=== PATIENT | female | born 1965 | race African-American/Black ===

== ENCOUNTER 2016-11-10 23:59 | Inpatient (IN) ==
[2016-11-11] MEDS ORDERED: *HR* LORazepam 2 MG/ML VIAL IM PRN (00:39)
[2016-11-11] MEDS ORDERED: Haloperidol Lactate 5 MG/ML VIAL IM PRN (00:39)
[2016-11-11] MEDS ORDERED: *HR* LORazepam 1 MG TABLET PO PRN (00:39)
[2016-11-11] MEDS ORDERED: MOM Conc 10 ML UD.LIQ PO PRN (00:39)
[2016-11-11] MEDS ORDERED: hydrOXYzine pamoate 25 MG CAPSULE PO PRN (00:39)
[2016-11-11] MEDS ORDERED: Mag Hydrox/Al Hydrox/Simeth 30 ML UDC PO PRN (00:39)
[2016-11-11] MEDS ORDERED: Warfarin perPT PO PRN (01:06)
[2016-11-11 01:29] LABS: INR 1.4; Prothrombin Time 15.3 Seconds (9.4-12.1)
[2016-11-11] MEDS: traZODone 50 MG TABLET PO PRN (03:03)
[2016-11-11] MEDS: Acetaminophen 325 MG TABLET PO PRN ×2 (03:04→18:33)
--- NOTE | 2016-11-11 11:17 | Psychiatry History & Physical ---
Date of Encounter: 11/11/16 Time of Encounter: 10:30 History of Present Illness Patient Stated Chief Complaint: Suicidal ideation Medicare Admission Attestation: For traditional Medicare patients the provided hospital inpatient services are reasonable and necessary and in the case of services not specified as inpatient -only under 42 CFR 419.22 (n), that they are appropriately provided as inpatient services in accordance 42 CFR 412.3. For Critical Access Hospital the patient may reasonably be expected to be discharged or transferred to a hospital within 96 hours after admission to the Critical Access Hospital. Admitted From: Emergency Dept History of Present Illness: Ms. Gannon is a 51 year old female admitted from the emergency room for evaluation of suicidal ideation. Patient was reported to lie down on them in the streets wishing she can get hit by a car to kill herself. Recently patient lost her 23 yo son, she was the main caregiver for him since he was disabled and she feels overwhelmed by his . She is also stressed out with other family issues. Patient had remote history of psychiatric hospitalization 20 years ago in [place]. Denies any past suicide attempts. Patient education including Cymbalta and Risperdal were prescribed by her primary care. 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 She denies any use of alcohol or drug use. Patient had significant medical history including diabetes, migraine, COPD. Past Med Surg Social Fam HX - Past Medical History Medical history: arthritis, COPD, diabetes, GERD, hyperlipidemia, hypertension, migraine, pulmonary embolus - Past Psychiatric History Psychiatric history: Reports: depression, previous psychiatric hospitalization Past psychiatric history details: Hospitalized 20 years ago and [facility]. - Past Surgical History Surgical History: cholecystectomy, herniorrhaphy, hysterectomy, orthopedic, other, other - Social History Smoking Status: Never smoker Smokeless Tobacco Status: No Alcohol use: rarely Drug use: none, other - Family History Father Hx Family Cardiac Disorders: Yes Mother Hx Family Cardiac Disorders: Yes Hx Family Endocrine Disorder: Yes (Diabetes mellitus type 2) Brother Hx Family Cancer: Yes (Various different cancers including a rectal cancer) Medications & Allergies Duloxetine HCl [Cymbalta] 60 mg PO DAILY 06/14/15 [History] Insulin Glargine,Hum.rec.anlog [Lantus Solostar] 20 unit SQ DAILY 06/14/15 [ History] Metformin HCl [Glucophage] 1,000 mg PO BID PRN 06/14/15 [History] Aspirin [Adult Low Dose Aspirin EC] 81 mg PO DAILY 09/06/15 [History] Atorvastatin Calcium [Lipitor] 80 mg PO HS 09/06/15 [History] Cholecalciferol (Vitamin D3) [Vitamin D3] 2,000 unit PO DAILY 09/06/15 [History] Isosorbide MONOnitrate (24 HR) [Imdur] 30 mg PO DAILY 09/06/15 [History] Omeprazole [PriLOSEC] 40 mg PO DAILY 09/06/15 [History] AcetaZOLAMIDE [Diamox Sequels] 500 mg PO BID 05/26/16 [History] Metoprolol Succinate 100 mg PO DAILY 05/26/16 [History] Pregabalin [Lyrica] 225 mg PO BID capsule 06/20/16 [Rx] Warfarin [Coumadin] 8 mg PO DAILY@1800 11/10/16 [History] Albuterol Sulfate [Proair Hfa] 2 puff IH Q4H PRN 11/11/16 [History] Insulin ASPART [NovoLOG] 0 unit SQ TIDWM 11/11/16 [History] Ketorolac OPTH Soln [Acular] 1 drop OP QID 11/11/16 [History] Ketotifen Fumarate [Eye Itch Relief] 1 drop OP BID 11/11/16 [History] Lisinopril/Hydrochlorothiazide [Zestoretic 20-25 mg Tablet] 1 each PO DAILY [History] PrednisoLONE Acetate 1% Opth [PredFORTE 1%] 1 drop OP BID 11/11/16 [History] SUMAtriptan Succinate [Imitrex] 100 mg PO DAILY PRN 11/11/16 [History] risperiDONE [Risperidone] 1 mg PO HS 11/11/16 [History] Allergies gabapentin Allergy (Verified 06/14/15 04:04) Itching Latex, Natural Rubber Allergy (Verified 06/14/15 04:04) Itching naproxen [From Naprosyn] Allergy (Verified 06/14/15 04:04) Itching Review of Systems Psychiatric: Reports: depression, suicidal ideation, hopelessness Mental Status Exam Patient orientation: Yes Person, Yes Time, Yes Place Level of alertness: Alert Patient appearance: Appropriate, Well Groomed, Obese Behavior: calm, cooperative, withdrawn Psychomotor activity: Slowed Eye contact: Minimal Contact Mood description: Depressed, Anxious Affect description: congruent with mood, constricted, tearful Speech pattern: Normal rate, Normal rhythm, Normal tone Speech volume: Normal Thought process: Linear, Goal Oriented Thought content: Yes Suicidal ideation, No Homicidal ideation, No Overt delusions Perceptual disturbances: No Auditory hallucinations, No Visual hallucinations Attention span: Capable of Focused Attention Memory description: Grossly Intact Patient reliability: Reliable Historian Intelligence estimate: Average Judgment: Limited Insight: Partial Results - Vital Signs Vital signs: Temp Pulse Resp BP 97.2 F L 80 16 164/102 11/11/16 09:00 11/11/16 09:00 11/11/16 09:00 11/11/16 09:00 - Labs Labs: Laboratory Last Values PT 15.3 Seconds (9.4-12.1) H 11/11/16 01:08 INR 1.4 11/11/16 01:08 POC Glucose 154 (58-89) H 11/11/16 10:03 Assessment and Plan (1) Bipolar disorder current episode depressed Current visit: Yes Status: Acute Plan: Admit inpatient for safety and stabilization, Close observation, Suicide Precautions per unit protocol, Encourage participation in unit milieu, Group Therapy, Monitor sleep, Monitor appetite Additional Plan: Will add Zoloft 50 mg daily, patient had history of response to this medicine. Benefits and side effects were discussed and she is agreeable to start. Risks, benefits, side effects, alternatives discussed w/pt: Yes Patient agreeable to treatment: Yes Qualifiers: Current episode severity: severe Psychotic features: without psychotic features Qualified Code(s): F31.4 - Bipolar disorder, current episode depressed, severe, without psychotic features
[2016-11-11] MEDS: Insulin LISPRO 300 UNITS/3 ML VIAL SQ SCH ×2 (12:23→17:01)
[2016-11-11] MEDS: *HR* Metformin 500 MG TABLET PO SCH ×2 (12:24→17:02)
[2016-11-11] MEDS: acetaZOLAMIDE 250 MG TABLET PO SCH ×2 (12:25→22:02)
[2016-11-11] MEDS: Metoprolol XL (24 HR) Succ 50 MG TAB.ER.24H PO SCH (12:25)
[2016-11-11] MEDS: Aspirin Enteric Coated 81 MG Tablet PO SCH (12:25)
[2016-11-11] MEDS: Cholecalciferol (D-3) 1,000 UNIT TABLET PO SCH (12:28)
[2016-11-11] MEDS: RisperiDONE-M 1 MG TAB.RAPDIS PO SCH (12:28)
[2016-11-11] MEDS: Isosorbide MONOnitrate (24 HR) 30 MG TAB.ER.24H PO SCH (12:28)
[2016-11-11] MEDS ORDERED: SUMAtriptan succinate 50 MG TABLET PO PRN (13:15)
[2016-11-11] MEDS: *HR* Warfarin 4 MG TABLET PO SCH (16:57)
[2016-11-11] MEDS ORDERED: *HR* Warfarin 5 MG TABLET PO SCH (18:00)
[2016-11-11] MEDS ORDERED: Ketorolac OPTH Soln 5 ML BOTTLE RIGHT EYE SCH (21:00)
[2016-11-11] MEDS: Ketorolac OPTH Soln 5 ML BOTTLE RIGHT EYE SCH (22:03)
[2016-11-11] MEDS: PrednisoLONE Acetate 1% Opth 5 ML BOTTLE RIGHT EYE SCH (22:04)
[2016-11-12] MEDS: Acetaminophen 325 MG TABLET PO PRN (07:34)
[2016-11-12] MEDS: *HR* Metformin 500 MG TABLET PO SCH ×2 (08:37→16:44)
[2016-11-12] MEDS: RisperiDONE-M 1 MG TAB.RAPDIS PO SCH (08:38)
[2016-11-12] MEDS: Aspirin Enteric Coated 81 MG Tablet PO SCH (08:38)
[2016-11-12] MEDS: Cholecalciferol (D-3) 1,000 UNIT TABLET PO SCH (08:38)
[2016-11-12] MEDS: acetaZOLAMIDE 250 MG TABLET PO SCH ×2 (08:38→21:18)
[2016-11-12] MEDS: Isosorbide MONOnitrate (24 HR) 30 MG TAB.ER.24H PO SCH (08:40)
[2016-11-12] MEDS: PrednisoLONE Acetate 1% Opth 5 ML BOTTLE RIGHT EYE SCH ×4 (08:41→21:18)
[2016-11-12] MEDS: Metoprolol XL (24 HR) Succ 50 MG TAB.ER.24H PO SCH (08:41)
[2016-11-12] MEDS: Insulin DETEMIR 100 UNIT/ML X5UNITS SQ SCH (08:42)
[2016-11-12] MEDS: Ketorolac OPTH Soln 5 ML BOTTLE RIGHT EYE SCH ×4 (08:42→21:17)
[2016-11-12] MEDS: Insulin LISPRO 300 UNITS/3 ML VIAL SQ SCH ×3 (08:43→16:44)
[2016-11-12 08:46] LABS: INR 1.4; Prothrombin Time 15.6 Seconds (9.4-12.1)
--- NOTE | 2016-11-12 13:40 | Psychiatry Progress Note ---
Date of Encounter: 11/12/16 Time of Encounter: 13:00 Subjective Interval history: Patient is seen for follow-up she reported feeling slightly better, had adequate sleep , she denies having suicidal thoughts. She feels sad and misses her son. She is occupied with multiple family stressors. She is tolerating her medication. She is interested in having outpatient therapy and will discuss it with social work manager. Denies any medical complaints. Review of Systems Psychiatric: Reports: depression, suicidal ideation, hopelessness Objective: Exam Patient orientation: Yes Person, Yes Time, Yes Place Level of alertness: Alert Patient appearance: Appropriate, Well Groomed, Obese Behavior: calm, cooperative, tearful Psychomotor activity: Slowed Eye contact: Minimal Contact Mood description: Depressed, Anxious Affect description: congruent with mood, constricted Speech pattern: Normal rate, Normal rhythm, Normal tone, Slowed Speech volume: Normal Thought process: Linear, Goal Oriented Thought content: No Suicidal ideation, No Homicidal ideation, No Overt delusions Perceptual disturbances: No Auditory hallucinations, No Visual hallucinations Judgment: Fair Insight: Partial Results - Vital Signs Vital Signs: Temp Pulse Resp BP 97 F L 59 16 110/73 11/12/16 09:00 11/12/16 09:00 11/12/16 09:00 11/12/16 09:00 - Labs Labs: Laboratory Results - last 24 hr 11/11/16 11/11/16 11/12/16 16:48 20:39 08:21 PT INR POC Glucose 112 H 135 H 228 H 11/12/16 11/12/16 08:22 11:32 PT 15.6 H INR 1.4 POC Glucose 200 H Assessment and Plan (1) Bipolar disorder current episode depressed Current visit: Yes Status: Acute Plan: Continue hospitalization, Close observation, Suicide Precautions per unit protocol, Encourage participation in unit milieu, Group Therapy, Monitor sleep, Monitor appetite Risks, benefits, side effects, alternatives discussed w/pt: Yes Patient agreeable to treatment: Yes Qualifiers: Current episode severity: severe Psychotic features: without psychotic features Qualified Code(s): F31.4 - Bipolar disorder, current episode depressed, severe, without psychotic features Consult Discharge Plan - Plan [facility] - 11/14/16 3:00 pm (The above appointment is with Karlene Capps for counseling.) Maxine Ordaz MD [Partnered Physician] - 11/21/16 7:00 pm (The above appointment is with Dr. Ordaz.)
[2016-11-12] MEDS: *HR* Warfarin 4 MG TABLET PO SCH (17:21)
[2016-11-12] MEDS: *HR* Enoxaparin 100 MG/ML SYRINGE SQ SCH (17:21)
--- NOTE | 2016-11-12 18:12 | Internal Medicine Consult Note ---
Date of Encounter: 11/12/16 Time of Encounter: 18:09 - Assessment and Plan (1) History of pulmonary embolism Current Visit: No Status: Acute Assessment and plan: Start Lovenox 1 mg/kg twice a day until INR is more than 2 Continue Coumadin per pharmacy dosing Needs to follow-up as an outpatient with Coumadin clinic Thank you for allowing us to participate in the care of this patient. Please call with any questions (2) DM type 2 (diabetes mellitus, type 2) Current Visit: No Status: Acute Assessment and plan: Continue insulin Qualifiers: Diabetes mellitus complication status: without complication Diabetes mellitus manager long term care insulin use: with mcc use Qualified Code(s): E11.9 - Type 2 diabetes mellitus without complications; Z79.4 - intermediate project manager (current) use of insulin (3) CAD (coronary artery disease) Current Visit: No Status: Chronic Assessment and plan: Stable Qualifiers: Coronary Disease-Associated Artery/Lesion type: [place] artery [place] vs. transplanted heart: [place] heart Associated angina: with unspecified angina Qualified Code(s): I25.119 - Atherosclerotic heart disease of [place] coronary artery with unspecified angina pectoris (4) GERD (gastroesophageal reflux disease) Current Visit: No Status: Chronic Qualifiers: Esophagitis presence: without esophagitis Qualified Code(s): K21.9 - Gastro -esophageal reflux disease without esophagitis (5) Bipolar disorder Current Visit: No Status: Chronic Assessment and plan: Continue management per psychiatry Qualifiers: Active/Remission status: currently active Current bipolar episode type: mixed Current episode severity: unspecified Qualified Code(s): F31.60 - Bipolar disorder, current episode mixed, unspecified (6) Suicidal ideation Current Visit: No Status: Acute Assessment and plan: Continue management per psychiatry Internal Medicine - CN: HPI - Data of Consult Patient: new to practice Consult date: 11/12/16 Requesting Physician: Lauro Ivey MD - Consult Narrative Reason for consult: Anticoagulation management History of present illness: Ms. Gannon is a 51 year old female with a past medical history of depression, pulmonary emboli on Coumadin, diabetes type 2 insulin-dependent who was admitted to the psychiatry unit due to suicidal ideation after her son's . We were consulted by the psychiatry service to manage her anticoagulation as her INR is 1.4. The patient was diagnosed with a pulmonary emboli just a few months ago. Her mother and brother have history of clotting disorders and she is not sure whether she has a 2. Patient denies any shortness of breath at the moment no leg pain, had mild chest discomfort in the past but not at the moment. She is asymptomatic. Past Med Surg Social Fam HX - Past Medical History Medical history: arthritis, COPD (Not oxygen dependent), diabetes (Insulin- dependent), GERD, hyperlipidemia, hypertension, migraine, pulmonary embolus (On Coumadin), other (CAD, GERD, migraines, depression, bipolar disorder) Psychiatric history: depression, previous psychiatric hospitalization - Past Surgical History Surgical History: cholecystectomy, herniorrhaphy, hysterectomy, orthopedic, other, other (Cardiac catheterization) - Social History Smoking Status: Never smoker Smokeless Tobacco Status: No Alcohol use: rarely Drug use: none, other - Family History Father Hx Family Cardiac Disorders: Yes Mother Hx Family Cardiac Disorders: Yes Hx Family Endocrine Disorder: Yes (Diabetes mellitus type 2) Brother Hx Family Cancer: Yes (Various different cancers including a rectal cancer) - Additional Family History Additional family history: Mother with diabetes and clotting disorder, brother with clotting disorder and rectal cancer Review of systems: Other systems out the 10 reviewed were negative. No abdominal pain, no dysuria. No weakness or chest pain. Internal Medicine - CN: Meds Duloxetine HCl [Cymbalta] 60 mg PO DAILY 06/14/15 [History] Insulin Glargine,Hum.rec.anlog [Lantus Solostar] 20 unit SQ DAILY 06/14/15 [ History] Metformin HCl [Glucophage] 1,000 mg PO BID PRN 06/14/15 [History] Aspirin [Adult Low Dose Aspirin EC] 81 mg PO DAILY 09/06/15 [History] Atorvastatin Calcium [Lipitor] 80 mg PO HS 09/06/15 [History] Cholecalciferol (Vitamin D3) [Vitamin D3] 2,000 unit PO DAILY 09/06/15 [History] Isosorbide MONOnitrate (24 HR) [Imdur] 30 mg PO DAILY 09/06/15 [History] Omeprazole [PriLOSEC] 40 mg PO DAILY 09/06/15 [History] AcetaZOLAMIDE [Diamox Sequels] 500 mg PO BID 05/26/16 [History] Metoprolol Succinate 100 mg PO DAILY 05/26/16 [History] Pregabalin [Lyrica] 225 mg PO BID capsule 06/20/16 [Rx] Warfarin [Coumadin] 8 mg PO DAILY@1800 11/10/16 [History] Albuterol Sulfate [Proair Hfa] 2 puff IH Q4H PRN 11/11/16 [History] Insulin ASPART [NovoLOG] 0 unit SQ TIDWM 11/11/16 [History] Ketorolac OPTH Soln [Acular] 1 drop OP QID 11/11/16 [History] Ketotifen Fumarate [Eye Itch Relief] 1 drop OP BID 11/11/16 [History] Lisinopril/Hydrochlorothiazide [Zestoretic 20-25 mg Tablet] 1 each PO DAILY [History] PrednisoLONE Acetate 1% Opth [PredFORTE 1%] 1 drop OP QID 11/11/16 [History] SUMAtriptan Succinate [Imitrex] 100 mg PO DAILY PRN 11/11/16 [History] risperiDONE [Risperidone] 1 mg PO HS 11/11/16 [History] Allergies gabapentin Allergy (Verified 06/14/15 04:04) Itching Latex, Natural Rubber Allergy (Verified 06/14/15 04:04) Itching naproxen [From Naprosyn] Allergy (Verified 06/14/15 04:04) Itching Internal Medicine - CN: Exam - Constitutional Vitals: Temp Pulse Resp BP 97 F L 59 16 110/73 11/12/16 09:00 11/12/16 09:00 11/12/16 09:00 11/12/16 09:00 General appearance IM: Present: A&O X 3 - Head Head exam: Present: atraumatic, normal inspection - Expanded Head Exam Head exam expanded IM: Absent: Cabral's sign, contusion, hematoma, laceration - Eye Eye exam: Present: EOMI, normal appearance. Absent: conjunctival injection, nystagmus - ENT ENT exam: Present: mucous membranes moist - Neck Neck exam general surgery: Present: full ROM, normal inspection. Absent: lymphadenopathy - Expanded Neck Exam Neck exam: Absent: carotid bruit, tenderness - Respiratory Respiratory exam: Present: decreased breath sounds. Absent: accessory muscle use, chest wall tenderness, rales, respiratory distress, wheezes, tachypnea - Cardiovascular Cardiovascular exam IM: Present: +S1. Absent: diastolic murmur - GI/Abdominal GI/Abdominal exam IM: Present: diminished bowel sounds, distended, soft. Absent : hyperactive bowel sounds, rebound, rigid - Extremities Exam Extremities exam IM: Present: full ROM. Absent: calf tenderness, cyanotic, joint swelling - Back Exam Back exam: Absent: CVA tenderness (L), CVA tenderness (R) - Neurological Exam Neurological exam: Present: alert, CN II-XII intact, normal gait, oriented X3 - Psychiatric Psychiatric exam: Present: depressed. Absent: agitated, anxious - Skin Skin exam IM: Absent: abrasion, cyanosis, diaphoretic Internal Medicine - CN: Reslt - ABG Interpretation ABG results: PT/INR, D-dimer PT 15.6 Seconds (9.4-12.1) H 11/12/16 08:22 Consult Discharge Plan - Plan Referrals: [facility] [Outside] - 11/14/16 3:00 pm (The above appointment is with Karlene Capps for counseling.) Maxine Ordaz MD [Partnered Physician] - 11/21/16 7:00 pm (The above appointment is with Dr. Ordaz.)
[2016-11-12] MEDS: traZODone 50 MG TABLET PO PRN (21:19)
[2016-11-13 06:18] LABS: INR 1.8; Prothrombin Time 19.2 Seconds (9.4-12.1)
[2016-11-13] MEDS: *HR* Enoxaparin 100 MG/ML SYRINGE SQ SCH ×2 (06:49→18:31)
[2016-11-13] MEDS: Acetaminophen 325 MG TABLET PO PRN (06:50)
[2016-11-13] MEDS: Isosorbide MONOnitrate (24 HR) 30 MG TAB.ER.24H PO SCH (08:53)
[2016-11-13] MEDS: RisperiDONE-M 1 MG TAB.RAPDIS PO SCH (08:53)
[2016-11-13] MEDS: Metoprolol XL (24 HR) Succ 50 MG TAB.ER.24H PO SCH (08:53)
[2016-11-13] MEDS: acetaZOLAMIDE 250 MG TABLET PO SCH (08:53)
[2016-11-13] MEDS: Cholecalciferol (D-3) 1,000 UNIT TABLET PO SCH (08:54)
[2016-11-13] MEDS: Aspirin Enteric Coated 81 MG Tablet PO SCH (08:54)
[2016-11-13] MEDS: Ketorolac OPTH Soln 5 ML BOTTLE RIGHT EYE SCH ×3 (08:55→16:18)
[2016-11-13] MEDS: *HR* Metformin 500 MG TABLET PO SCH ×2 (08:55→16:18)
[2016-11-13] MEDS: Insulin DETEMIR 100 UNIT/ML X5UNITS SQ SCH (08:55)
[2016-11-13] MEDS: PrednisoLONE Acetate 1% Opth 5 ML BOTTLE RIGHT EYE SCH ×3 (08:55→18:31)
[2016-11-13] MEDS: Insulin LISPRO 300 UNITS/3 ML VIAL SQ SCH ×3 (08:56→16:18)
[2016-11-13 09:33] VITALS: BP 128/82
--- NOTE | 2016-11-13 14:43 | Discharge Summary ---
Date of Encounter: 11/13/16 Time of Encounter: 14:42 Diagnosis - Discharge Diagnosis (1) Bipolar disorder current episode depressed Status: Acute Qualifiers: Current episode severity: severe Psychotic features: without psychotic features Qualified Code(s): F31.4 - Bipolar disorder, current episode depressed, severe, without psychotic features Medications - Discharge Medications Prescriptions: Sertraline [Zoloft] 50 mg PO DAILY #30 tablet Duloxetine HCl [Cymbalta] 60 mg PO DAILY 06/14/15 [History] Insulin Glargine,Hum.rec.anlog [Lantus Solostar] 20 unit SQ DAILY 06/14/15 [ History] Metformin HCl [Glucophage] 1,000 mg PO BID PRN 06/14/15 [History] Aspirin [Adult Low Dose Aspirin EC] 81 mg PO DAILY 09/06/15 [History] Atorvastatin Calcium [Lipitor] 80 mg PO HS 09/06/15 [History] Cholecalciferol (Vitamin D3) [Vitamin D3] 2,000 unit PO DAILY 09/06/15 [History] Isosorbide MONOnitrate (24 HR) [Imdur] 30 mg PO DAILY 09/06/15 [History] Omeprazole [PriLOSEC] 40 mg PO DAILY 09/06/15 [History] AcetaZOLAMIDE [Diamox Sequels] 500 mg PO BID 05/26/16 [History] Metoprolol Succinate 100 mg PO DAILY 05/26/16 [History] Pregabalin [Lyrica] 225 mg PO BID capsule 06/20/16 [Rx] Warfarin [Coumadin] 8 mg PO DAILY@1800 11/10/16 [History] Albuterol Sulfate [Proair Hfa] 2 puff IH Q4H PRN 11/11/16 [History] Insulin ASPART [NovoLOG] 0 unit SQ TIDWM 11/11/16 [History] Ketorolac OPTH Soln [Acular] 1 drop OP QID 11/11/16 [History] Ketotifen Fumarate [Eye Itch Relief] 1 drop OP BID 11/11/16 [History] Lisinopril/Hydrochlorothiazide [Zestoretic 20-25 mg Tablet] 1 each PO DAILY [History] PrednisoLONE Acetate 1% Opth [PredFORTE 1%] 1 drop OP QID 11/11/16 [History] SUMAtriptan Succinate [Imitrex] 100 mg PO DAILY PRN 11/11/16 [History] risperiDONE [Risperidone] 1 mg PO HS 11/11/16 [History] Enoxaparin [Lovenox] 90 mg SQ Q12HR syringe 11/13/16 [Rx] Insulin DETEMIR [Levemir] 20 unit SQ DAILY [id number] 11/13/16 [Rx] RisperiDONE-M [RisperDAL M-TAB] 1 mg PO DAILY tab.rapdis 11/13/16 [Rx] Sertraline [Zoloft] 50 mg PO DAILY #30 tablet 11/13/16 [Rx] Warfarin [Coumadin] 8 mg PO 1800 tablet 11/13/16 [Rx] traZODone [TraZODone] 50 mg PO HS PRN #0 tablet 11/13/16 [Rx] Allergies gabapentin Allergy (Verified 06/14/15 04:04) Itching Latex, Natural Rubber Allergy (Verified 06/14/15 04:04) Itching naproxen [From Naprosyn] Allergy (Verified 06/14/15 04:04) Itching Results Procedures and tests throughout hospitalization: Completed Lab Orders Category Date Time Status PT/INR [Prothrombin Time INR] [COAG] DAILY Lab 11/12/16 08:22 Completed PT/INR [Prothrombin Time INR] [COAG] Routine Lab 11/11/16 01:08 Completed Prothrombin Time INR [COAG] AM 0400 Lab 11/13/16 06:05 Completed Provider Date of admission: 11/10/16 23:59 Primary care physician: PCP NO Consults: 11/12/16 14:08 Consult to Hospitalist [CONS] Stat Consulting Provider: Hospitalist Isaac Reason for Consult: INR levels low Time Notified: 14:09 Call Completed: Yes Discharging clinician: Lauro Ivey Assessment and Plan - Patient/Caregiver Discharge Instructions Activity: resume usual activities as tolerated Diet: regular diet - Follow up Plan Follow up with: [facility] [Outside] - 11/14/16 3:00 pm (The above appointment is with Karlene Capps for counseling.) Maxien Ordaz MD [Partnered Physician] - 11/21/16 7:00 pm (The above appointment is with Dr. Ordaz.) Functional capacity at discharge: independent ambulation Overall status at discharge: Stable Disposition: Home, Self-Care Hospital Course Hospital course: Ms. Gannon is a 51 year old female admitted from the emergency room for evaluation of depression and suicidal ideation. For details of the admission please see H&P On the unit patient medication were reviewed and Zoloft 50 mg was added. Patient tolerated medication and showed improvement in her depression and sleep. Medical consultation was requested to adjust patient's medication for hypertension and anticoagulation. Patient was noncompliant with appointment to follow-up prior to admission. Patient participated in some groups and interacted appropriately with staff and peers. On discharge patient was medically stable and nonsuicidal. Her discharge plans were completed by the forensic social worker and shared with the patient. - Time Spent with Patient Total time spent providing and/or coordinating discharge services: Greater than 30 minutes Quality - Multiple Antipsychotics Patient discharged on 2 or more antipsychotic medications: No Procedures - Procedures Procedures: Medication Management, Crisis Stabilization, Supportive Therapy, Group Therapy, Psychoeducational Therapy Mental Status Exam - Mental Status Exam Patient orientation: Yes Person, Yes Time, Yes Place Level of alertness: Alert Patient appearance: Appropriate, Well Groomed, Obese Behavior: calm, cooperative Psychomotor activity: Normal Eye contact: Maintains Eye Contact Mood description: Euthymic/stable Affect description: congruent with mood, full range Speech pattern: Normal rate, Normal rhythm, Normal tone Speech Volume: Normal Thought process: Linear, Goal Oriented Thought Content: No Suicidal ideation, No Homicidal ideation, No Overt delusions Perceptual Disturbances: No Auditory hallucinations, No Visual hallucinations Judgment: Limited Insight: Partial
[2016-11-13] MEDS ORDERED: Warfarin perPT PO PRN (18:00)
[2016-11-13] MEDS: *HR* Warfarin 4 MG TABLET PO SCH (18:31)
--- NOTE | 2016-11-13 18:39 | Internal Med Progress Note ---
Date of Encounter: 11/13/16 Time of Encounter: 16:00 - Assessment and plan (1) Anticoagulated on Coumadin Current Visit: Yes Status: Acute Assessment and plan: The patient should be discharged home on bridging dose of Lovenox 1.5 mg/kg every 24 hours. I gave her prescription for one 30 mg of Lovenox daily. She tells me that she has done Lovenox. Continue with Coumadin per her home dose of 8 mg nightly. I advised the patient to have her INR checked in 2 days of discharge today and then repeat in 5 days. Reports INRs to PCP for Coumadin management. (2) History of pulmonary embolism Current Visit: No Status: Acute Assessment and plan: I encouraged the patient to improve her medication adherence and advised her of the risks of interrupting Coumadin abruptly. (3) DM type 2 (diabetes mellitus, type 2) Current Visit: No Status: Acute Assessment and plan: I recommending continuing with insulin Levemir and sliding scale at home. I emphasized diet and medication compliance. Qualifiers: Diabetes mellitus complication status: without complication Diabetes mellitus jail insulin use: with jail use Qualified Code(s): E11.9 - Type 2 diabetes mellitus without complications; Z79.4 - FDC (current) use of insulin (4) CAD (coronary artery disease) Current Visit: No Status: Chronic Qualifiers: Coronary Disease-Associated Artery/Lesion type: [place] artery [place] vs. transplanted heart: [place]asta heart Associated angina: with unspecified angina Qualified Code(s): I25.119 - Atherosclerotic heart disease of [place] coronary artery with unspecified angina pectoris (5) Bipolar disorder Current Visit: No Status: Chronic Qualifiers: Active/Remission status: currently active Current bipolar episode type: mixed Current episode severity: unspecified Qualified Code(s): F31.60 - Bipolar disorder, current episode mixed, unspecified - Subjective Interval history: patient is being followed for her diabete and anticoagulation. She denies any symptoms of hypo-or hyperglycemia. Her blood glucose was in the 40s earlier today. She denies sweatiness and lightheadedness. Her depression has been improving. - Constitutional Vitals: Temp Pulse Resp BP 97.7 F 90 16 128/82 11/13/16 09:00 11/13/16 09:00 11/13/16 09:00 11/13/16 09:00 General appearance: Present: A&O X 3 - Respiratory Respiratory exam: Present: CTAB. Absent: accessory muscle use, rales, rhonchi, wheezes - Cardiovascular Cardiovascular exam: Present: RRR, +S1, +S2. Absent: diastolic murmur, gallop, rubs, systolic murmur - GI/Abdominal GI/Abdominal exam: Present: normal bowel sounds, soft, no peritoneal signs. Absent: distended, tenderness - Neurological Exam Neurological exam: Present: CN II-XII intact, oriented X3, no focal deficits. Absent: pronater drift, facial droop, speech deficit Internal Medicine: Result - ABG Interpretation ABG results: PT/INR, D-dimer PT 19.2 Seconds (9.4-12.1) H 11/13/16 06:05 - VTE Reasons for not Prescribing Prophylaxis: Not indicated-Anticoagulated or INR therapeutic Consult Discharge Plan - Plan Instructions: Depression (DC) Referrals: Balaji Flannery [facility] [place] [Outside] - 11/14/16 3:00 pm (The above appointment is with Karlene Capps for counseling.) Maxine Ordaz MD [Partnered Physician] - 11/21/16 7:00 pm (The above appointment is with Dr. Ordaz.) Prescriptions: Enoxaparin [Lovenox] 130 mg SQ DAILY #5 syr Sertraline [Zoloft] 50 mg PO DAILY #30 tablet
== END 2016-11-13 18:30 | disposition home or self-care (01) | DRG 753 ==
LOC: SUATTDRO 23:59 → 1ANU 23:59
PROVIDERS: ADMIT Psychiatry & Neurology Psychiatry; ATTEND Psychiatry & Neurology Psychiatry

== ENCOUNTER 2017-01-02 19:30 | Observation (INO) ==
--- NOTE | 2017-01-02 20:06 | Emergency Department Note ---
Disposition Clinical Impression: Chest pain, rule out acute myocardial infarction Disposition: Admitted As Inpatient Condition: Good Time of Disposition: 22:19 General Adult HPI - General Chief complaint: ED Shortness of Breath/Dyspnea Time Seen by Provider: 01/02/17 19:39 Source: patient, EMS Mode of arrival: EMS Limitations: no limitations Nursing Notes Reviewed: Yes Vital Signs Reviewed: Yes - History of Present Illness HPI Narrative: Patient is a 51-year-old female presents via the EMS. She was originally seen at [facility] urgent care and sent here. Patient states that she began having chest discomfort yesterday evening and shortness of breath today. She said that the chest pain is located in the center of her chest and is worse with exertion. Nothing seems to make this discomfort better. She states that her arms feel exhausted and heavy. The chest discomfort is described as a heavy dullness. And rated as a 6 out of 10 for severity. Patient states that she tried Symbicort at home with little relief. Patient also noted that her blood pressure was 69/53 with a heart rate in 95 and that is part of what brought her into the urgent care this evening. Pain Scale: 0 - Related Data Home Medications Medication Instructions Recorded Confirmed Duloxetine HCl [Cymbalta] 60 mg PO DAILY 06/14/15 01/02/17 Insulin Glargine,Hum.rec.anlog 20 unit SQ QAM 06/14/15 01/02/17 [Lantus Solostar] Metformin HCl [Glucophage] 1,000 mg PO BID PRN 06/14/15 01/02/17 Atorvastatin Calcium [Lipitor] 80 mg PO HS 09/06/15 01/02/17 Cholecalciferol (Vitamin D3) 2,000 unit PO DAILY 09/06/15 01/02/17 [Vitamin D3] Isosorbide MONOnitrate (24 HR) 30 mg PO DAILY 09/06/15 01/02/17 [Imdur] Omeprazole [PriLOSEC] 40 mg PO DAILY 09/06/15 01/02/17 AcetaZOLAMIDE [Diamox Sequels] 500 mg PO BID 05/26/16 01/02/17 Metoprolol Succinate 100 mg PO DAILY 05/26/16 01/02/17 Albuterol Sulfate [Proair Hfa] 2 puff IH Q4H PRN 11/11/16 01/02/17 Insulin ASPART [NovoLOG] 0 unit SQ TIDWM 11/11/16 01/02/17 Ketorolac OPTH Soln [Acular] 1 drop OP QID 11/11/16 01/02/17 Ketotifen Fumarate [Eye Itch 1 drop OP BID 11/11/16 01/02/17 Relief] Lisinopril/Hydrochlorothiazide 1 each PO DAILY 11/11/16 01/02/17 [Zestoretic 20-25 mg Tablet] PrednisoLONE Acetate 1% Opth 1 drop OP Q2H 11/11/16 01/02/17 [PredFORTE 1%] SUMAtriptan Succinate [Imitrex] 100 mg PO DAILY PRN 11/11/16 01/02/17 risperiDONE [Risperidone] 2 mg PO HS 11/11/16 01/02/17 Aspirin 81 mg PO DAILY 01/02/17 01/02/17 Budesonide/Formoterol 160/4.5 2 puff IH BIDR 01/02/17 01/02/17 [Symbicort 160/4.5] Cyclobenzaprine [Flexeril] 10 mg PO TID PRN 01/02/17 01/02/17 HYDROcodone/Acet 5/325 mg [[place] 1 tab PO BID PRN 01/02/17 01/02/17 5-325 mg] Lidocaine [Lidocaine] 1 appl TP TID PRN 01/02/17 01/02/17 Loratadine [Claritin] 10 mg PO DAILY 01/02/17 01/02/17 Nystatin [Nystatin Suspension] 1,000,000 unit PO BID 01/02/17 01/02/17 Rivaroxaban [Xarelto] 20 mg PO DAILY 01/02/17 01/02/17 traZODone [TraZODone] 50 - 100 mg PO HS PRN 01/02/17 01/02/17 Previous Rx's Medication Instructions Recorded Pregabalin [Lyrica] 225 mg PO BID capsule 06/20/16 Sertraline [Zoloft] 50 mg PO DAILY #30 tablet 11/13/16 Allergies Allergy/AdvReac Type Severity Reaction Status Date / Time gabapentin Allergy Itching Verified 06/14/15 04:04 Latex, Natural Rubber Allergy Itching Verified 06/14/15 04:04 naproxen [From Naprosyn] Allergy Itching Verified 06/14/15 04:04 All systems ED: reviewed and negative except as stated. Cardiovascular: Reports: chest pain, dyspnea on exertion Respiratory: Reports: dyspnea Gastrointestinal: Denies: abdominal pain Endocrine: Reports: fatigue Past Medical History - Past Medical History Attestation: Yes The following information was validated with the patient. 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 Absent: respiratory distress, wheezes - Cardiovascular Cardiovascular exam: Present: regular rate, normal rhythm, +S1, +S2 - Abdominal Exam Abdominal exam: Present: soft, Non-Tender, normal bowel sounds - Extremities Exam Extremities exam: Present: normal inspection, full ROM. Absent: pedal edema - Neurological Exam Neurological exam: Present: alert, oriented X3 - Psychiatric Psychiatric exam: Present: normal affect, normal mood - Skin Skin exam: Present: warm, dry, intact Course Vital Signs Temperature 97.6 F 01/02/17 19:32 Pulse Rate 79 01/02/17 19:32 Respiratory Rate 18 01/02/17 19:32 Blood Pressure 117/79 01/02/17 19:32 O2 Sat by Pulse Oximetry 98 01/02/17 19:32 Temperature 97.8 F 01/03/17 02:53 Pulse Rate 63 01/03/17 02:53 Respiratory Rate 15 01/03/17 02:53 Blood Pressure 89/60 01/03/17 02:53 O2 Sat by Pulse Oximetry 97 01/03/17 02:53 Oxygen Delivery Oxygen Delivery Room Air Medical Decision Making - MDM Narrative Medical decision making narrative: Patient is a 51-year-old female presents to ED with shortness of breath and chest heaviness and discomfort. Due to the patient's symptoms and history we have ordered laboratory tests, EKG, chest x-ray. The EKG showed sinus rhythm and the troponins were negative. Patient did have an elevated glucose of 505. We have given 10 units of insulin and started IV fluids. He is concerned that this patient may have unstable angina so I will be admitting her to the hospital for ACS rule out. I spoke with Dr. Su and he has accepted the patient to their service. - Medical Records Medical records reviewed: Yes I reviewed the patient's medical records. - Lab Data Lab results reviewed: Yes I reviewed the patient's lab results. Result diagrams: 01/02/17 21:01/03/17 01:40 Lab Results 01/02/17 01/02/17 01/02/17 Range/Units 21:13 21: 21:13 WBC 8.3 (4.3-11.1) K/mcL RBC 4.11 (3.82-4.97) M/mcL Hgb 12.1 (11.5-15.4) g/dL Hct 36.3 (35.3-44.9) % MCV 88.3 (83.0-100.0) fL MCH 29.4 (28.0-33.3) pg MCHC 33.3 (31.6-35.5) g/dL RDW 12.3 (11.5-14.5) % Plt Count 259 (140-400) K/mcL MPV 9.7 (9.4-12.4) fL Immature Gran % 0.1 (0-4) % Seg Neutrophils % 42.9 % Lymphocytes % 45.5 % Monocytes % 6.5 % Eosinophils % 4.6 % Basophils % 0.4 % Neutrophils # 3.5 (1.6-8.9) K/mcL Lymphocytes # 3.8 (0.6-4.6) K/mcL Monocytes # 0.5 (0.0-1.3) K/mcL Eosinophils # 0.4 (0.0-0.6) K/mcL Basophils # 0.0 (0.0-0.2) K/mcL Sodium 132 L (136-145) mEq/L Potassium 4.1 (3.5-4.5) mEq/L Chloride 99 (98-109) mEq/L Carbon Dioxide 26 (19-29) mEq/L BUN 22 H (7-20) mg/dL Creatinine 2.16 H (0.57-1.11) mg/dL Est GFR ( Amer) 29 L (> 60) Est GFR (Non-Af Amer) 24 L (> 60) BUN/Creatinine Ratio 10 (6-26) Glucose 505 H* (70-99) mg/dL Calculated Osmolality 300 (280-300) Calcium 10.0 (8.6-10.8) mg/dL Troponin I 0.01 (0-0.03) ng/mL B-Natriuretic Peptide (0-100) pg/mL 01/02/17 Range/Units 21:13 WBC (4.3-11.1) K/mcL RBC (3.82-4.97) M/mcL Hgb (11.5-15.4) g/dL Hct (35.3-44.9) % MCV (83.0-100.0) fL MCH (28.0-33.3) pg MCHC (31.6-35.5) g/dL RDW (11.5-14.5) % Plt Count (140-400) K/mcL MPV (9.4-12.4) fL Immature Gran % (0-4) % Seg Neutrophils % % Lymphocytes % % Monocytes % % Eosinophils % % Basophils % % Neutrophils # (1.6-8.9) K/mcL Lymphocytes # (0.6-4.6) K/mcL Monocytes # (0.0-1.3) K/mcL Eosinophils # (0.0-0.6) K/mcL Basophils # (0.0-0.2) K/mcL Sodium (136-145) mEq/L Potassium (3.5-4.5) mEq/L Chloride (98-109) mEq/L Carbon Dioxide (19-29) mEq/L BUN (7-20) mg/dL Creatinine (0.57-1.11) mg/dL Est GFR ( Amer) (> 60) Est GFR (Non-Af Amer) (> 60) BUN/Creatinine Ratio (6-26) Glucose (70-99) mg/dL Calculated Osmolality (280-300) Calcium (8.6-10.8) mg/dL Troponin I (0-0.03) ng/mL B-Natriuretic Peptide < 10 (0-100) pg/mL - Radiology Data Radiology results reviewed: Yes I reviewed the patient's radiology results. Chest X-Ray 01/02/17 19:59 IMPRESSION: No acute cardiopulmonary findings. D/ / 01/02/2017 20:50:12 Benjamin Roche MD / mely Interpreting Provider: Benjamin Roche MD - EKG Data EKG #1 EKG attestation: Yes I reviewed and interpreted this EKG. EKG results narrative: EKG showed sinus rhythm. With a rate of 70 bpm ME interval of 159, QRS 89, QTC 404, normal axis. Compared to EKG on 11/10/16. No acute changes in comparison. No ischemic changes noted. Attestation Statement - Attestation Attestation: I, Faraz Winter, examined this patient and my medical decision-making was reviewed with the REPAIR MECHANIC/PA/Advanced Practice Nurse/Resident Physician. I agree with the documented findings, disposition and treatment plan as described except to the extent set forth below. 51-year-old female presents with increasing chest pain with exertion and now at rest. Patient states she had associated nausea and shortness of breath with her pain today. Patient initial EKG shows normal sinus rhythm with a rate of 70. Initial troponin was negative. Patient glucose significantly elevated however she is not in DKA as she does not have an anion gap. Patient will be given insulin in the emergency department and IV fluids. Patient comfortable to be admitted to the hospital for further care and evaluation of her acute chest pain to rule out ACS as well as for treatment of her acute kidney injury.
[2017-01-02 21:20] LABS: Basophils % 0.4 %; Eosinophils # 0.4 K/mcL (0.0-0.6); Eosinophils % 4.6 %; Hematocrit 36.3 % (35.3-44.9); Hemoglobin 12.1 g/dL (11.5-15.4); Immature Granulocytes % 0.1 % (0-4); Lymphocytes # 3.8 K/mcL (0.6-4.6); Lymphocytes % 45.5 %; Mean Corpuscular HGB Conc 33.3 g/dL (31.6-35.5); Mean Corpuscular Hemoglobin 29.4 pg (28.0-33.3); Mean Corpuscular Volume 88.3 fL (83.0-100.0); Mean Platelet Volume 9.7 fL (9.4-12.4); Monocytes # 0.5 K/mcL (0.0-1.3); Monocytes % 6.5 %; Neutrophils # 3.5 K/mcL (1.6-8.9); Platelet Count 259 K/mcL (140-400); Red Blood Count 4.11 M/mcL (3.82-4.97); Red Cell Distribution Width 12.3 % (11.5-14.5); Segmented Neutrophils % 42.9 %
[2017-01-02 21:32] LABS: Potassium 4.1 mEq/L (3.5-4.5)
[2017-01-02] MEDS ORDERED: Insulin Regular, Human 100 UNIT/ML SQ ONE (21:40)
[2017-01-02] MEDS ORDERED: 0.9 % Sodium Chloride 1,000 ML IVC ONE (21:40)
[2017-01-03] MEDS ORDERED: Naloxone 0.4 MG/ML INJ IVP PRN (01:26)
--- NOTE | 2017-01-03 01:35 | Internal Med History&Physical ---
Date of Encounter: 01/03/17 Time of Encounter: 01:35 Assessment and Plan (1) Chest pain Current visit: Yes Status: Acute Atypical chest pain. Pt has multiple risk factors for CAD (Pt reports prior h/o cardiac cath and stress test - but I am not able to find them in the system). Cardiac monitoring. Trend troponins - if negative, will consider stress test. Check lipid panel. Qualifiers: Chest pain type: unspecified Qualified Code(s): R07.9 - Chest pain, unspecified (2) VALARIE (acute kidney injury) Current visit: Yes Status: Acute Possibly related to hypotension / volume loss due to osmotic diuresis from Hyperglycemia. Treat with IV fluids. Monitor renal function and avoid nephrotoxic (3) Hyperglycemia Current visit: Yes Status: Acute Start sliding scale insulin. Check Hemoglobin A1C. (4) Hypotension Current visit: Yes Status: Acute Possibly volume loss due to osmotic diuresis from Hyperglycemia. Treat with IV lfuids. Hold antihypertensives Qualifiers: Hypotension type: unspecified hypotension type Qualified Code(s): I95.9 - Hypotension, unspecified (5) History of pulmonary embolism Current visit: Yes Status: Chronic Continue xarelto (6) DM type 2 (diabetes mellitus, type 2) Current visit: Yes Status: Chronic Check Hemoglobin A1C. Hold metformin due to VALARIE. Start sliding scale insulin Qualifiers: Diabetes mellitus complication status: with unspecified complications Diabetes mellitus half-way insulin use: with terminal operator use Qualified Code(s) : E11.8 - Type 2 diabetes mellitus with unspecified complications; Z79.4 - half-way (current) use of insulin (7) Lower back pain Current visit: Yes Status: Chronic Continue home medications Qualifiers: Chronicity: chronic Back pain laterality: bilateral Sciatica presence: with sciatica Sciatica laterality: bilateral sciatica Qualified Code(s): M54.42 - Lumbago with sciatica, left side; M54.41 - Lumbago with sciatica, right side; G89.29 - Other chronic pain (8) Bipolar disorder Current visit: Yes Status: Chronic Continue home meds Qualifiers: Active/Remission status: currently active Current bipolar episode type: mixed Current episode severity: unspecified Qualified Code(s): F31.60 - Bipolar disorder, current episode mixed, unspecified Internal Medicine - H&P: HPI Chief complaint: chest pain Admitted From: Emergency Dept Plans for Post Hospital Care: Home History of present illness: Ms. Gannon is a 51 year old female With h/o COPD, diabetes, GERD, hypertension, pulmonary embolus on anticoagulation with xarelto, Bipolar disorder, chronic back pain - presented to the ER with chest pressure / heaviness / pain that started at rest, severe prior to presentation but improved. She felt numb / weak in both upper extremities and felt exhausted. She felt short of breath as well. She thought she has asthma and used inhaler, without much relief. Chest pain was associated with nausea. She apparently had low BP at home, 69/53 with a heart rate of 95. She denies abdominal pain, dysuria, hematuria, fever, chills, changes in bowel habits. She was evaluated in the emergency department and was noted to have serum glucose of 505. She was given 10 units of insulin and IV fluids. Initial troponin was negative. She is admitted to the hospitalist service for further workup and management. Past Med Surg Social Fam HX - Past Medical History Medical history: arthritis, COPD, diabetes, GERD, hyperlipidemia, hypertension, migraine, pulmonary embolus, other Psychiatric history: depression, previous psychiatric hospitalization - Past Surgical History Surgical History: cholecystectomy, herniorrhaphy, hysterectomy, orthopedic, other, other - Social History Smoking Status: Never smoker Smokeless Tobacco Status: No Alcohol use: rarely Drug use: none, other - Family History Father Hx Family Cardiac Disorders: Yes Mother Hx Family Cardiac Disorders: Yes (CABG) Hx Family Endocrine Disorder: Yes (Diabetes mellitus type 2) Hx Family Neurologic Disorders: Yes (mini strokes) Brother Hx Family Cardiac Disorders: Yes (pacer/defib) Hx Family Cancer: Yes (Various different cancers including a rectal cancer) Internal Medicine - H&P: Meds Duloxetine HCl [Cymbalta] 60 mg PO DAILY 06/14/15 [History] Insulin Glargine,Hum.rec.anlog [Lantus Solostar] 20 unit SQ QAM 06/14/15 [ History] Metformin HCl [Glucophage] 1,000 mg PO BID PRN 06/14/15 [History] Atorvastatin Calcium [Lipitor] 80 mg PO HS 09/06/15 [History] Cholecalciferol (Vitamin D3) [Vitamin D3] 2,000 unit PO DAILY 09/06/15 [History] Isosorbide MONOnitrate (24 HR) [Imdur] 30 mg PO DAILY 09/06/15 [History] Omeprazole [PriLOSEC] 40 mg PO DAILY 09/06/15 [History] AcetaZOLAMIDE [Diamox Sequels] 500 mg PO BID 05/26/16 [History] Metoprolol Succinate 100 mg PO DAILY 05/26/16 [History] Pregabalin [Lyrica] 225 mg PO BID capsule 06/20/16 [Rx] Albuterol Sulfate [Proair Hfa] 2 puff IH Q4H PRN 11/11/16 [History] Insulin ASPART [NovoLOG] 0 unit SQ TIDWM 11/11/16 [History] Ketorolac OPTH Soln [Acular] 1 drop OP QID 11/11/16 [History] Ketotifen Fumarate [Eye Itch Relief] 1 drop OP BID 11/11/16 [History] Lisinopril/Hydrochlorothiazide [Zestoretic 20-25 mg Tablet] 1 each PO DAILY [History] PrednisoLONE Acetate 1% Opth [PredFORTE 1%] 1 drop OP Q2H 11/11/16 [History] SUMAtriptan Succinate [Imitrex] 100 mg PO DAILY PRN 11/11/16 [History] risperiDONE [Risperidone] 2 mg PO HS 11/11/16 [History] Sertraline [Zoloft] 50 mg PO DAILY #30 tablet 11/13/16 [Rx] Aspirin 81 mg PO DAILY 01/02/17 [History] Budesonide/Formoterol 160/4.5 [Symbicort 160/4.5] 2 puff IH BIDR 01/02/17 [ History] Cyclobenzaprine [Flexeril] 10 mg PO TID PRN 01/02/17 [History] HYDROcodone/Acet 5/325 mg [[place] 5-325 mg] 1 tab PO BID PRN 01/02/17 [History] Lidocaine [Lidocaine] 1 appl TP TID PRN 01/02/17 [History] Loratadine [Claritin] 10 mg PO DAILY 01/02/17 [History] Nystatin [Nystatin Suspension] 1,000,000 unit PO BID 01/02/17 [History] Rivaroxaban [Xarelto] 20 mg PO DAILY 01/02/17 [History] traZODone [TraZODone] 50 - 100 mg PO HS PRN 01/02/17 [History] Allergies gabapentin Allergy (Verified 06/14/15 04:04) Itching Latex, Natural Rubber Allergy (Verified 06/14/15 04:04) Itching naproxen [From Naprosyn] Allergy (Verified 06/14/15 04:04) Itching All Systems PM: A 10-system review of systems was performed and is negative for pertinent findings except as documented above in the HPI. - Constitutional Vitals: Temp Pulse Resp BP Pulse Ox 97.7 F 62 15 103/72 100 01/02/17 23:17 01/02/17 23:17 01/02/17 23:17 01/02/17 23:17 01/02/17 23:17 Exam: General: Not in acute distress at the time of my evaluation HEENT: Oral mucosa is moist. No conjunctival palor or scleral icterus Neck: No obvious neck swellings Lungs: Clear to auscultation Cardiac: Regular rate and rhythm. No significant murmurs. Mid sternal tenderness present Abdomen: Soft, non tender. Bowel sounds present Genitourinary: No cleary catheter Neurological: Alert and oriented. No gross localizing deficits Psych: Not aggressive or agitated Extremities: no significant leg edema Skin: No generalized rash Internal Med - H&P Results - Labs CBC & Chem 7: 01/02/17 21:13 01/03/17 01:40 - EKG Data -: EKG Interpreted by Myself Rate: normal - Impressions ITS Impressions Chest X-Ray 01/02/17 19:59 IMPRESSION: No acute cardiopulmonary findings. D/ / 01/02/2017 20:50:12 Benjamin Roche MD / mely Interpreting Provider: Benjamin Roche MD
[2017-01-03 02:16] LABS: Albumin 2.9 g/dL (3.5-5.0); Albumin/Globulin Ratio 0.8 (1.1-2.2); Bilirubin,Total 0.4 mg/dL (0.2-1.2); Calcium 9.3 mg/dL (8.6-10.8); Globulin 3.8 g/dL (2.4-3.5); Magnesium 1.4 mg/dL (1.6-2.6); Potassium 3.8 mEq/L (3.5-4.5); Total Protein 6.7 g/dL (6.0-8.3)
[2017-01-03] MEDS ORDERED: *HR* Dextrose 50 % in Water (Syg) 50 ML SYRINGE IVP PRN (04:10)
[2017-01-03] MEDS ORDERED: D5% in Water 1,000 ML IVC PRN (04:10)
[2017-01-03] MEDS ORDERED: Dextrose Gel 15 GM PO PRN ×2 (04:10)
[2017-01-03] MEDS: 0.9 % Sodium Chloride 1,000 ML IVC SCH ×4 (06:05→22:33)
[2017-01-03 06:27] LABS: Hemoglobin A1C 11.2 %
[2017-01-03] MEDS ORDERED: Regadenoson 0.4 MG/5 ML SYRINGE IVP ONE (07:51)
[2017-01-03] MEDS ORDERED: Magnesium Sulfate 2 GM in D5% in Water 100 ML IVPB ONE (08:38)
[2017-01-03] MEDS ORDERED: traZODone 50 MG TABLET PO PRN (08:39)
[2017-01-03] MEDS ORDERED: *HR* HYDROcodone/Acet 5/325 mg TABLET PO PRN (08:39)
[2017-01-03] MEDS ORDERED: Insulin DETEMIR 100 UNIT/ML X5UNITS SQ SCH (09:00)
[2017-01-03] MEDS: Insulin LISPRO 300 UNITS/3 ML VIAL SQ SCH ×3 (09:51→17:10)
[2017-01-03] MEDS: PrednisoLONE Acetate 1% Opth 5 ML BOTTLE RIGHT EYE SCH ×8 (09:53→23:07)
[2017-01-03] MEDS: Isosorbide MONOnitrate (24 HR) 30 MG TAB.ER.24H PO SCH (09:53)
[2017-01-03] MEDS: Ketorolac OPTH Soln 5 ML BOTTLE RIGHT EYE SCH ×4 (09:53→22:28)
[2017-01-03] MEDS: Aspirin 81 MG TAB.CHEW PO SCH (09:54)
[2017-01-03] MEDS: *HR* Rivaroxaban 10 MG TABLET PO SCH (09:54)
[2017-01-03] MEDS: acetaZOLAMIDE 250 MG TABLET PO SCH ×2 (09:54→22:29)
[2017-01-03] MEDS: Pregabalin 75 MG CAPSULE PO SCH ×2 (09:54→22:30)
[2017-01-03] MEDS: Cholecalciferol (D-3) 1,000 UNIT TABLET PO SCH (09:55)
[2017-01-03 11:02] LABS: Basophils % 0.6 %; Eosinophils # 0.3 K/mcL (0.0-0.6); Hematocrit 34.4 % (35.3-44.9); Hemoglobin 11.6 g/dL (11.5-15.4); Immature Granulocytes % 0.3 % (0-4); Lymphocytes # 3.1 K/mcL (0.6-4.6); Lymphocytes % 45.8 %; Mean Corpuscular HGB Conc 33.7 g/dL (31.6-35.5); Mean Corpuscular Hemoglobin 29.8 pg (28.0-33.3); Mean Corpuscular Volume 88.4 fL (83.0-100.0); Mean Platelet Volume 9.9 fL (9.4-12.4); Monocytes # 0.4 K/mcL (0.0-1.3); Monocytes % 6.1 %; Neutrophils # 2.9 K/mcL (1.6-8.9); Platelet Count 251 K/mcL (140-400); Red Blood Count 3.89 M/mcL (3.82-4.97); Red Cell Distribution Width 12.4 % (11.5-14.5); Segmented Neutrophils % 42.2 %
[2017-01-03] MEDS: Budesonide/Formoterol 160/4.5 MDI IH SCH ×2 (11:09→21:38)
[2017-01-03 11:13] LABS: Calcium 9.8 mg/dL (8.6-10.8); Potassium 4.1 mEq/L (3.5-4.5)
--- NOTE | 2017-01-03 11:23 | Nuclear Medicine Stress Report ---
Regadenoson Nuclear Stress Name: Kathy Gannon Date of Study: 01/03/2017 Date: 1965 Ht: 62.0 in Medical Record#: [id number] Age: 51 Wt: 202.0 lb Gender: Female Order #: [id number] Location: [facility] Room: [facility] Supervising Provider: Vivian Lacy CNP Reading Physician: Oz Schultz DO, FAC, [facility] Ordering Physician: Connie Haskins CNP Primary Care Physician: Maxine Ordaz MD Stress Technologist: Ester Marlow, ELECTORAL OFFICER,CPFT Escrow Agent: Gina Sandoval Indications: Chest Pain Impression: Pharmacologic stress ECG is negative for ischemia at level of heart rate achieved. Gated EF = 63%. Perfusion imaging was negative for ischemia or infarct. History: Hypertension Diabetes Hypercholesteremia Stress Test Summary: Stress Test Type: Pharmacologic Regadenoson 0.4mg/5ml given IV Baseline Information: Initial Heart Rate: 66 Blood Pressure: 112/68 Stress Information: Test Terminated Due to (primary): As per protocol Maximum Blood Pressure: 112/72 Maximum Heart Rate: 95 Percent Maximum Heart Rate Achieved: 56 Double Product: [id number] METS Reached: 1 Symptoms: No chest symptoms Nuclear Summary: SPECT myocardial perfusion imaging using Tc99m Sestamibi given intravenously was performed at rest and following cardiac stress testing. The resting images were obtained following initial dose of 10.8 mCi. Following stress an additional dose of 33.4 mCi was given at peak exercise or 30 seconds post regadenoson infusion. Medication Given: Time Medication Dose Units Route Findings: Stress Note * Resting ECG demonstrated normal sinus rhythm. * No baseline arrhythmias were noted. * Pharmacologic stress ECG is negative for ischemia at level of heart rate achieved. * No arrhythmias were noted during stress. * Patient had no chest pain during stress. Hemodynamic responses * Normal hemodynamic responses to pharmacologic stress. Study Quality * Study quality is average. Gated EF % * Gated EF = 63%. Left Ventricle * The left ventricle is not dilated. * LVEDV = 86 mL. NORMALS * Normal wall motion. Apical Perfusion Rest * The apical septal segment shows a moderate reduction in perfusion. Compared to stress, perfusion worse on rest imaging, which is c/w artifact. Apical Perfusion Stress * The apical septal segment shows a mild reduction in perfusion. TID * No evidence of transient ischemic dilatation. TID ratio * TID ratio = 1.12. Lung Uptake * There is no evidence of increase lung uptake. Updated by Oz Schultz DO, FACJaylin, NEAL, FASSYED on 01/03/2017 11:17:23 AM electronically signed on 01/03/2017 11:17:43 AM with status of Final
--- NOTE | 2017-01-03 17:24 | Electrocardiograph Report ---
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
--- NOTE | 2017-01-03 17:41 | Event Note ---
Date of Encounter: 01/03/17 Time of Encounter: 14:30 51-year-old female with past medical history of diabetes, hypertension, COPD, prior pulmonary embolism on and correlation with the results, bipolar disorder and chronic back pain on opiates who presents with chief complaint of precordial chest pain. Patient reports being recently diagnosed with major severe depression after the loss of her son and was started on Zoloft and Cymbalta 5 weeks ago. She states poor oral intake for the past few weeks, she describes only drinking 200 mL of fluid daily. She also admits being noncompliant with her Lantus. At this time, patient reports an episode of left- sided chest pain 10 minutes before my arrival that lasted for a few minutes, no radiation, no associated symptoms. She is asymptomatic at this time. a/p: 1 atypical chest pain. Troponins negative. EKG showed no acute ischemic changes. Negative stress test. Continue telemetry. Continue home dose of aspirin, Imdur, beta ifeanyi. 2. Diabetes mellitus with hyperglycemia. Poorly controlled diabetes mellitus with hemoglobin A1c of 11.2. Secondary to noncompliance. Levemir twice a day. Continue IV fluids. ISS. Diabetic diet. 3. Acute kidney injury. Prerenal. Secondary to hyperglycemia and poor oral intake. Continue IV fluids. Improving slowly. BUN/creatinine are trending down. Close monitor. Avoid nephrotoxic agents as possible. 4. Hypomagnesemia. Replete. 5. Major depressive disorder. Continue home medications. I spoke with her family, brother and mother who were at bedside about her diagnosis, importance of supervision in taking her medication and having a good oral intake while she is still showing symptoms of depression. Patient and family verbalized understanding and agreed with plan.
[2017-01-03] MEDS ORDERED: Insulin LISPRO 300 UNITS/3 ML VIAL SQ SCH (21:00)
[2017-01-03] MEDS ORDERED: risperiDONE 1 MG TABLET PO SCH (21:00)
[2017-01-03] MEDS: Insulin DETEMIR 100 UNIT/ML X5UNITS SQ SCH (22:31)
[2017-01-04] MEDS: PrednisoLONE Acetate 1% Opth 5 ML BOTTLE RIGHT EYE SCH ×4 (02:38→09:02)
[2017-01-04] MEDS: 0.9 % Sodium Chloride 1,000 ML IVC SCH (06:05)
[2017-01-04 06:31] LABS: Basophils % 0.3 %; Eosinophils # 0.5 K/mcL (0.0-0.6); Eosinophils % 6.9 %; Hematocrit 29.6 % (35.3-44.9); Hemoglobin 9.9 g/dL (11.5-15.4); Lymphocytes # 3.2 K/mcL (0.6-4.6); Lymphocytes % 45.5 %; Mean Corpuscular HGB Conc 33.4 g/dL (31.6-35.5); Mean Corpuscular Hemoglobin 29.9 pg (28.0-33.3); Mean Corpuscular Volume 89.4 fL (83.0-100.0); Mean Platelet Volume 10.2 fL (9.4-12.4); Monocytes # 0.5 K/mcL (0.0-1.3); Neutrophils # 2.9 K/mcL (1.6-8.9); Platelet Count 236 K/mcL (140-400); Red Blood Count 3.31 M/mcL (3.82-4.97); Red Cell Distribution Width 12.4 % (11.5-14.5); Segmented Neutrophils % 40.3 %
[2017-01-04 06:35] LABS: INR 1.3; Prothrombin Time 14.1 Seconds (9.4-12.1)
[2017-01-04 06:43] LABS: BUN/Creatinine Ratio 17 (6-26); Blood Urea Nitrogen 20 mg/dL (7-20); Calcium 8.8 mg/dL (8.6-10.8); Carbon Dioxide 24 mEq/L (19-29); Chloride 107 mEq/L (98-109); Glucose 194 mg/dL (70-99); Magnesium 1.4 mg/dL (1.6-2.6); Osmolality,Calculated 288 (280-300); Potassium 4.1 mEq/L (3.5-4.5); Sodium 135 mEq/L (136-145); eGFR For African Americans > 60 (> 60); eGFR For Non-African Americans 50 (> 60)
[2017-01-04] MEDS: Insulin LISPRO 300 UNITS/3 ML VIAL SQ SCH ×2 (09:00→12:28)
[2017-01-04] MEDS: acetaZOLAMIDE 250 MG TABLET PO SCH (09:01)
[2017-01-04] MEDS: Isosorbide MONOnitrate (24 HR) 30 MG TAB.ER.24H PO SCH (09:01)
[2017-01-04] MEDS: Ketorolac OPTH Soln 5 ML BOTTLE RIGHT EYE SCH (09:01)
[2017-01-04] MEDS: Pregabalin 75 MG CAPSULE PO SCH (09:01)
[2017-01-04] MEDS: *HR* Rivaroxaban 10 MG TABLET PO SCH (09:01)
[2017-01-04] MEDS: Cholecalciferol (D-3) 1,000 UNIT TABLET PO SCH (09:02)
[2017-01-04] MEDS: Aspirin 81 MG TAB.CHEW PO SCH (09:02)
[2017-01-04] MEDS: Insulin DETEMIR 100 UNIT/ML X5UNITS SQ SCH (09:06)
[2017-01-04] MEDS ORDERED: Magnesium Sulfate 2 GM in D5% in Water 100 ML IVPB ONE (09:16)
[2017-01-04] MEDS ORDERED: Magnesium Oxide 400 MG TABLET PO SCH (09:30)
--- NOTE | 2017-01-04 10:48 | Discharge Summary ---
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 insulin use: with terminal make up operator use Qualified Code( s): E11.65 - Type 2 diabetes mellitus with hyperglycemia; Z79.4 - buttermaker continuous churn ( current) use of insulin (3) VALARIE (acute kidney injury) Priority: Primary Status: Acute (4) Bipolar disorder Priority: Secondary Status: Chronic Qualifiers: Active/Remission status: currently active Current bipolar episode type: mixed Current episode severity: unspecified Qualified Code(s): F31.60 - Bipolar disorder, current episode mixed, unspecified (5) CAD (coronary artery disease) Priority: Secondary Status: Chronic Qualifiers: Coronary Disease-Associated Artery/Lesion type: [place] artery [place] vs. transplanted heart: deering heart Associated angina: with unspecified angina Qualified Code(s): I25.119 - Atherosclerotic heart disease of [place] coronary artery with unspecified angina pectoris (6) History of pulmonary embolism Priority: Secondary Status: Chronic (7) Hypertension Priority: Secondary Status: Chronic Qualifiers: Hypertension type: essential hypertension Qualified Code(s): I10 - Essential (primary) hypertension - Discharge Medications Prescriptions: Magnesium Oxide [Mag-Ox] 400 mg PO BID #60 tab Home Medications: Duloxetine HCl [Cymbalta] 60 mg PO DAILY 06/14/15 [History] Insulin Glargine,Hum.rec.anlog [Lantus Solostar] 20 unit SQ QAM 06/14/15 [ History] Metformin HCl [Glucophage] 1,000 mg PO BID PRN 06/14/15 [History] Atorvastatin Calcium [Lipitor] 80 mg PO HS 09/06/15 [History] Cholecalciferol (Vitamin D3) [Vitamin D3] 2,000 unit PO DAILY 09/06/15 [History] Isosorbide MONOnitrate (24 HR) [Imdur] 30 mg PO DAILY 09/06/15 [History] Omeprazole [PriLOSEC] 40 mg PO DAILY 09/06/15 [History] AcetaZOLAMIDE [Diamox Sequels] 500 mg PO BID 05/26/16 [History] Metoprolol Succinate 100 mg PO DAILY 05/26/16 [History] Pregabalin [Lyrica] 225 mg PO BID capsule 06/20/16 [Rx] Albuterol Sulfate [Proair Hfa] 2 puff IH Q4H PRN 11/11/16 [History] Insulin ASPART [NovoLOG] 0 unit SQ TIDWM 11/11/16 [History] Ketorolac OPTH Soln [Acular] 1 drop OP QID 11/11/16 [History] Ketotifen Fumarate [Eye Itch Relief] 1 drop OP BID 11/11/16 [History] PrednisoLONE Acetate 1% Opth [PredFORTE 1%] 1 drop OP Q2H 11/11/16 [History] SUMAtriptan Succinate [Imitrex] 100 mg PO DAILY PRN 11/11/16 [History] risperiDONE [Risperidone] 2 mg PO HS 11/11/16 [History] Sertraline [Zoloft] 50 mg PO DAILY #30 tablet 11/13/16 [Rx] Aspirin 81 mg PO DAILY 01/02/17 [History] Budesonide/Formoterol 160/4.5 [Symbicort 160/4.5] 2 puff IH BIDR 01/02/17 [ History] Cyclobenzaprine [Flexeril] 10 mg PO TID PRN 01/02/17 [History] HYDROcodone/Acet 5/325 mg [[place] 5-325 mg] 1 tab PO BID PRN 01/02/17 [History] Lidocaine 1 appl TP TID PRN 01/02/17 [History] Loratadine [Claritin] 10 mg PO DAILY 01/02/17 [History] Nystatin [Nystatin Suspension] 1,000,000 unit PO BID 01/02/17 [History] Rivaroxaban [Xarelto] 20 mg PO DAILY 01/02/17 [History] traZODone [TraZODone] 50 - 100 mg PO HS PRN 01/02/17 [History] Magnesium Oxide [Mag-Ox] 400 mg PO BID #60 tab 01/04/17 [Rx] Allergies/Adverse Reactions: Allergies gabapentin Allergy (Verified 06/14/15 04:04) Itching Latex, Natural Rubber Allergy (Verified 06/14/15 04:04) Itching naproxen [From Naprosyn] Allergy (Verified 06/14/15 04:04) Itching Procedures/tests Complete & Pending: Procedures Performed prior 72 hours Category Date Time Status NM joann perf SPECT multi [NM] Routine Exams 01/03/17 04:09 Taken SP pharm nuclear stress Routine Y 01/03/17 04:09 Completed Date of admission: 01/02/17 22:36 Primary care physician: Maxine Ordaz - Patient Status Disposition: Home, Self-Care Condition: Good Functional capacity at discharge: independent ambulation Overall status at discharge: patient is progressing back to baseline - Discharge Instructions Instructions: Magnesium Oxide (By mouth), Chest Pain (DC), Mood Disorders (DC) , Diabetes Mellitus Type 2 in Adults (DC) Follow Up With: Maxine Ordaz MD [Primary Care Provider] - 01/20/17 3:30 pm Additional Instructions: Please check your blood sugar before meals and at bedtime, write down the numbers and bring record to doctor's appointment. please check your blood pressure every day, write down the numbers and bring record to doctor's appointment. please drink plenty of fluids and take all your medications. - Diet and Activity Activity: resume usual activities as tolerated Diet: diabetic diet, low fat, low cholesterol, low salt diet Interval History: patient has no complains. she feels better. no chest pain. no shortness of breath. she is eating and ambulating well. Hospital course: Ms. Gannon is a 51-year-old female with past medical history of diabetes, hypertension, COPD, prior pulmonary embolism on and correlation with the results , bipolar disorder and chronic back pain on opiates who presents with chief complaint of precordial chest pain. Patient reports being recently diagnosed with major severe depression after the loss of her son and was started on Zoloft and Cymbalta 5 weeks ago. She states poor oral intake for the past few weeks, she describes only drinking 200 mL of fluid daily. She also admits being noncompliant with her Lantus. 1. atypical chest pain. Troponins negative. EKG showed no acute ischemic changes. Negative stress test. Continue home dose of aspirin, Imdur, beta ifeanyi. 2. Diabetes mellitus with hyperglycemia. Poorly controlled diabetes mellitus with hemoglobin A1c of 11.2. Secondary to noncompliance. Levemir twice a day. Diabetic diet. 3. Acute kidney injury. Prerenal. Secondary to hyperglycemia and poor oral intake. received IV fluids. improved at discharge. good oral intake. PLAN: Follow-up with primary care physician for depression, BMP next week, patient and family instructed to check her blood sugars achs. - Time Spent with Patient Total time spent providing and/or coordinating discharge services: - Constitutional Vitals: Temp Pulse Resp BP Pulse Ox 98.1 F 64 14 115/83 96 01/04/17 07:26 01/04/17 07:26 01/04/17 07:26 01/04/17 07:26 01/04/17 07:26 General appearance: Present: cooperative, A&O X 3, pleasant, no acute distress, answers questions appropriately - Neck Neck exam general surgery: Present: supple, trachea midline. Absent: lymphadenopathy - Respiratory Respiratory exam: Present: CTAB - Cardiovascular Cardiovascular exam: Present: RRR - GI/Abdominal GI/Abdominal exam: Present: normal bowel sounds, soft. Absent: distended, tenderness - Extremities Exam Extremities exam: Absent: pedal edema - Back Exam Back exam: Absent: CVA tenderness (L), CVA tenderness (R) - Neurological Exam Neurological exam: Present: alert, oriented X3, no focal deficits, strengths equal and symetr throughout. Absent: facial droop, speech deficit - Skin Skin exam: Absent: rash
[2017-01-04 11:32] VITALS: BP 102/72
[2017-01-04] MEDS: Budesonide/Formoterol 160/4.5 MDI IH SCH (12:03)
== END 2017-01-04 13:15 | disposition home or self-care (01) ==
LOC: 3BNU 19:30 → EMEROO 19:30 → SUATTDRO 22:36 → 3BNU 22:47
PROVIDERS: ADMIT Internal Medicine; ATTEND Internal Medicine

== ENCOUNTER 2017-09-22 18:25 | Observation (INO) ==
--- NOTE | 2017-09-22 18:58 | Emergency Department Note ---
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 Patient states she has had this in a vacillating form that lasts anywhere from 4 days to 2 weeks and then resolves by itself. Per the patient and her family friend they have done workup in the past including a head CT which was negative. Patient states that she saw her primary care provider Dr. Modi, earlier today who seeing this drowsiness and facial asymmetry wanted the patient come to the ER for further evaluation. Patient is having difficulty expressing her thoughts and words and is shaky. This is new different and concerning per the family friend and the patient. Pain Scale: 3 - Related Data Home Medications Medication Instructions Recorded Confirmed Metformin HCl [Glucophage] 1,000 mg PO BID PRN 06/14/15 09/22/17 Atorvastatin Calcium [Lipitor] 80 mg PO HS 09/06/15 09/22/17 Cholecalciferol (Vitamin D3) 2,000 unit PO DAILY 09/06/15 09/22/17 [Vitamin D3] Isosorbide MONOnitrate (24 HR) 60 mg PO DAILY 09/06/15 09/22/17 [Imdur] Omeprazole [PriLOSEC] 40 mg PO DAILY 09/06/15 09/22/17 acetaZOLAMIDE [Diamox Sequels] 500 mg PO BID 05/26/16 09/22/17 Albuterol Sulfate [Proair Hfa] 2 puff IH Q4H PRN 11/11/16 09/22/17 Insulin ASPART [NovoLOG] 0 unit SQ TIDWM 11/11/16 09/22/17 SUMAtriptan Succinate [Imitrex] 100 mg PO DAILY PRN 11/11/16 09/22/17 risperiDONE [Risperidone] 1 mg PO HS 11/11/16 09/22/17 Aspirin 81 mg PO DAILY 01/02/17 09/22/17 Budesonide/Formoterol 160/4.5 2 puff IH BIDR 01/02/17 09/22/17 [Symbicort 160/4.5] Cyclobenzaprine [Flexeril] 10 mg PO TID PRN 01/02/17 09/22/17 HYDROcodone/Acet 5/325 mg [[place] 1 tab PO TID 01/02/17 09/22/17 5-325 mg] Lidocaine 1 appl TP TID PRN 01/02/17 09/22/17 Loratadine [Claritin] 10 mg PO DAILY 01/02/17 09/22/17 Nystatin [Nystatin Suspension] 1,000,000 unit PO BID 01/02/17 09/22/17 Rivaroxaban [Xarelto] 20 mg PO DAILY 01/02/17 09/22/17 traZODone [TraZODone] 50 - 100 mg PO HS PRN 01/02/17 09/22/17 Insulin Glargine,Hum.rec.anlog 20 unit SQ QPM 09/22/17 09/22/17 [Basaglar Kwikpen U-100] Lisinopril/Hydrochlorothiazide 1 tab PO DAILY 09/22/17 09/22/17 [Zestoretic 20-25 mg Tablet] Nitroglycerin [Nitrostat] 0.4 mg SL Q5M PRN 09/22/17 09/22/17 Previous Rx's Medication Instructions Recorded Pregabalin [Lyrica] 225 mg PO BID capsule 06/20/16 Sertraline [Zoloft] 50 mg PO DAILY #30 tablet 11/13/16 Sucralfate [Carafate] 1 gm PO QID #400 ml 07/25/17 Allergies Allergy/AdvReac Type Severity Reaction Status Date / Time gabapentin Allergy Itching Verified 09/22/17 19:18 ibuprofen Allergy Hives Verified 09/22/17 19:18 Latex, Natural Rubber Allergy Itching Verified 09/22/17 19:18 naproxen [From Naprosyn] Allergy Itching Verified 09/22/17 19:18 All systems ED: reviewed and negative except as stated. Constitutional: Reports: weakness Cardiovascular: Denies: chest pain Respiratory: Denies: dyspnea Neurological: Reports: weakness, paresthesias, abnormal gait, vertigo Past Medical History - Past Medical History Attestation: Yes The following information was validated with the patient. 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 - Social History Smoking Status: Never smoker Smokeless Tobacco Status: No Alcohol use: Reports: rarely Drug use: Reports: none Physical Exam - General Limitations: no limitations General appearance: alert, in no apparent distress, lethargic - Head Head exam: atraumatic, normocephalic - Eye Eye exam: Present: other (Patient is blind in her right eye with right eyelid droop which she says is worse than usual) - ENT ENT exam: normal exam, normal oropharynx - Neck Neck exam: Present: normal inspection, full ROM - Chest Chest inspection: Present: normal inspection, symmetric chest wall rise - Respiratory Respiratory exam: Present: normal lung sounds bilaterally - Cardiovascular Cardiovascular exam: Present: regular rate, normal rhythm - Abdominal Exam Abdominal exam: Present: soft, Non-Tender - Extremities Exam Extremities exam: Present: normal inspection, pedal edema - Expanded Lower Extremity Exam Neurovascular/Tendon exam: Present: normal capillary refill Gait: other (Slightly ataxic) - Back Exam Back exam: Present: normal inspection, full ROM - Neurological Exam Neurological exam: Present: alert, oriented X3. Absent: CN II-XII intact ( Patient is blind in her right eye unable to assess that. She does have lid lag and troponin on the right. She has forehead sparing. She has this loss of the right nasolabial fold compared to the left.) - Psychiatric Psychiatric exam: Present: normal affect - Skin Skin exam: Present: warm, dry, intact Course - Reevaluation(s) Reevaluation #1: Sign out note: Patient's labs are still in process and the patient's head MRI without contrast is still pending patient has even gone over yet. I signed out the case to Dr. Oren Leger follow-up results the lab testing and the MRI results with the patient or transfer as indicated. Patient was informed of this change and she is comfortable with this patient stable and awaiting MRI. Admission pending Time: 20:20 Vital Signs Temperature 98.3 F 09/22/17 18:34 Pulse Rate 73 09/22/17 18:34 Respiratory Rate 20 09/22/17 18:34 Blood Pressure 166/100 09/22/17 18:34 O2 Sat by Pulse Oximetry 100 09/22/17 18:34 Temperature 98.3 F 09/22/17 18:34 Pulse Rate 73 09/22/17 20:13 Respiratory Rate 18 09/22/17 20:13 Blood Pressure 154/89 09/22/17 20:13 O2 Sat by Pulse Oximetry 99 09/22/17 20:13 Oxygen Delivery Oxygen Delivery Room Air Medical Decision Making - Medical Records Medical records reviewed: Yes I reviewed the patient's medical records. - Lab Data Lab results reviewed: Yes I reviewed the patient's lab results. Result diagrams: 09/22/17 19:20 09/22/17 19:20 Lab Results 09/22/17 09/22/17 09/22/17 Range/Units 18:51 19:20 19:20 WBC 7.8 (4.3-11.1) K/mcL RBC 3.61 L (3.82-4.97) M/mcL Hgb 11.1 L (11.5-15.4) g/dL Hct 31.6 L (35.3-44.9) % MCV 87.5 (83.0-100.0) fL MCH 30.7 (28.0-33.3) pg MCHC 35.1 (31.6-35.5) g/dL RDW 12.0 (11.5-14.5) % Plt Count 244 (140-400) K/mcL MPV 9.9 (9.4-12.4) fL Immature Gran % 0.3 (0-4) % Seg Neutrophils % 44.3 % Lymphocytes % 47.0 % Monocytes % 4.9 % Eosinophils % 3.2 % Basophils % 0.3 % Neutrophils # 3.5 (1.6-8.9) K/mcL Lymphocytes # 3.7 (0.6-4.6) K/mcL Monocytes # 0.4 (0.0-1.3) K/mcL Eosinophils # 0.3 (0.0-0.6) K/mcL Basophils # 0.0 (0.0-0.2) K/mcL PT 18.0 H (9.4-12.1) Seconds INR 1.7 APTT 33.5 (26.0-36.0) Seconds Sodium (136-145) mEq/L Potassium (3.5-5.1) mEq/L Chloride (98-107) mEq/L Carbon Dioxide (23-29) mEq/L BUN (6-20) mg/dL Creatinine (0.60-1.20) mg/dL Est GFR ( Amer) (> 60) Est GFR (Non-Af Amer) (> 60) BUN/Creatinine Ratio (6-26) Glucose (70-105) mg/dL POC Glucose 331 H (58-89) mg/dL Calculated Osmolality (280-300) Calcium (8.6-10.3) mg/dL Troponin I (< 0.04) ng/mL 09/22/17 Range/Units 19:20 WBC (4.3-11.1) K/mcL RBC (3.82-4.97) M/mcL Hgb (11.5-15.4) g/dL Hct (35.3-44.9) % MCV (83.0-100.0) fL MCH (28.0-33.3) pg MCHC (31.6-35.5) g/dL RDW (11.5-14.5) % Plt Count (140-400) K/mcL MPV (9.4-12.4) fL Immature Gran % (0-4) % Seg Neutrophils % % Lymphocytes % % Monocytes % % Eosinophils % % Basophils % % Neutrophils # (1.6-8.9) K/mcL Lymphocytes # (0.6-4.6) K/mcL Monocytes # (0.0-1.3) K/mcL Eosinophils # (0.0-0.6) K/mcL Basophils # (0.0-0.2) K/mcL PT (9.4-12.1) Seconds INR APTT (26.0-36.0) Seconds Sodium 136 (136-145) mEq/L Potassium 3.7 (3.5-5.1) mEq/L Chloride 104 (98-107) mEq/L Carbon Dioxide 25 (23-29) mEq/L BUN 9 (6-20) mg/dL Creatinine 0.81 (0.60-1.20) mg/dL Est GFR ( Amer) > 60 (> 60) Est GFR (Non-Af Amer) > 60 (> 60) BUN/Creatinine Ratio 11 (6-26) Glucose 354 H (70-105) mg/dL POC Glucose (58-89) mg/dL Calculated Osmolality 295 (280-300) Calcium 9.0 (8.6-10.3) mg/dL Troponin I < 0.03 (< 0.04) ng/mL - Radiology Data Radiology results reviewed: Yes I reviewed the patient's radiology results. - EKG Data EKG #1 EKG attestation: Yes I reviewed and interpreted this EKG. EKG results narrative: Twelve-lead EKG interpreted without Cardiologic assistance shows the following: Sinus rhythm at 71 bpm normal MA QRS and QT corrected. No acute ischemic changes are noted. No acute changes when compared to prior EKG dated 07/25/2017
[2017-09-22 19:49] LABS: Basophils % 0.3 %; Eosinophils # 0.3 K/mcL (0.0-0.6); Eosinophils % 3.2 %; Hematocrit 31.6 % (35.3-44.9); Hemoglobin 11.1 g/dL (11.5-15.4); Immature Granulocytes % 0.3 % (0-4); Lymphocytes # 3.7 K/mcL (0.6-4.6); Mean Corpuscular HGB Conc 35.1 g/dL (31.6-35.5); Mean Corpuscular Hemoglobin 30.7 pg (28.0-33.3); Mean Corpuscular Volume 87.5 fL (83.0-100.0); Mean Platelet Volume 9.9 fL (9.4-12.4); Monocytes # 0.4 K/mcL (0.0-1.3); Monocytes % 4.9 %; Neutrophils # 3.5 K/mcL (1.6-8.9); Platelet Count 244 K/mcL (140-400); Red Blood Count 3.61 M/mcL (3.82-4.97); Segmented Neutrophils % 44.3 %
[2017-09-22 20:11] LABS: BUN/Creatinine Ratio 11 (6-26); Blood Urea Nitrogen 9 mg/dL (6-20); Carbon Dioxide 25 mEq/L (23-29); Chloride 104 mEq/L (98-107); Glucose 354 mg/dL (70-105); Osmolality,Calculated 295 (280-300); Potassium 3.7 mEq/L (3.5-5.1); Sodium 136 mEq/L (136-145); eGFR For African Americans > 60 (> 60); eGFR For Non-African Americans > 60 (> 60)
[2017-09-22 20:12] LABS: Troponin I < 0.03 ng/mL (< 0.04)
[2017-09-22 20:14] LABS: INR 1.7
[2017-09-22 20:16] LABS: Activated Partial Thrombo Time 33.5 Seconds (26.0-36.0)
--- NOTE | 2017-09-22 22:28 | Emergency Department Note ---
START Narrative - START START: Dr. Amezquita asked that I wait on the MRI results and admit pt to the hospitalist. I spoke with Dr. Gutierrez okay to admit. 22:28.
[2017-09-23 00:19] LABS: Bilirubin,Urine Negative (Negative); Blood,Urine Negative (Negative); Clarity,Urine Cloudy (Clear); Color,Urine Yellow (Yellow); Glucose,Urine (UA) 500 mg/dL (Normal); Ketones,Urine Negative (Negative); Leukocyte Esterase,Urine Negative (Negative); Nitrite,Urine Negative (Negative); PH,Urine 7.5 pH Units (5.0-8.0); Protein,Urine 100 mg/dL (Neg-Trace); Specific Gravity,Urine 1.025 (1.010-1.025); Urobilinogen,Urine Normal (Normal)
[2017-09-23 00:22] LABS: Bacteria,Urine None Seen per hpf (None-Few); Hyaline Casts,Urine None Seen per lpf (None-Few); RBC,Urine 0-3 per hpf (0-3); Squamous Epithelial Cell,Urine Many per lpf (None-Few); WBC,Urine 0-3 per hpf (0-3)
[2017-09-23 00:30] LABS: Amphetamine Screen,Urine Negative ng/mL (Cutoff=1000); Barbiturate Screen,Urine Negative ng/mL (Cutoff=200); Benzodiazepines Screen,Urine Negative ng/mL (Cutoff=200); Cannabinoid Screen,Urine Negative ng/mL (Cutoff = 50); Cocaine Screen,Urine Negative ng/mL (Cutoff= 300); Opiate Screen,Urine Negative ng/mL (Cutoff=300); Phencyclidine Screen,Urine Negative ng/mL (Cutoff=25)
[2017-09-23] MEDS ORDERED: *HR* Promethazine 25 MG/ML VIAL IVP PRN (00:30)
[2017-09-23] MEDS ORDERED: Ondansetron 4 MG/2 ML VIAL IVP PRN (00:30)
[2017-09-23] MEDS ORDERED: *HR* HYDROcodone/Acet 5/325 mg TABLET PO PRN (00:30)
[2017-09-23] MEDS ORDERED: Naloxone 0.4 MG/ML INJ IVP PRN (00:30)
[2017-09-23] MEDS ORDERED: Acetaminophen 325 MG TABLET PO PRN (00:30)
[2017-09-23] MEDS ORDERED: SUMAtriptan succinate 50 MG TABLET PO PRN (00:33)
[2017-09-23] MEDS ORDERED: traZODone 50 MG TABLET PO PRN (00:33)
[2017-09-23] MEDS ORDERED: Nitroglycerin 0.4 MG TAB.SUBL SL PRN (00:33)
[2017-09-23] MEDS ORDERED: *HR* Dextrose 50 % in Water (Syg) 50 ML SYRINGE IVP PRN (00:40)
[2017-09-23] MEDS ORDERED: Dextrose Gel 15 GM/37.5 ML TUBE PO PRN ×2 (00:40)
[2017-09-23] MEDS ORDERED: D5% in Water 1,000 ML IVC PRN (00:40)
[2017-09-23] MEDS ORDERED: NON-FORMULARY MEDICATION 1 EACH EACH (Insulin Glargine,Hum.Rec.Anlog [Basaglar Kwikpen U-1 SQ SCH (00:45)
--- NOTE | 2017-09-23 00:50 | Internal Med History&Physical ---
Date of Encounter: 09/22/17 Time of Encounter: 23:20 Assessment and Plan (1) Speech abnormality Current visit: Yes Status: Acute Place the pt into Tele for observation her speech abnormality and Rt side weakness mostly due to stress induced , however with her complicated history need close monitoring for acute CVA MRI of Brain did not show any acute infraction will nikki 2 D Echo and Carotid doppler cont ASA + Statin Check FLP in AM Neuro checks Concerning for complex migraines too. Need close f/u with Neurologist as an out pt Qualifiers: Speech disturbance type: dysarthria Qualified Code(s): R47.1 - Dysarthria and anarthria (2) History of pulmonary embolism Current visit: No Status: Chronic resumed home med Xarelto (3) DM type 2 (diabetes mellitus, type 2) Current visit: No Status: Chronic on ISS + Lantus Qualifiers: Diabetes mellitus senior living insulin use: with senior living use Diabetes mellitus complication status: with unspecified complications Qualified Code(s) : E11.8 - Type 2 diabetes mellitus with unspecified complications; Z79.4 - [facility] (current) use of insulin (4) GERD (gastroesophageal reflux disease) Current visit: No Status: Chronic on PPI Qualifiers: Esophagitis presence: without esophagitis Qualified Code(s): K21.9 - Gastro -esophageal reflux disease without esophagitis (5) Bipolar disorder Current visit: No Status: Chronic resumed all home meds Qualifiers: Active/Remission status: currently active Current bipolar episode type: mixed Current episode severity: unspecified Qualified Code(s): F31.60 - Bipolar disorder, current episode mixed, unspecified Internal Medicine - H&P: HPI Chief complaint: Slow speech, weakness Admitted From: Emergency Dept Plans for Post Hospital Care: Home History of present illness: Ms. 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 Pt also c/o slow speech / dysarthria from last 4 days. She does get these kind of symptoms on and off. She went to [facility] in Jul 2017 with similar complaints had CT of Head done which was negative and pt was sent home. Today here pt had MRI of brain done which did not show any acute infractions, except chronic stable Rt intra ocular residual hemorrhage. Pt is alert, awake and O x 3. Denied any CP / SOB. Denied any speech difficulties. Past Med Surg Social Fam HX - Past Medical History Medical history: arthritis, COPD, diabetes, GERD, hyperlipidemia, hypertension, migraine, pulmonary embolus, other Psychiatric history: depression, previous psychiatric hospitalization - Past Surgical History Surgical History: cholecystectomy, herniorrhaphy, hysterectomy, orthopedic, other, other - Social History Smoking Status: Never smoker Smokeless Tobacco Status: No Alcohol use: rarely Drug use: none - Family History Father Hx Family Cardiac Disorders: Yes Mother Hx Family Cardiac Disorders: Yes (CABG) Hx Family Endocrine Disorder: Yes (Diabetes mellitus type 2) Hx Family Neurologic Disorders: Yes (mini strokes) Brother Hx Family Cardiac Disorders: Yes (pacer/defib) Hx Family Cancer: Yes (Various different cancers including a rectal cancer) Internal Medicine - H&P: Meds Metformin HCl [Glucophage] 1,000 mg PO BID PRN 06/14/15 [History] Atorvastatin Calcium [Lipitor] 80 mg PO HS 09/06/15 [History] Cholecalciferol (Vitamin D3) [Vitamin D3] 2,000 unit PO DAILY 09/06/15 [History] Isosorbide MONOnitrate (24 HR) [Imdur] 60 mg PO DAILY 09/06/15 [History] Omeprazole [PriLOSEC] 40 mg PO DAILY 09/06/15 [History] acetaZOLAMIDE [Diamox Sequels] 500 mg PO BID 05/26/16 [History] Pregabalin [Lyrica] 225 mg PO BID capsule 06/20/16 [Rx] Albuterol Sulfate [Proair Hfa] 2 puff IH Q4H PRN 11/11/16 [History] Insulin ASPART [NovoLOG] 0 unit SQ TIDWM 11/11/16 [History] SUMAtriptan Succinate [Imitrex] 100 mg PO DAILY PRN 11/11/16 [History] risperiDONE [Risperidone] 1 mg PO HS 11/11/16 [History] Sertraline [Zoloft] 50 mg PO DAILY #30 tablet 11/13/16 [Rx] Aspirin 81 mg PO DAILY 01/02/17 [History] Budesonide/Formoterol 160/4.5 [Symbicort 160/4.5] 2 puff IH BIDR 01/02/17 [ History] Cyclobenzaprine [Flexeril] 10 mg PO TID PRN 01/02/17 [History] HYDROcodone/Acet 5/325 mg [[place] 5-325 mg] 1 tab PO TID 01/02/17 [History] Lidocaine 1 appl TP TID PRN 01/02/17 [History] Loratadine [Claritin] 10 mg PO DAILY 01/02/17 [History] Nystatin [Nystatin Suspension] 1,000,000 unit PO BID 01/02/17 [History] Rivaroxaban [Xarelto] 20 mg PO DAILY 01/02/17 [History] traZODone [TraZODone] 50 - 100 mg PO HS PRN 01/02/17 [History] Sucralfate [Carafate] 1 gm PO QID #400 ml 07/25/17 [Rx] Insulin Glargine,Hum.rec.anlog [Basaglar Kwikpen U-100] 20 unit SQ QPM 09/22/17 [History] Lisinopril/Hydrochlorothiazide [Zestoretic 20-25 mg Tablet] 1 tab PO DAILY 09/22 [History] Nitroglycerin [Nitrostat] 0.4 mg SL Q5M PRN 09/22/17 [History] 3 Allergy/AdvReac Type Severity Reaction Status Date / Time gabapentin Allergy Itching Verified 09/22/17 19:18 ibuprofen Allergy Hives Verified 09/22/17 19:18 Latex, Natural Rubber Allergy Itching Verified 09/22/17 19:18 naproxen [From Naprosyn] Allergy Itching Verified 09/22/17 19:18 All Systems PM: A 10-system review of systems was performed and is negative for pertinent findings except as documented above in the HPI. Review of systems: All the systems are reviewed everything is benign except the systems and symptoms I mentioned in the history of present illness - Constitutional Vitals: Temp Pulse Resp BP Pulse Ox 97.9 F 66 16 133/84 100 09/22/17 23:20 09/22/17 23:20 09/22/17 23:20 09/22/17 23:20 09/22/17 23:20 General appearance: Present: A&O X 3 - Head Head exam: Present: atraumatic, normal inspection - Neck Neck exam general surgery: Present: supple - Respiratory Respiratory exam: Present: decreased breath sounds. Absent: rales, respiratory distress, rhonchi, wheezes - Cardiovascular Cardiovascular exam: Present: RRR, +S1, +S2. Absent: tachycardia - GI/Abdominal GI/Abdominal exam: Present: normal bowel sounds, soft. Absent: rebound, rigid, tenderness - Extremities Exam Extremities exam: Absent: calf tenderness, pedal edema, tenderness - Back Exam Back exam: Absent: CVA tenderness (L), CVA tenderness (R) - Neurological Exam Neurological exam: Present: alert, CN II-XII intact, normal gait, oriented X3, reflexes normal, no focal deficits, strengths equal and symetr throughout. Absent: pronater drift, facial droop, speech deficit - Psychiatric Psychiatric exam: Present: normal affect, normal mood - Skin Skin exam: Absent: rash Internal Med - H&P Results - Labs CBC & Chem 7: 09/22/17 19:20 09/22/17 19:20 Labs: Urine 09/22/17 Range/Units 23:50 Urine Color Yellow (Yellow) Urine Clarity Cloudy A (Clear) Urine pH 7.5 (5.0-8.0) pH Units Ur Specific [place] 1.025 (1.010-1.025) Urine Protein 100 H (Neg-Trace) mg/dL Urine Glucose (UA) 500 H (Normal) mg/dL
[2017-09-23] MEDS: Insulin DETEMIR 100 UNIT/ML X5UNITS SQ SCH ×2 (01:34→16:45)
[2017-09-23 04:35] LABS: Chol/HDL Ratio 4.6 (0-4.9)
[2017-09-23] MEDS ORDERED: Insulin LISPRO 300 UNITS/3 ML VIAL SQ SCH ×3 (07:30→21:00)
[2017-09-23] MEDS: Budesonide/Formoterol 160/4.5 MDI IH SCH ×2 (07:57→20:11)
[2017-09-23 09:15] LABS: Estimated Average Glucose 318 mg/dl; Hemoglobin A1C 12.7 %
[2017-09-23] MEDS: *HR* Rivaroxaban 10 MG TABLET PO SCH (09:20)
[2017-09-23] MEDS: Pregabalin 75 MG CAPSULE PO SCH ×2 (09:20→20:26)
[2017-09-23] MEDS: Loratadine 10 MG TABLET PO SCH (09:21)
[2017-09-23] MEDS: Aspirin 81 MG TAB.CHEW PO SCH (09:21)
[2017-09-23] MEDS: Cholecalciferol (D-3) 1,000 UNIT TABLET PO SCH (09:21)
[2017-09-23] MEDS: acetaZOLAMIDE 250 MG TABLET PO SCH ×4 (09:21→20:26)
[2017-09-23] MEDS: Isosorbide MONOnitrate (24 HR) 30 MG TAB.ER.24H PO SCH (09:21)
[2017-09-23] MEDS: Nystatin SUSP 5 ML UD.LIQ PO SCH ×2 (09:22→20:26)
[2017-09-23] MEDS: Insulin LISPRO 300 UNITS/3 ML VIAL SQ SCH ×2 (11:19→16:46)
--- NOTE | 2017-09-23 14:15 | Internal Med Progress Note ---
Date of Encounter: 09/23/17 Time of Encounter: 10:00 - Assessment and plan (1) Speech abnormality Current Visit: Yes Status: Acute Assessment and plan: Improved now. MRI of the brain was negative for acute stroke. Could be related to complex migraine. Neurology consultation for recommendations. Awaiting carotid Dopplers and 2-D echocardiogram ordered for today. Qualifiers: Speech disturbance type: dysarthria Qualified Code(s): R47.1 - Dysarthria and anarthria (2) History of pulmonary embolism Current Visit: Yes Status: Chronic Assessment and plan: On Xarelto (3) DM type 2 (diabetes mellitus, type 2) Current Visit: Yes Status: Chronic Assessment and plan: Blood sugars elevated. Place patient on diabetic diet. Increase sliding scale insulin coverage. We will also increase long-acting insulin coverage. Qualifiers: Diabetes mellitus termite exterminator insulin use: with termite exterminator use Diabetes mellitus complication status: with hyperglycemia Qualified Code(s): E11.65 - Type 2 diabetes mellitus with hyperglycemia; Z79.4 - [facility] (current) use of insulin; Z79.4 - rodent exterminator (current) use of insulin; Z79.4 - rodent exterminator (current ) use of insulin; Z79.4 - rodent exterminator (current) use of insulin (4) GERD (gastroesophageal reflux disease) Current Visit: Yes Status: Chronic Assessment and plan: Continue omeprazole Qualifiers: Esophagitis presence: without esophagitis Qualified Code(s): K21.9 - Gastro -esophageal reflux disease without esophagitis (5) Bipolar disorder Current Visit: Yes Status: Chronic Assessment and plan: Continue home medications. Qualifiers: Active/Remission status: currently active Current bipolar episode type: mixed Current episode severity: unspecified Qualified Code(s): F31.60 - Bipolar disorder, current episode mixed, unspecified - Time Spent With Patient Total time spent is greater than 50% in coordination of care (as documented) at patient's floor/unit and/or counseling patient: - Subjective Interval history: Patient reports that her speech is improving but not yet at baseline. Denies any weakness in upper and lower extremities. No numbness. She has been having migraine headaches but has not had any for the past week. She has not seen a neurologist for several years now. Denies any focal upper or lower extremity weakness. No trouble swallowing. - Constitutional Vitals: Temp Pulse Resp BP Pulse Ox 98.3 F 83 15 116/76 100 09/23/17 11:55 09/23/17 11:55 09/23/17 11:55 09/23/17 11:55 09/23/17 11:55 General appearance: Present: cooperative, A&O X 3, no acute distress, answers questions appropriately - Neck Neck exam general surgery: Present: supple, trachea midline. Absent: lymphadenopathy - Respiratory Respiratory exam: Present: CTAB. Absent: accessory muscle use, rales, rhonchi, wheezes - Cardiovascular Cardiovascular exam: Present: RRR, +S1, +S2. Absent: diastolic murmur, gallop, rubs, systolic murmur - GI/Abdominal GI/Abdominal exam: Present: normal bowel sounds, soft, no peritoneal signs. Absent: distended, tenderness - Extremities Exam Extremities exam: Present: warm, radial pulses palpable and symmetrical. Absent : calf tenderness, cyanotic, pedal edema - Neurological Exam Neurological exam: Present: alert, oriented X3, no focal deficits. Absent: facial droop, speech deficit - Skin Skin exam: Present: dry, intact Internal Medicine: Result - Labs CBC & Chem 7: 09/22/17 19:20 09/22/17 19:20 Labs: Urine 09/22/17 Range/Units 23:50 Urine Color Yellow (Yellow) Urine Clarity Cloudy A (Clear) Urine pH 7.5 (5.0-8.0) pH Units Ur Specific [place] 1.025 (1.010-1.025) Urine Protein 100 H (Neg-Trace) mg/dL Urine Glucose (UA) 500 H (Normal) mg/dL - ABG Interpretation ABG results: PT/INR, D-dimer PT 18.0 Seconds (9.4-12.1) H 09/22/17 19:20 Consult Discharge Plan - Plan Referrals: Maxine Ordaz MD [Primary Care Provider] - 09/29/17 4:00 pm
--- NOTE | 2017-09-23 15:51 | Neurology - Consult Note ---
Date of Encounter: 09/23/17 Time of Encounter: 15:46 Assessment and Plan (1) Episodic confusion Current Visit: Yes Status: Acute I am not convinced that the episodic events that she experiences due to a primary neurologic etiology. She has a plethora of somatic complaints during the events and it is hard to imagine that this could be reproduced by a single vascular occlusion. Also not convinced that this is truly seizure. Seems more consistent with panic or anxiety attacks. Particularly since the episodes are escalating however is really not been any significant change in her labs vital signs or other test abnormalities. No other testing is indicated at this juncture. I will reevaluate her at your request. History of Present Illness HPI: Ms. Gannon is a 52 year old female Who is being seen for neurologic consultation secondary to multiple somatic complaints. Apparently she presented with complaints of chest pain, states that she did not feel like herself and had difficulty difficulty with verbal expression. She has episodes that she seems to feel buildup and escalate to a point and then D escalate. She feels as though her walking gait is off and she complained of some numbness and paresthesias traveling into the left upper extremity. Sometimes she has word finding difficulties during the events. I asked if she thought without could be a panic attack and she does not think so. Oddly she recalls what happens during the episodes. She has a known history of diabetes mellitus, his also had pulmonary embolism. MRI scan of the brain was completed during this admission and was essentially normal. She has had elevated glucose readings above 300. Urine tox screen was negative. Past Med Surg Social Fam HX - Past Medical History Medical history: arthritis, COPD, diabetes, GERD, hyperlipidemia, hypertension, migraine, pulmonary embolus, other Psychiatric history: bipolar, depression, previous psychiatric hospitalization - Past Surgical History Surgical History: cholecystectomy, herniorrhaphy, hysterectomy, orthopedic, other, other - Social History Smoking Status: Never smoker Smokeless Tobacco Status: No Alcohol use: rarely Drug use: none - Family History Father Hx Family Cardiac Disorders: Yes Mother Hx Family Cardiac Disorders: Yes (CABG) Hx Family Endocrine Disorder: Yes (Diabetes mellitus type 2) Hx Family Neurologic Disorders: Yes (mini strokes) Brother Hx Family Cardiac Disorders: Yes (pacer/defib) Hx Family Cancer: Yes (Various different cancers including a rectal cancer) Medications and Allergies Metformin HCl [Glucophage] 1,000 mg PO BID PRN 12/23/15 [History] Atorvastatin Calcium [Lipitor] 80 mg PO HS 09/06/15 [History] Cholecalciferol (Vitamin D3) [Vitamin D3] 2,000 unit PO DAILY 09/06/15 [History] Isosorbide MONOnitrate (24 HR) [Imdur] 60 mg PO DAILY 09/06/15 [History] Omeprazole [PriLOSEC] 40 mg PO DAILY 09/06/15 [History] acetaZOLAMIDE [Diamox Sequels] 500 mg PO BID 05/26/16 [History] Pregabalin [Lyrica] 225 mg PO BID capsule 06/20/16 [Rx] Albuterol Sulfate [Proair Hfa] 2 puff IH Q4H PRN 11/11/16 [History] Insulin ASPART [NovoLOG] 0 unit SQ TIDWM 11/11/16 [History] SUMAtriptan Succinate [Imitrex] 100 mg PO DAILY PRN 11/11/16 [History] risperiDONE [Risperidone] 1 mg PO HS 11/11/16 [History] Sertraline [Zoloft] 50 mg PO DAILY #30 tablet 11/13/16 [Rx] Aspirin 81 mg PO DAILY 01/02/17 [History] Budesonide/Formoterol 160/4.5 [Symbicort 160/4.5] 2 puff IH BIDR 01/02/17 [ History] Cyclobenzaprine [Flexeril] 10 mg PO TID PRN 01/02/17 [History] HYDROcodone/Acet 5/325 mg [[place] 5-325 mg] 1 tab PO TID 01/02/17 [History] Lidocaine 1 appl TP TID PRN 01/02/17 [History] Loratadine [Claritin] 10 mg PO DAILY 01/02/17 [History] Nystatin [Nystatin Suspension] 1,000,000 unit PO BID 01/02/17 [History] Rivaroxaban [Xarelto] 20 mg PO DAILY 01/02/17 [History] traZODone [TraZODone] 50 - 100 mg PO HS PRN 01/02/17 [History] Sucralfate [Carafate] 1 gm PO QID #400 ml 07/25/17 [Rx] Insulin Glargine,Hum.rec.anlog [Basaglar Kwikpen U-100] 20 unit SQ QPM 09/22/17 [History] Lisinopril/Hydrochlorothiazide [Zestoretic 20-25 mg Tablet] 1 tab PO DAILY 09/22 [History] Nitroglycerin [Nitrostat] 0.4 mg SL Q5M PRN 09/22/17 [History] 3 Allergy/AdvReac Type Severity Reaction Status Date / Time gabapentin Allergy Itching Verified 09/22/17 19:18 ibuprofen Allergy Hives Verified 09/22/17 19:18 Latex, Natural Rubber Allergy Itching Verified 09/22/17 19:18 naproxen [From Naprosyn] Allergy Itching Verified 09/22/17 19:18 All Systems: The remainder of the systems were reviewed and are negative Review of Systems: Review of systems is consistent with a history of present illness. Otherwise negative. Physical Examination - Vital Signs Vital Signs: Initial Vital Signs Temp Pulse Resp BP Pulse Ox 98.3 F 73 20 166/100 100 09/22/17 18:34 09/22/17 18:34 09/22/17 18:34 09/22/17 18:34 09/22/17 18:34 - Neurologic Motor examination - right side: 4/5: style advisor, 5/5: deltoids, biceps, triceps, hip flexors, tibialis Anterior, quadriceps, toe extension (EHL), plantarflexion Motor examination - left side: 4/5: style advisor (There is some atrophy of the left hand intrinsics), 5/5: deltoids, biceps, triceps, hip flexors, quadriceps, tibialis Anterior, toe extension (EHL), plantarflexion Detailed sensory examination: other (Decreased distally) Reflex and gait examination: other (Deep tendon reflexes are diminished throughout.) Mental Status Examination: awake, alert, oriented to person, oriented to place, follows commands appropriately, answers questions appropriately, no agnosia, no aphasia, no aproxia Cranial nerve examination: PERRL (She is blind in the right eye and has "right corneal scarring), EOMI, sensory to face intact, mastication intact, no facial asymmetry is present, no dysarthria, hearing is intact symmetrically, tongue protrudes midline Cranial Nerve Exam: ptosis: Right Fundoscopic: sclerotic cornea: Right (Right orbit somewhat atrophied) Cerebellar examination: no dysmetria, performs finger to nose and heel to hightower symmetrically without ataxia, no truncal ataxia Results - Laboratory Findings CBC and BMP: 09/22/17 19:20 09/22/17 19:20 Abnormal lab findings: Abnormal lab results RBC 3.61 M/mcL (3.82-4.97) L 09/22/17 19:20 Hgb 11.1 g/dL (11.5-15.4) L 09/22/17 19:20 Hct 31.6 % (35.3-44.9) L 09/22/17 19:20 PT 18.0 Seconds (9.4-12.1) H 09/22/17 19:20 Glucose 354 mg/dL (70-105) H 09/22/17 19:20 POC Glucose 296 mg/dL (58-89) H 09/23/17 10:58 Hemoglobin A1c 12.7 % (-5.6) H 09/23/17 03:27 Triglycerides 256 mg/dL (< 150) H 09/23/17 03:27 Cholesterol 224 mg/dL (< 200) H 09/23/17 03:27 LDL Cholesterol, Calc 124 mg/dL (0-99) H 09/23/17 03:27 VLDL Cholesterol, Calc 51 mg/dL (< 31) H 09/23/17 03:27 Urine Clarity Cloudy (Clear) A 09/22/17 23:50 Urine Protein 100 mg/dL (Neg-Trace) H 09/22/17 23:50 Urine Glucose (UA) 500 mg/dL (Normal) H 09/22/17 23:50 Ur Squamous Epith Cells Many per lpf (None-Few) H 09/22/17 23:50 Consult Discharge Plan - Plan Referrals: Maxine Ordaz MD [Primary Care Provider] - 09/29/17 4:00 pm
--- NOTE | 2017-09-23 19:32 | Electrocardiograph Report ---
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
[2017-09-23] MEDS ORDERED: risperiDONE 1 MG TABLET PO SCH (21:00)
[2017-09-24] MEDS: Budesonide/Formoterol 160/4.5 MDI IH SCH (08:01)
[2017-09-24] MEDS: Nystatin SUSP 5 ML UD.LIQ PO SCH (08:24)
[2017-09-24] MEDS: acetaZOLAMIDE 250 MG TABLET PO SCH (08:24)
[2017-09-24] MEDS: *HR* Rivaroxaban 10 MG TABLET PO SCH (08:24)
[2017-09-24] MEDS: Insulin LISPRO 300 UNITS/3 ML VIAL SQ SCH ×2 (08:24→11:25)
[2017-09-24] MEDS: Loratadine 10 MG TABLET PO SCH (08:24)
[2017-09-24] MEDS: Aspirin 81 MG TAB.CHEW PO SCH (08:25)
[2017-09-24] MEDS: Pregabalin 75 MG CAPSULE PO SCH (08:25)
[2017-09-24] MEDS: Cholecalciferol (D-3) 1,000 UNIT TABLET PO SCH (08:25)
[2017-09-24] MEDS: Isosorbide MONOnitrate (24 HR) 30 MG TAB.ER.24H PO SCH (08:25)
[2017-09-24] MEDS ORDERED: Insulin DETEMIR 100 UNIT/ML X5UNITS SQ SCH (09:00)
--- NOTE | 2017-09-24 10:36 | Discharge Summary ---
- NOTES TO OUTPATIENT PROVIDER Notes to Outpatient Provider: Follow up with neurology as outpatient. Neurology recommends MRI of cervical spine and EMG of upper extremities as outpatient. Date of Encounter: 09/24/17 Time of Encounter: 08:40 - Discharge Diagnosis (1) Speech abnormality Priority: Primary Status: Acute Qualifiers: Speech disturbance type: dysarthria Qualified Code(s): R47.1 - Dysarthria and anarthria (2) History of pulmonary embolism Priority: Secondary Status: Chronic (3) DM type 2 (diabetes mellitus, type 2) Priority: Secondary Status: Chronic Qualifiers: Diabetes mellitus head pumper insulin use: with head pumper use Diabetes mellitus complication status: with hyperglycemia Qualified Code(s): E11.65 - Type 2 diabetes mellitus with hyperglycemia; Z79.4 - [facility] (current) use of insulin; Z79.4 - [facility] (current) use of insulin; 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 Gannon is a 52 year old female patient with history of diabetes, chronic migraine, pulmonary embolism, COPD, hypertension and prior retinal hemorrhage who was hospitalized here with an episode of confusion, speech abnormality and generalized weakness. She was suspected of having TIA/stroke and underwent stroke workup. CT of the head and MRI did not show any acute stroke. Neurology was consulted further recommendations. On their evaluation, they were not convinced that symptoms could be due to a single PACs scale or occlusion. They believe it could be more consistent with panic or anxiety attacks. She also had symptoms of cervical radiculopathy with neck pain and right upper extremity pain. As is the recommended MRI of cervical spine and EMG of upper extremities as outpatient. She will follow up with neurology as outpatient for further management. Patient does have uncontrolled diabetes and hyperlipidemia. She has been advised to monitor her blood sugars and take her medications as prescribed. She can follow up with her primary care provider for further management of her diabetes and hyperlipidemia. Discharge discussed with: patient - Time Spent with Patient Total time spent providing and/or coordinating discharge services: Less than 30 minutes (25 min) - Discharge Medications Home Medications: Metformin HCl [Glucophage] 1,000 mg PO BID PRN 06/14/15 [History] Atorvastatin Calcium [Lipitor] 80 mg PO HS 09/06/15 [History] Cholecalciferol (Vitamin D3) [Vitamin D3] 2,000 unit PO DAILY 09/06/15 [History] Isosorbide MONOnitrate (24 HR) [Imdur] 60 mg PO DAILY 09/06/15 [History] Omeprazole [PriLOSEC] 40 mg PO DAILY 09/06/15 [History] acetaZOLAMIDE [Diamox Sequels] 500 mg PO BID 05/26/16 [History] Pregabalin [Lyrica] 225 mg PO BID capsule 06/20/16 [Rx] Albuterol Sulfate [Proair Hfa] 2 puff IH Q4H PRN 11/11/16 [History] Insulin ASPART [NovoLOG] 0 unit SQ TIDWM 11/11/16 [History] SUMAtriptan Succinate [Imitrex] 100 mg PO DAILY PRN 11/11/16 [History] risperiDONE [Risperidone] 1 mg PO HS 11/11/16 [History] Sertraline [Zoloft] 50 mg PO DAILY #30 tablet 11/13/16 [Rx] Aspirin 81 mg PO DAILY 01/02/17 [History] Budesonide/Formoterol 160/4.5 [Symbicort 160/4.5] 2 puff IH BIDR 01/02/17 [ History] Cyclobenzaprine [Flexeril] 10 mg PO TID PRN 01/02/17 [History] HYDROcodone/Acet 5/325 mg [[place] 5-325 mg] 1 tab PO TID 01/02/17 [History] Lidocaine 1 appl TP TID PRN 01/02/17 [History] Loratadine [Claritin] 10 mg PO DAILY 01/02/17 [History] Nystatin [Nystatin Suspension] 1,000,000 unit PO BID 01/02/17 [History] Rivaroxaban [Xarelto] 20 mg PO DAILY 01/02/17 [History] traZODone [TraZODone] 50 - 100 mg PO HS PRN 01/02/17 [History] Sucralfate [Carafate] 1 gm PO QID #400 ml 07/25/17 [Rx] Insulin Glargine,Hum.rec.anlog [Basaglar Kwikpen U-100] 20 unit SQ QPM 09/22/17 [History] Lisinopril/Hydrochlorothiazide [Zestoretic 20-25 mg Tablet] 1 tab PO DAILY 09/22 [History] Nitroglycerin [Nitrostat] 0.4 mg SL Q5M PRN 09/22/17 [History] Allergies/Adverse Reactions: 3 Allergy/AdvReac Type Severity Reaction Status Date / Time gabapentin Allergy Itching Verified 09/22/17 19:18 ibuprofen Allergy Hives Verified 09/22/17 19:18 Latex, Natural Rubber Allergy Itching Verified 09/22/17 19:18 naproxen [From Naprosyn] Allergy Itching Verified 09/22/17 19:18 Date of admission: 09/22/17 22:33 Primary care physician: Maxine Ordaz Consults: 09/23/17 08:03 Consult to Neurology [CONS] Routine Consulting Provider: Neurology [facility] Reason for Consult: Speech deficit, weakness Time Notified: 08:04 Call Completed: Yes Discharging clinician: Celena Gonzalez Anticipated date of discharge: 09/24/17 - Constitutional Vitals: Temp Pulse Resp BP Pulse Ox 97.5 F L 60 18 116/72 100 09/24/17 07:36 09/24/17 08:36 09/24/17 08:02 09/24/17 07:36 09/24/17 08:02 General appearance: Present: cooperative, A&O X 3, no acute distress, answers questions appropriately - Respiratory Respiratory exam: Present: CTAB. Absent: accessory muscle use, rales, rhonchi, wheezes - Cardiovascular Cardiovascular exam: Present: RRR, +S1, +S2. Absent: diastolic murmur, gallop, rubs, systolic murmur - GI/Abdominal GI/Abdominal exam: Present: normal bowel sounds, soft, no peritoneal signs. Absent: distended, tenderness - Extremities Exam Extremities exam: Present: warm, radial pulses palpable and symmetrical. Absent : calf tenderness, cyanotic, pedal edema - Neurological Exam Neurological exam: Present: CN II-XII intact, oriented X3, no focal deficits. Absent: pronater drift, facial droop, speech deficit - Patient Status Disposition: Home, Self-Care Condition: Good Functional capacity at discharge: independent ambulation Overall status at discharge: patient is back to baseline - Discharge Instructions Instructions: Diabetes Mellitus Type 2 in Adults (DC) Follow Up With: Maxine Ordaz MD [Primary Care Provider] - 09/29/17 4:00 pm Chris Gannon DO [Partnered Physician] - (in 2-3 weks for migraine and cervical radiculopathy) - Diet and Activity Activity: increase activity as tolerated Diet: diabetic diet, low fat, low cholesterol, low salt diet
[2017-09-24 11:11] VITALS: BP 93/49
== END 2017-09-24 12:20 | disposition home or self-care (01) ==
LOC: 2NNU 18:25 → EMEROO 18:25 → SUATTDRO 22:33 → 2NNU 23:06
PROVIDERS: ADMIT Internal Medicine; ATTEND Internal Medicine

== ENCOUNTER 2017-10-20 17:54 | Observation (INO) ==
--- NOTE | 2017-10-20 18:29 | Emergency Department Note ---
Disposition Clinical Impression: Hyperglycemia, VALARIE (acute kidney injury), Polypharmacy Disposition: Admitted As Inpatient Condition: Fair Time of Disposition: 20:25 General Adult HPI - General Chief complaint: ED Dizziness Stated complaint: "Dizzy/SOB/Unsteady" Time Seen by Provider: 10/20/17 18:00 Source: patient Limitations: no limitations Nursing Notes Reviewed: Yes Vital Signs Reviewed: Yes - History of Present Illness HPI Narrative: Mrs. Gannon, a 52-year-old female, presents from home with multiple complaints. The symptoms she describes have been persistent for the past 4 days however she has not been at her baseline for the last 2 months. Prior to that, her symptoms were intermittent for the past year and a half. She describes right- sided facial droop with ptosis, right facial numbness, left upper and lower extremity numbness causing a wandering gait, and slowness of thought. She also notes iassociated lumbar back pain that radiates superiorly toward her head. Patient is concerned as, for the last 2-3 days, she has had headaches associated with these symptoms which did not occur previously. She describes her headache as right-sided with associated photophobia and phonophobia. Patient was seen and evaluated by her primary care physician today for the same symptoms, Tri Carlson CNP and discharged home. Patient was seen and evaluated on an inpatient basis at this facility discharge 09/24 with complete neurologic workup was unremarkable. ROS: Positive: As above Negative: No history of IV drug use or illicit substance use. No fevers, chills , chest pains, dyspnea, diaphoresis, neck pain. No trauma. No history of CVA or TIA. No slurring of speech. Pain Scale: 6 - Related Data Home Medications Medication Instructions Recorded Confirmed Metformin HCl [Glucophage] 1,000 mg PO BID PRN 06/14/15 10/20/17 Atorvastatin Calcium [Lipitor] 80 mg PO HS 09/06/15 10/20/17 Cholecalciferol (Vitamin D3) 2,000 unit PO DAILY 09/06/15 10/20/17 [Vitamin D3] Isosorbide MONOnitrate (24 HR) 60 mg PO DAILY 09/06/15 10/20/17 [Imdur] Omeprazole [PriLOSEC] 40 mg PO DAILY 09/06/15 10/20/17 acetaZOLAMIDE [Diamox Sequels] 500 mg PO BID 05/26/16 10/20/17 Albuterol Sulfate [Proair Hfa] 2 puff IH Q4H PRN 11/11/16 10/20/17 Insulin ASPART [NovoLOG] 0 unit SQ TIDWM 11/11/16 10/20/17 SUMAtriptan Succinate [Imitrex] 100 mg PO DAILY PRN 11/11/16 10/20/17 risperiDONE [Risperidone] 1 mg PO HS 11/11/16 10/20/17 Aspirin 81 mg PO DAILY 01/02/17 10/20/17 Budesonide/Formoterol 160/4.5 2 puff IH BIDR 01/02/17 10/20/17 [Symbicort 160/4.5] Cyclobenzaprine [Flexeril] 10 mg PO TID PRN 01/02/17 10/20/17 HYDROcodone/Acet 5/325 mg [Hurricane 1 tab PO TID 01/02/17 10/20/17 5-325 mg] Lidocaine 1 appl TP TID PRN 01/02/17 10/20/17 Loratadine [Claritin] 10 mg PO DAILY 01/02/17 10/20/17 Nystatin [Nystatin Suspension] 1,000,000 unit PO BID 01/02/17 10/20/17 Rivaroxaban [Xarelto] 20 mg PO DAILY 01/02/17 10/20/17 traZODone [TraZODone] 50 - 100 mg PO HS PRN 01/02/17 10/20/17 Insulin Glargine,Hum.rec.anlog 20 unit SQ QPM 09/22/17 10/20/17 [Basaglar Kwikpen U-100] Lisinopril/Hydrochlorothiazide 1 tab PO DAILY 09/22/17 10/20/17 [Zestoretic 20-25 mg Tablet] Nitroglycerin [Nitrostat] 0.4 mg SL Q5M PRN 09/22/17 10/20/17 Metoprolol Succinate 100 mg PO DAILY 10/20/17 10/20/17 Previous Rx's Medication Instructions Recorded Pregabalin [Lyrica] 225 mg PO BID capsule 06/20/16 Sertraline [Zoloft] 50 mg PO DAILY #30 tablet 11/13/16 Allergies Allergy/AdvReac Type Severity Reaction Status Date / Time cinnamon Allergy Anaphylaxis Verified 09/30/17 15:36 gabapentin Allergy Itching Verified 09/22/17 19:18 ibuprofen Allergy Hives Verified 09/22/17 19:18 Latex, Natural Rubber Allergy Itching Verified 09/22/17 19:18 naproxen [From Naprosyn] Allergy Itching Verified 09/22/17 19:18 Past Medical History - Past Medical History Medical history: Reports: arthritis, COPD, diabetes, GERD, hyperlipidemia, hypertension, migraine, pulmonary embolus, other Surgical history: Reports: cholecystectomy, herniorrhaphy, hysterectomy, orthopedic, other, other Psychiatric history: Reports: bipolar, depression, previous psychiatric hospitalization 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 -Problem list from PCP includes type 2 diabetes with neuropathy on insulin and oral anti-hyperglycemics, essential hypertension, hyperlipidemia, asthma, GERD, fibromyalgia, history of migraine, obstructive sleep apnea, pseudotumor cerebri , depression, anxiety, CAD with no stent, chronic PE on Xarelto, bipolar depression, history suicidal ideation. -Neurology note from prior inpatient stay dated 09/23/17 recommend outpatient workup for possible cervical radiculopathy. Low suspicion for primary neurologic etiology including seizure. - Patient's prior admission for which she had a neurological evaluation included symptoms of headache. Bedside finger stick glucose is 395. Clinical concern for polypharmacy of her prescription medications. Patient specifically notes that others have thought she was "high" which she takes no illicit substances. Patient is a difficult historian requiring focusing of her symptoms to obtain appropriate duration and character. At minimum, her symptoms have been persistent for the past 4 days. Serum hematology is unremarkable. Serum chemistry shows acute kidney injury with creatinine 2.59 (greater than 3 times most recent creatinine of 0.81). She is hyperglycemic. We will fluid resuscitate and recheck blood glucose before providing insulin. Urinalysis is not concerning for UTI. X-ray chest and CT head without contrast showed no acute abnormalities per radiology read. I discussed the patient with the admitting hospitalist who agrees to accept the patient for hyperglycemia, acute kidney injury, polypharmacy. Head CT 10/20/17 18:31 IMPRESSION: No acute intracranial abnormality. D/ / Eli Hicks MD / Eli Hicks MD Interpreting Provider: Eli Hicks MD Chest X-Ray 10/20/17 18:34 IMPRESSION: No acute cardiopulmonary abnormality. D/ / Carter Salas / Carter Salas Interpreting Provider: Carter Salas Vital Signs Temperature 98.1 F 10/20/17 17:56 Pulse Rate 92 10/20/17 17:56 Respiratory Rate 18 10/20/17 17:56 Blood Pressure 121/78 10/20/17 17:56 O2 Sat by Pulse Oximetry 97 10/20/17 17:56 Temperature 98.1 F 10/20/17 17:56 Pulse Rate 92 10/20/17 17:56 Respiratory Rate 18 10/20/17 21:47 Blood Pressure 118/59 10/20/17 21:47 O2 Sat by Pulse Oximetry 97 10/20/17 17:56 Oxygen Delivery Oxygen Delivery Room Air Medical Decision Making - Lab Data Result diagrams: 10/20/17 18:44 10/20/17 18:31 Lab Results 10/20/17 10/20/17 10/20/17 Range/Units 18:24 18:31 18:44 WBC 7.4 (4.3-11.1) K/mcL RBC 3.86 (3.82-4.97) M/mcL Hgb 11.4 L (11.5-15.4) g/dL Hct 34.0 L (35.3-44.9) % MCV 88.1 (83.0-100.0) fL MCH 29.5 (28.0-33.3) pg MCHC 33.5 (31.6-35.5) g/dL RDW 11.9 (11.5-14.5) % Plt Count 274 (140-400) K/mcL MPV 10.3 (9.4-12.4) fL Immature Gran % 0.1 (0-4) % Seg Neutrophils % 44.1 % Lymphocytes % 44.4 % Monocytes % 8.3 % Eosinophils % 2.7 % Basophils % 0.4 % Neutrophils # 3.3 (1.6-8.9) K/mcL Lymphocytes # 3.3 (0.6-4.6) K/mcL Monocytes # 0.6 (0.0-1.3) K/mcL Eosinophils # 0.2 (0.0-0.6) K/mcL Basophils # 0.0 (0.0-0.2) K/mcL Nucleated RBCs/100 WBC 0.3 H (0) /100 WBC VBG pH (7.32-7.42) pH Units VBG pCO2 (41-51) mmHg VBG pO2 (25-50) mmHg VBG HCO3 (21-27) mEq/L Sodium 132 L (136-145) mEq/L Potassium 4.0 (3.5-5.1) mEq/L Chloride 100 (98-107) mEq/L Carbon Dioxide 24 (23-29) mEq/L BUN 29 H (6-20) mg/dL Creatinine 2.59 H (0.60-1.20) mg/dL Est GFR ( Amer) 24 L (> 60) Est GFR (Non-Af Amer) 19 L (> 60) BUN/Creatinine Ratio 11 (6-26) Glucose 426 H (70-105) mg/dL POC Glucose 395 H (70-99) mg/dL Calculated Osmolality 298 (280-300) Calcium 9.8 (8.6-10.3) mg/dL Beta-Hydroxybutyric Acd (0.02-0.27) mmol/L Urine Color (Yellow) Urine Clarity (Clear) Urine pH (5.0-8.0) pH Units Ur Specific [place] (1.010-1.025) Urine Protein (Neg-Trace) mg/dL Urine Glucose (UA) (Normal) mg/dL Urine Ketones (Negative) mg/dL Urine Blood (Negative) Urine Nitrite (Negative) Urine Bilirubin (Negative) Urine Urobilinogen (Normal) mg/dL Ur Leukocyte Esterase (Negative) Urine Microscopic RBC (0-3) per hpf Urine Microscopic WBC (0-3) per hpf Ur Squamous Epith Cells (None-Few) per lpf Calcium Oxalate Crystal Urine Bacteria (None-Few) per hpf Hyaline Casts (None-Few) per lpf Ur Culture Indicated? (NO) 10/20/17 10/20/17 10/20/17 Range/Units 18:44 18:56 19:20 WBC (4.3-11.1) K/mcL RBC (3.82-4.97) M/mcL Hgb (11.5-15.4) g/dL Hct (35.3-44.9) % MCV (83.0-100.0) fL MCH (28.0-33.3) pg MCHC (31.6-35.5) g/dL RDW (11.5-14.5) % Plt Count (140-400) K/mcL MPV (9.4-12.4) fL Immature Gran % (0-4) % Seg Neutrophils % % Lymphocytes % % Monocytes % % Eosinophils % % Basophils % % Neutrophils # (1.6-8.9) K/mcL Lymphocytes # (0.6-4.6) K/mcL Monocytes # (0.0-1.3) K/mcL Eosinophils # (0.0-0.6) K/mcL Basophils # (0.0-0.2) K/mcL Nucleated RBCs/100 WBC (0) /100 WBC VBG pH 7.26 L (7.32-7.42) pH Units VBG pCO2 52 H (41-51) mmHg VBG pO2 37 (25-50) mmHg VBG HCO3 23 (21-27) mEq/L Sodium (136-145) mEq/L Potassium (3.5-5.1) mEq/L Chloride (98-107) mEq/L Carbon Dioxide (23-29) mEq/L BUN (6-20) mg/dL Creatinine (0.60-1.20) mg/dL Est GFR ( Amer) (> 60) Est GFR (Non-Af Amer) (> 60) BUN/Creatinine Ratio (6-26) Glucose (70-105) mg/dL POC Glucose (70-99) mg/dL Calculated Osmolality (280-300) Calcium (8.6-10.3) mg/dL Beta-Hydroxybutyric Acd < 0.10 (0.02-0.27) mmol/L Urine Color Yellow (Yellow) Urine Clarity Cloudy A (Clear) Urine pH 5.5 (5.0-8.0) pH Units Ur Specific [place] 1.022 (1.010-1.025) Urine Protein 30 H (Neg-Trace) mg/dL Urine Glucose (UA) >=1000 H (Normal) mg/dL Urine Ketones Negative (Negative) mg/dL Urine Blood Negative (Negative) Urine Nitrite Negative (Negative) Urine Bilirubin Negative (Negative) Urine Urobilinogen Normal (Normal) mg/dL Ur Leukocyte Esterase Negative (Negative) Urine Microscopic RBC 0-3 (0-3) per hpf Urine Microscopic WBC 5-15 H (0-3) per hpf Ur Squamous Epith Cells Many H (None-Few) per lpf Calcium Oxalate Crystal Present Urine Bacteria Few (None-Few) per hpf Hyaline Casts None Seen (None-Few) per lpf Ur Culture Indicated? NO (NO)
[2017-10-20] MEDS ORDERED: Metoclopramide 10 MG/2 ML VIAL IVP ONE (18:36)
[2017-10-20 19:00] LABS: VBG HCO3 23 mEq/L (21-27); VBG PCO2 52 mmHg (41-51); VBG PH 7.26 pH Units (7.32-7.42); VBG PO2 37 mmHg (25-50)
[2017-10-20 19:02] LABS: Basophils % 0.4 %; Eosinophils # 0.2 K/mcL (0.0-0.6); Eosinophils % 2.7 %; Hemoglobin 11.4 g/dL (11.5-15.4); Immature Granulocytes % 0.1 % (0-4); Lymphocytes # 3.3 K/mcL (0.6-4.6); Lymphocytes % 44.4 %; Mean Corpuscular HGB Conc 33.5 g/dL (31.6-35.5); Mean Corpuscular Hemoglobin 29.5 pg (28.0-33.3); Mean Corpuscular Volume 88.1 fL (83.0-100.0); Mean Platelet Volume 10.3 fL (9.4-12.4); Monocytes # 0.6 K/mcL (0.0-1.3); Monocytes % 8.3 %; Neutrophils # 3.3 K/mcL (1.6-8.9); Nucleated Red Blood Cells 0.3 /100 WBC (0); Platelet Count 274 K/mcL (140-400); Red Blood Count 3.86 M/mcL (3.82-4.97); Red Cell Distribution Width 11.9 % (11.5-14.5); Segmented Neutrophils % 44.1 %
[2017-10-20 19:21] LABS: Calcium 9.8 mg/dL (8.6-10.3)
[2017-10-20 19:31] LABS: Bilirubin,Urine Negative (Negative); Blood,Urine Negative (Negative); Clarity,Urine Cloudy (Clear); Color,Urine Yellow (Yellow); Glucose,Urine (UA) >=1000 mg/dL (Normal); Ketones,Urine Negative (Negative); Leukocyte Esterase,Urine Negative (Negative); Nitrite,Urine Negative (Negative); PH,Urine 5.5 pH Units (5.0-8.0); Protein,Urine 30 mg/dL (Neg-Trace); Specific Gravity,Urine 1.022 (1.010-1.025); Urobilinogen,Urine Normal (Normal)
[2017-10-20 19:34] LABS: Bacteria,Urine Few per hpf (None-Few); Hyaline Casts,Urine None Seen per lpf (None-Few); Squamous Epithelial Cell,Urine Many per lpf (None-Few)
[2017-10-20] MEDS ORDERED: 0.9 % Sodium Chloride 1,000 ML IVC ONE ×2 (19:35→21:48)
[2017-10-20 20:05] LABS: Calcium Oxalate Crystals,Urine Present; RBC,Urine 0-3 per hpf (0-3)
--- NOTE | 2017-10-20 21:07 | Emergency Department Note ---
Disposition Clinical Impression: Hyperglycemia, VALARIE (acute kidney injury), Polypharmacy Disposition: Admitted As Inpatient Condition: Fair General Adult HPI - General Chief complaint: ED Dizziness Stated complaint: "Dizzy/SOB/Unsteady" Time Seen by Provider: 10/20/17 18:00 Source: patient Limitations: no limitations - History of Present Illness Pain Scale: 6 - Related Data Home Medications Medication Instructions Recorded Confirmed Metformin HCl [Glucophage] 1,000 mg PO BID PRN 06/14/15 10/20/17 Atorvastatin Calcium [Lipitor] 80 mg PO HS 09/06/15 10/20/17 Cholecalciferol (Vitamin D3) 2,000 unit PO DAILY 09/06/15 10/20/17 [Vitamin D3] Isosorbide MONOnitrate (24 HR) 60 mg PO DAILY 09/06/15 10/20/17 [Imdur] Omeprazole [PriLOSEC] 40 mg PO DAILY 09/06/15 10/20/17 acetaZOLAMIDE [Diamox Sequels] 500 mg PO BID 05/26/16 10/20/17 Albuterol Sulfate [Proair Hfa] 2 puff IH Q4H PRN 11/11/16 10/20/17 Insulin ASPART [NovoLOG] 0 unit SQ TIDWM 11/11/16 10/20/17 SUMAtriptan Succinate [Imitrex] 100 mg PO DAILY PRN 11/11/16 10/20/17 risperiDONE [Risperidone] 1 mg PO HS 11/11/16 10/20/17 Aspirin 81 mg PO DAILY 01/02/17 10/20/17 Budesonide/Formoterol 160/4.5 2 puff IH BIDR 01/02/17 10/20/17 [Symbicort 160/4.5] Cyclobenzaprine [Flexeril] 10 mg PO TID PRN 01/02/17 10/20/17 HYDROcodone/Acet 5/325 mg [Orange 1 tab PO TID 01/02/17 10/20/17 5-325 mg] Lidocaine 1 appl TP TID PRN 01/02/17 10/20/17 Loratadine [Claritin] 10 mg PO DAILY 01/02/17 10/20/17 Nystatin [Nystatin Suspension] 1,000,000 unit PO BID 01/02/17 10/20/17 Rivaroxaban [Xarelto] 20 mg PO DAILY 01/02/17 10/20/17 traZODone [TraZODone] 50 - 100 mg PO HS PRN 01/02/17 10/20/17 Insulin Glargine,Hum.rec.anlog 20 unit SQ QPM 09/22/17 10/20/17 [Basaglar Kwikpen U-100] Lisinopril/Hydrochlorothiazide 1 tab PO DAILY 09/22/17 10/20/17 [Zestoretic 20-25 mg Tablet] Nitroglycerin [Nitrostat] 0.4 mg SL Q5M PRN 09/22/17 10/20/17 Metoprolol Succinate 100 mg PO DAILY 10/20/17 10/20/17 Previous Rx's Medication Instructions Recorded Pregabalin [Lyrica] 225 mg PO BID capsule 06/20/16 Sertraline [Zoloft] 50 mg PO DAILY #30 tablet 11/13/16 Allergies Allergy/AdvReac Type Severity Reaction Status Date / Time cinnamon Allergy Anaphylaxis Verified 09/30/17 15:36 gabapentin Allergy Itching Verified 09/22/17 19:18 ibuprofen Allergy Hives Verified 09/22/17 19:18 Latex, Natural Rubber Allergy Itching Verified 09/22/17 19:18 naproxen [From Naprosyn] Allergy Itching Verified 09/22/17 19:18 Past Medical History - Past Medical History Medical history: Reports: arthritis, COPD, diabetes, GERD, hyperlipidemia, hypertension, migraine, pulmonary embolus, other Surgical history: Reports: cholecystectomy, herniorrhaphy, hysterectomy, orthopedic, other, other Psychiatric history: Reports: bipolar, depression, previous psychiatric hospitalization 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 - Social History Smoking Status: Never smoker Smokeless Tobacco Status: No Alcohol use: Reports: rarely Drug use: Reports: none Physical Exam - General Limitations: no limitations General appearance: alert, in no apparent distress Course Vital Signs Temperature 98.1 F 10/20/17 17:56 Pulse Rate 92 10/20/17 17:56 Respiratory Rate 18 10/20/17 17:56 Blood Pressure 121/78 10/20/17 17:56 O2 Sat by Pulse Oximetry 97 10/20/17 17:56 Temperature 98.1 F 10/20/17 17:56 Pulse Rate 92 10/20/17 17:56 Respiratory Rate 18 10/20/17 21:47 Blood Pressure 118/59 10/20/17 21:47 O2 Sat by Pulse Oximetry 97 10/20/17 17:56 Oxygen Delivery Oxygen Delivery Room Air Medical Decision Making - Lab Data Result diagrams: 10/20/17 18:44 10/20/17 18:31 Lab Results 10/20/17 10/20/17 10/20/17 Range/Units 18:24 18:31 18:44 WBC 7.4 (4.3-11.1) K/mcL RBC 3.86 (3.82-4.97) M/mcL Hgb 11.4 L (11.5-15.4) g/dL Hct 34.0 L (35.3-44.9) % MCV 88.1 (83.0-100.0) fL MCH 29.5 (28.0-33.3) pg MCHC 33.5 (31.6-35.5) g/dL RDW 11.9 (11.5-14.5) % Plt Count 274 (140-400) K/mcL MPV 10.3 (9.4-12.4) fL Immature Gran % 0.1 (0-4) % Seg Neutrophils % 44.1 % Lymphocytes % 44.4 % Monocytes % 8.3 % Eosinophils % 2.7 % Basophils % 0.4 % Neutrophils # 3.3 (1.6-8.9) K/mcL Lymphocytes # 3.3 (0.6-4.6) K/mcL Monocytes # 0.6 (0.0-1.3) K/mcL Eosinophils # 0.2 (0.0-0.6) K/mcL Basophils # 0.0 (0.0-0.2) K/mcL Nucleated RBCs/100 WBC 0.3 H (0) /100 WBC VBG pH (7.32-7.42) pH Units VBG pCO2 (41-51) mmHg VBG pO2 (25-50) mmHg VBG HCO3 (21-27) mEq/L Sodium 132 L (136-145) mEq/L Potassium 4.0 (3.5-5.1) mEq/L Chloride 100 (98-107) mEq/L Carbon Dioxide 24 (23-29) mEq/L BUN 29 H (6-20) mg/dL Creatinine 2.59 H (0.60-1.20) mg/dL Est GFR ( Amer) 24 L (> 60) Est GFR (Non-Af Amer) 19 L (> 60) BUN/Creatinine Ratio 11 (6-26) Glucose 426 H (70-105) mg/dL POC Glucose 395 H (70-99) mg/dL Calculated Osmolality 298 (280-300) Calcium 9.8 (8.6-10.3) mg/dL Beta-Hydroxybutyric Acd (0.02-0.27) mmol/L Urine Color (Yellow) Urine Clarity (Clear) Urine pH (5.0-8.0) pH Units Ur Specific [place] (1.010-1.025) Urine Protein (Neg-Trace) mg/dL Urine Glucose (UA) (Normal) mg/dL Urine Ketones (Negative) mg/dL Urine Blood (Negative) Urine Nitrite (Negative) Urine Bilirubin (Negative) Urine Urobilinogen (Normal) mg/dL Ur Leukocyte Esterase (Negative) Urine Microscopic RBC (0-3) per hpf Urine Microscopic WBC (0-3) per hpf Ur Squamous Epith Cells (None-Few) per lpf Calcium Oxalate Crystal Urine Bacteria (None-Few) per hpf Hyaline Casts (None-Few) per lpf Ur Culture Indicated? (NO) 10/20/17 10/20/17 10/20/17 Range/Units 18:44 18:56 19:20 WBC (4.3-11.1) K/mcL RBC (3.82-4.97) M/mcL Hgb (11.5-15.4) g/dL Hct (35.3-44.9) % MCV (83.0-100.0) fL MCH (28.0-33.3) pg MCHC (31.6-35.5) g/dL RDW (11.5-14.5) % Plt Count (140-400) K/mcL MPV (9.4-12.4) fL Immature Gran % (0-4) % Seg Neutrophils % % Lymphocytes % % Monocytes % % Eosinophils % % Basophils % % Neutrophils # (1.6-8.9) K/mcL Lymphocytes # (0.6-4.6) K/mcL Monocytes # (0.0-1.3) K/mcL Eosinophils # (0.0-0.6) K/mcL Basophils # (0.0-0.2) K/mcL Nucleated RBCs/100 WBC (0) /100 WBC VBG pH 7.26 L (7.32-7.42) pH Units VBG pCO2 52 H (41-51) mmHg VBG pO2 37 (25-50) mmHg VBG HCO3 23 (21-27) mEq/L Sodium (136-145) mEq/L Potassium (3.5-5.1) mEq/L Chloride (98-107) mEq/L Carbon Dioxide (23-29) mEq/L BUN (6-20) mg/dL Creatinine (0.60-1.20) mg/dL Est GFR ( Amer) (> 60) Est GFR (Non-Af Amer) (> 60) BUN/Creatinine Ratio (6-26) Glucose (70-105) mg/dL POC Glucose (70-99) mg/dL Calculated Osmolality (280-300) Calcium (8.6-10.3) mg/dL Beta-Hydroxybutyric Acd < 0.10 (0.02-0.27) mmol/L Urine Color Yellow (Yellow) Urine Clarity Cloudy A (Clear) Urine pH 5.5 (5.0-8.0) pH Units Ur Specific [place] 1.022 (1.010-1.025) Urine Protein 30 H (Neg-Trace) mg/dL Urine Glucose (UA) >=1000 H (Normal) mg/dL Urine Ketones Negative (Negative) mg/dL Urine Blood Negative (Negative) Urine Nitrite Negative (Negative) Urine Bilirubin Negative (Negative) Urine Urobilinogen Normal (Normal) mg/dL Ur Leukocyte Esterase Negative (Negative) Urine Microscopic RBC 0-3 (0-3) per hpf Urine Microscopic WBC 5-15 H (0-3) per hpf Ur Squamous Epith Cells Many H (None-Few) per lpf Calcium Oxalate Crystal Present Urine Bacteria Few (None-Few) per hpf Hyaline Casts None Seen (None-Few) per lpf Ur Culture Indicated? NO (NO) Attestation Statement - Attestation Attestation: I examined this patient and my medical decision-making was reviewed with the Resident Physician, Dr. Quintero. I agree with the documented findings, disposition and treatment plan as described except to the extent set forth below. Patient is a 52-year-old black female with a history of chronic recurrent neurologic symptoms with unknown etiology. Patient was recently hospitalized at the beginning of September of this year for right-sided facial droop right lower extremity weakness slurred speech and slowness of thought. Patient had a full neurologic evaluation including MRI and there was no known etiology determined for her symptoms. Patient also followed up as an outpatient and had some neck imaging performed and has continued to have these recurrent symptoms. Patient returns tonight with a similar episode to what she experienced in the past and denies any history of falls or trauma. No new medications. Patient denies any new symptoms associated with these episodes of very typical when she has been experiencing for the past 18 months. Patient denies any chest pain pressure or heaviness, no shortness breath, no diaphoresis, no nausea vomiting, no abdominal pain or back pain. I agree with patient's physical exam findings as documented. Patient's in no acute distress and at baseline with her neurologic findings. Patient's lab evaluation shows new AK I without acidosis or hyperkalemia. Patient with hyperglycemia. Remainder of workup is unremarkable. At this time we will bring the patient in for acute kidney injury. IV fluids were initiated. Clinically suspect some component of polypharmacy contributing to her neurologic changes. Case discussed with hospitalist who accepted patient for further evaluation and management.
--- NOTE | 2017-10-20 21:25 | Internal Med History&Physical ---
Date of Encounter: 10/20/17 Time of Encounter: 21:17 Internal Medicine - H&P: HPI Chief complaint: Headache Admitted From: Emergency Dept Plans for Post Hospital Care: Home History of present illness: Ms. Gannon is a 52 year old female with reported history of COPD, diabetes mellitus, GERD, hyperlipidemia, hypertension, chronic pulmonary embolisms with DVTs, migraines, pseudotumor cerebri who presented to the ED with a complaint of a headache which has been going on for approximately 1 or 2 days. It should be noted that there is patient is not the best historian, and she gave me a very different story than she gave previous practitioners that have seen her today. When I spoke with this patient should mention that she has been having a right-sided posterior headache that started maybe yesterday, it feels pulsatile in nature and it makes her feel slow. She says it "is taking away my thoughts ". In addition of this, she says that there is radiation into her right face and jaw which is typical when this happens. She says that this is not the first time that this happened, and she has been seen multiple times for similar issues in the past. She says that when it starts, it is usually associated with photophobia and phonophobia, as well as difficulty in speaking or articulating her message, and difficulty concentrating. She denies any visual changes at this time, and she says that she generally is not very confused when this happens. She denies any weakness, but she does say that she sometimes feels unsteady on her feet. She does admit to follow several years ago but she says that they have not happened recently. She has not had any recent injuries that she is aware of. She said that she moved in with her brother approximately 1 month ago, and her life has been "crazy" since that time. She says that she has been taking her medicines, however she did denies checking her glucose at home in the past month because she says that she just has not had a chance to. She does say that she sometimes has chest pains but they are intermittent and resolve on their own after short periods of time, and she has had some shortness of breath. She does deny any cough, fever, chills, sweats. She also denies any nausea or vomiting, and she has not had any hematemesis or hematochezia. She denies any constipation or diarrhea. Say that she has had loss of appetite, and she has not been eating or drinking well in the past week or 2. Denies any unintended weight loss otherwise. Upon further chart review, it appears that the patient has received extensive workup for neurological conditions in the past including most recently at the beginning of September at which time neurology suggested that a possible cervical radiculopathy may be responsible for her symptoms. She apparently did undergo an outpatient brain and cervical MRI in that time which did not demonstrate any acute intracranial processes however did demonstrate remote retinal hemorrhage and moderate spinal canal stenosis at multiple levels in the cervical spine. In the ED she did have a repeat head CT which demonstrated no intracranial abnormalities at this time. She was found have an elevated glucose of 426, and her serum creatinine was 2.59. Her serum pH was found to be 7.26 with a venous pCO2 of 52. Her serum is negative for ketones and she does not have an anion gap, however she does have an A1c of 12.5. Past Med Surg Social Fam HX - Past Medical History Medical history: arthritis, COPD, diabetes, GERD, hyperlipidemia, hypertension, migraine, pulmonary embolus, other Psychiatric history: bipolar, depression, previous psychiatric hospitalization - Past Surgical History Surgical History: cholecystectomy, herniorrhaphy, hysterectomy, orthopedic, other, other - Social History Smoking Status: Never smoker Smokeless Tobacco Status: No Alcohol use: rarely Drug use: none - Family History Father Hx Family Cardiac Disorders: Yes Mother Hx Family Cardiac Disorders: Yes (CABG) Hx Family Endocrine Disorder: Yes (Diabetes mellitus type 2) Hx Family Neurologic Disorders: Yes (mini strokes) Brother Hx Family Cardiac Disorders: Yes (pacer/defib) Hx Family Cancer: Yes (Various different cancers including a rectal cancer) Internal Medicine - H&P: Meds Metformin HCl [Glucophage] 1,000 mg PO BID PRN 06/14/15 [History] Atorvastatin Calcium [Lipitor] 80 mg PO HS 09/06/15 [History] Cholecalciferol (Vitamin D3) [Vitamin D3] 2,000 unit PO DAILY 09/06/15 [History] Isosorbide MONOnitrate (24 HR) [Imdur] 60 mg PO DAILY 09/06/15 [History] Omeprazole [PriLOSEC] 40 mg PO DAILY 09/06/15 [History] acetaZOLAMIDE [Diamox Sequels] 500 mg PO BID 05/26/16 [History] Pregabalin [Lyrica] 225 mg PO BID capsule 06/20/16 [Rx] Albuterol Sulfate [Proair Hfa] 2 puff IH Q4H PRN 11/11/16 [History] Insulin ASPART [NovoLOG] 0 unit SQ TIDWM 11/11/16 [History] SUMAtriptan Succinate [Imitrex] 100 mg PO DAILY PRN 11/11/16 [History] risperiDONE [Risperidone] 1 mg PO HS 11/11/16 [History] Sertraline [Zoloft] 50 mg PO DAILY #30 tablet 11/13/16 [Rx] Aspirin 81 mg PO DAILY 01/02/17 [History] Budesonide/Formoterol 160/4.5 [Symbicort 160/4.5] 2 puff IH BIDR 01/02/17 [ History] Cyclobenzaprine [Flexeril] 10 mg PO TID PRN 01/02/17 [History] HYDROcodone/Acet 5/325 mg [[place]vey 5-325 mg] 1 tab PO TID 01/02/17 [History] Lidocaine 1 appl TP TID PRN 01/02/17 [History] Loratadine [Claritin] 10 mg PO DAILY 01/02/17 [History] Nystatin [Nystatin Suspension] 1,000,000 unit PO BID 01/02/17 [History] Rivaroxaban [Xarelto] 20 mg PO DAILY 01/02/17 [History] traZODone [TraZODone] 50 - 100 mg PO HS PRN 01/02/17 [History] Insulin Glargine,Hum.rec.anlog [Basaglar Kwikpen U-100] 20 unit SQ QPM 09/22/17 [History] Lisinopril/Hydrochlorothiazide [Zestoretic 20-25 mg Tablet] 1 tab PO DAILY 09/22 [History] Nitroglycerin [Nitrostat] 0.4 mg SL Q5M PRN 09/22/17 [History] Metoprolol Succinate 100 mg PO DAILY 10/20/17 [History] 3 Allergy/AdvReac Type Severity Reaction Status Date / Time cinnamon Allergy Anaphylaxis Verified 09/30/17 15:36 gabapentin Allergy Itching Verified 09/22/17 19:18 ibuprofen Allergy Hives Verified 09/22/17 19:18 Latex, Natural Rubber Allergy Itching Verified 09/22/17 19:18 naproxen [From Naprosyn] Allergy Itching Verified 09/22/17 19:18 All Systems PM: A 10-system review of systems was performed and is negative for pertinent findings except as documented above in the HPI. Review of systems: Constitutional: Denies fevers, chills, weight loss, generalized fatigue Head/Neck: Admits to headache in the right posterior head which radiates towards the face EENT: Denies vision changes/blurriness, rhinorrhea, congestion, sore throat CVS: Denies palpitations, ZEPEDA, orthopnea, edema, PND. Admits to occasional chest pains which resolved spontaneously and quickly Pulm: Denies SOB, cough, sputum, hemoptysis, wheezing GI: Denies abdominal pain, nausea, vomiting, diarrhea, constipation, melena, hematemasis : Denies dysuria, increased frequency, urgency, hematuria Heme: Denies ease of bleeding or bruising MSK: Denies joint pain, limited ROM Skin: Denies rashes, ulcers, color changes Neuro: Admits to frequent headache, paresthesias in the right face and difficulty concentrating - Constitutional Vitals: Temp Pulse Resp BP Pulse Ox 98.1 F 92 18 121/78 97 10/20/17 17:56 10/20/17 17:56 10/20/17 17:56 10/20/17 17:56 10/20/17 17:56 Exam: Gen.: Vitals noted. Patient is somnolent and difficult to obtain story from HEENT: PERRL/EOMI, however patient barely once open eyes and has to force herself to do so, oropharynx clear, Normocephalic, atraumatic Neck: Supple. No adenopathy. Cardiac: RRR, no murmur, +S1/S2 Pulmonary: CTA bilaterally, no wheezes, rales or rhonchi, equal chest expansion Abdomen: soft, nontender, BS noted, no guarding Back: Nontender throughout. MSK: ROM intact, no joint swelling noted Extremities: no BLE edema, nontender calf, no cyanosis or clubbing Neuro: A&Ox3 however extremely somnolent and does not focus easily, moves all extremities, no focal deficits. The patient almost gives in appearance of being under the influence Psych: Flat affect Internal Med - H&P Results - Labs CBC & Chem 7: 10/20/17 18:44 10/20/17 18:31 Labs: Short CBC 10/20/17 Range/Units 18:44 WBC 7.4 (4.3-11.1) K/mcL Hgb 11.4 L (11.5-15.4) g/dL Hct 34.0 L (35.3-44.9) % Plt Count 274 (140-400) K/mcL Neutrophils # 3.3 (1.6-8.9) K/mcL BMP 10/20/17 18:31 Sodium 132 L Potassium 4.0 Chloride 100 Carbon Dioxide 24 BUN 29 H Creatinine 2.59 H Glucose 426 H Calcium 9.8 Urine 10/20/17 Range/Units 19:20 Urine Color Yellow (Yellow) Urine Clarity Cloudy A (Clear) Urine pH 5.5 (5.0-8.0) pH Units Ur Specific [place] 1.022 (1.010-1.025) Urine Protein 30 H (Neg-Trace) mg/dL Urine Glucose (UA) >=1000 H (Normal) mg/dL - ABG Interpretation ABG results: 10/20/17 18:56 VBG pH 7.26 L VBG pCO2 52 H VBG pO2 37 VBG HCO3 23 - Impressions ITS Impressions Head CT 10/20/17 18:31 IMPRESSION: No acute intracranial abnormality. D/ / Eli Hicks MD / Eli Hicks MD Interpreting Provider: Eli Hicks MD Chest X-Ray 10/20/17 18:34 IMPRESSION: No acute cardiopulmonary abnormality. D/ / Carter Salas / Carter Salas Interpreting Provider: Carter Salas - Assessment and plan (1) Headache Current Visit: Yes Status: Acute Assessment and plan: Severe headache, recurrent Patient's story is not entirely coherent, however there is right-sided headache She describes what sounds almost like an or I am suspicious that this may have migraine-like qualities She has been worked up previously by neurology and has had inpatient and outpatient scans That being said her mentation is decreased which could either be due to neurological process versus polypharmacy versus VALARIE Repeat head CT on admission is negative for intracranial process We will admit the patient and continue to monitor her current mental status and headache I suspect that polypharmacy may also play some role in this, and we will attempt to minimize drug exposure Qualifiers: Headache type: unspecified Headache chronicity pattern: episodic headache Intractability: intractable Qualified Code(s): R51 - Headache (2) VALARIE (acute kidney injury) Current Visit: Yes Status: Acute Assessment and plan: Acute kidney injury, likely prerenal due to lack of fluid intake per patient This could play a role in current encephalopathic state, due to poor renal clearance of medications I will continue the patient with fluid replacement Check urine labs (3) Spinal stenosis in cervical region Current Visit: Yes Status: Acute Assessment and plan: Recent MRI of the Cspine shows: * Multilevel degenerative changes of the cervical spine, most severe at C5-C6. There is moderate to severe spinal canal stenosis with mild mass effect on the ventral spinal cord at C5-C6, as detailed above. * Additional multilevel degenerative changes with up to moderate spinal canal stenosis at multiple levels as detailed above. Spinal canal is diffusely small in relation to the spinal cord caliber Considering the patient's signficant history and MRI findings, I will consult spinal surgery for opinion (4) DM type 2 (diabetes mellitus, type 2) Current Visit: Yes Status: Acute Assessment and plan: Hyperglycemia in poorly controlled diabetes mellitus type 2 On previous admission 09/22/17, patient had A1C of 12.[address] the patient on high dose sliding scale insulin Hold oral glycemic meds Given the patient's mental status, I'm unsure whether or not she will intake significant oral nutrition. 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 of insulin (5) Polypharmacy Current Visit: Yes Status: Acute Assessment and plan: The patient is on extensive drug regimen which includes multiple serotonergic agents and other mind altering medications I will attempt to cut back on some medications to improve mental status (6) Hypotension Current Visit: Yes Status: Acute Assessment and plan: Patient has had relative hypotension since arrival I will hold hypertensive medications pending fluid replacement to monitor blood pressure Qualifiers: Hypotension type: unspecified hypotension type Qualified Code(s): I95.9 - Hypotension, unspecified (7) History of pulmonary embolism Current Visit: No Status: Chronic Assessment and plan: Patient is on xarelto for history of PEs (8) DVT prophylaxis Current Visit: Yes Status: Acute Assessment and plan: Continue xarelto - Time Spent With Patient Total time spent is greater than 50% in coordination of care (as documented) at patient's floor/unit and/or counseling patient:
[2017-10-20] MEDS ORDERED: Naloxone 0.4 MG/ML INJ IVP PRN (21:45)
[2017-10-20] MEDS ORDERED: *HR* HYDROcodone/Acet 5/325 mg TABLET PO PRN (21:45)
[2017-10-20] MEDS ORDERED: traZODone 50 MG TABLET PO PRN (21:48)
[2017-10-20] MEDS ORDERED: *HR* Dextrose 50 % in Water (Syg) 50 ML SYRINGE IVP PRN (21:51)
[2017-10-20] MEDS ORDERED: Dextrose Gel 15 GM/37.5 ML TUBE PO PRN ×2 (21:51)
[2017-10-20] MEDS ORDERED: D5% in Water 1,000 ML IVC PRN (21:51)
[2017-10-20 22:36] LABS: Albumin 3.4 g/dL (3.5-5.7); Albumin/Globulin Ratio 0.9 (1.1-2.2); Bilirubin,Direct 0.1 mg/dL (0.0-0.2); Bilirubin,Indirect 0.2 mg/dL (0.0-1.2); Bilirubin,Total 0.3 mg/dL (0.3-1.0); Globulin 3.6 g/dL (2.4-3.5)
[2017-10-20] MEDS: Budesonide/Formoterol 160/4.5 MDI IH SCH (22:58)
[2017-10-20 22:59] LABS: ABG Base Excess -3 mEq/L (-2 to 3); ABG HCO3 22 mEq/L (21-27); ABG Oxygen Saturation 97 % (95-98); ABG PCO2 42 mmHg (35-45); ABG PH 7.34 pH Units (7.32-7.45); ABG PO2 100 mmHg (85-104); ABG TCO2 24 mEq/L (20-26)
--- NOTE | 2017-10-20 23:28 | Event Note ---
Date of Encounter: 10/20/17 Time of Encounter: 23:21 Patient was seen and examined. I agree with the H&P as written by the Resident Physician. 52 year old female with reported history of COPD, diabetes mellitus, GERD, hyperlipidemia, hypertension, chronic pulmonary embolisms with DVTs, migraines, pseudotumor cerebri who presents with a constellation of symptoms. Patient is lethargic and is very hard to get a coherent and logical story from. She jumps from one symptom to another and can not stay focused on questions asked. She describes weakness, headache, numbness, unsteady gait. This is not an acute issue. It seems chronic and not too long ago had an extensive neurological work up that was unrevealing and was seen by neurology. She had an outpatient MRI cervical spine that showed some mod-severe stenosis with mild mass effect on the ventral spinal cord at C5-C6. She was found to have VALARIE on labs here. Hyperglycemic. Hemodynamically stable. CT head negative. Patient is on multiple psych and sedating meds which I suspect may be contributing to some of her incoherence here specially with VALARIE. She is A/O x2 RRR, S1,S2 CTAB Soft, NT, ND Will hydrate. c/s ortho spine Hold antihypertensive as she had an episode of hypotension in ED Insulin sliding scale for now till patient shows that she is awake enough to take adequate PO before starting basal insulin
[2017-10-21] MEDS ORDERED: Lidocaine OINT 35.44 GM TUBE TP PRN (01:27)
[2017-10-21] MEDS: 0.9 % Sodium Chloride 1,000 ML IVC SCH ×2 (01:31→12:30)
[2017-10-21] MEDS: Insulin LISPRO 300 UNITS/3 ML VIAL SQ SCH ×5 (01:36→21:33)
[2017-10-21 05:19] LABS: Basophils % 0.3 %; Eosinophils # 0.2 K/mcL (0.0-0.6); Eosinophils % 2.9 %; Hematocrit 30.2 % (35.3-44.9); Hemoglobin 10.1 g/dL (11.5-15.4); Immature Granulocytes % 0.2 % (0-4); Lymphocytes % 45.7 %; Mean Corpuscular HGB Conc 33.4 g/dL (31.6-35.5); Mean Corpuscular Hemoglobin 29.4 pg (28.0-33.3); Mean Corpuscular Volume 87.8 fL (83.0-100.0); Mean Platelet Volume 10.3 fL (9.4-12.4); Monocytes # 0.6 K/mcL (0.0-1.3); Monocytes % 8.5 %; Neutrophils # 2.8 K/mcL (1.6-8.9); Platelet Count 228 K/mcL (140-400); Red Blood Count 3.44 M/mcL (3.82-4.97); Red Cell Distribution Width 12.1 % (11.5-14.5); Segmented Neutrophils % 42.4 %
[2017-10-21 05:34] LABS: Albumin 3.1 g/dL (3.5-5.7); Albumin/Globulin Ratio 0.9 (1.1-2.2); Bilirubin,Total 0.2 mg/dL (0.3-1.0); Calcium 9.2 mg/dL (8.6-10.3); Chol/HDL Ratio 5.9 (0-4.9); Globulin 3.4 g/dL (2.4-3.5); Magnesium 1.5 mg/dL (1.6-2.6); Potassium 3.7 mEq/L (3.5-5.1); Total Protein 6.5 g/dL (6.4-8.9)
[2017-10-21] MEDS: Budesonide/Formoterol 160/4.5 MDI IH SCH ×2 (07:39→20:08)
[2017-10-21] MEDS ORDERED: SUMAtriptan succinate 50 MG TABLET PO PRN (08:55)
[2017-10-21] MEDS ORDERED: *HR* Rivaroxaban 10 MG TABLET PO SCH (09:00)
[2017-10-21] MEDS ORDERED: Isosorbide MONOnitrate (24 HR) 30 MG TAB.ER.24H PO SCH (09:00)
[2017-10-21] MEDS ORDERED: Pregabalin 25 MG CAPSULE PO SCH (09:00)
[2017-10-21] MEDS: Aspirin 81 MG TAB.CHEW PO SCH (09:06)
[2017-10-21] MEDS: Cholecalciferol (D-3) 1,000 UNIT TABLET PO SCH (09:07)
[2017-10-21] MEDS: Metoprolol XL (24 HR) Succ 50 MG TAB.ER.24H PO SCH (09:07)
[2017-10-21] MEDS: acetaZOLAMIDE 250 MG TABLET PO SCH ×2 (09:12→20:14)
--- NOTE | 2017-10-21 10:21 | Internal Med Progress Note ---
Date of Encounter: 10/21/17 Time of Encounter: 10:18 - Assessment and plan (1) Spinal stenosis in cervical region Current Visit: Yes Status: Acute Assessment and plan: Multilevel degenerative changes of the cervical spine, most severe at C5-C6. There is moderate to severe spinal canal stenosis with mild mass effect on the ventral spinal cord at C5-C6, as detailed above. Additional multilevel degenerative changes with up to moderate spinal canal stenosis at multiple levels as detailed above. Spinal canal is diffusely small in relation to the spinal cord caliber Patient has loss of balance, Dr. Sanchez is called. Consult PTOT Discussed with Dr Sanchez, will need medical clearance 1. ARF hold ACEI, IVF 2. DM with hyperglycemia, started lantus, hold metformin 3. Patient denies history of CAD MA or stents, she also denies chest pain shortness of breath. she had a normal echocardiogram on 09/25/2017. She also had a negative stress test on 01/03/2017. The patient is considered consider low risk for perioperative adverse cardiac events, no further testing 4. Hx of PE was on xarelto, last Xarelto was 0900 on 10/21. will hold for possible surgery discussed with Dr Sanchez, if sugar and CR improves she is ok for surgery, xarelto last dose 0900 on 10/21. she is NPO after midnight. (2) VALARIE (acute kidney injury) Current Visit: Yes Status: Acute Assessment and plan: Acute renal failure, Cr slowly trending down, contineu IVF (3) History of pulmonary embolism Current Visit: No Status: Chronic Assessment and plan: Was on Xarelto, hold it for procedure (4) DM type 2 (diabetes mellitus, type 2) Current Visit: Yes Status: Acute Assessment and plan: Diabetes type 2 uncontrolled we will restart long acting insulin Qualifiers: Diabetes mellitus custodial insulin use: with long term care pharmacist use Diabetes mellitus complication status: with hyperglycemia Qualified Code(s): E11.65 - Type 2 diabetes mellitus with hyperglycemia; Z79.4 - long term care pharmacist (current) use of insulin; Z79.4 - detention (current) use of insulin; Z79.4 - long term care pharmacist (current ) use of insulin; Z79.4 - detention (current) use of insulin (5) Headache Current Visit: Yes Status: Acute Assessment and plan: Headache resolved Qualifiers: Headache type: unspecified Headache chronicity pattern: episodic headache Intractability: intractable Qualified Code(s): R51 - Headache - Time Spent With Patient Total time spent is greater than 50% in coordination of care (as documented) at patient's floor/unit and/or counseling patient: Greater than 35 minutes - Subjective Interval history: Ms. Gannon is a 52 year old female with reported history of COPD, diabetes mellitus, GERD, hyperlipidemia, hypertension, chronic pulmonary embolisms with DVTs, migraines, pseudotumor cerebri who presented to the ED with a complaint of a headache and loss of balance for 2 weeks. Patient sas her headache resolved. Denies chest pain. She reports that she has been taking Diamox for headache. But the loss of her balance is new. She is admitted for #1 headache #2 loss of imbalance, moderate to severe C-spine stenosis, pending neurosurgery consult #3 acute renal failure - Constitutional Vitals: Temp Pulse Resp BP Pulse Ox 97.9 F 99 16 126/81 98 10/21/17 07:48 10/21/17 07:48 10/21/17 07:48 10/21/17 07:48 10/21/17 07:48 General appearance: Present: A&O X 3, morbidly obese, pleasant Exam: CONSTITUTIONAL: patient appears as an age appropriate female in no acute distress. EYES Clear sclerae, bilateral pupils are equal, reactive to light. EMOI. RESPIRATORY: No accessory muscle use, bilateral clear to auscultation, no wheezing, no crackles/rales. CARDIOVASCULAR: Regular heart rate, normal S1 and S2, no murmurs GASTROINTESTINAL: bowel sounds present, soft, no tenderness. MUSCULOSKELETAL: Joints in normal range of motion, no clubbing, no edema, no cyanosis. Bilateral peripheral pulses 2+. NEUROLOGIC: CN II to XII are grossly intact, no focal neurological deficit. Internal Medicine: Result - Labs CBC & Chem 7: 10/21/17 04:34 10/21/17 04:34 Labs: Short CBC 10/21/17 Range/Units 04:34 WBC 6.6 (4.3-11.1) K/mcL Hgb 10.1 L (11.5-15.4) g/dL Hct 30.2 L (35.3-44.9) % Plt Count 228 (140-400) K/mcL Neutrophils # 2.8 (1.6-8.9) K/mcL BMP 10/21/17 04:34 Sodium 139 Potassium 3.7 Chloride 109 H Carbon Dioxide 23 BUN 34 H Creatinine 2.30 H Glucose 279 H Calcium 9.2 Cardiac Enzymes 10/20/17 10/21/17 Range/Units 22:05 04:34 Troponin I < 0.03 < 0.03 (< 0.04) ng/mL Liver Function 10/20/17 10/21/17 Range/Units 22:05 04:34 Total Bilirubin 0.3 0.2 L (0.3-1.0) mg/dL Direct Bilirubin 0.1 (0.0-0.2) mg/dL AST 12 L 11 L (13-39) Units/L ALT 11 10 (7-52) Units/L Alkaline Phosphatase 82 73 (34-104) Units/L Albumin 3.4 L 3.1 L (3.5-5.7) g/dL - ABG Interpretation ABG results: ABG ABG pH 7.34 pH Units (7.32-7.45) 10/20/17 22:55 ABG pCO2 42 mmHg (35-45) 10/20/17 22:55 ABG pO2 100 mmHg (85-104) 10/20/17 22:55 ABG O2 Saturation 97 % (95-98) 10/20/17 22:55 Consult Discharge Plan - Plan Referrals: Maxine Ordaz MD [Primary Care Provider] -
[2017-10-21] MEDS: Insulin DETEMIR 100 UNIT/ML X5UNITS SQ SCH (17:57)
[2017-10-21] MEDS: risperiDONE 1 MG TABLET PO SCH (20:14)
[2017-10-21] MEDS: Pregabalin 75 MG CAPSULE PO SCH (20:14)
--- NOTE | 2017-10-21 22:24 | Anesthesia Evaluation PreOp ---
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 Patient says her headaches resolved,) Other Medical History: Renal (LIZZY), Diabetes Type II, GERD, Other (previous psychiatric hospitalization, depression, suicidal ideation, hopelessness, panic or anxiety attacks) Anesthesia History: Past Anesthesia (cholecystectomy, herniorrhaphy, hysterectomy, orthopedic, other, other) : No Alcohol Use: rarely Drug use: none Medications and Allergies Metformin HCl [Glucophage] 1,000 mg PO BID PRN 06/14/15 [History] Atorvastatin Calcium [Lipitor] 80 mg PO HS 09/06/15 [History] Cholecalciferol (Vitamin D3) [Vitamin D3] 2,000 unit PO DAILY 09/06/15 [History] Isosorbide MONOnitrate (24 HR) [Imdur] 60 mg PO DAILY 09/06/15 [History] Omeprazole [PriLOSEC] 40 mg PO DAILY 09/06/15 [History] acetaZOLAMIDE [Diamox Sequels] 500 mg PO BID 05/26/16 [History] Pregabalin [Lyrica] 225 mg PO BID capsule 06/20/16 [Rx] Albuterol Sulfate [Proair Hfa] 2 puff IH Q4H PRN 11/11/16 [History] Insulin ASPART [NovoLOG] 0 unit SQ TIDWM 11/11/16 [History] SUMAtriptan Succinate [Imitrex] 100 mg PO DAILY PRN 11/11/16 [History] risperiDONE [Risperidone] 1 mg PO HS 11/11/16 [History] Sertraline [Zoloft] 50 mg PO DAILY #30 tablet 11/13/16 [Rx] Aspirin 81 mg PO DAILY 01/02/17 [History] Budesonide/Formoterol 160/4.5 [Symbicort 160/4.5] 2 puff IH BIDR 01/02/17 [ History] Cyclobenzaprine [Flexeril] 10 mg PO TID PRN 01/02/17 [History] HYDROcodone/Acet 5/325 mg [Benedict 5-325 mg] 1 tab PO TID 01/02/17 [History] Lidocaine 1 appl TP TID PRN 01/02/17 [History] Loratadine [Claritin] 10 mg PO DAILY 01/02/17 [History] Nystatin [Nystatin Suspension] 1,000,000 unit PO BID 01/02/17 [History] Rivaroxaban [Xarelto] 20 mg PO DAILY 01/02/17 [History] traZODone [TraZODone] 50 - 100 mg PO HS PRN 01/02/17 [History] Insulin Glargine,Hum.rec.anlog [Basaglar Kwikpen U-100] 20 unit SQ QPM 09/22/17 [History] Lisinopril/Hydrochlorothiazide [Zestoretic 20-25 mg Tablet] 1 tab PO DAILY 09/22 [History] Nitroglycerin [Nitrostat] 0.4 mg SL Q5M PRN 09/22/17 [History] Metoprolol Succinate 100 mg PO DAILY 10/20/17 [History] 3 Allergy/AdvReac Type Severity Reaction Status Date / Time cinnamon Allergy Anaphylaxis Verified 09/30/17 15:36 gabapentin Allergy Itching Verified 09/22/17 19:18 ibuprofen Allergy Hives Verified 09/22/17 19:18 Latex, Natural Rubber Allergy Itching Verified 09/22/17 19:18 naproxen [From Naprosyn] Allergy Itching Verified 09/22/17 19:18 - Meds/Allergy Pre-op Review Medications Reviewed: Yes Allergies Reviewed: Yes Beta Blockers on Current Med List: Yes If Beta Blockers taken, Date/Time (Last Dose taken): 10/21/2017 @09:07 needs am dose Anesthesia Results - Labs 10/21/17 04:34 10/21/17 04:34 Echo with Saline Contrast Name: Kathy Gannon Date of Study: 09/23/2017 EV/EV echo with saline Impressions: LVEF 60-65%. Normal right ventricular structure and function. No significant valvular dysfunction. No pulmonary hypertension. No evidence of PFO with agitated saline contrast. 10/20/17 CT of Head No acute intracranial abnormality. negative stress test on 01/03/2017 EF-63% - Imaging EKG: report reviewed (SR) Anesthesia Exam Vital Signs/O2 Sat, Most Current Temp Pulse Resp BP Pulse Ox 98.3 F 78 16 121/78 99 10/21/17 19:45 10/21/17 19:45 10/21/17 20:08 10/21/17 19:45 10/21/17 20:08 - Additional Findings Chart review completed 10/21/2017, final pre-op evaluation by Dr. Ferrara when patient presents to holding room prior to sx
[2017-10-22] MEDS: 0.9 % Sodium Chloride 1,000 ML IVC SCH ×4 (05:51→23:27)
[2017-10-22 06:39] LABS: Basophils % 0.3 %; Eosinophils # 0.3 K/mcL (0.0-0.6); Hematocrit 33.3 % (35.3-44.9); Immature Granulocytes % 0.2 % (0-4); Lymphocytes # 3.7 K/mcL (0.6-4.6); Lymphocytes % 39.1 %; Mean Corpuscular Hemoglobin 29.5 pg (28.0-33.3); Mean Corpuscular Volume 89.3 fL (83.0-100.0); Mean Platelet Volume 10.1 fL (9.4-12.4); Monocytes # 0.7 K/mcL (0.0-1.3); Monocytes % 6.9 %; Neutrophils # 4.8 K/mcL (1.6-8.9); Platelet Count 237 K/mcL (140-400); Red Blood Count 3.73 M/mcL (3.82-4.97); Red Cell Distribution Width 12.1 % (11.5-14.5); Segmented Neutrophils % 50.5 %
[2017-10-22 06:43] LABS: INR 1.4; Prothrombin Time 14.7 Seconds (9.4-12.1)
[2017-10-22 06:53] LABS: Calcium 9.5 mg/dL (8.6-10.3); Magnesium 1.6 mg/dL (1.6-2.6); Potassium 3.9 mEq/L (3.5-5.1)
--- NOTE | 2017-10-22 07:37 | Spinal Consult Note ---
Date of Encounter: 10/22/17 Time of Encounter: 11:10 Assessment and Plan (1) Spinal stenosis in cervical region Current Visit: Yes Status: Chronic On exam she is pleasant in no acute distress. Afebrile vital signs stable. Gait reveals a wide-based mildly spastic type gait. She has a positive Romberg. She is grossly neurovascularly intact with regard to her bilateral upper and lower extremities but has a positive Debi sign. She has no clonus. Her hips move symmetrically. She fires upper and lower extremity motor groups with good strength. She has no clonus. MRI of the cervical spine reveals multilevel degenerative changes. There is severe central and foraminal stenosis at C5-6. Impression: 1) cervical stenosis of the spine 2) cervical myelopathy with gait impairment. Plan: Due to her likelihood for neurologic progression I find it reasonable to consider surgery in the form of an anterior cervical decompression and fusion C5 -6. Risk benefits possible complications and alternatives were fully discussed with the patient and the patient would like to proceed. The patient understands she must be medically optimized and cleared prior to surgical intervention. History of Present Illness Chief complaint: Dizziness, gait imbalance, inability to use hands HPI: Ms. Gannon is a 52 year old female Who complains of a 2 year history of dizziness, paresthesias in place, gait instability, and inability to use hands which has progressed over the last 2 months. Due to her concerning she has had multiple physicians and emergency department visits and has had workup by neurology. She states that she has had several near falls, drops items in her hands, can no longer twist off the Top of Jars, and Has Impairment and Hand Dexterity such that her writing ability and ability to button a shirt has declined. Recent workup included an MRI of the cervical spine and we are asked to see regarding abnormal findings. She denies fevers or chills or radicular symptoms in the lower extremities. She does admit to paresthesias in the bilateral upper extremities associated with numbness in the hands. Past Med Surg Social Fam HX - Past Medical History Medical history: arthritis, COPD, diabetes, GERD, hyperlipidemia, hypertension, migraine, pulmonary embolus, other Psychiatric history: bipolar, depression, previous psychiatric hospitalization - Past Surgical History Surgical History: cholecystectomy, herniorrhaphy, hysterectomy, orthopedic, other, other - Social History Smoking Status: Never smoker Smokeless Tobacco Status: No Alcohol use: rarely Drug use: none - Family History Father Hx Family Cardiac Disorders: Yes Mother Hx Family Cardiac Disorders: Yes (CABG) Hx Family Endocrine Disorder: Yes (Diabetes mellitus type 2) Hx Family Neurologic Disorders: Yes (mini strokes) Brother Hx Family Cardiac Disorders: Yes (pacer/defib) Hx Family Cancer: Yes (Various different cancers including a rectal cancer) Medications and Allergies Metformin HCl [Glucophage] 1,000 mg PO BID PRN 06/14/15 [History] Atorvastatin Calcium [Lipitor] 80 mg PO HS 09/06/15 [History] Cholecalciferol (Vitamin D3) [Vitamin D3] 2,000 unit PO DAILY 09/06/15 [History] Isosorbide MONOnitrate (24 HR) [Imdur] 60 mg PO DAILY 09/06/15 [History] Omeprazole [PriLOSEC] 40 mg PO DAILY 09/06/15 [History] acetaZOLAMIDE [Diamox Sequels] 500 mg PO BID 05/26/16 [History] Pregabalin [Lyrica] 225 mg PO BID capsule 06/20/16 [Rx] Albuterol Sulfate [Proair Hfa] 2 puff IH Q4H PRN 11/11/16 [History] Insulin ASPART [NovoLOG] 0 unit SQ TIDWM 11/11/16 [History] SUMAtriptan Succinate [Imitrex] 100 mg PO DAILY PRN 11/11/16 [History] risperiDONE [Risperidone] 1 mg PO HS 11/11/16 [History] Sertraline [Zoloft] 50 mg PO DAILY #30 tablet 11/13/16 [Rx] Aspirin 81 mg PO DAILY 01/02/17 [History] Budesonide/Formoterol 160/4.5 [Symbicort 160/4.5] 2 puff IH BIDR 01/02/17 [ History] Cyclobenzaprine [Flexeril] 10 mg PO TID PRN 01/02/17 [History] HYDROcodone/Acet 5/325 mg [[place] 5-325 mg] 1 tab PO TID 01/02/17 [History] Lidocaine 1 appl TP TID PRN 01/02/17 [History] Loratadine [Claritin] 10 mg PO DAILY 01/02/17 [History] Nystatin [Nystatin Suspension] 1,000,000 unit PO BID 01/02/17 [History] Rivaroxaban [Xarelto] 20 mg PO DAILY 01/02/17 [History] traZODone [TraZODone] 50 - 100 mg PO HS PRN 01/02/17 [History] Insulin Glargine,Hum.rec.anlog [Basaglar Kwikpen U-100] 20 unit SQ QPM 09/22/17 [History] Lisinopril/Hydrochlorothiazide [Zestoretic 20-25 mg Tablet] 1 tab PO DAILY 09/22 [History] Nitroglycerin [Nitrostat] 0.4 mg SL Q5M PRN 09/22/17 [History] Metoprolol Succinate 100 mg PO DAILY 10/20/17 [History] 3 Allergy/AdvReac Type Severity Reaction Status Date / Time cinnamon Allergy Anaphylaxis Verified 09/30/17 15:36 gabapentin Allergy Itching Verified 09/22/17 19:18 ibuprofen Allergy Hives Verified 09/22/17 19:18 Latex, Natural Rubber Allergy Itching Verified 09/22/17 19:18 naproxen [From Naprosyn] Allergy Itching Verified 09/22/17 19:18 Results - Labs Result Diagrams: 10/22/17 06:14 10/22/17 06:14 Labs: Abnormal lab results RBC 3.73 M/mcL (3.82-4.97) L 10/22/17 06:14 Hgb 11.0 g/dL (11.5-15.4) L 10/22/17 06:14 Hct 33.3 % (35.3-44.9) L 10/22/17 06:14 Nucleated RBCs/100 WBC 0.3 /100 WBC (0) H 10/20/17 18:44 PT 14.7 Seconds (9.4-12.1) H 10/22/17 06:14 ABG Base Excess -3 mEq/L (-2 to 3) L 10/20/17 22:55 VBG pH 7.26 pH Units (7.32-7.42) L 10/20/17 18:56 VBG pCO2 52 mmHg (41-51) H 10/20/17 18:56 Chloride 111 mEq/L (98-107) H 10/22/17 06:14 Carbon Dioxide 22 mEq/L (23-29) L 10/22/17 06:14 BUN 33 mg/dL (6-20) H 10/22/17 06:14 Creatinine 1.75 mg/dL (0.60-1.20) H 10/22/17 06:14 Est GFR ( Amer) 37 (> 60) L 10/22/17 06:14 Est GFR (Non-Af Amer) 31 (> 60) L 10/22/17 06:14 Glucose 136 mg/dL (70-105) H 10/22/17 06:14 POC Glucose 184 mg/dL (70-99) H 10/21/17 19:57 Total Bilirubin 0.2 mg/dL (0.3-1.0) L 10/21/17 04:34 AST 11 Units/L (13-39) L 10/21/17 04:34 Albumin 3.1 g/dL (3.5-5.7) L 10/21/17 04:34 Albumin/Globulin Ratio 0.9 (1.1-2.2) L 10/21/17 04:34 Triglycerides 178 mg/dL (< 150) H 10/21/17 04:34 Cholesterol 249 mg/dL (< 200) H 10/21/17 04:34 LDL Cholesterol, Calc 171 mg/dL (0-99) H 10/21/17 04:34 VLDL Cholesterol, Calc 36 mg/dL (< 31) H 10/21/17 04:34 Cholesterol/HDL Ratio 5.9 (0-4.9) H 10/21/17 04:34 Urine Clarity Cloudy (Clear) A 10/20/17 19:20 Urine Protein 30 mg/dL (Neg-Trace) H 10/20/17 19:20 Urine Glucose (UA) >=1000 mg/dL (Normal) H 10/20/17 19:20 Urine Microscopic WBC 5-15 per hpf (0-3) H 10/20/17 19:20 Ur Squamous Epith Cells Many per lpf (None-Few) H 10/20/17 19:20 H & H 10/22/17 Range/Units 06:14 Hgb 11.0 L (11.5-15.4) g/dL Hct 33.3 L (35.3-44.9) % All other labs normal. Consult Discharge Plan - Plan Referrals: Maxine Ordaz MD [Primary Care Provider] -
[2017-10-22] MEDS: Insulin LISPRO 300 UNITS/3 ML VIAL SQ SCH ×4 (07:41→21:04)
[2017-10-22] MEDS: Budesonide/Formoterol 160/4.5 MDI IH SCH ×2 (07:56→22:02)
[2017-10-22] MEDS ORDERED: CeFAZolin Syringe 2,000MG/20 ML SYR IVPB ONE (08:37)
[2017-10-22] MEDS ORDERED: CeFAZolin Pre 2,000 MG/100 ML 2,000 MG/100 ML BAG IVPB ONE (09:00)
[2017-10-22] MEDS ORDERED: Ondansetron 4 MG/2 ML VIAL ONE (09:45)
[2017-10-22] MEDS ORDERED: Lidocaine -MPF 2% 2 ML VIAL ONE (09:45)
[2017-10-22] MEDS ORDERED: *HR* Propofol 200 MG/20 ML VIAL IVP ONE (09:45)
[2017-10-22] MEDS ORDERED: *HR* Succinylcholine 200 MG/10 ML VIAL IVP ONE (09:45)
[2017-10-22] MEDS ORDERED: *HR* FentaNYL (PF) 100 MCG/2 ML VIAL ONE (09:45)
[2017-10-22] MEDS ORDERED: *HR* Remifentanil 2 MG VIAL IVP ONE (09:52)
[2017-10-22] MEDS: Pregabalin 75 MG CAPSULE PO SCH ×2 (10:23→21:04)
[2017-10-22] MEDS: Metoprolol XL (24 HR) Succ 50 MG TAB.ER.24H PO SCH (10:23)
[2017-10-22] MEDS ORDERED: Bacitracin 50,000 UNIT, Polymyxin B Sulfate 500,000 UNIT, Sodium Chloride IRRigation 1,... IR ONE (11:55)
[2017-10-22] MEDS: acetaZOLAMIDE 250 MG TABLET PO SCH ×2 (12:28→21:03)
--- NOTE | 2017-10-22 12:37 | Internal Med Progress Note ---
Date of Encounter: 10/22/17 Time of Encounter: 12:35 - Assessment and plan (1) VALARIE (acute kidney injury) Current Visit: Yes Status: Acute Assessment and plan: Acute renal failure improving on fluids Not yet at baseline Continue IV fluids Hold lisinopril and hydrochlorothiazide, hold xarelto (2) Spinal stenosis in cervical region Current Visit: Yes Status: Chronic Assessment and plan: Severe cervical spine stenosis at C5 and C6 with cervical myelopathy and gait impairment MRI of the brain showed:Multilevel degenerative changes of the cervical spine, most severe at C5-C6. There is moderate to severe spinal canal stenosis with mild mass effect on the ventral spinal cord at C5-C6, as detailed above. Additional multilevel degenerative changes with up to moderate spinal canal stenosis at multiple levels as detailed above. Spinal canal is diffusely small in relation to the spinal cord caliber Dr. Sanchez was consulted and is recommending surgical procedure Unfortunately due to issues with her insurance surgery was not able to be performed during this hospitalization. 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 transplanted heart: [place] heart Associated angina: with unspecified angina Qualified Code(s): I25.119 - Atherosclerotic heart disease of [place] coronary artery with unspecified angina pectoris (6) Bipolar disorder Current Visit: No Status: Chronic Qualifiers: Active/Remission status: currently active Current bipolar episode type: mixed Current episode severity: unspecified Qualified Code(s): F31.60 - Bipolar disorder, current episode mixed, unspecified - Time Spent With Patient Total time spent is greater than 50% in coordination of care (as documented) at patient's floor/unit and/or counseling patient: - Subjective Interval history: Complains of weakness in both upper extremities and sometimes her legs, denies any chest pressures or breath, no fevers or chills, no abdominal pain diarrhea or dysuria - Constitutional Vitals: Temp Pulse Resp BP Pulse Ox 97.9 F 72 17 136/81 99 10/22/17 10:47 10/22/17 10:47 10/22/17 10:47 10/22/17 10:47 10/22/17 10:47 General appearance: Present: A&O X 3, morbidly obese, pleasant - Head Head exam: Present: atraumatic, normocephalic - Eye Eye exam: Present: PERRL, conjuntiva pink, sclera anicteric Pupils: Present: PERRL - Neck Neck exam general surgery: Present: supple, trachea midline. Absent: lymphadenopathy - Respiratory Respiratory exam: Present: CTAB. Absent: accessory muscle use, rales, rhonchi, wheezes - Cardiovascular Cardiovascular exam: Present: RRR, +S1, +S2. Absent: diastolic murmur, gallop, rubs, systolic murmur - GI/Abdominal GI/Abdominal exam: Present: normal bowel sounds, soft, no peritoneal signs. Absent: distended, tenderness - Extremities Exam Extremities exam: Present: warm, radial pulses palpable and symmetrical. Absent : calf tenderness, cyanotic, pedal edema Additional comments: Bilateral upper extremity weakness 4 out of 5 - Neurological Exam Neurological exam: Present: CN II-XII intact, oriented X3, no focal deficits. Absent: pronater drift, facial droop, speech deficit - Skin Skin exam: Present: dry, intact Internal Medicine: Result - Labs CBC & Chem 7: 10/22/17 06:14 10/22/17 06:14 Labs: Short CBC 10/22/17 Range/Units 06:14 WBC 9.5 (4.3-11.1) K/mcL Hgb 11.0 L (11.5-15.4) g/dL Hct 33.3 L (35.3-44.9) % Plt Count 237 (140-400) K/mcL Neutrophils # 4.8 (1.6-8.9) K/mcL BMP 10/22/17 06:14 Sodium 139 Potassium 3.9 Chloride 111 H Carbon Dioxide 22 L BUN 33 H Creatinine 1.75 H Glucose 136 H Calcium 9.5 - ABG Interpretation ABG results: ABG ABG pH 7.34 pH Units (7.32-7.45) 10/20/17 22:55 ABG pCO2 42 mmHg (35-45) 10/20/17 22:55 ABG pO2 100 mmHg (85-104) 10/20/17 22:55 ABG O2 Saturation 97 % (95-98) 10/20/17 22:55 PT/INR, D-dimer PT 14.7 Seconds (9.4-12.1) H 10/22/17 06:14 Consult Discharge Plan - Plan Referrals: Maxine Ordaz MD [Primary Care Provider] -
[2017-10-22] MEDS: Aspirin 81 MG TAB.CHEW PO SCH (15:46)
[2017-10-22] MEDS: Cholecalciferol (D-3) 1,000 UNIT TABLET PO SCH (15:46)
[2017-10-22] MEDS: Insulin DETEMIR 100 UNIT/ML X5UNITS SQ SCH (18:36)
[2017-10-22] MEDS: risperiDONE 1 MG TABLET PO SCH (23:31)
[2017-10-23 04:31] LABS: INR 1.2; Prothrombin Time 12.9 Seconds (9.4-12.1)
[2017-10-23 04:54] LABS: Calcium 8.6 mg/dL (8.6-10.3); Potassium 3.6 mEq/L (3.5-5.1)
[2017-10-23] MEDS: Budesonide/Formoterol 160/4.5 MDI IH SCH ×2 (07:53→21:53)
[2017-10-23] MEDS: Metoprolol XL (24 HR) Succ 50 MG TAB.ER.24H PO SCH (09:26)
[2017-10-23] MEDS: Aspirin 81 MG TAB.CHEW PO SCH (09:27)
[2017-10-23] MEDS: Pregabalin 50 MG CAPSULE PO SCH ×2 (09:27→22:20)
[2017-10-23] MEDS: acetaZOLAMIDE 250 MG TABLET PO SCH ×2 (09:28→22:20)
[2017-10-23] MEDS: Cholecalciferol (D-3) 1,000 UNIT TABLET PO SCH (09:29)
[2017-10-23] MEDS: Insulin LISPRO 300 UNITS/3 ML VIAL SQ SCH ×4 (09:30→22:21)
[2017-10-23] MEDS: 0.9 % Sodium Chloride 1,000 ML IVC SCH ×2 (14:01→20:09)
[2017-10-23] MEDS: Acetaminophen 325 MG TABLET PO PRN ×2 (14:02→20:07)
--- NOTE | 2017-10-23 14:17 | Internal Med Progress Note ---
Date of Encounter: 10/23/17 Time of Encounter: 14:15 - Assessment and plan (1) VALARIE (acute kidney injury) Current Visit: Yes Status: Acute Assessment and plan: Acute renal failure improving on fluids Not yet at baseline Continue IV fluids Hold lisinopril and hydrochlorothiazide, may resume xarelto in the morning if renal function improves (2) Spinal stenosis in cervical region Current Visit: Yes Status: Chronic Assessment and plan: Severe cervical spine stenosis at C5 and C6 with cervical myelopathy and gait impairment MRI of the brain showed:Multilevel degenerative changes of the cervical spine, most severe at C5-C6. There is moderate to severe spinal canal stenosis with mild mass effect on the ventral spinal cord at C5-C6, as detailed above. Additional multilevel degenerative changes with up to moderate spinal canal stenosis at multiple levels as detailed above. Spinal canal is diffusely small in relation to the spinal cord caliber Dr. Sanchez was consulted and is recommending surgical procedure Unfortunately due to issues with her insurance surgery was not able to be performed during this hospitalization. 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 transplanted heart: [place] heart Associated angina: with unspecified angina Qualified Code(s): I25.119 - Atherosclerotic heart disease of [place] coronary artery with unspecified angina pectoris (6) Bipolar disorder Current Visit: No Status: Chronic Qualifiers: Active/Remission status: currently active Current bipolar episode type: mixed Current episode severity: unspecified Qualified Code(s): F31.60 - Bipolar disorder, current episode mixed, unspecified - Time Spent With Patient Total time spent is greater than 50% in coordination of care (as documented) at patient's floor/unit and/or counseling patient: - Subjective Interval history: Had rigt facial numbness, slurred speech on and off. Pain over right side of her face. Complains of weakness in both upper extremities and sometimes her legs, denies any chest pressures or breath, no fevers or chills, no abdominal pain diarrhea or dysuria - Constitutional Vitals: Temp Pulse Resp BP Pulse Ox 98.1 F 60 16 130/80 100 10/23/17 11:07 10/23/17 11:07 10/23/17 11:07 10/23/17 11:10/23/17 11:07 General appearance: Present: A&O X 3, morbidly obese, pleasant Exam: - Head Head exam: Present: atraumatic, normocephalic - Eye Eye exam: Present: PERRL, conjuntiva pink, sclera anicteric Pupils: Present: PERRL - Neck Neck exam general surgery: Present: supple, trachea midline. Absent: lymphadenopathy - Respiratory Respiratory exam: Present: CTAB. Absent: accessory muscle use, rales, rhonchi, wheezes - Cardiovascular Cardiovascular exam: Present: RRR, +S1, +S2. Absent: diastolic murmur, gallop, rubs, systolic murmur - GI/Abdominal GI/Abdominal exam: Present: normal bowel sounds, soft, no peritoneal signs. Absent: distended, tenderness - Extremities Exam Extremities exam: Present: warm, radial pulses palpable and symmetrical. Absent : calf tenderness, cyanotic, pedal edema Additional comments: Bilateral upper extremity weakness 4 out of 5 - Neurological Exam Neurological exam: Present: CN II-XII intact, oriented X3, no focal deficits. Absent: pronater drift, facial droop, speech deficit - Skin Skin exam: Present: dry, intact Internal Medicine: Result - Labs CBC & Chem 7: 10/22/17 06:14 10/23/17 04:17 Labs: BMP 10/23/17 04:17 Sodium 138 Potassium 3.6 Chloride 113 H Carbon Dioxide 19 L BUN 29 H Creatinine 1.43 H Glucose 175 H Calcium 8.6 - ABG Interpretation ABG results: ABG ABG pH 7.34 pH Units (7.32-7.45) 10/20/17 22:55 ABG pCO2 42 mmHg (35-45) 10/20/17 22:55 ABG pO2 100 mmHg (85-104) 10/20/17 22:55 ABG O2 Saturation 97 % (95-98) 10/20/17 22:55 PT/INR, D-dimer PT 12.9 Seconds (9.4-12.1) H 10/23/17 04:17 Consult Discharge Plan - Plan Referrals: Maxine Ordaz MD [Primary Care Provider] - Kirill Sanchez Jr, MD [Partnered Physician] - 10/23/17 1:40 pm
[2017-10-23] MEDS: Insulin DETEMIR 100 UNIT/ML X5UNITS SQ SCH (17:28)
[2017-10-23] MEDS: risperiDONE 1 MG TABLET PO SCH (22:22)
[2017-10-24 07:14] LABS: INR 1.1; Prothrombin Time 12.4 Seconds (9.4-12.1)
[2017-10-24] MEDS: Budesonide/Formoterol 160/4.5 MDI IH SCH (07:48)
[2017-10-24 08:14] VITALS: BP 119/82
[2017-10-24] MEDS: Insulin LISPRO 300 UNITS/3 ML VIAL SQ SCH ×2 (08:23→12:23)
[2017-10-24] MEDS: Metoprolol XL (24 HR) Succ 50 MG TAB.ER.24H PO SCH (08:46)
[2017-10-24] MEDS: Cholecalciferol (D-3) 1,000 UNIT TABLET PO SCH (08:50)
[2017-10-24] MEDS: acetaZOLAMIDE 250 MG TABLET PO SCH (08:50)
[2017-10-24] MEDS: Pregabalin 50 MG CAPSULE PO SCH (08:50)
[2017-10-24] MEDS: Aspirin 81 MG TAB.CHEW PO SCH (08:50)
[2017-10-24 09:23] LABS: Calcium 8.7 mg/dL (8.6-10.3); Potassium 3.4 mEq/L (3.5-5.1)
--- NOTE | 2017-10-24 09:44 | Discharge Summary ---
- NOTES TO OUTPATIENT PROVIDER Notes to Outpatient Provider: Stop hydrochlorothiazide, resume lisinopril 20 g only. Decrease dose of xarelto down to 15 mg daily. Follow-up with Dr. Sanchez within the next week to schedule possible surgical procedure Orders not resulted at time of discharge: Pending orders 10/25/17 04:00 INR/PT [Prothrombin Time INR] [COAG] AM 0400 10/26/17 04:00 INR/PT [Prothrombin Time INR] [COAG] AM 0400 Date of Encounter: 10/24/17 Time of Encounter: 09:42 - Discharge Diagnosis (1) VALARIE (acute kidney injury) Priority: Primary Status: Acute Assessment and Plan: Acute renal failure improvedon fluids Hold lisinopril and hydrochlorothiazide (2) Spinal stenosis in cervical region Priority: Primary Status: Chronic Assessment and Plan: Severe cervical spine stenosis at C5 and C6 with cervical myelopathy and gait impairment (3) History of pulmonary embolism Priority: Primary Status: Chronic Assessment and Plan: History of pulmonary emboli Decrease dose of xarelto (4) DM type 2 (diabetes mellitus, type 2) Priority: Secondary Status: Acute Qualifiers: 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 vs. transplanted heart: [place] heart Associated angina: with unspecified angina Qualified Code(s): I25.119 - Atherosclerotic heart disease of [place] coronary artery with unspecified angina pectoris (6) Bipolar disorder Priority: Secondary Status: Chronic Qualifiers: Active/Remission status: currently active Current bipolar episode type: mixed Current episode severity: unspecified Qualified Code(s): F31.60 - Bipolar disorder, current episode mixed, unspecified Hospital course: Ms. Gannon is a 52 year old female with reported history of COPD not oxygen dependent, diabetes mellitus insulin-dependent, GERD, hyperlipidemia, hypertension, chronic pulmonary embolisms with DVTs, pulmonary emboli on xarelto , migraines, pseudotumor cerebri who presented to the ED with a complaint of a headache for 2 days. She gave a very different story than she gave previous practitioners that have seen her during her hospitalization. She was having a right-sided posterior headache, pulsatile in nature and makes her feel slow. She said it "is taking away my thoughts ". In addition of this, she says that there is radiation into her right face and jaw which is typical when this happens. She says that this is not the first time that this happened, and she has been seen multiple times for similar issues in the past. She says that when it starts, it is usually associated with photophobia and phonophobia, as well as difficulty in speaking or articulating her message, and difficulty concentrating. Upon further chart review, it appears that the patient has received extensive workup for neurological conditions in the past including most recently at the beginning of September at which time neurology suggested that a possible cervical radiculopathy may be responsible for her symptoms. She apparently did undergo an outpatient brain and cervical MRI in that time which did not demonstrate any acute intracranial processes however did demonstrate remote retinal hemorrhage and moderate spinal canal stenosis at multiple levels in the cervical spine. In the ED she did have a repeat head CT which demonstrated no intracranial abnormalities at this time. She was found have an elevated glucose of 426, and her serum creatinine was 2.59. Her serum pH was found to be 7.26 with a venous pCO2 of 52. Her serum is negative for ketones and she does not have an anion gap, however she does have an A1c of 12.5. Her creatinine continued to improve with IV fluids. Xarelto was held due to acute renal failure. Today her creatinine is 1.34. Lisinopril and hydrochlorothiazide were held. New MRI of the spine showed:Multilevel degenerative changes of the cervical spine, most severe at C5-C6. There is moderate to severe spinal canal stenosis with mild mass effect on the ventral spinal cord at C5-C6, as detailed above. Additional multilevel degenerative changes with up to moderate spinal canal stenosis at multiple levels as detailed above. Spinal canal is diffusely small in relation to the spinal cord caliber Dr. Sanchez was consulted and is recommending surgical procedure Unfortunately due to issues with her insurance surgery was not able to be performed during this hospitalization. - Time Spent with Patient Total time spent providing and/or coordinating discharge services: Greater than 30 minutes (40 min) - Discharge Medications Prescriptions: Lisinopril [Zestril] 20 mg PO DAILY #30 tablet Home Medications: Metformin HCl [Glucophage] 1,000 mg PO BID PRN 06/14/15 [History] Atorvastatin Calcium [Lipitor] 80 mg PO HS 09/06/15 [History] Cholecalciferol (Vitamin D3) [Vitamin D3] 2,000 unit PO DAILY 09/06/15 [History] Isosorbide MONOnitrate (24 HR) [Imdur] 60 mg PO DAILY 09/06/15 [History] Omeprazole [PriLOSEC] 40 mg PO DAILY 09/06/15 [History] acetaZOLAMIDE [Diamox Sequels] 500 mg PO BID 05/26/16 [History] Pregabalin [Lyrica] 225 mg PO BID capsule 06/20/16 [Rx] Albuterol Sulfate [Proair Hfa] 2 puff IH Q4H PRN 11/11/16 [History] Insulin ASPART [NovoLOG] 0 unit SQ TIDWM 11/11/16 [History] SUMAtriptan Succinate [Imitrex] 100 mg PO DAILY PRN 11/11/16 [History] risperiDONE [Risperidone] 1 mg PO HS 11/11/16 [History] Sertraline [Zoloft] 50 mg PO DAILY #30 tablet 11/13/16 [Rx] Aspirin 81 mg PO DAILY 01/02/17 [History] Budesonide/Formoterol 160/4.5 [Symbicort 160/4.5] 2 puff IH BIDR 01/02/17 [ History] Cyclobenzaprine [Flexeril] 10 mg PO TID PRN 01/02/17 [History] HYDROcodone/Acet 5/325 mg [[place] 5-325 mg] 1 tab PO TID 01/02/17 [History] Lidocaine 1 appl TP TID PRN 01/02/17 [History] Loratadine [Claritin] 10 mg PO DAILY 01/02/17 [History] Nystatin [Nystatin Suspension] 1,000,000 unit PO BID 01/02/17 [History] traZODone [TraZODone] 50 - 100 mg PO HS PRN 01/02/17 [History] Insulin Glargine,Hum.rec.anlog [Basaglar Kwikpen U-100] 20 unit SQ QPM 09/22/17 [History] Nitroglycerin [Nitrostat] 0.4 mg SL Q5M PRN 09/22/17 [History] Metoprolol Succinate 100 mg PO DAILY 10/20/17 [History] Lisinopril [Zestril] 20 mg PO DAILY #30 tablet 10/24/17 [Rx] Rivaroxaban [Xarelto] 15 mg PO DAILY #30 10/24/17 [Rx] Allergies/Adverse Reactions: 3 Allergy/AdvReac Type Severity Reaction Status Date / Time cinnamon Allergy Anaphylaxis Verified 09/30/17 15:36 gabapentin Allergy Itching Verified 09/22/17 19:18 ibuprofen Allergy Hives Verified 09/22/17 19:18 Latex, Natural Rubber Allergy Itching Verified 09/22/17 19:18 naproxen [From Naprosyn] Allergy Itching Verified 09/22/17 19:18 Date of admission: 10/20/17 21:21 Primary care physician: Maxine Ordaz Consults: 10/20/17 22:37 Consult to Physician [CONS] Routine Consulting Provider: Kirill Sanchez Jr Reason for Consult: Cervical spinal stenosis Call Completed: No 10/21/17 07:36 Consult to Client Service Coordinator [CONS] Routine Reason for SW Consult: Discharge plan 10/21/17 10:40 Consult to Occupational Therapy [CONS] Routine Comment: Evaluate, develop and implement POC Reason for Consult: discharge Does patient have active BEDREST order?: No Is patient medically & hemodynamically stable?: No Patient assessed for mobility or mobilized this visit?: Yes 10/21/17 10:41 Consult to Physical Therapy [CONS] Routine Comment: Evaluate, develop and implement POC Reason for Consult: weakness Does patient have active BEDREST order?: No Is patient medically & hemodynamically stable?: Yes Patient assessed for mobility or mobilized this visit?: Yes - Constitutional Vitals: Temp Pulse Resp BP Pulse Ox 97.7 F 55 12 119/82 97 10/24/17 07:55 10/24/17 07:55 10/24/17 07:55 10/24/17 07:55 10/24/17 07:55 General appearance: Present: A&O X 3, morbidly obese, pleasant Exam: Head Head exam: Present: atraumatic, normocephalic - Eye Eye exam: Present: PERRL, conjuntiva pink, sclera anicteric Pupils: Present: PERRL - Neck Neck exam general surgery: Present: supple, trachea midline. Absent: lymphadenopathy - Respiratory Respiratory exam: Present: CTAB. Absent: accessory muscle use, rales, rhonchi, wheezes - Cardiovascular Cardiovascular exam: Present: RRR, +S1, +S2. Absent: diastolic murmur, gallop, rubs, systolic murmur - GI/Abdominal GI/Abdominal exam: Present: normal bowel sounds, soft, no peritoneal signs. Absent: distended, tenderness - Extremities Exam Extremities exam: Present: warm, radial pulses palpable and symmetrical. Absent : calf tenderness, cyanotic, pedal edema Additional comments: Bilateral upper extremity weakness 4 out of 5 - Neurological Exam Neurological exam: Present: CN II-XII intact, oriented X3, no focal deficits. Absent: pronater drift, facial droop, speech deficit - Skin Skin exam: Present: dry, intact - Patient Status Disposition: Transfer SNF Condition: Fair Overall status at discharge: patient is progressing back to baseline - Discharge Instructions Follow Up With: Maxine Ordaz MD [Primary Care Provider] - Kirill Sanchez Jr, MD [Partnered Physician] - 10/23/17 1:40 pm - Diet and Activity Activity: increase activity as tolerated Diet: diabetic diet
--- NOTE | 2017-10-24 09:59 | Physician Discharge Referral ---
ExtendedCare Referral Info Provider in Charge after Transfer: PCP Institutional Level of Care: Skilled - Diagnosis (1) VALARIE (acute kidney injury) Status: Acute (2) Spinal stenosis in cervical region Status: Chronic (3) History of pulmonary embolism Status: Chronic (4) DM type 2 (diabetes mellitus, type 2) Status: Acute (5) CAD (coronary artery disease) Status: Chronic (6) Bipolar disorder Status: Chronic - Transfer Medications Prescriptions: Lisinopril [Zestril] 20 mg PO DAILY #30 tablet Home Medications: Metformin HCl [Glucophage] 1,000 mg PO BID PRN 06/14/15 [History] Atorvastatin Calcium [Lipitor] 80 mg PO HS 09/06/15 [History] Cholecalciferol (Vitamin D3) [Vitamin D3] 2,000 unit PO DAILY 09/06/15 [History] Isosorbide MONOnitrate (24 HR) [Imdur] 60 mg PO DAILY 09/06/15 [History] Omeprazole [PriLOSEC] 40 mg PO DAILY 09/06/15 [History] acetaZOLAMIDE [Diamox Sequels] 500 mg PO BID 05/26/16 [History] Pregabalin [Lyrica] 225 mg PO BID capsule 06/20/16 [Rx] Albuterol Sulfate [Proair Hfa] 2 puff IH Q4H PRN 11/11/16 [History] Insulin ASPART [NovoLOG] 0 unit SQ TIDWM 11/11/16 [History] SUMAtriptan Succinate [Imitrex] 100 mg PO DAILY PRN 11/11/16 [History] risperiDONE [Risperidone] 1 mg PO HS 11/11/16 [History] Sertraline [Zoloft] 50 mg PO DAILY #30 tablet 11/13/16 [Rx] Aspirin 81 mg PO DAILY 01/02/17 [History] Budesonide/Formoterol 160/4.5 [Symbicort 160/4.5] 2 puff IH BIDR 01/02/17 [ History] Cyclobenzaprine [Flexeril] 10 mg PO TID PRN 01/02/17 [History] HYDROcodone/Acet 5/325 mg [[place] 5-325 mg] 1 tab PO TID 01/02/17 [History] Lidocaine 1 appl TP TID PRN 01/02/17 [History] Loratadine [Claritin] 10 mg PO DAILY 01/02/17 [History] Nystatin [Nystatin Suspension] 1,000,000 unit PO BID 01/02/17 [History] traZODone [TraZODone] 50 - 100 mg PO HS PRN 01/02/17 [History] Insulin Glargine,Hum.rec.anlog [Basaglar Kwikpen U-100] 20 unit SQ QPM 09/22/17 [History] Nitroglycerin [Nitrostat] 0.4 mg SL Q5M PRN 09/22/17 [History] Metoprolol Succinate 100 mg PO DAILY 10/20/17 [History] Lisinopril [Zestril] 20 mg PO DAILY #30 tablet 10/24/17 [Rx] Rivaroxaban [Xarelto] 15 mg PO DAILY #30 10/24/17 [Rx] Allergies/Adverse Reactions: 3 Allergy/AdvReac Type Severity Reaction Status Date / Time cinnamon Allergy Anaphylaxis Verified 09/30/17 15:36 gabapentin Allergy Itching Verified 09/22/17 19:18 ibuprofen Allergy Hives Verified 09/22/17 19:18 Latex, Natural Rubber Allergy Itching Verified 09/22/17 19:18 naproxen [From Naprosyn] Allergy Itching Verified 09/22/17 19:18 - Respiratory Orders Smoking Cessation: Smoking cessation has been advised. For more information, call the [place] Tobacco Quit Line at 9-535-NXUI-NOW. - Advance Directives Code Status: Full Code - Treatments List/Other: Stop hydrochlorothiazide, resume lisinopril 20 g only. Decrease dose of xarelto down to 15 mg daily. Follow-up with Dr. Sanchez within the next week to schedule possible surgical procedure - Diet Orders No Added Salt (WALI) (Diabetic diet) CERTIFICATION: I certify that the transfer of the above named patient to an Extended Care Facility is necessary for the continuing treatment of the diagnosis listed. The above information is true and accurate reflection of patient's current condition. Confidential - Redisclosure prohibited without a patient's written consent.
== END 2017-10-24 14:20 ==
LOC: 2ANU 17:54 → EMEROO 17:54 → SUATTDRO 21:22 → 2ANU 22:12
PROVIDERS: ADMIT Hospitalist; ATTEND Hospitalist

== ENCOUNTER 2018-03-26 18:36 | Observation (INO) ==
[2018-03-26] MEDS ORDERED: 0.9 % Sodium Chloride 500 ML IVC ONE (18:51)
[2018-03-26] MEDS ORDERED: Aspirin 81 MG TAB.CHEW PO ONE (18:51)
[2018-03-26] MEDS ORDERED: Nitroglycerin 0.4 MG TAB.SUBL SL ONE (18:51)
--- NOTE | 2018-03-26 18:51 | Emergency Department Note ---
Disposition Clinical Impression: Chest pain Qualifiers: Chest pain type: unspecified Qualified Code(s): R07.9 - Chest pain, unspecified Disposition: Admitted As Inpatient Condition: Good General Adult HPI - General Stated complaint: Chest Pain Source: patient Mode of arrival: ambulatory Limitations: no limitations Nursing Notes Reviewed: Yes Vital Signs Reviewed: Yes - History of Present Illness HPI Narrative: Patient presents today for evaluation of chest pain started at 8 AM. Patient describes the pain as both a sharp pain but also a dull pain in center of her chest. Patient has radiation to both shoulders as well as into her neck. Patient states worse with inspiration. She does have a history of blood clotting disorder and is on Zarontin. She did not take her Xarelto for proximally 3 days has had concern for some swelling in the left leg with some mild tenderness to calf. She is a insulin-dependent diabetic that is also been without her insulin for over the last week. She states that she has been controlled trying to control her blood sugars more with diet. Patient has been seen by cardiology in the past. Patient has had a normal stress test but no previous cardiac catheter. Patient did take nitroglycerin this morning to help relieve her pain. Patient received nitroglycerin in the emergency department as well which also relieve pain that they have returned. - Related Data Home Medications Medication Instructions Recorded Confirmed Metformin HCl [Glucophage] 1,000 mg PO BID PRN 06/14/15 03/26/18 Atorvastatin Calcium [Lipitor] 80 mg PO HS 09/06/15 03/26/18 Cholecalciferol (Vitamin D3) 2,000 unit PO DAILY 09/06/15 03/26/18 [Vitamin D3] Isosorbide MONOnitrate (24 HR) 60 mg PO DAILY 09/06/15 03/26/18 [Imdur] Omeprazole [PriLOSEC] 40 mg PO DAILY 09/06/15 03/26/18 acetaZOLAMIDE [Diamox Sequels] 500 mg PO BID 05/26/16 03/26/18 Albuterol Sulfate [Proair Hfa] 2 puff IH Q4H PRN 11/11/16 03/26/18 Insulin ASPART [NovoLOG] 0 unit SQ TIDWM 11/11/16 03/26/18 SUMAtriptan Succinate [Imitrex] 100 mg PO DAILY PRN 11/11/16 03/26/18 risperiDONE [Risperidone] 1 mg PO HS 11/11/16 03/26/18 Aspirin 81 mg PO DAILY 01/02/17 03/26/18 Budesonide/Formoterol 160/4.5 2 puff IH BIDR 01/02/17 03/26/18 [Symbicort 160/4.5] Cyclobenzaprine [Flexeril] 10 mg PO TID PRN 01/02/17 03/26/18 Lidocaine 1 appl TP TID PRN 01/02/17 03/26/18 Loratadine [Claritin] 10 mg PO DAILY 01/02/17 03/26/18 traZODone [TraZODone] 50 - 100 mg PO HS PRN 01/02/17 03/26/18 Insulin Glargine,Hum.rec.anlog 20 unit SQ QPM 09/22/17 03/26/18 [Basaglar Kwikpen U-100] Nitroglycerin [Nitrostat] 0.4 mg SL Q5M PRN 09/22/17 03/26/18 Metoprolol Succinate 100 mg PO DAILY 10/20/17 03/26/18 Previous Rx's Medication Instructions Recorded Pregabalin [Lyrica] 225 mg PO BID capsule 06/20/16 Sertraline [Zoloft] 50 mg PO DAILY #30 tablet 11/13/16 HYDROcodone/Acet 5/325 mg [[place] 1 tab PO TID PRN 5 Days #15 tab 10/24/17 5-325 mg] Lisinopril [Zestril] 20 mg PO DAILY #30 tablet 10/24/17 Rivaroxaban [Xarelto] 15 mg PO DAILY #30 10/24/17 Allergies Allergy/AdvReac Type Severity Reaction Status Date / Time cinnamon Allergy Anaphylaxis Verified 09/30/17 15:36 gabapentin Allergy Itching Verified 09/22/17 19:18 ibuprofen Allergy Hives Verified 09/22/17 19:18 Latex, Natural Rubber Allergy Itching Verified 09/22/17 19:18 naproxen [From Naprosyn] Allergy Itching Verified 09/22/17 19:18 Review of Systems: CONSTITUTIONAL: No weight loss, fever, chills, weakness or fatigue. HEENT: Eyes: No visual changes. Ears, Nose, Throat: No hearing loss, difficulty talking or unable to swallow. SKIN: No rash or itching. CARDIOVASCULAR: Chest pain RESPIRATORY: Shortness of breath worse with inspiration not requiring oxygen and chronic cough. GASTROINTESTINAL: Nausea with no associated vomiting. GENITOURINARY: No burning on urination or hematuria. NEUROLOGICAL: No headache, dizziness, syncope, paralysis, ataxia, numbness or tingling in the extremities. No change in bowel or bladder control. MUSCULOSKELETAL: No muscle pain, back pain, joint pain or stiffness. 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: Reports: bilateral tubal ligation - Social History Smoking Status: Never smoker Smokeless Tobacco Status: No Alcohol use: Reports: rarely Drug use: Reports: none Physical Exam 6General: Well appearing, nontoxic, no acute distress Head: Normocephalic Atraumatic Eyes: PERRL, EOMI ENT: Airway patent, no stridor Neck: supple, no meningismus Chest: Lungs clear to auscultation bilateral Cardiac: Regular rate and rhythm, no murmurs, rubs or gallops Abdomen: soft, nontender, nondistended; no guarding, rebound, or tenderness to percussion Musculoskeletal: Calves symmetric, nontender, no palpable cord Skin: No rash, normal skin tone Neuro: Alert and Oriented to person, place, and time; No focal deficit, CN 2-12 symmetric and intact Course Vital Signs Temperature 98.2 F 03/26/18 18:58 Pulse Rate 70 03/26/18 18:58 Respiratory Rate 15 03/26/18 18:58 Blood Pressure 186/116 03/26/18 18:58 O2 Sat by Pulse Oximetry 100 03/26/18 18:58 Temperature 98.2 F 03/26/18 18:58 Pulse Rate 82 03/26/18 23:46 Respiratory Rate 13 03/26/18 23:46 Blood Pressure 175/97 03/26/18 23:46 O2 Sat by Pulse Oximetry 100 03/26/18 23:46 Oxygen Delivery Oxygen Delivery Room Air Medical Decision Making - MDM Narrative Medical decision making narrative: Patient's blood work is unremarkable except for mild hypokalemia. Patient is high risk with uncontrolled diabetes as well as vascular clotting disorder not having taken her medications for several days. CT scan is negative for PE. She to takes relatively today. The patient's chest pain is acute on chronic. At this point her chest pain has been going on for approximately 12 hours. I have discussed with her further evaluation of this and she is frustrated any lack of finding potential etiology. Due to her being high risk anything is appropriate bring her in for further cardiac enzyme testing. Patient to be evaluated by the hospitalist team. - Medical Records Medical records reviewed: Yes I reviewed the patient's medical records. - Lab Data Lab results reviewed: Yes I reviewed the patient's lab results. Result diagrams: 03/26/18 19:12 03/26/18 19:12 Lab Results 03/26/18 03/26/18 03/26/18 Range/Units 19:12 19:12 19:12 WBC 7.1 (4.3-11.1) K/mcL RBC 3.90 (3.82-4.97) M/mcL Hgb 11.6 (11.5-15.4) g/dL Hct 33.7 L (35.3-44.9) % MCV 86.4 (83.0-100.0) fL MCH 29.7 (28.0-33.3) pg MCHC 34.4 (31.6-35.5) g/dL RDW 11.6 (11.5-14.5) % Plt Count 283 (140-400) K/mcL MPV 9.9 (9.4-12.4) fL Immature Gran % 0.1 (0-4) % Seg Neutrophils % 40.6 % Lymphocytes % 51.4 % Monocytes % 5.5 % Eosinophils % 2.0 % Basophils % 0.4 % Neutrophils # 2.9 (1.6-8.9) K/mcL Lymphocytes # 3.7 (0.6-4.6) K/mcL Monocytes # 0.4 (0.0-1.3) K/mcL Eosinophils # 0.1 (0.0-0.6) K/mcL Basophils # 0.0 (0.0-0.2) K/mcL Sodium 134 L (136-145) mEq/L Potassium 3.3 L (3.5-5.1) mEq/L Chloride 98 (98-107) mEq/L Carbon Dioxide 27 (23-29) mEq/L BUN 13 (6-20) mg/dL Creatinine 0.85 (0.60-1.20) mg/dL Est GFR ( Amer) > 60 (> 60) Est GFR (Non-Af Amer) > 60 (> 60) BUN/Creatinine Ratio 15 (6-26) Glucose 302 H (70-105) mg/dL Calculated Osmolality 289 (280-300) Calcium 10.1 (8.6-10.3) mg/dL Troponin I < 0.03 (< 0.04) ng/mL B-Natriuretic Peptide 20 (Less than 100) pg/mL - Radiology Data Radiology results reviewed: Yes I reviewed the patient's radiology results. - EKG Data EKG #1 EKG attestation: Yes I reviewed and interpreted this EKG. EKG results narrative: EKG shows sinus rhythm with heart rate of 79. WA interval 149. QRS 84. QTC 405. Patient has no significant elevations or depressions. No significant changes from previous of 09/22/17.
[2018-03-26 19:46] LABS: Basophils % 0.4 %; Eosinophils # 0.1 K/mcL (0.0-0.6); Hematocrit 33.7 % (35.3-44.9); Hemoglobin 11.6 g/dL (11.5-15.4); Immature Granulocytes % 0.1 % (0-4); Lymphocytes # 3.7 K/mcL (0.6-4.6); Lymphocytes % 51.4 %; Mean Corpuscular HGB Conc 34.4 g/dL (31.6-35.5); Mean Corpuscular Hemoglobin 29.7 pg (28.0-33.3); Mean Corpuscular Volume 86.4 fL (83.0-100.0); Mean Platelet Volume 9.9 fL (9.4-12.4); Monocytes # 0.4 K/mcL (0.0-1.3); Monocytes % 5.5 %; Neutrophils # 2.9 K/mcL (1.6-8.9); Platelet Count 283 K/mcL (140-400); Red Cell Distribution Width 11.6 % (11.5-14.5); Segmented Neutrophils % 40.6 %
[2018-03-26 20:03] LABS: Troponin I < 0.03 ng/mL (< 0.04)
[2018-03-26 20:04] LABS: BUN/Creatinine Ratio 15 (6-26); Blood Urea Nitrogen 13 mg/dL (6-20); Calcium 10.1 mg/dL (8.6-10.3); Carbon Dioxide 27 mEq/L (23-29); Chloride 98 mEq/L (98-107); Glucose 302 mg/dL (70-105); Osmolality,Calculated 289 (280-300); Potassium 3.3 mEq/L (3.5-5.1); Sodium 134 mEq/L (136-145); eGFR For Non-African Americans > 60 (> 60)
[2018-03-26] MEDS ORDERED: Isovue-370 500 ML INFUS..BTL IV ONE (20:47)
[2018-03-27] MEDS ORDERED: Naloxone 0.4 MG/ML INJ IVP PRN (00:50)
[2018-03-27] MEDS ORDERED: Dextrose Gel 15 GM/37.5 ML TUBE PO PRN ×2 (00:50)
[2018-03-27] MEDS ORDERED: *HR* Dextrose 50 % in Water (Syg) 50 ML SYRINGE IVP PRN (00:50)
[2018-03-27] MEDS ORDERED: D5% in Water 1,000 ML IVC PRN (00:50)
[2018-03-27] MEDS ORDERED: *HR* HYDROcodone/Acet 5/325 mg TABLET PO PRN (00:55)
[2018-03-27] MEDS ORDERED: *HR* Morphine 2 MG/ML SYRINGE IVP PRN (01:02)
--- NOTE | 2018-03-27 01:08 | Internal Med History&Physical ---
Date of Encounter: 03/27/18 Time of Encounter: 00:25 Internal Medicine - H&P: HPI Chief complaint: chest pain Admitted From: Emergency Dept Plans for Post Hospital Care: Home History of present illness: Ms. Gannon is a 52 year old female who presents to the ER today with chest pain which started earlier in the morning shortly after waking up. Her chest pain was substernal, heavy, and radiating to her left arm, neck, and jaw. She has some associated shortness of breath and some diaphoresis. She took sublingual nitroglycerin with minimal relief. As the day progressed, she took 2 more doses of sublingual nitroglycerin with mild relief. However, after the third dose of nitroglycerin, she still had chest pain and pressure. She came to ER for evaluation and admission. Upon my assessment of the patient, she has essentially no further chest pain other than occasional twinge of pain. She has known coronary disease and states that her last heart catheterization was roughly a year ago where she was told she had 80% blockage in one of her arteries. I cannot find any documentation of recent heart catheterization in our records. However, she states she might have had it done at another facility and does not remember if it was done here or elsewhere. Additionally, she has a clotting disorder and has had PE in the past. Family history is positive for DVT/PE in multiple family members. There is also a strong family history of coronary disease. She is also insulin-dependent diabetic. Her cardiac risk factors include diabetes, family history, hypertension, and clotting disorder. Past Med Surg Social Fam HX - Past Medical History Attestation: Yes The following information was validated with the patient. Source: patient, old records reviewed, other (ER notes) Medical history: arthritis, COPD, diabetes, GERD, hyperlipidemia, hypertension, migraine, pulmonary embolus Psychiatric history: bipolar, depression, previous psychiatric hospitalization - Past Surgical History Surgical History: cholecystectomy, herniorrhaphy, hysterectomy, orthopedic, other, other Additional surgical history: tubal - Social History Smoking Status: Never smoker Smokeless Tobacco Status: No Alcohol use: rarely Drug use: none Current living situation: Home, With Family Activity Level: Independent ambulation Recent Out of Country Travel Within the Last 8 Weeks: No - Family History Father Hx Family Cardiac Disorders: Yes Mother Hx Family Cardiac Disorders: Yes (CABG) Hx Family Endocrine Disorder: Yes (Diabetes mellitus type 2) Hx Family Neurologic Disorders: Yes (mini strokes) Brother Hx Family Cardiac Disorders: Yes (pacer/defib) Hx Family Cancer: Yes (Various different cancers including a rectal cancer) Internal Medicine - H&P: Meds Metformin HCl [Glucophage] 1,000 mg PO BID PRN 06/14/15 [History] Atorvastatin Calcium [Lipitor] 80 mg PO HS 09/06/15 [History] Cholecalciferol (Vitamin D3) [Vitamin D3] 2,000 unit PO DAILY 09/06/15 [History] Isosorbide MONOnitrate (24 HR) [Imdur] 60 mg PO DAILY 09/06/15 [History] Omeprazole [PriLOSEC] 40 mg PO DAILY 09/06/15 [History] acetaZOLAMIDE [Diamox Sequels] 500 mg PO BID 05/26/16 [History] Pregabalin [Lyrica] 225 mg PO BID capsule 06/20/16 [Rx] Albuterol Sulfate [Proair Hfa] 2 puff IH Q4H PRN 11/11/16 [History] Insulin ASPART [NovoLOG] 0 unit SQ TIDWM 11/11/16 [History] SUMAtriptan Succinate [Imitrex] 100 mg PO DAILY PRN 11/11/16 [History] risperiDONE [Risperidone] 1 mg PO HS 11/11/16 [History] Sertraline [Zoloft] 50 mg PO DAILY #30 tablet 11/13/16 [Rx] Aspirin 81 mg PO DAILY 01/02/17 [History] Budesonide/Formoterol 160/4.5 [Symbicort 160/4.5] 2 puff IH BIDR 01/02/17 [ History] Cyclobenzaprine [Flexeril] 10 mg PO TID PRN 01/02/17 [History] Lidocaine 1 appl TP TID PRN 01/02/17 [History] Loratadine [Claritin] 10 mg PO DAILY 01/02/17 [History] traZODone [TraZODone] 50 - 100 mg PO HS PRN 01/02/17 [History] Insulin Glargine,Hum.rec.anlog [Basaglar Kwikpen U-100] 20 unit SQ QPM 09/22/17 [History] Nitroglycerin [Nitrostat] 0.4 mg SL Q5M PRN 09/22/17 [History] Metoprolol Succinate 100 mg PO DAILY 10/20/17 [History] HYDROcodone/Acet 5/325 mg [[place] 5-325 mg] 1 tab PO TID PRN 5 Days #15 tab 10/24 [Rx] Lisinopril [Zestril] 20 mg PO DAILY #30 tablet 10/24/17 [Rx] Rivaroxaban [Xarelto] 15 mg PO DAILY #30 10/24/17 [Rx] 3 Allergy/AdvReac Type Severity Reaction Status Date / Time cinnamon Allergy Anaphylaxis Verified 09/30/17 15:36 gabapentin Allergy Itching Verified 09/22/17 19:18 ibuprofen Allergy Hives Verified 09/22/17 19:18 Latex, Natural Rubber Allergy Itching Verified 09/22/17 19:18 naproxen [From Naprosyn] Allergy Itching Verified 09/22/17 19:18 - Constitutional Constitutional: no chills, no fever(s), no night sweats - EENT Eyes: loss of vision (right eye -- old), no blurry vision, no change in vision Nose, mouth and throat: no nasal congestion, no sinus pain, no sore throat - Cardiovascular Cardiovascular ROS IM: chest pain, diaphoresis, dyspnea, dyspnea on exertion, no edema, no lightheadedness, no palpitations - Respiratory Respiratory: no cough, no hemoptysis, no chest congestion, no excessive phlegm production, no change in phlegm color - Gastrointestinal Gastrointestinal: no abdominal pain, no diarrhea, no hematemesis, no hematochezia, no melena, no vomiting - Genitourinary Genitourinary: no dysuria, no flank pain, no hematuria - Musculoskeletal Musculoskeletal ROS IM: back pain, no muscle cramps, no muscle weakness, no myalgias - Integumentary Integumentary IM: no rash, no jaundice - Neurological Neurological ROS: no dizziness, no focal weakness, no frequent falls, no headache(s) - Psychiatric Psychiatric: no anxiety, no depression - Endocrine Endocrine IM: no polydipsia, no polyuria - Hematologic/Lymphatic Hematologic/Lymphatic: easy bruising - Allergic/Immunologic Allergic/Immunologic: no wheezing, no GI upset with certain foods - Constitutional Vitals: Temp Pulse Resp BP Pulse Ox 98.1 F 84 14 189/108 98 10/05/18 00:18 03/27/18 00:18 03/27/18 00:18 03/27/18 00:18 03/27/18 00:18 General appearance: Present: cooperative, A&O X 3, pleasant, no acute distress, answers questions appropriately Exam: see below - Head Head exam: Present: atraumatic, normal inspection - Eye Eye exam: Present: EOMI. Absent: scleral icterus Pupils: Present: normal accommodation Additional comments: right eye blind - ENT ENT exam: Present: mucous membranes dry, normal exam, normal oropharynx - Neck Neck exam general surgery: Present: full ROM, supple. Absent: tenderness, nuchal rigidity, thyromegaly - Respiratory Respiratory exam: Present: CTAB. Absent: chest wall tenderness, rales, respiratory distress, rhonchi, wheezes - Cardiovascular Cardiovascular exam: Present: distant heart sounds, RRR, +S1, +S2. Absent: diastolic murmur, systolic murmur - GI/Abdominal GI/Abdominal exam: Present: normal bowel sounds, soft. Absent: hepatomegaly, mass, splenomegaly, tenderness - Extremities Exam Extremities exam: Present: normal capillary refill, warm, radial pulses palpable and symmetrical. 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 Will trend troponins and EKG's. 2. Will order ECHO. 3. Consult cardiology in the morning for possible LHC given her known CAD and cardiac risk factors. 4. Continue ASA and Imdur. 5. Add Morphine as needed for chest pain unresponsive to above. Qualifiers: Chest pain type: chest pain due to myocardial ischemia Ischemic chest pain type: stable angina pectoris Qualified Code(s): I20.8 - Other forms of angina pectoris (2) DM type 2 (diabetes mellitus, type 2) Current Visit: Yes Status: Chronic Assessment and plan: 1. Home oral home meds. 2. Will place on SSI while npo. 3. Resume basal insulin once he is eating and no longer npo. 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 Resume home meds as appropriate. 2. ECHO and cardiology consultation as above. Qualifiers: Coronary Disease-Associated Artery/Lesion type: [place] artery [place] vs. transplanted heart: [place] heart Associated angina: with unspecified angina Qualified Code(s): I25.119 - Atherosclerotic heart disease of [place] coronary artery with unspecified angina pectoris (4) Pulmonary embolism Current Visit: Yes Status: Resolved Assessment and plan: 1. Continue Xarelto per home dosing. 2. CTA chest done in ER negative for PE. Qualifiers: Pulmonary embolism type: other Chronicity: unspecified Acute cor pulmonale presence: without acute cor pulmonale Qualified Code(s): I26.99 - Other pulmonary embolism without acute cor pulmonale (5) DVT prophylaxis Current Visit: Yes Status: Acute Assessment and plan: 1. Resume home dose of Xarelto.
[2018-03-27 01:55] LABS: Basophils % 0.4 %; Eosinophils # 0.1 K/mcL (0.0-0.6); Eosinophils % 1.7 %; Hematocrit 35.6 % (35.3-44.9); Immature Granulocytes % 0.1 % (0-4); Lymphocytes # 3.6 K/mcL (0.6-4.6); Lymphocytes % 48.3 %; Mean Corpuscular HGB Conc 33.7 g/dL (31.6-35.5); Mean Corpuscular Hemoglobin 29.3 pg (28.0-33.3); Mean Platelet Volume 9.4 fL (9.4-12.4); Monocytes # 0.4 K/mcL (0.0-1.3); Monocytes % 5.8 %; Neutrophils # 3.3 K/mcL (1.6-8.9); Platelet Count 282 K/mcL (140-400); Red Blood Count 4.09 M/mcL (3.82-4.97); Red Cell Distribution Width 11.7 % (11.5-14.5); Segmented Neutrophils % 43.7 %
[2018-03-27 02:02] LABS: INR 1.4; Prothrombin Time 15.8 Seconds (9.4-12.1)
[2018-03-27 02:04] LABS: Activated Partial Thrombo Time 33.5 Seconds (26.0-36.0)
[2018-03-27 02:12] LABS: Chloride 97 mEq/L (98-107); Potassium 3.2 mEq/L (3.5-5.1); Sodium 135 mEq/L (136-145)
[2018-03-27 02:13] LABS: Alanine Aminotransferase 17 Units/L (7-52); Albumin 3.6 g/dL (3.5-5.7); Alkaline Phosphatase 80 Units/L (34-104); Aspartate Amino Transferase 18 Units/L (13-39); BUN/Creatinine Ratio 15 (6-26); Bilirubin,Total 0.6 mg/dL (0.3-1.0); Blood Urea Nitrogen 12 mg/dL (6-20); Calcium 9.8 mg/dL (8.6-10.3); Carbon Dioxide 29 mEq/L (23-29); Chol/HDL Ratio 5.1 (0-4.9); Cholesterol 328 mg/dL (< 200); Globulin 3.7 g/dL (2.4-3.5); Glucose 233 mg/dL (70-105); HDL Cholesterol 64 mg/dL (40-59); LDL Cholesterol,Calculated 233 mg/dL (0-99); Magnesium 1.2 mg/dL (1.6-2.6); Osmolality,Calculated 287 (280-300); Total Protein 7.3 g/dL (6.4-8.9); Triglycerides 155 mg/dL (< 150); eGFR For Non-African Americans > 60 (> 60)
[2018-03-27] MEDS ORDERED: Insulin LISPRO 300 UNITS/3 ML VIAL SQ SCH ×3 (06:00→21:00)
[2018-03-27] MEDS: Budesonide/Formoterol 160/4.5 1 PUFF INH IH SCH ×2 (08:31→20:34)
--- NOTE | 2018-03-27 09:53 | Cardiology Consult Note ---
<Suasna Guadalupe - Last Filed: 03/27/18 10:56> Date of Encounter: 03/27/18 Time of Encounter: 09:30 Assessment and Plan (1) Chest pain Current Visit: Yes Status: Acute Patient describes atypical chest pain symptoms; has been nearly constant since yesterday morning. Discomfort worsens with deep breaths. No ischemic ECG changes present. Troponin negative x3. Recent negative nuclear stress test in 2017. Hx of LHC in 2010, minimal CAD described. She reports she was told she had a 80 % blockage "somewhere" by previous [place]. No LHC since 2010. May need to consider LHC given ongoing symptoms and recent negative stress, however had Xarelto this AM. Will discuss and review with Dr. Uribe. Mag 1.2--IVPB ordered. K 3.2, order placed by primary service. (2) History of pulmonary embolism Current Visit: No Status: Chronic Hx of PE on Xarelto 15 mg daily. Diagnosed in 2017--reports family history of clotting disorder. Discussion w patient/family: The assessment and plan as outlined above was discussed with the patient and/or family members who expressed understanding and agreement. All questions were answered. Thank you for involving us in the care of your patient. Please call with any questions. The patient will be discussed and reviewed with Dr. Uribe; changes to be made accordingly. History of Present Illness History of present illness: Ms. Gannon is a 52 year old female Past Med Surg Social Fam HX - Past Medical History Medical history: arthritis, COPD, diabetes, GERD, hyperlipidemia, hypertension, migraine, pulmonary embolus Additional medical history: hx of pinched nerves and slipped disks in her back Psychiatric history: bipolar, depression, previous psychiatric hospitalization - Past Surgical History Surgical History: cholecystectomy, herniorrhaphy, hysterectomy, orthopedic, other, other Additional surgical history: tubal - Social History Smoking Status: Never smoker Smokeless Tobacco Status: No Alcohol use: rarely Drug use: none - Family History Father Hx Family Cardiac Disorders: Yes Mother Hx Family Cardiac Disorders: Yes (CABG) Hx Family Endocrine Disorder: Yes (Diabetes mellitus type 2) Hx Family Neurologic Disorders: Yes (mini strokes) Brother Hx Family Cardiac Disorders: Yes (pacer/defib) Hx Family Cancer: Yes (Various different cancers including a rectal cancer) Medications and Allergies Metformin HCl [Glucophage] 1,000 mg PO BID PRN 06/14/15 [History] Atorvastatin Calcium [Lipitor] 80 mg PO HS 09/06/15 [History] Cholecalciferol (Vitamin D3) [Vitamin D3] 2,000 unit PO DAILY 09/06/15 [History] Isosorbide MONOnitrate (24 HR) [Imdur] 60 mg PO DAILY 09/06/15 [History] Omeprazole [PriLOSEC] 40 mg PO DAILY 09/06/15 [History] acetaZOLAMIDE [Diamox Sequels] 500 mg PO BID 05/26/16 [History] Pregabalin [Lyrica] 225 mg PO BID capsule 06/20/16 [Rx] Albuterol Sulfate [Proair Hfa] 2 puff IH Q4H PRN 11/11/16 [History] Insulin ASPART [NovoLOG] 0 unit SQ TIDWM 11/11/16 [History] SUMAtriptan Succinate [Imitrex] 100 mg PO DAILY PRN 11/11/16 [History] risperiDONE [Risperidone] 1 mg PO HS 11/11/16 [History] Sertraline [Zoloft] 50 mg PO DAILY #30 tablet 11/13/16 [Rx] Aspirin 81 mg PO DAILY 01/02/17 [History] Budesonide/Formoterol 160/4.5 [Symbicort 160/4.5] 2 puff IH BIDR 01/02/17 [ History] Cyclobenzaprine [Flexeril] 10 mg PO TID PRN 01/02/17 [History] Lidocaine 1 appl TP TID PRN 01/02/17 [History] Loratadine [Claritin] 10 mg PO DAILY 01/02/17 [History] traZODone [TraZODone] 50 - 100 mg PO HS PRN 01/02/17 [History] Insulin Glargine,Hum.rec.anlog [Basaglar Kwikpen U-100] 20 unit SQ QPM 09/22/17 [History] Nitroglycerin [Nitrostat] 0.4 mg SL Q5M PRN 09/22/17 [History] Metoprolol Succinate 100 mg PO DAILY 10/20/17 [History] HYDROcodone/Acet 5/325 mg [[place] 5-325 mg] 1 tab PO TID PRN 5 Days #15 tab 10/24 [Rx] Lisinopril [Zestril] 20 mg PO DAILY #30 tablet 10/24/17 [Rx] Rivaroxaban [Xarelto] 15 mg PO DAILY #30 10/24/17 [Rx] 3 Allergy/AdvReac Type Severity Reaction Status Date / Time cinnamon Allergy Anaphylaxis Verified 09/30/17 15:36 gabapentin Allergy Itching Verified 09/22/17 19:18 ibuprofen Allergy Hives Verified 09/22/17 19:18 Latex, Natural Rubber Allergy Itching Verified 09/22/17 19:18 naproxen [From Naprosyn] Allergy Itching Verified 09/22/17 19:18 All Systems Review: The remainder of the systems were reviewed and are negative Physical Examination Vital Signs, Last 4 Hours Temp Pulse Resp BP Pulse Ox 03/27/18 08:38 98.4 F 91 16 147/84 98 03/27/18 08:34 18 99 Results 03/27/18 01:37 03/27/18 01:37 Lab Results 03/27/18 03/27/18 03/27/18 01:37 01:37 01:37 WBC 7.5 Hgb 12.0 Hct 35.6 Plt Count 282 INR 1.4 APTT 33.5 Sodium Potassium Chloride Carbon Dioxide BUN Creatinine Glucose Calcium Magnesium Total Bilirubin AST ALT Alkaline Phosphatase Troponin I < 0.03 03/27/18 03/27/18 01:37 06:39 WBC Hgb Hct Plt Count INR APTT Sodium 135 L Potassium 3.2 L Chloride 97 L Carbon Dioxide 29 BUN 12 Creatinine 0.80 Glucose 233 H Calcium 9.8 Magnesium 1.2 L Total Bilirubin 0.6 AST 18 ALT 17 Alkaline Phosphatase 80 Troponin I < 0.03 Consult Discharge Plan - Plan Referrals: Maxine Ordaz MD [Primary Care Provider] - <Dolly Uribe - Last Filed: 03/27/18 13:15> Date of Encounter: 03/27/18 - Attending Attestation I have personally performed a face to face evaluation on this patient. I have reviewed and agree with the care plan. History and Exam by me shows: 52 YOF with DM (HgA1c 12), HTN, HLP, CKD here with chest pain as described previous PE ruled out this admission. Worse ZEPEDA and Chest pain mildly pleuritic. Negative stress test a year ago but concerning with multiple CRF's and poorly controlled DM. D/W patient R/B/A of [facility] and she agrees. Assessment and Plan Discussion w patient/family: The assessment and plan as outlined above was discussed with the patient and/or family members who expressed understanding and agreement. All questions were answered. Thank you for involving us in the care of your patient. Please call with any questions. History of Present Illness History of present illness: Ms. Gannon is a 52 year old female All Systems Review: The remainder of the systems were reviewed and are negative Physical Examination Vital Signs, Last 4 Hours Temp Pulse Resp BP Pulse Ox 03/27/18 11:47 98.0 F 82 16 141/90 97 Results 03/27/18 01:37 03/27/18 01:37 Lab Results 03/27/18 03/27/18 03/27/18 01:37 01:37 01:37 WBC 7.5 Hgb 12.0 Hct 35.6 Plt Count 282 INR 1.4 APTT 33.5 Sodium Potassium Chloride Carbon Dioxide BUN Creatinine Glucose Calcium Magnesium Total Bilirubin AST ALT Alkaline Phosphatase Troponin I < 0.03 03/27/18 03/27/18 01:37 06:39 WBC Hgb Hct Plt Count INR APTT Sodium 135 L Potassium 3.2 L Chloride 97 L Carbon Dioxide 29 BUN 12 Creatinine 0.80 Glucose 233 H Calcium 9.8 Magnesium 1.2 L Total Bilirubin 0.6 AST 18 ALT 17 Alkaline Phosphatase 80 Troponin I < 0.03
[2018-03-27] MEDS: *HR* Rivaroxaban 15 MG TABLET PO SCH (09:54)
[2018-03-27] MEDS: Pregabalin 75 MG CAPSULE PO SCH ×2 (09:54→20:51)
[2018-03-27] MEDS: Cholecalciferol (D-3) 1,000 UNIT TABLET PO SCH (09:54)
[2018-03-27] MEDS: Loratadine 10 MG TABLET PO SCH (09:54)
[2018-03-27] MEDS: 0.9 % Sodium Chloride w KCl 20 MEQ/1,000 ML MLS IVC SCH ×2 (09:55→23:47)
--- NOTE | 2018-03-27 10:55 | Internal Med Progress Note ---
Hospitalist Progress Note - Encounter Date of Encounter: 03/27/18 Time of Encounter: 10:49 - Subjective Interval History: No acute changes, continues to have 3/10 substernal chest pain with radiation to left shoulder. Reports chest pain is worse with inspiration and range of motion. - Exam Vitals: Temp Pulse Resp BP Pulse Ox 98.4 F 91 16 147/84 98 03/27/18 08:38 03/27/18 08:38 03/27/18 08:38 03/27/18 08:38 03/27/18 08:38 Exam: PHYSICAL EXAMINATION: Gen.: alert and oriented x3. HEENT: Head is normocephalic and atraumatic. Extraocular muscles are intact. Pupils are equal, round, and reactive to light and accommodation. NECK: Supple. No carotid bruits. No lymphadenopathy or thyromegaly. LUNGS: Clear to auscultation B/L AP and L. HEART: Regular rate and rhythm, S1, S2 without murmur. ABDOMEN: Soft, nontender, and nondistended. Positive bowel sounds. No hepatosplenomegaly was noted. EXTREMITIES: Without any cyanosis, clubbing, rash, lesions or edema. - Assessment and Plan (1) Chest pain Current Visit: Yes Status: Acute Assessment and Plan: Presents with substernal chest pain with radiation to the left shoulder. Associated symptoms include shortness of breath, diaphoresis. Chest pain improved with nitroglycerin. Chest pain currently 3/10. However it does appear to be atypical as it worsens with inspiration and range of motion No ischemic changes noted to ECG, serial troponins negative 3, recent nuclear stress without ischemia in 2017 She has had an LHC in 2010 with minimal CAD However the patient appears to be confused regarding her cardiology care as she is also reporting she had an LHC at an [facility] indicating an 80% blockage; denies any prior PCI Case discussed with Susana Guadalupe of cardiology; plan is for left heart catheter Friday. Xarelto will need to be held prior to catheter; D for 2 cardiology regarding holding Xarelto Continue telemetry Continue all cardiac medications Echocardiogram pending Continue oxygen supplementation as needed Continue morphine and nitroglycerin for chest pain (2) DM type 2 (diabetes mellitus, type 2) Current Visit: Yes Status: Chronic Assessment and Plan: History of poorly controlled diabetes Increase sliding scale to medium coverage. patient is continuing to have hyperglycemia Resume cardiac diet, add basal insulin . (3) CAD (coronary artery disease) Current Visit: Yes Status: Chronic Assessment and Plan: Continue daily aspirin, Lipitor, Imdur, metoprolol XL, when necessary nitroglycerin (4) Pulmonary embolism Current Visit: Yes Status: Resolved Assessment and Plan: PE per history Significant family history for PEs; consider clotting disorder CTA chest negative for PE; continue Xarelto at home dose Xarelto will need to be held prior to catheter; defer to cardiology (5) DVT prophylaxis Current Visit: Yes Status: Acute Assessment and Plan: Continue Xarelto (6) Hypomagnesemia Current Visit: Yes Status: Acute Assessment and Plan: Presented with hypomagnesemia and hypokalemia, etiology unclear denies any GI loss medications do not appear to be contributing to her electrolyte disturbances Replete as necessary (7) Hypokalemia Current Visit: Yes Status: Acute DVT Prophylaxis: Xarelto - Time Spent with Patient Total time spent is greater than 50% in coordination of care (as documented) at patient's floor/unit and/or counseling patient: less than 15 minutes Plan of Care Discussed with: patient Internal Medicine: Result - Labs CBC & Chem 7: 03/27/18 01:37 03/27/18 01:37 Labs: Short CBC 03/27/18 Range/Units 01:37 WBC 7.5 (4.3-11.1) K/mcL Hgb 12.0 (11.5-15.4) g/dL Hct 35.6 (35.3-44.9) % Plt Count 282 (140-400) K/mcL Neutrophils # 3.3 (1.6-8.9) K/mcL BMP 03/27/18 01:37 Sodium 135 L Potassium 3.2 L Chloride 97 L Carbon Dioxide 29 BUN 12 Creatinine 0.80 Glucose 233 H Calcium 9.8 Cardiac Enzymes 03/27/18 03/27/18 Range/Units 01:37 06:39 Troponin I < 0.03 < 0.03 (< 0.04) ng/mL Liver Function 03/27/18 Range/Units 01:37 Total Bilirubin 0.6 (0.3-1.0) mg/dL AST 18 (13-39) Units/L ALT 17 (7-52) Units/L Alkaline Phosphatase 80 (34-104) Units/L Albumin 3.6 (3.5-5.7) g/dL - ABG Interpretation ABG results: PT/INR, D-dimer PT 15.8 Seconds (9.4-12.1) H 03/27/18 01:37 Consult Discharge Plan - Plan Referrals: Maxine Ordaz MD [Primary Care Provider] - (1) Chest pain Qualifiers: Chest pain type: chest pain on breathing Qualified Code(s): R07.1 - Chest pain on breathing; R07.81 - Pleurodynia (2) DM type 2 (diabetes mellitus, type 2) 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 transplanted heart: [place] heart Associated angina: with unspecified angina Qualified Code(s): I25.119 - Atherosclerotic heart disease of [place] coronary artery with unspecified angina pectoris (4) Pulmonary embolism Qualifiers: Pulmonary embolism type: other Chronicity: unspecified Acute cor pulmonale presence: without acute cor pulmonale Qualified Code(s): I26.99 - Other pulmonary embolism without acute cor pulmonale
[2018-03-27] MEDS: Lisinopril 20 MG TABLET PO SCH (11:54)
[2018-03-27] MEDS: Aspirin 81 MG TAB.CHEW PO SCH (11:54)
[2018-03-27] MEDS: Metoprolol XL (24 HR) Succ 50 MG TAB.ER.24H PO SCH (11:54)
[2018-03-27] MEDS: Isosorbide MONOnitrate (24 HR) 60 MG TAB.ER.24H PO SCH (11:54)
[2018-03-27] MEDS: Insulin LISPRO 300 UNITS/3 ML VIAL SQ SCH ×2 (11:54→16:57)
[2018-03-27] MEDS: risperiDONE 1 MG TABLET PO SCH (20:51)
[2018-03-27] MEDS ORDERED: Insulin DETEMIR 100 UNIT/ML X5UNITS SQ SCH (21:00)
[2018-03-27] MEDS: Insulin DETEMIR 100 UNIT/ML X5UNITS SQ SCH (21:40)
[2018-03-27] MEDS ORDERED: 0.9 % Sodium Chloride w KCl 20 MEQ/1,000 ML MLS IVC SCH (23:45)
[2018-03-27] MEDS ORDERED: 0.9 % Sodium Chloride 500 ML IVC ONE (23:57)
[2018-03-28] MEDS ORDERED: *HR* Heparin 5,000 UNIT/ML VIAL IVP PRN ×2 (07:46)
[2018-03-28] MEDS ORDERED: *HR* Heparin 5,000 UNIT/ML VIAL IVP ONE (07:46)
[2018-03-28 08:05] LABS: Mean Corpuscular HGB Conc 31.9 g/dL (31.6-35.5); Mean Corpuscular Hemoglobin 29.5 pg (28.0-33.3); Mean Corpuscular Volume 92.3 fL (83.0-100.0); Mean Platelet Volume 9.3 fL (9.4-12.4); Platelet Count 231 K/mcL (140-400); Red Blood Count 3.36 M/mcL (3.82-4.97); Red Cell Distribution Width 11.9 % (11.5-14.5)
[2018-03-28 08:10] LABS: INR 1.3; Prothrombin Time 14.4 Seconds (9.4-12.1)
[2018-03-28 08:11] LABS: Hemoglobin 9.9 g/dL (11.5-15.4)
[2018-03-28 08:21] LABS: Heparin anti-factor XA UFH 0.52 IU/mL (0.30-0.70)
[2018-03-28] MEDS: Insulin LISPRO 300 UNITS/3 ML VIAL SQ SCH ×4 (09:01→20:52)
[2018-03-28] MEDS: Loratadine 10 MG TABLET PO SCH (09:02)
[2018-03-28] MEDS: Isosorbide MONOnitrate (24 HR) 60 MG TAB.ER.24H PO SCH (09:02)
[2018-03-28] MEDS: Aspirin 81 MG TAB.CHEW PO SCH (09:02)
[2018-03-28] MEDS: Lisinopril 20 MG TABLET PO SCH (09:02)
[2018-03-28] MEDS: Metoprolol XL (24 HR) Succ 50 MG TAB.ER.24H PO SCH (09:02)
[2018-03-28] MEDS: Cholecalciferol (D-3) 1,000 UNIT TABLET PO SCH (09:02)
[2018-03-28] MEDS: Heparin 25,000 UNIT/500 ML D5W 25,000 UNIT/500 ML BAG IVC SCH (09:03)
[2018-03-28] MEDS: Pregabalin 75 MG CAPSULE PO SCH ×2 (09:03→20:18)
[2018-03-28] MEDS: Budesonide/Formoterol 160/4.5 1 PUFF INH IH SCH ×2 (10:40→21:03)
--- NOTE | 2018-03-28 10:40 | Internal Med Progress Note ---
Hospitalist Progress Note - Encounter Date of Encounter: 03/28/18 Time of Encounter: 10:40 - Subjective Interval History: No acute changes, continues to have 1/10 substernal chest pain, non radiating. No acute changes overnight. - Exam Vitals: Temp Pulse Resp BP Pulse Ox 98.0 F 80 18 123/83 97 03/28/18 07:21 03/28/18 07:21 03/28/18 07:21 03/28/18 07:21 03/28/18 07:21 Exam: PHYSICAL EXAMINATION: Gen.: alert and oriented x3. HEENT: Head is normocephalic and atraumatic. Extraocular muscles are intact. Pupils are equal, round, and reactive to light and accommodation. NECK: Supple. No carotid bruits. No lymphadenopathy or thyromegaly. LUNGS: Clear to auscultation B/L AP and L. HEART: Regular rate and rhythm, S1, S2 without murmur. ABDOMEN: Soft, nontender, and nondistended. Positive bowel sounds. No hepatosplenomegaly was noted. EXTREMITIES: Without any cyanosis, clubbing, rash, lesions or edema. - Assessment and Plan (1) Chest pain Current Visit: Yes Status: Acute Assessment and Plan: Presents with substernal chest pain with radiation to the left shoulder. Associated symptoms include shortness of breath, diaphoresis. Chest pain improved with nitroglycerin. Chest pain currently 3/10. However it does appear to be atypical as it worsens with inspiration and range of motion No ischemic changes noted to ECG, serial troponins negative 3, recent nuclear stress without ischemia in 2017 She has had an LHC in 2010 with minimal CAD Continue telemetry Continue all cardiac medications Echocardiogram--LVEF 60-65%, normal LV chamber size, wall thickness and function , mild LV VIOLA, normal RV structure and function, no evidence of pulmonary HTN Continue oxygen supplementation as needed Continue morphine and nitroglycerin for chest pain Serial troponins negative 3 03/28--continuing to have substernal chest pain, reporting mild tenderness to palpation along the sternum and xiphoid process. Symptoms appear to be atypical however given ongoing symptoms and recent negative stress cardiology is planning LHC on Friday. Xarelto is held today and heparin drip was started. Continue to monitor on telemetry. (2) DM type 2 (diabetes mellitus, type 2) Current Visit: Yes Status: Chronic Assessment and Plan: History of poorly controlled diabetes Increase sliding scale to high coverage with persistent hyperglycemia Resume cardiac diet, add basal insulin, if hyperglycemia persists consider increasing basal dose (3) CAD (coronary artery disease) Current Visit: Yes Status: Chronic Assessment and Plan: Continue daily aspirin, Lipitor, Imdur, metoprolol XL, & PRN nitroglycerin (4) Pulmonary embolism Current Visit: Yes Status: Resolved Assessment and Plan: PE per history Significant family history for PEs; consider clotting disorder CTA chest negative for PE 03/28--Xarelto on hold, Heparin gtt started; maintain per protocol (5) DVT prophylaxis Current Visit: Yes Status: Acute (6) Hypomagnesemia Current Visit: Yes Status: Acute Assessment and Plan: Presented with hypomagnesemia and hypokalemia, etiology unclear denies any GI loss medications do not appear to be contributing to her electrolyte disturbances Replete as necessary (7) Hypokalemia Current Visit: Yes Status: Acute DVT Prophylaxis: Xarelto on hold. On heparin gtt - Time Spent with Patient Total time spent is greater than 50% in coordination of care (as documented) at patient's floor/unit and/or counseling patient: less than 15 minutes Plan of Care Discussed with: patient Internal Medicine: Result - Labs CBC & Chem 7: 03/28/18 07:54 03/27/18 01:37 Labs: Short CBC 03/28/18 Range/Units 07:54 WBC 7.3 (4.3-11.1) K/mcL Hgb 9.9 L D (11.5-15.4) g/dL Hct 31.0 L (35.3-44.9) % Plt Count 231 (140-400) K/mcL Cardiac Enzymes 03/27/18 Range/Units 12:55 Troponin I < 0.03 (< 0.04) ng/mL - ABG Interpretation ABG results: PT/INR, D-dimer PT 14.4 Seconds (9.4-12.1) H 03/28/18 07:54 - Impressions Impressions Echocardiogram 03/27/18 00:50 Impressions: LVEF 60-65%. Normal LV chamber size, wall thickness and function. Mild left ventricular diastolic dysfunction. Normal right ventricular structure and function. No evidence of pulmonary hypertension. 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 transplanted heart: [place] heart Associated angina: with unspecified angina Qualified Code(s): I25.119 - Atherosclerotic heart disease of [place] coronary artery with unspecified angina pectoris (4) Pulmonary embolism Qualifiers: Pulmonary embolism type: other Chronicity: unspecified Acute cor pulmonale presence: without acute cor pulmonale Qualified Code(s): I26.99 - Other pulmonary embolism without acute cor pulmonale
--- NOTE | 2018-03-28 12:15 | Cardiology Progress Note ---
Date of Encounter: 03/28/18 Time of Encounter: 11:30 Assessment and Plan (1) Chest pain Current Visit: Yes Status: Acute Patient describes atypical chest pain symptoms; has been nearly constant since yesterday morning. Discomfort worsens with deep breaths. No ischemic ECG changes present. Troponin negative x3. Recent negative nuclear stress test in 2017. Hx of LHC in 2010, minimal CAD described. She reports she was told she had a 80 % blockage "somewhere" by previous [employer]. No LHC since 2010. Discussed with Dr. Uribe; recommend LHC on Friday to r/o ischemic etiology of chest pain given significant risk factors and recent negative stress. Last dose of Xarelto 03/27/18, heparin gtt started this AM (hx of PE, dx in 2017) . Will continue to follow. Qualifiers: Chest pain type: chest pain on breathing Qualified Code(s): R07.1 - Chest pain on breathing; R07.81 - Pleurodynia (2) History of pulmonary embolism Current Visit: No Status: Chronic Hx of PE on Xarelto 15 mg daily. Diagnosed in 2017--reports family history of clotting disorder. Discussion w patient/family: The assessment and plan as outlined above was discussed with the patient and/or family members who expressed understanding and agreement. All questions were answered. Thank you for involving us in the care of your patient. Please call with any questions. The patient will be discussed and reviewed with Dr. Uribe; changes to be made accordingly. Subjective Principal diagnosis: Chest pain Interval history: Seen and examined. No CV complaints upon exam. Chest pain has resolved. Objective General: Conversant, No Apparent Distress HEENT: Atraumatic, Normocephaly, Mucus Membranes Moist Neck: No JVD, Normal carotid pulses Cardiac: Reg Rate and Rhythm, Normal S1 and S2, No Murmur Lungs: Normal Breath Sounds, No Wheeze, Rales, Rhonchi Neuro: Alert and responsive, No focal deficits noted Abdomen: Soft, Non-Tender Skin: No rashes noted on visualized skin Musculoskeletal: No Chest Wall Tenderness Extremities: No Clubbing, No Cyanosis, No Edema, Normal Pulses Results 03/28/18 07:54 03/27/18 01:37 Lab Results 03/27/18 03/28/18 03/28/18 12:55 07:54 07:54 WBC 7.3 Hgb 9.9 L D Hct 31.0 L Plt Count 231 INR 1.3 Troponin I < 0.03 - Imaging and Cardiology Echo: report reviewed - EKG Interpretation EKG results cardiology: personally reviewed Consult Discharge Plan - Plan Referrals: Maxine Ordaz MD [Primary Care Provider] - 03/31/18 3:15 pm (Follow up has been requested)
[2018-03-28] MEDS: risperiDONE 1 MG TABLET PO SCH (20:18)
[2018-03-28] MEDS: Insulin DETEMIR 100 UNIT/ML X5UNITS SQ SCH (20:53)
[2018-03-29] MEDS: Aspirin 81 MG TAB.CHEW PO SCH (07:51)
[2018-03-29] MEDS: Insulin LISPRO 300 UNITS/3 ML VIAL SQ SCH ×4 (07:51→20:31)
[2018-03-29] MEDS: Loratadine 10 MG TABLET PO SCH (07:51)
[2018-03-29] MEDS: Lisinopril 20 MG TABLET PO SCH (07:51)
[2018-03-29] MEDS: Metoprolol XL (24 HR) Succ 50 MG TAB.ER.24H PO SCH (07:51)
[2018-03-29] MEDS: Pregabalin 75 MG CAPSULE PO SCH ×2 (07:51→20:20)
[2018-03-29] MEDS: Isosorbide MONOnitrate (24 HR) 60 MG TAB.ER.24H PO SCH (07:52)
[2018-03-29] MEDS: Cholecalciferol (D-3) 1,000 UNIT TABLET PO SCH (07:52)
[2018-03-29] MEDS: Budesonide/Formoterol 160/4.5 1 PUFF INH IH SCH ×2 (08:23→22:27)
[2018-03-29] MEDS ORDERED: Methyl Salicylate/Menthol 28 GM TUBE TP PRN (11:16)
--- NOTE | 2018-03-29 11:26 | Cardiology Progress Note ---
Date of Encounter: 03/29/18 Time of Encounter: 11:00 Assessment and Plan (1) CAD (coronary artery disease) Current Visit: Yes Status: Chronic Qualifiers: Coronary Disease-Associated Artery/Lesion type: [place] artery [place] vs. transplanted heart: [place] Associated angina: with unspecified angina Qualified Code(s): I25.119 - Atherosclerotic heart disease of [place] coronary artery with unspecified angina pectoris Discussion w patient/family: The assessment and plan as outlined above was discussed with the patient and/or family members who expressed understanding and agreement. All questions were answered. Thank you for involving us in the care of your patient. Please call with any questions. Subjective Principal diagnosis: Chest pain Interval history: C/o mild chest pain symptoms overnight. Chest discomfort sometimes increases with deep breaths. Objective Vital Signs, Last 4 Hours Temp Pulse Resp BP Pulse Ox 03/29/18 08:24 16 98 03/29/18 07:26 97.9 F 78 17 130/89 97 General: Conversant, No Apparent Distress HEENT: Atraumatic, Normocephaly, Mucus Membranes Moist Neck: No JVD, Normal carotid pulses Cardiac: Reg Rate and Rhythm, Normal S1 and S2, No Murmur Lungs: Normal Breath Sounds, No Wheeze, Rales, Rhonchi Neuro: Alert and responsive, No focal deficits noted Abdomen: Soft, Non-Tender Skin: No rashes noted on visualized skin Musculoskeletal: No Chest Wall Tenderness Extremities: No Clubbing, No Cyanosis, No Edema, Normal Pulses Results 03/28/18 07:54 03/28/18 12:48 Lab Results 03/28/18 12:48 Potassium 4.6 - EKG Interpretation EKG results cardiology: personally reviewed Consult Discharge Plan - Plan Referrals: Maxine Ordaz MD [Primary Care Provider] - 03/31/18 3:15 pm (Follow up has been requested)
--- NOTE | 2018-03-29 13:21 | Internal Med Progress Note ---
Hospitalist Progress Note - Encounter Date of Encounter: 03/29/18 Time of Encounter: 13:17 - Subjective Interval History: No acute changes, continues to have 1/10 substernal chest pain, non radiating, worse with respirations. No acute changes overnight. - Exam Vitals: Temp Pulse Resp BP Pulse Ox 98.0 F 84 18 152/84 99 03/29/18 12:03 03/29/18 12:03 03/29/18 12:03 03/29/18 12:03 03/29/18 12:03 Exam: PHYSICAL EXAMINATION: Gen.: alert and oriented x3. HEENT: Head is normocephalic and atraumatic. Extraocular muscles are intact. Pupils are equal, round, and reactive to light and accommodation. NECK: Supple. No carotid bruits. No lymphadenopathy or thyromegaly. LUNGS: Clear to auscultation B/L AP and L. HEART: Regular rate and rhythm, S1, S2 without murmur. ABDOMEN: Soft, nontender, and nondistended. Positive bowel sounds. No hepatosplenomegaly was noted. EXTREMITIES: Without any cyanosis, clubbing, rash, lesions or edema - Assessment and Plan (1) Chest pain Current Visit: Yes Status: Acute Assessment and Plan: Presents with substernal chest pain with radiation to the left shoulder. Associated symptoms include shortness of breath, diaphoresis. Chest pain improved with nitroglycerin. Chest pain currently 3/10. However it does appear to be atypical as it worsens with inspiration and range of motion No ischemic changes noted to ECG, serial troponins negative 3, recent nuclear stress without ischemia in 2016 She has had an LHC in 2010 with minimal CAD Continue telemetry Continue all cardiac medications Echocardiogram--LVEF 60-65%, normal LV chamber size, wall thickness and function , mild LV VIOLA, normal RV structure and function, no evidence of pulmonary HTN Continue oxygen supplementation as needed Continue morphine and nitroglycerin for chest pain Serial troponins negative 3 03/28--continuing to have substernal chest pain, reporting mild tenderness to palpation along the sternum and xiphoid process. Symptoms appear to be atypical however given ongoing symptoms and recent negative stress cardiology is planning LHC on Friday. Xarelto is held today and heparin drip was started. Continue to monitor on telemetry. 03/29--Clinically, she remains stable. Substernal CP persists 1/10 worse with exertion. To undergo LHC tomorrow. Continue tele and heparin gtt. (2) DM type 2 (diabetes mellitus, type 2) Current Visit: Yes Status: Chronic Assessment and Plan: History of poorly controlled diabetes Increase sliding scale to high coverage with persistent hyperglycemia Resume cardiac diet, add basal insulin increased basal dose (3) CAD (coronary artery disease) Current Visit: Yes Status: Chronic Assessment and Plan: Continue daily aspirin, Lipitor, Imdur, metoprolol XL, & PRN nitroglycerin (4) Pulmonary embolism Current Visit: Yes Status: Resolved Assessment and Plan: PE per history Significant family history for PEs; consider clotting disorder CTA chest negative for PE 03/29--Xarelto on hold, Heparin gtt, maintain per protocol (5) Hypomagnesemia Current Visit: Yes Status: Resolved (6) Hypokalemia Current Visit: Yes Status: Resolved (7) DVT prophylaxis Current Visit: Yes Status: Acute Assessment and Plan: Heparin gtt - Time Spent with Patient Total time spent is greater than 50% in coordination of care (as documented) at patient's floor/unit and/or counseling patient: less than 15 minutes Plan of Care Discussed with: patient Internal Medicine: Result - Labs CBC & Chem 7: 03/28/18 07:54 03/28/18 12:48 Labs: BMP 03/28/18 12:48 Potassium 4.6 - ABG Interpretation ABG results: PT/INR, D-dimer PT 14.4 Seconds (9.4-12.1) H 03/28/18 07:54 Consult Discharge Plan - Plan Referrals: Maxine Ordaz MD [Primary Care Provider] - 03/31/18 3:15 pm (Follow up has been requested) (1) Chest pain Qualifiers: Chest pain type: chest pain on breathing Qualified Code(s): R07.1 - Chest pain on breathing; R07.81 - Pleurodynia (2) DM type 2 (diabetes mellitus, type 2) Qualifiers: Diabetes mellitus shelter insulin use: with keno terminal operator use Diabetes mellitus complication status: with hyperglycemia Qualified Code(s): E11.65 - Type 2 diabetes mellitus with hyperglycemia; Z79.4 - jail (current) use of insulin; Z79.4 - local intermodal truck driver (current) use of insulin; Z79.4 - local intermodal truck driver (current ) use of insulin; Z79.4 - local intermodal truck driver (current) use of insulin (3) CAD (coronary artery disease) Qualifiers: Coronary Disease-Associated Artery/Lesion type: [place] artery [place] vs. transplanted heart: [place] heart Associated angina: with unspecified angina Qualified Code(s): I25.119 - Atherosclerotic heart disease of [place] coronary artery with unspecified angina pectoris (4) Pulmonary embolism Qualifiers: Pulmonary embolism type: other Chronicity: unspecified Acute cor pulmonale presence: without acute cor pulmonale Qualified Code(s): I26.99 - Other pulmonary embolism without acute cor pulmonale
[2018-03-29] MEDS: Nitroglycerin 0.4 MG TAB.SUBL SL PRN ×3 (16:00→16:19)
[2018-03-29] MEDS: Heparin 25,000 UNIT/500 ML D5W 25,000 UNIT/500 ML BAG IVC SCH (18:16)
[2018-03-29] MEDS: risperiDONE 1 MG TABLET PO SCH (20:20)
[2018-03-29] MEDS: Insulin DETEMIR 100 UNIT/ML X5UNITS SQ SCH (20:21)
[2018-03-30] MEDS: Budesonide/Formoterol 160/4.5 1 PUFF INH IH SCH ×2 (08:03→20:03)
[2018-03-30] MEDS: Insulin LISPRO 300 UNITS/3 ML VIAL SQ SCH ×4 (08:04→21:00)
[2018-03-30] MEDS: Metoprolol XL (24 HR) Succ 50 MG TAB.ER.24H PO SCH (10:03)
[2018-03-30] MEDS: Lisinopril 20 MG TABLET PO SCH (10:03)
[2018-03-30] MEDS: Loratadine 10 MG TABLET PO SCH (10:03)
[2018-03-30] MEDS: Aspirin 81 MG TAB.CHEW PO SCH (10:03)
[2018-03-30] MEDS: Cholecalciferol (D-3) 1,000 UNIT TABLET PO SCH (10:03)
[2018-03-30] MEDS: Pregabalin 75 MG CAPSULE PO SCH ×2 (10:04→21:02)
[2018-03-30] MEDS: Isosorbide MONOnitrate (24 HR) 60 MG TAB.ER.24H PO SCH (10:04)
--- NOTE | 2018-03-30 11:01 | Internal Med Progress Note ---
Hospitalist Progress Note - Encounter Date of Encounter: 03/30/18 Time of Encounter: 10:59 - Subjective Interval History: No acute changes, continues to have intermittent substernal chest pain. She is to undergo LHC this afternoon - Exam Vitals: Temp Pulse Resp BP Pulse Ox 98.6 F 82 16 146/88 98 03/30/18 07:34 03/30/18 07:34 03/30/18 08:06 03/30/18 07:34 03/30/18 08:06 Exam: PHYSICAL EXAMINATION: Gen.: alert and oriented x3. HEENT: Extraocular muscles are intact. Pupils are equal, round, and reactive to light and accommodation. NECK: Supple. No carotid bruits. No lymphadenopathy or thyromegaly. LUNGS: Clear to auscultation B/L AP and L. HEART: Regular rate and rhythm, S1, S2 without murmur. ABDOMEN: Soft, nontender, and nondistended. Positive bowel sounds. No hepatosplenomegaly was noted. EXTREMITIES: Without any cyanosis, clubbing, rash, lesions or edema - Assessment and Plan (1) Chest pain Current Visit: Yes Status: Acute Assessment and Plan: Presents with substernal chest pain with radiation to the left shoulder. Associated symptoms include shortness of breath, diaphoresis. Chest pain improved with nitroglycerin. Chest pain currently /. However it does appear to be atypical as it worsens with inspiration and range of motion No ischemic changes noted to ECG, serial troponins negative 3, recent nuclear stress without ischemia in 2016 She has had an LHC in 2010 with minimal CAD Continue telemetry Continue all cardiac medications Echocardiogram--LVEF 60-65%, normal LV chamber size, wall thickness and function , mild LV VIOLA, normal RV structure and function, no evidence of pulmonary HTN Continue oxygen supplementation as needed Continue morphine and nitroglycerin for chest pain Serial troponins negative 3 03/28--continuing to have substernal chest pain, reporting mild tenderness to palpation along the sternum and xiphoid process. Symptoms appear to be atypical however given ongoing symptoms and recent negative stress cardiology is planning LHC on Friday. Xarelto is held today and heparin drip was started. Continue to monitor on telemetry. 03/29--Clinically, she remains stable. Substernal CP persists 1/10 worse with exertion. To undergo LHC tomorrow. Continue tele and heparin gtt. 03/30--clinically, the patient remained stable. She is continuing to endorse intermittent substernal chest pain. She is currently chest pain-free at this time and remains independent dynamically stable. She remains on a heparin drip and is to undergo an LHC this afternoon. Discharge disposition TBD, pending results of LHC (2) DM type 2 (diabetes mellitus, type 2) Current Visit: Yes Status: Chronic Assessment and Plan: History of poorly controlled diabetes Increase sliding scale to high coverage with persistent hyperglycemia Resume cardiac diet, add basal insulin increased basal dose 03/30--blood glucose persistently high this morning, currently on high sliding scale, basal dose increased overnight. Has been nothing by mouth since yesterday evening. Refrain from adding additional coverage at this time, closely monitored throughout the afternoon if blood glucose is persistently elevated consider adding prandial coverage. (3) CAD (coronary artery disease) Current Visit: Yes Status: Chronic Assessment and Plan: Continue daily aspirin, Lipitor, Imdur, metoprolol XL, & PRN nitroglycerin (4) Pulmonary embolism Current Visit: Yes Status: Resolved Assessment and Plan: PE per history Significant family history for PEs; consider clotting disorder CTA chest negative for PE 03/30--Xarelto on hold, Heparin gtt, maintain per protocol, consider resuming Xarelto after left heart cath this afternoon (5) Hypomagnesemia Current Visit: Yes Status: Resolved (6) Hypokalemia Current Visit: Yes Status: Resolved (7) DVT prophylaxis Current Visit: Yes Status: Acute Assessment and Plan: Heparin gtt - Time Spent with Patient Total time spent is greater than 50% in coordination of care (as documented) at patient's floor/unit and/or counseling patient: less than 15 minutes Plan of Care Discussed with: patient Internal Medicine: Result - Labs CBC & Chem 7: 03/28/18 07:54 03/28/18 12:48 - ABG Interpretation ABG results: PT/INR, D-dimer PT 14.4 Seconds (9.4-12.1) H 03/28/18 07:54 Consult Discharge Plan - Plan Referrals: Maxine Ordaz MD [Primary Care Provider] - 03/31/18 3:15 pm (Follow up has been requested) (1) Chest pain Qualifiers: Chest pain type: chest pain on breathing Qualified Code(s): R07.1 - Chest pain on breathing; R07.81 - Pleurodynia (2) DM type 2 (diabetes mellitus, type 2) Qualifiers: Diabetes mellitus residential insulin use: with residential use Diabetes mellitus complication status: with hyperglycemia Qualified Code(s): E11.65 - Type 2 diabetes mellitus with hyperglycemia; Z79.4 - shelter (current) use of insulin; Z79.4 - shelter (current) use of insulin; Z79.4 - shelter (current ) use of insulin; Z79.4 - shelter (current) use of insulin (3) CAD (coronary artery disease) Qualifiers: Coronary Disease-Associated Artery/Lesion type: [place] artery [place] vs. transplanted heart: [place] heart Associated angina: with unspecified angina Qualified Code(s): I25.119 - Atherosclerotic heart disease of [place] coronary artery with unspecified angina pectoris (4) Pulmonary embolism Qualifiers: Pulmonary embolism type: other Chronicity: unspecified Acute cor pulmonale presence: without acute cor pulmonale Qualified Code(s): I26.99 - Other pulmonary embolism without acute cor pulmonale
[2018-03-30] MEDS ORDERED: 0.9 % Sodium Chloride 1,000 ML ONE ×2 (12:02→12:34)
[2018-03-30] MEDS ORDERED: Heparin 1,000 UNITS/500 mL 500 ML ONE (12:02)
[2018-03-30] MEDS ORDERED: *HR* Heparin 10,000 UNIT/10 ML VIAL ONE (12:02)
[2018-03-30] MEDS ORDERED: Nitroglycerin 1,000 MCG/10 ML VIAL IV ONE (12:02)
[2018-03-30] MEDS ORDERED: ISOVUE-370 200 ML INFUS..BTL IV ONE (12:02)
--- NOTE | 2018-03-30 12:16 | Pre-Sedation Evaluation ---
Pre-sedation evaluation - Pre-sedation checklist Date of procedure: 03/30/18 Procedure: left heart cath Recent Vitals: Last Vital Signs Temp 97.9 F 03/30/18 11:10 Pulse 79 03/30/18 11:10 Resp 19 03/30/18 11:10 BP 129/84 03/30/18 11:10 Pulse Ox 98 03/30/18 11:10 H&P (including ROS) documented in medical record: Yes Previous reaction to sedatives/anesthetics: No Dietary Status: NPO after Midnight Dentition: poor dentition ASA Classification *see protocol: CLASS II-Mild systemic disease Cardiac Registry (Cardio Only) - Functional Capacity Functional Capacity: >=4 METS with symptoms - Clincal Frailty Scale Clinical Frailty Scale: Managing Well
[2018-03-30] MEDS ORDERED: *HR* Midazolam HCl 2 MG/2 ML VIAL ONE (12:32)
[2018-03-30] MEDS ORDERED: *HR* FentaNYL (PF) 100 MCG/2 ML VIAL ONE (12:33)
[2018-03-30] MEDS ORDERED: Tirofiban 12.5 MG/250ML 12.5 MG/250 ML BAG ONE (12:56)
[2018-03-30] MEDS ORDERED: *HR* Ticagrelor 90 MG TABLET ONE (13:18)
[2018-03-30] MEDS ORDERED: Tirofiban 12.5 MG/250ML 12.5 MG/250 ML BAG IVC SCH (13:30)
--- NOTE | 2018-03-30 13:31 | Invasive Diagnostic Lab Proc ---
Name: Kathy Gannon Date of Study: 03/30/2018 Date: 1965 Ht: 61.8in Medical Record#: [id number] Age: 52 Wt: 200.18lb Gender: Female BSA: 1.91 Order #: [id number] BMI: 36.84 Physicians Procedure Physician: Dolly Uribe MD Referring MD: Referring MD: Staff Name Position Time In Sally Jurado RT (R) Monitor 12:36 PM Sierra Allen RN Collar Trimmer 12:37 PM Krissy Lopez RT Scrub 12:37 PM Indications Indication Unstable Angina Procedures Performed Procedure L HRT ARTERY/VENTRICLE ANGIO Pre-Procedure Checklist Informed consent is complete signed and on chart. H&P is on chart. ID band is on and ID verified with patient. Patient NPO for procedure The procedure was described for the patient and questions were answered. Blood Pressure: 146/88 ECG is on chart. Rhythm: NSR Plan of Care Patient will tolerate the procedure without complications. Adequate level of comfort will be maintained. Hemodynamics will remain stable Patient will recover from procedure without complications. Respiratory function will be maintained. Cardiac rhythm will remain stable. Patient temperature will be maintained. Patient and/or family have verbalized understanding of the procedure. Patient Education Chief Complaint/Reason for Test: Cardiac Cath Developmental Category: Adult (18-64 years) Developmentally Appropriate for Age: Yes Learning Barriers: None Education Needs: Procedure Education Method: Verbal Information Taught: Cardiac Cath Educational Evaluation: Able to repeat information Intravenous Access Time IV Size Location DC'd Fluid/Drip Rate Units RN 20g 1 /" Patent On Arrival Lt Antecubital 0.9NaCl 25 ml/hr Allergies Latex, Natural Rubber naproxen gabapentin cinnamon Latex ibuprofen Vital Signs Time BP (mmHg) HR (bpm) O2 Sat. RR (bpm) LOC 12:35 PM 124 / 85 67 100 % 18 5 = Fully awake and oriented or at pre-proc level 12:38 PM / % 4 = Oriented but drowsy 12:38 PM / % 4 = Oriented but drowsy 12:53 PM / % 4 = Oriented but drowsy 12:34 PM 124 / 85 71 100 % 17 12:39 PM 127 / 82 70 100 % 13 12:44 PM 129 / 82 69 100 % 14 12:49 PM 133 / 81 72 100 % 21 12:54 PM 140 / 92 77 100 % 16 12:59 PM 134 / 86 77 100 % 14 01:04 PM 123 / 89 83 91 % 6 01:09 PM 130 / 84 80 90 % 6 01:14 PM 134 / 91 80 100 % 10 01:08 PM / % 4 = Oriented but drowsy Procedural Medications Time Medication Dose Units Method Given By 12:37 PM Oxygen 2 L/min nasal cannula Sierra Allen RN 12:37 PM Versed 1 mg Intravenous Sierra Allen RN 12:37 PM Fentanyl 50 mcg Intravenous Sierra Allen RN 12:41 PM Lidocaine 2% 20 ml Subcutaneous Dolly Uribe MD 12:56 PM Aggrastat Bolus: 46 ml Intravenous Sierra Allen RN 12:57 PM Aggrastat 12.5mg/250ml 16.5 ml Intravenous Sierra Allen RN 12:59 PM Heparin 4000 units Intravenous Sierra Allen RN 01:15 PM Brilinta 180 mg Orally Sierra Allen RN ASA Classification: CLASS II- Mild systemic disease (i.e. well-controlled diabetes, hypertension, asthma, cigarette smoking) Jose Score Preprocedure Postprocedure Activity 2- Moves 4 extremities sustained head lift Activity 2- Moves 4 extremities sustained head lift Circulation 2- SBP +/= 20 points of pre-anesthetic level Circulation 2- SBP +/= 20 points of pre-anesthetic level Consciousness 2- Awake and alert oriented x 3 Consciousness 2- Awake and alert oriented x 3 O2 Saturation 2- Able to maintain O2 satruation of 92% on room air O2 Saturation 2- Able to maintain O2 satruation of 92% on room air Respiratory 2- Able to deep breathe and cough well Respiratory 2- Able to deep breathe and cough well Total Score 10 Total Score 10 Contrast Agent: Isovue Diagnostic Contrast: 107 ml Total Contrast: 107 ml Fluoro Dose: 7419 mGy Activated Clotting Time Time Seconds to Clot 12:59 PM 145 Procedure Log Time Note Enter By 12:34 PM CathStat 12:34 PM Vitals capture started with the following parameters, Patient=Adult, Interval=5 min, Initial Otcrpmro=982 mmHg, Deflation Rate=5 mmHg, Cuff placed on Right Arm 12:34 PM Recorded ECG: HR=67 Condition=Condition 1 12:34 PM Recorded ECG: HR=69 Condition=Condition 1 12:34 PM Reference ECG taken 12:34 PM Pressure channel 1 zero failed. 12:34 PM HR=71 bpm, UVET=680/85 mmhg, HqR4=379.0 %, Resp=17 B/min, EtCO2=37 mmHg 12:36 PM Pt arrived to laboratory monitor 2 at 12:36 [email or web address] 12:37 PM Sally Jurado RT (R) Position: Monitor Time in: 12:36 [email or web address] 12:37 PM Sierra Allen RN Position: Collar Trimmer Time in: 12:37 [email or web address] 12:37 PM Krissy Lopez RT Position: Scrub Time in: 12:37 [email or web address] 12:37 PM Patient charges- Angio tray pack, Navilyst 3mm J, Pulse Oximetry and ACIST tubing and transducer [email or web address] 12:37 PM Case Delayed No [email or web address] 12:37 PM Hair removed from procedure site in holding area using clippers. Bilateral groin prepped with Chloraprep by Sally Jurado RT (R), then patient was draped. Skin intact. [email or web address] 12:37 PM Physician arrived 12:37 [email or web address] 12:37 PM ASA Class CLASS II- Mild systemic disease (i.e. well-controlled diabetes, hypertension, asthma, cigarette smoking) [email or web address] 12:37 PM Meet and brayden completed [email or web address] 12:37 PM Sign in performed according to hospital policy. Informed consent was obtained. [email or web address] 12:37 PM Procedure start 12:37 [email or web address] 12[facility]37 PM Time: 12:37 Oxygen on at 2 L/min per nasal cannula by Sierra Allen RN [email or web address] 12:37 PM Time: 12:37 Versed 1 mg Intravenous Given by Sierra Allen RN [email or web address] 12:37 PM Time: 12:37 Fentanyl 50 mcg Intravenous Given by Sierra Allen RN [email or web address] 12:38 PM Time: 12:38LOC: 4 = Oriented but drowsy [email or web address] 12:38 PM Pressure channel 1 zeroed. 12:39 PM HR=70 bpm, IWTW=360/82 mmhg, PtU6=369.0 %, Resp=13 B/min 12:41 PM Time out was performed according to hospital policy. Conscious sedation and anesthesia was achieved (see medication log with in this report above) [email or web address] 12:42 PM Time: 12:41 20 ml Lidocaine 2% to right groin Subcutaneous Given by Dolly Uribe MD [email or web address] 12:43 PM Micro-Introducer Kit utilized for sheath placement [email or web address] 12:44 PM Unsuccessful access attempt # 1 into the right Femoral artery. Manual pressure applied to achieve hemostasis.. [email or web address] 12:44 PM HR=69 bpm, UETX=576/82 mmhg, TzQ1=127.0 %, Resp=14 B/min, EtCO2=39 mmHg, Comment=NSR 12:45 PM 3mls contrast injected into Rt groin. [email or web address] 12:45 PM Access obtained by percutaneous puncture. 6Fr 10cm Terumo Jesse sheath placed in right Femoral artery. [id number] [email or web address] 12:46 PM 0.035 145cm Navilyst 3mmJ wire [id number] [email or web address] 12:46 PM 5Fr FR 4 catheter inserted over the wire DN [email or web address] 12:48 PM Recorded Pressure: LV, HR=73, Condition=Condition 1 (Left Ventricle) LV 130/12/14 12:48 PM Catheter crossed the aortic valve and was selectively placed in the left ventricle. Pressures recorded on pullback for left heart catheterization. [email or web address] 12:48 PM Recorded Pressure: LV, Ao, HR=74, Condition=Condition 1 (Left Ventricle) LV 133/11/13, (Aorta) Ao 136/91/110 12:49 PM Pressures recorded no LV gram [email or web address] 12:49 PM Recorded Pressure: Ao, HR=73, Condition=Condition 1 (Aorta) Ao 126/91/108 12:49 PM Catheter pulled back. [email or web address] 12:49 PM HR=72 bpm, LAAI=598/81 mmhg, EqF9=077.0 %, Resp=21 B/min, EtCO2=38 mmHg, Comment=NSR 12:49 PM RCA angiography performed in multiple views. [email or web address] 12:50 PM Coronary Dominance: right [email or web address] 12:50 PM Lesion found in Proximal RCA. Pre Stenosis: Pre ELODIA Flow: 3: Complete and Brisk Flow/Perfusion [email or web address] 12:50 PM Catheter removed [email or web address] 12:51 PM 5Fr FL 4 catheter inserted over the wire DN [email or web address] 12:51 PM LCA angiography performed in multiple views. [email or web address] 12:52 PM Recorded Pressure: Ao, HR=75, Condition=Condition 1 (Aorta) Ao 148/99/118 12:53 PM Time: 12:38 Patient comfortable and pain free: Yes [email or web address] 12:53 PM Time: 12:38LOC: 4 = Oriented but drowsy [email or web address] 12:54 PM Catheter removed [email or web address] 12:54 PM HR=77 bpm, PVMA=622/92 mmhg, GpX0=105.0 %, Resp=16 B/min, EtCO2=38 mmHg, Comment=NSR 12:55 PM 6Fr XB3.5 Cantril Bright-Tip guide catheter was used to cannulate the PCI vessel successfully. reused? No [email or web address] 12:56 PM Inflation device was opened. [email or web address] 12:56 PM .014 [employer] [place] 190cm guide wire across target lesion- successful. reused? No [email or web address] 12:57 PM Time: 12:56 Aggrastat Bolus: 46 ml Intravenous Given by Sierra Allen RN [email or web address] 12:57 PM Time: 12:57 Aggrastat 12.5mg/250ml 16.5 ml Intravenous Given by Sierra Allen RN Rogers pump [email or web address] 12:58 PM Recorded Pressure: Ao, HR=77, Condition=Condition 1 (Aorta) Ao 149/89/114 12:59 PM At 12:59 the ACT was 145 seconds. [email or web address] 12:59 PM Time: 12:59 Heparin 4000 units Intravenous Given by Sierra Allen RN [email or web address] 12:59 PM HR=77 bpm, WYTL=797/86 mmhg, QwE2=517.0 %, Resp=14 B/min, EtCO2=40 mmHg, Comment=NSR 01:00 PM 2.0 mm x 8 mm Emerge Monorail balloon across target lesion- successful. reused? No [email or web address] 01:01 PM Balloon inflated @ 6 pablo for 10 seconds [email or web address] 01:01 PM Balloon inflated @ 6 pablo for 6 seconds [email or web address] 01:02 PM Balloon inflated @ 6 pablo for 10 seconds [email or web address] 01:02 PM Balloon catheter removed intact. [email or web address] 01:02 PM Recorded Pressure: Ao, HR=80, Condition=Condition 1 (Aorta) Ao 128/84/103 01:04 PM HR=83 bpm, VXCK=770/89 mmhg, SpO2=91.0 %, Resp=6 B/min, EtCO2=41 mmHg, Comment=NSR 01:07 PM 2.75mm x 16mm Synergy drug-eluting stent across target lesion- successful Lot #[id number] [email or web address] 01:08 PM Time: 12:53LOC: 4 = Oriented but drowsy [email or web address] 01:08 PM Time: 12:53 Patient comfortable and pain free: Yes [email or web address] 01:08 PM Stent deployed @ 7 pablo for 19 seconds [email or web address] 01:09 PM Stent balloon reinflated @ 9 pablo for 12 seconds [email or web address] 01:09 PM Stent balloon reinflated @ 14 pablo for 15 seconds [email or web address] 01:09 PM HR=80 bpm, GIRV=977/84 mmhg, SpO2=90.0 %, Resp=6 B/min, EtCO2=37 mmHg, Comment=NSR 01:10 PM Stent balloon reinflated @ 16 pablo for 10 seconds [email or web address] 01:10 PM removed intact. 01:10 PM Stent delivery system removed intact. 01:10 PM Guide wire removed intact. [email or web address] 01:11 PM Guide catheter removed intact. [email or web address] 01:14 PM Procedure completed at 13:14 03/30/2018 01:14 PM Did you address ELODIA flow and Dominance? Yes [email or web address] 01:14 PM Sign out completed: Radiation Dose 881.25 mGy, 7418.81 cGy/cm2 Fluoro Time: 7.6 Isovue 370 - 200ml contrast 107 ml given by Dolly Uribe MD. Complications: None. The patient was discharged out of the research lab assistant in stable condition. Cardiac Rehab Consult needed: YesConfirmed administered medications: Yes [email or web address] 01:14 PM HR=80 bpm, BJAI=399/91 mmhg, EfD4=066.0 %, Resp=10 B/min, Comment=NSR 01:15 PM Time: 13:15 Brilinta 180 mg Orally Given by Sierra Allen RN [email or web address] 01:15 PM Arterial sheath pulled, Angio-seal closure device used and was Successful S/N. 01:15 PM Estimated Blood Loss: minimal [email or web address] 01:15 PM Post ECG NSR [email or web address] 01:16 PM Post Blood Pressure 134/91 [email or web address] 01:16 PM 13:16 Post Pulses Bilateral DP & PT 1+ [email or web address] 01:16 PM Information taught Cardiac Cath and PCI [email or web address] 01:16 PM Education needs Procedure, Disease Process, and Plan of Care [email or web address] 01:16 PM Learning barriers :None [email or web address] 01:16 PM Education Methods Verbal [email or web address] 01:21 PM Site status No bleeding/hematoma - Rt Groin as reported by Krissy Lopez RT at 13:20 [email or web address] 01:21 PM Opsite applied [email or web address] 01:21 PM Delay to floor No [email or web address] 01:21 PM Family placed in consult room. [email or web address] 01:21 PM Complications: None [email or web address] 01:22 PM Report given to RN Pt taken to 3B Room #49. 13:22 [email or web address] 01:23 PM Time: 13:08 Patient comfortable and pain free: Yes [email or web address] 01:23 PM Time: 13:08LOC: 4 = Oriented but drowsy [email or web address] 01:24 PM Patient out of room: 13:24 [email or web address] Complications Complication None None Hemodynamics Pressures Site Systolic/A Wave Diastolic/V Wave Mean LV 130 12 14 LV 133 11 13 AO 136 91 110 AO 126 91 108 AO 148 99 118 AO 149 89 114 AO 128 84 103 Post Procedure Information Blood Pressure: 134/91 mmHg Rhythm: NSR Post procedural instructions were given Closure Device Time Device Success/Fail 03/30/2018 1:21:00 PM Angio-Seal VIP Successful Site Checks Time Location Status Staff Sheath In? Note 01:20 PM Rt Groin No bleeding/hematoma Krissy Lopez RT Pulses Time Site Pre-Procedure Post-Procedure Note Bilateral radial 2+ Bilateral DP & PT 1+ 1:16:00 PM Bilateral DP & PT 1+ Updated by Sally Jurado, RT(R) on 03/30/2018 1:25:32 PM electronically signed on 03/30/2018 1:26:16 PM with status of Final
--- NOTE | 2018-03-30 15:58 | Electrocardiograph Report ---
[address] [address] Test Date: 2018-03-26 Pat Name: Kathy Gannon Department: [id number] Room: 3B Gender: F Account Processor: : 1965 Requested By: [id number] Order Number: [id number] Reading MD: Oz Schultz Measurements Intervals [place] Rate: 79 P: 50 [place]: 149 QRS: 33 QRSD: 84 T: 41 QT: 353 QTc: 405 Interpretive Statements Sinus rhythm Electronically Signed On 03-30-2018 15:56:40 EDT by Oz Schultz
[2018-03-30] MEDS: Insulin DETEMIR 100 UNIT/ML X5UNITS SQ SCH (21:01)
[2018-03-30] MEDS: risperiDONE 1 MG TABLET PO SCH (21:02)
[2018-03-30] MEDS: *HR* Ticagrelor 90 MG TABLET PO SCH (21:02)
[2018-03-30] MEDS ORDERED: acetaZOLAMIDE 250 MG TABLET PO ONE (22:16)
[2018-03-31 05:51] LABS: BUN/Creatinine Ratio 21 (6-26); Blood Urea Nitrogen 22 mg/dL (6-20); eGFR For Non-African Americans 55 (> 60)
[2018-03-31] MEDS: Budesonide/Formoterol 160/4.5 1 PUFF INH IH SCH (07:24)
[2018-03-31] MEDS: Insulin LISPRO 300 UNITS/3 ML VIAL SQ SCH ×2 (08:00→11:47)
[2018-03-31] MEDS ORDERED: Heparin 25,000 UNIT/500 ML D5W 25,000 UNIT/500 ML BAG IVC SCH (08:02)
[2018-03-31] MEDS ORDERED: *HR* Heparin 5,000 UNIT/ML VIAL IVP PRN ×2 (08:02)
[2018-03-31] MEDS: Isosorbide MONOnitrate (24 HR) 60 MG TAB.ER.24H PO SCH (08:07)
[2018-03-31] MEDS: Loratadine 10 MG TABLET PO SCH (08:07)
[2018-03-31] MEDS: Lisinopril 20 MG TABLET PO SCH (08:08)
[2018-03-31] MEDS: Metoprolol XL (24 HR) Succ 50 MG TAB.ER.24H PO SCH (08:08)
[2018-03-31] MEDS: *HR* Ticagrelor 90 MG TABLET PO SCH (08:08)
[2018-03-31] MEDS: *HR* Rivaroxaban 15 MG TABLET PO SCH (08:08)
[2018-03-31] MEDS: Pregabalin 75 MG CAPSULE PO SCH (08:08)
[2018-03-31] MEDS: Cholecalciferol (D-3) 1,000 UNIT TABLET PO SCH (08:08)
[2018-03-31] MEDS: Aspirin 81 MG TAB.CHEW PO SCH (08:09)
[2018-03-31 08:35] LABS: Basophils % 0.3 %; Eosinophils # 0.1 K/mcL (0.0-0.6); Eosinophils % 1.5 %; Hematocrit 28.4 % (35.3-44.9); Hemoglobin 9.2 g/dL (11.5-15.4); Immature Granulocytes % 0.1 % (0-4); Lymphocytes # 2.2 K/mcL (0.6-4.6); Lymphocytes % 28.3 %; Mean Corpuscular HGB Conc 32.4 g/dL (31.6-35.5); Mean Corpuscular Hemoglobin 29.8 pg (28.0-33.3); Mean Corpuscular Volume 91.9 fL (83.0-100.0); Mean Platelet Volume 9.7 fL (9.4-12.4); Monocytes # 0.7 K/mcL (0.0-1.3); Monocytes % 8.8 %; Neutrophils # 4.8 K/mcL (1.6-8.9); Platelet Count 235 K/mcL (140-400); Red Blood Count 3.09 M/mcL (3.82-4.97); Red Cell Distribution Width 11.9 % (11.5-14.5)
[2018-03-31 08:58] LABS: BUN/Creatinine Ratio 20 (6-26); Blood Urea Nitrogen 22 mg/dL (6-20); Calcium 9.2 mg/dL (8.6-10.3); Carbon Dioxide 25 mEq/L (23-29); Chloride 106 mEq/L (98-107); Glucose 230 mg/dL (70-105); Osmolality,Calculated 295 (280-300); Potassium 4.2 mEq/L (3.5-5.1); Sodium 137 mEq/L (136-145); eGFR For Non-African Americans 53 (> 60)
--- NOTE | 2018-03-31 09:47 | Cardiology Progress Note ---
Date of Encounter: 03/31/18 Time of Encounter: 09:00 Assessment and Plan (1) Chest pain Current Visit: Yes Status: Acute Presented with atypical/typical chest pain symptoms, troponin negative x3. No ECG changes present. [facility] 03/30/18: s/p successful PCI to OM1 with RUSH; recommend staged PCI to RCA as outpatient, EF normal. Continue uninterrupted DAPT (asa + brilinta) for a minimum of 1year following RUSH; of note, patient is also on Xarelto 15 mg daily for hx of PE (2017)--hx of clotting disorder. Continue statin, BB, nitrates, and ACEi. Post PCI discharge instructions discussed including care of cath site and restrictions. Cardiac rehab. H/H 9.2, was 9.9 prior to [facility]. No active signs of bleeding, no issues with right groin cath site. Reports bleeding at gums yesterday evening, quickly resolved with no recurrence. Will defer further mgmt to Hospitalist, can consider 24 hours of additional monitoring vs. close outpatient follow-up with PCP. Discussed with Dr. Kc; Cardiology will sign-off, will coordinate outpatient follow-up with Dr. Uribe. Qualifiers: Chest pain type: chest pain on breathing Qualified Code(s): R07.1 - Chest pain on breathing; R07.81 - Pleurodynia (2) History of pulmonary embolism Current Visit: No Status: Chronic Hx of PE on Xarelto 15 mg daily. Diagnosed in 2017--reports family history of clotting disorder. Discussion w patient/family: The assessment and plan as outlined above was discussed with the patient and/or family members who expressed understanding and agreement. All questions were answered. Thank you for involving us in the care of your patient. Please call with any questions. The patient will be discussed and reviewed with Dr. Kc; changes to be made accordingly. Subjective Principal diagnosis: Chest pain Interval history: Seen and examined. No CV complaints upon exam. Reports bleeding at gums yesterday evening; resolved quickly, denied recurrence overnight. No other complaints today upon exam. Objective Vital Signs, Last 4 Hours Temp Pulse Resp BP Pulse Ox 03/31/18 07:25 16 100 03/31/18 06:22 98.1 F 76 16 112/79 99 General: Conversant, No Apparent Distress HEENT: Atraumatic, Normocephaly, Mucus Membranes Moist Neck: No JVD, Normal carotid pulses Cardiac: Reg Rate and Rhythm, Normal S1 and S2, No Murmur Lungs: Normal Breath Sounds, No Wheeze, Rales, Rhonchi Neuro: Alert and responsive, No focal deficits noted Abdomen: Soft, Non-Tender Skin: No rashes noted on visualized skin Musculoskeletal: No Chest Wall Tenderness Extremities: No Clubbing, No Cyanosis, No Edema, Normal Pulses Other: right groin cath site: soft, no hematoma, bleeding, or ecchymosis noted. +2 DP/ PT pulses. Results 03/31/18 08:13 03/31/18 08:13 Lab Results 03/30/18 03/31/18 03/31/18 14:29 04:09 08:13 WBC 7.9 Hgb 9.2 L Hct 28.4 L Plt Count 254 235 Sodium Potassium Chloride Carbon Dioxide BUN 22 H Creatinine 1.06 Glucose Calcium 03/31/18 08:13 WBC Hgb Hct Plt Count Sodium 137 Potassium 4.2 Chloride 106 Carbon Dioxide 25 BUN 22 H Creatinine 1.09 Glucose 230 H Calcium 9.2 Active Medications Hydrocodone Bitart/Acetaminophen ([place] 5-325 Mg) 1 tab PO TID PRN PRN Reason: Mild Pain Stop: 09/26/18 00:56 Last Admin: 03/27/18 03:08 Dose: 1 tab Albuterol Sulfate (Albuterol Inhaler) 2 puff IH Q4H PRN PRN Reason: Shortness Of Breath Stop: 09/26/18 00:56 Aspirin (Aspirin) 81 mg PO DAILY [facility] Stop: 09/26/18 09:01 Last Admin: 03/31/18 08:09 Dose: 81 mg Atorvastatin Calcium (Lipitor) 80 mg PO HS [facility] Stop: 09/26/18 21:01 Last Admin: 03/30/18 21:02 Dose: 80 mg Budesonide/Formoterol Fumarate (Symbicort) 2 puff IH BIDR JOHNIE PRN Reason: Protocol Stop: 09/26/18 10:01 Last Admin: 03/31/18 07:24 Dose: 2 puff Calcium Carbonate (Tums) 1,000 mg PO Q4HR PRN; Protocol PRN Reason: Heartburn Stop: 09/27/18 20:36 Last Admin: 03/28/18 20:53 Dose: 1,000 mg Cyclobenzaprine HCl (Flexeril) 10 mg PO TID PRN PRN Reason: Muscle Spasm Stop: 09/26/18 00:56 Dextrose/Water (Dextrose 50% (Syg)) 25 ml IVP AD PRN PRN Reason: Hypoglycemia Stop: 09/26/18 00:51 Glucagon (Glucagen) 1 mg IM ONCE PRN PRN Reason: Hypoglycemia Stop: 09/26/18 00:51 Glucose (Gluctose) 15 gm PO ONCE PRN PRN Reason: Hypoglycemia Stop: 09/26/18 00:51 Glucose (Gluctose) 30 gm PO ONCE PRN PRN Reason: Hypoglycemia Stop: 09/26/18 00:51 Hydralazine HCl (Hydralazine) 10 mg IVP Q6HR PRN PRN Reason: Hypertension Stop: 09/26/18 01:03 Last Admin: 03/27/18 03:08 Dose: 10 mg Dextrose (Dextrose 5%) 1,000 mls @ 100 mls/hr IVC .Q10H PRN PRN Reason: HYPOGLYCEMIA Stop: 09/26/18 00:51 Magnesium Sulfate 2 gm/ Sodium (Chloride) 104 mls @ 52 mls/hr IVPB Q6H PRN PRN Reason: hypomagnesemia Stop: 09/26/18 09:53 Last Admin: 03/27/18 12:55 Dose: 52 mls/hr Insulin Detemir (Levemir) 25 unit SQ HS [facility] Stop: 09/28/18 13:25 Last Admin: 03/30/18 21:01 Dose: 25 unit Insulin Human Lispro (Humalog) 0 units SQ HS JOHNIE PRN Reason: Protocol Stop: 09/27/18 21:01 Last Admin: 03/30/18 21:00 Dose: 7 units Insulin Human Lispro (Humalog) 0 units SQ TIDAC [facility] PRN Reason: Protocol Stop: 09/27/18 16:31 Last Admin: 03/31/18 08:00 Dose: 10 units Isosorbide Mononitrate (Imdur) 60 mg PO DAILY [facility] Stop: 09/26/18 09:01 Last Admin: 03/31/18 08:07 Dose: 60 mg Lisinopril (Zestril) 20 mg PO DAILY [facility] PRN Reason: Protocol Stop: 09/26/18 09:01 Last Admin: 03/31/18 08:08 Dose: 20 mg Loratadine (Claritin) 10 mg PO DAILY JOHNIE PRN Reason: Protocol Stop: 09/26/18 09:01 Last Admin: 03/31/18 08:07 Dose: 10 mg Menthol/Methyl Salicylate (Bengay) 1 appl TP BID PRN PRN Reason: Muscle Pain Stop: 09/28/18 11:17 Last Admin: 03/29/18 12:00 Dose: 1 appl Metoprolol Succinate (Toprol Xl) 100 mg PO DAILY JOHNIE Stop: 09/26/18 09:01 Last Admin: 03/31/18 08:08 Dose: 100 mg Naloxone HCl (Narcan) 0.4 mg IVP Q2MIN PRN PRN Reason: SEE COMMENTS Stop: 09/26/18 00:51 Nitroglycerin (Nitroglycerin) 0.4 mg SL Q5M PRN PRN Reason: Chest Pain Stop: 09/26/18 00:56 Last Admin: 03/29/18 16:19 Dose: 0.4 mg Omeprazole (Prilosec) 40 mg PO 0630 [facility] Stop: 09/26/18 06:31 Last Admin: 03/31/18 05:48 Dose: 40 mg Pregabalin (Lyrica) 225 mg PO BID [facility] Stop: 09/26/18 09:01 Last Admin: 03/31/18 08:08 Dose: 225 mg Risperidone (Risperdal) 1 mg PO HS [facility] Stop: 09/26/18 21:01 Last Admin: 03/30/18 21:02 Dose: 1 mg Rivaroxaban (Xarelto) 15 mg PO DAILY [facility] Stop: 09/26/18 09:01 Last Admin: 03/31/18 08:08 Dose: 15 mg Ticagrelor (Brilinta) 90 mg PO BID [facility] Stop: 09/29/18 21:01 Last Admin: 03/31/18 08:08 Dose: 90 mg Vitamin D (Vitamin D) 1,000 unit PO DAILY [facility] Stop: 09/26/18 09:01 Last Admin: 03/31/18 08:08 Dose: 1,000 unit - Imaging and Cardiology Echo: report reviewed Cardiac cath: report reviewed Other Results: 12 hour tele: avg HR=81 SR. No events noted. - EKG Interpretation EKG results cardiology: personally reviewed Consult Discharge Plan - Plan Referrals: Maxine Ordaz MD [Primary Care Provider] - 03/31/18 3:15 pm (Follow up has been requested)
[2018-03-31 10:55] VITALS: BP 101/65
--- NOTE | 2018-03-31 12:25 | Discharge Summary ---
- NOTES TO OUTPATIENT PROVIDER Notes to Outpatient Provider: PCP in 5 to 7 days. Cardiology out pt as scheduled. Recommend out pt follow up with hematology-oncology. for work up for hypercoagulable disorder work up. 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 Orders not resulted at time of discharge: Will need CBC recheck Fri04/02/2018. Date of Encounter: 03/31/18 Time of Encounter: 12:23 - Discharge Diagnosis (1) Unstable angina Priority: Primary Status: Acute Assessment and Plan: Presented with atypical/typical chest pain symptoms, troponin negative x3. No ECG changes present. [facility] 03/30/18: s/p successful PCI to OM1 with RUSH; recommend staged PCI to RCA as outpatient, EF normal. Per cardiology continue uninterrupted DAPT (asa + brilinta) for a minimum of 1year following RUSH; of note, patient is also on Xarelto 15 mg daily for hx of PE (2016)--hx of clotting disorder. Continue statin, BB, nitrates, and ACEi. Post PCI discharge instructions discussed including care of cath site and restrictions. Cardiac rehab. H/H 9.2, was 9.9 prior to [facility]. No active signs of bleeding, no issues with right groin cath site. Reports bleeding at gums yesterday evening, quickly resolved with no recurrence. Will need CBC recheck Fri04/02/2018 and for results to be send to PCP. Outpatient follow-up with Dr. Uribe. (2) DM type 2 (diabetes mellitus, type 2) Priority: Secondary Status: Chronic Assessment and Plan: History of poorly controlled diabetes Pt will need to be complaint with her home insulin as prescribed. She is to follow up out pt with PCP for glucose monitoring. Diabetic ADA diet recommended. Recommend out pt diabetic teaching as well. 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 transplanted heart: [place] heart Associated angina: with unspecified angina Qualified Code(s): I25.119 - Atherosclerotic heart disease of [place] coronary artery with unspecified angina pectoris (4) Pulmonary embolism Priority: Secondary Status: Resolved Assessment and Plan: PE per history Significant family history for PEs; Recommend out pt follow up with heme oncology or PCP for clotting disorder work up. CTA chest negative for PE 03/30--Xarelto on hold, Heparin gtt, maintain per protocol. Resuming Xarelto after left heart cath this afternoon Qualifiers: Pulmonary embolism type: other Chronicity: unspecified Acute cor pulmonale presence: without acute cor pulmonale Qualified Code(s): I26.99 - Other pulmonary embolism without acute cor pulmonale (5) Hypomagnesemia Priority: Secondary Status: Resolved Assessment and Plan: Presented with hypomagnesemia with mag 1.2. Will recheck. (6) Hypokalemia Priority: Secondary Status: Resolved Assessment and Plan: Replaced K and K now 4.5 Hospital course: Ms. Gannon is a 52 year old female with past medical history of chest pain which started earlier in the morning shortly after waking up. Her chest pain was substernal, heavy, and radiating to her left arm, neck, and jaw. She has some associated shortness of breath and some diaphoresis. She took sublingual nitroglycerin with minimal relief. As the day progressed, she took 2 more doses of sublingual nitroglycerin with mild relief. However, after the third dose of nitroglycerin, she still had chest pain and pressure. She came to ER for evaluation and admission. Discharge discussed with: patient - Time Spent with Patient Total time spent providing and/or coordinating discharge services: Greater than 30 minutes - Discharge Medications Prescriptions: Metoprolol XL (24 HR) Succ [Toprol Xl] 100 mg PO DAILY #30 tab.er.24h Ticagrelor [Brilinta] 90 mg PO BID #60 tablet Home Medications: Atorvastatin Calcium [Lipitor] 80 mg PO HS 09/06/15 [History] Cholecalciferol (Vitamin D3) [Vitamin D3] 2,000 unit PO DAILY 09/06/15 [History] Isosorbide MONOnitrate (24 HR) [Imdur] 60 mg PO DAILY 09/06/15 [History] Omeprazole [PriLOSEC] 40 mg PO DAILY 09/06/15 [History] acetaZOLAMIDE [Diamox Sequels] 500 mg PO BID 05/26/16 [History] Pregabalin [Lyrica] 225 mg PO BID capsule 06/20/16 [Rx] Albuterol Sulfate [Proair Hfa] 2 puff IH Q4H PRN 11/11/16 [History] Insulin ASPART [NovoLOG] 0 unit SQ TIDWM 11/11/16 [History] SUMAtriptan Succinate [Imitrex] 100 mg PO DAILY PRN 11/11/16 [History] risperiDONE [Risperidone] 1 mg PO HS 11/11/16 [History] Sertraline [Zoloft] 50 mg PO DAILY #30 tablet 11/13/16 [Rx] Aspirin 81 mg PO DAILY 01/02/17 [History] Budesonide/Formoterol 160/4.5 [Symbicort 160/4.5] 2 puff IH BIDR 01/02/17 [ History] Cyclobenzaprine [Flexeril] 10 mg PO TID PRN 01/02/17 [History] Lidocaine 1 appl TP TID PRN 01/02/17 [History] Loratadine [Claritin] 10 mg PO DAILY 01/02/17 [History] traZODone [TraZODone] 50 - 100 mg PO HS PRN 01/02/17 [History] Nitroglycerin [Nitrostat] 0.4 mg SL Q5M PRN 09/22/17 [History] Metoprolol Succinate 100 mg PO DAILY 10/20/17 [History] HYDROcodone/Acet 5/325 mg [[place] 5-325 mg] 1 tab PO TID PRN 5 Days #15 tab 10/24 [Rx] Lisinopril [Zestril] 20 mg PO DAILY #30 tablet 10/24/17 [Rx] Rivaroxaban [Xarelto] 15 mg PO DAILY #30 10/24/17 [Rx] Insulin Glargine,Hum.rec.anlog [Basaglar Kwikpen U-100] 25 unit SQ QPM #0 [Rx] Metoprolol XL (24 HR) Succ [Toprol Xl] 100 mg PO DAILY #30 tab.er.24h 03/31/18 [ Rx] Ticagrelor [Brilinta] 90 mg PO BID #60 tablet 03/31/18 [Rx] Allergies/Adverse Reactions: 3 Allergy/AdvReac Type Severity Reaction Status Date / Time cinnamon Allergy Anaphylaxis Verified 09/30/17 15:36 gabapentin Allergy Itching Verified 09/22/17 19:18 ibuprofen Allergy Hives Verified 09/22/17 19:18 Latex, Natural Rubber Allergy Itching Verified 09/22/17 19:18 naproxen [From Naprosyn] Allergy Itching Verified 09/22/17 19:18 Date of admission: 03/26/18 23:20 Primary care physician: Maxine Ordaz Consults: 03/27/18 00:50 Consult to Cardiology [CONS] Routine Comment: Consulting Provider: Cardiology Suzette Reason for Consult: chest pain, known CAD, ? need for LHC; reports 80% stenosis in one of her coronary arteries Call Completed: No 03/30/18 13:19 Consult to Cardiac Rehabilitation-Phase1 [CONS] Routine Comment: Reason for Consult: post op PCI Call Completed: Yes Discharging clinician: Indu Jane Anticipated date of discharge: 03/31/18 - Constitutional Vitals: Temp Pulse Resp BP Pulse Ox 98.1 F 74 16 101/65 98 03/31/18 10:53 03/31/18 10:53 03/31/18 10:53 03/31/18 10:53 03/31/18 12:12 General appearance: Present: cooperative, A&O X 3, pleasant, no acute distress, answers questions appropriately Exam: PHYSICAL EXAMINATION: Gen.: alert and oriented x3. HEENT: Extraocular muscles are intact. Pupils are equal, round, and reactive to light and accommodation. NECK: Supple. No carotid bruits. No lymphadenopathy or thyromegaly. LUNGS: Clear to auscultation B/L AP and L. HEART: Regular rate and rhythm, S1, S2 without murmur. ABDOMEN: Soft, non-tender, and non-distended. Positive bowel sounds. No hepato -splenomegaly was noted. EXTREMITIES: Without any cyanosis, clubbing, rash, lesions or edema. SKIN: No rash, bumps or bruises. - Patient Status Disposition: Home, Self-Care Condition: Good Overall status at discharge: patient is back to baseline - Discharge Instructions Follow Up With: Maxine Ordaz MD [Primary Care Provider] - 03/31/18 3:15 pm (Follow up has been requested) Forms: ED Satisfaction Letter - Diet and Activity Activity: increase activity as tolerated Diet: diabetic diet, low fat, low cholesterol, low salt diet
[2018-03-31 13:22] LABS: Magnesium 1.3 mg/dL (1.6-2.6)
--- NOTE | 2018-03-31 18:09 | Electrocardiograph Report ---
[place] [id number] Test Date: 2018-03-29 Pat Name: Kathy Gannon Department: 113 Room: [facility] Gender: F [employer]ven [employer] Tender: : 1965 Requested By: Michael Soto Order Number: [id number] Reading MD: Oz Schultz Measurements Intervals [place] Rate: 72 P: 57 OR: 148 QRS: 17 QRSD: 82 T: 59 QT: 354 QTc: 379 Interpretive Statements SINUS RHYTHM Electronically Signed On 03-31-2018 18:07:38 EDT by Oz Schultz
== END 2018-03-31 16:14 | disposition home or self-care (01) ==
LOC: 3BNU 18:36 → EMEROOARM 18:36 → 3BNU 03-27 00:08
PROVIDERS: ADMIT Family Medicine; ATTEND Family Medicine

== ENCOUNTER 2018-05-21 11:13 | Observation (INO) ==
--- NOTE | 2018-05-21 11:46 | Emergency Department Note ---
Disposition Clinical Impression: Chest pain Qualifiers: Chest pain type: unspecified Qualified Code(s): R07.9 - Chest pain, unspecified Chronic pulmonary embolism Qualifiers: Pulmonary embolism type: other Acute cor pulmonale presence: without acute cor pulmonale Qualified Code(s): I27.82 - Chronic pulmonary embolism Disposition: Admitted As Inpatient Condition: Good Referrals: NONE,PCP [Primary Care Provider] - Forms: ED Satisfaction Letter Time of Disposition: 15:46 Chest Pain HPI - General Chief Complaint: ED Chest Pain Stated Complaint: GLADIS/CP Time Seen by Provider: 05/21/18 11:19 Source: patient Mode of arrival: ambulatory Limitations: no limitations Vital Signs Reviewed: Yes Nursing Notes Reviewed: Yes - History of Present Illness HPI Narrative: I have re-performed and reviewed the history documented by the medical student, and I confirm its accuracy except as noted below - Related Data Home Medications Medication Instructions Recorded Confirmed Atorvastatin Calcium [Lipitor] 80 mg PO HS 09/06/15 05/15/18 Omeprazole [PriLOSEC] 40 mg PO DAILY 09/06/15 05/15/18 Albuterol Sulfate [Proair Hfa] 2 puff IH Q4H PRN 11/11/16 05/15/18 Insulin ASPART [NovoLOG] 10 unit SQ TIDWM 11/11/16 05/15/18 SUMAtriptan Succinate [Imitrex] 100 mg PO DAILY PRN 11/11/16 05/15/18 risperiDONE [Risperidone] 2 mg PO HS PRN 11/11/16 05/15/18 Aspirin 81 mg PO DAILY 01/02/17 05/15/18 Cyclobenzaprine [Flexeril] 10 mg PO TID PRN 01/02/17 05/15/18 Loratadine [Claritin] 10 mg PO DAILY PRN 01/02/17 05/15/18 traZODone [TraZODone] 50 - 100 mg PO HS PRN 01/02/17 05/15/18 Nitroglycerin [Nitrostat] 0.4 mg SL Q5M PRN 09/22/17 05/15/18 Benzonatate [Tessalon] 100 mg PO TID PRN 05/08/18 05/15/18 Cholecalciferol (D-3) [Vitamin D] 2,000 unit PO DAILY 05/08/18 05/15/18 Clopidogrel [Plavix] 75 mg PO DAILY 05/08/18 05/15/18 Insulin Glargine,Hum.rec.anlog 20 unit SQ BID 05/08/18 05/15/18 [Toniaglwaldo [place] U-100] Lisinopril-HCTZ 20-12.5 [Prinzide 1 each PO DAILY 05/08/18 05/15/18 20-12.5] Metformin HCl [Glucophage] 1,000 mg PO BID 05/08/18 05/15/18 Mometasone/Formoterol [Dulera 200 05/08/18 05/08/18 Mcg/5 Mcg Inhaler] Naproxen [Naprosyn] 500 mg PO DAILY PRN 05/08/18 05/15/18 Rivaroxaban [Xarelto] 20 mg PO DAILY 05/08/18 05/15/18 Sertraline [Zoloft] 50 mg PO DAILY 05/08/18 05/15/18 acetaZOLAMIDE [Diamox] 500 mg PO BID 05/08/18 05/15/18 Previous Rx's Medication Instructions Recorded HYDROcodone/Acet 5/325 mg [[place] 1 tab PO TID PRN 5 Days #15 tab 10/24/17 5-325 mg] Metoprolol XL (24 HR) Succ [Toprol 100 mg PO DAILY #30 tab.er.24h 03/31/18 Xl] Allergies Allergy/AdvReac Type Severity Reaction Status Date / Time cinnamon Allergy Anaphylaxis Verified 05/04/18 13:07 gabapentin Allergy Itching Verified 05/04/18 13:07 ibuprofen Allergy Hives Verified 05/04/18 13:07 Latex, Natural Rubber Allergy Itching Verified 05/04/18 13:07 naproxen [From Naprosyn] Allergy Itching Verified 05/04/18 13:07 All systems ED: reviewed and negative except as stated. Constitutional: Denies: fever Cardiovascular: Reports: chest pain Respiratory: Reports: dyspnea. Denies: cough, sputum production Gastrointestinal: Denies: abdominal pain, nausea, vomiting, diarrhea Musculoskeletal: Denies: back pain, neck pain Chest Pain PMH - Past Medical History Medical history: Reports: arthritis, asthma, COPD, coronary artery disease, diabetes, GERD, hyperlipidemia, hypertension, migraine, pulmonary embolus Surgical history: Reports: cholecystectomy, herniorrhaphy, hysterectomy, orthopedic, other, other Psychiatric history: Reports: anxiety, bipolar, depression, panic disorder, previous psychiatric hospitalization [employer] history: Reports: bilateral tubal ligation - Social History Smoking Status: Never smoker Alcohol use: Reports: rarely Drug use: Reports: none Physical Exam - General Limitations: no limitations General appearance: alert, in no apparent distress - Head Head exam: atraumatic, normocephalic, normal inspection - Eye Eye exam: Present: normal appearance, PERRL, EOMI - ENT ENT exam: normal exam, normal oropharynx, mucous membranes moist - Neck Neck exam: Present: normal inspection, full ROM, trachea midline - Chest Chest inspection: Present: normal inspection, symmetric chest wall rise - Respiratory Respiratory exam: Present: normal lung sounds bilaterally - Cardiovascular Cardiovascular exam: Present: regular rate, normal rhythm, normal heart sounds - Abdominal Exam Abdominal exam: Present: soft, Non-Tender. Absent: tenderness, distention, guarding, rebound, rigidity - Extremities Exam Extremities exam: Present: normal inspection, full ROM. Absent: tenderness, pedal edema, calf tenderness - Neurological Exam Neurological exam: Present: alert, oriented X3 - Psychiatric Psychiatric exam: Present: normal affect, normal mood - Skin Skin exam: Present: warm, dry, intact, normal color Course Course Narrative: Vitals are stable. Physical exam fairly benign. Lungs were clear to auscultat ion, heart regular rate and rhythm, abdomen present on room air currently. Patient is not tachypneic or in respiratory distress. She does have a history of PE and is currently on Xarelto. She also has recent stent placement on 05/08. Basic blood work obtained including CBC, BMP, troponin, BNP. EKG ordered. Also ordered a CT of the chest to assess for PE. She of note, she did have a CT of the chest in March of this year that was negative for PE. She also had CT of the lower extremity where she had filter placement performed due to complaints of bruising. The CT scan did not show any signs of large bleeding. It did show some localized edema but no other acute issues. 15:07 repeat EKG at 14:37 again showed no acute ST changes, normal sinus rhythm. CTA showed chronic pulmonary emboli on the right that is stable from previous scan in 2016. Trop negative. Patient still has mild chest discomfort. Results were discussed with the patient. She is nonfocal throat going home at this time. She was to stay for admission. We will plan for trending troponins. Chest X-Ray 05/21/18 11:50 IMPRESSION: 1. No active pulmonary disease. D/ / Cosmo García MD / Cosmo García MD Interpreting Provider: Cosmo García MD Chest CTA 05/21/18 12:05 IMPRESSION: Evidence of nonocclusive chronic pulmonary emboli on the right, not significantly changed in appearance since at least 06/11/2016. No acute pulmonary emboli visualized. D/ / 05/21/2018 14:46:20 Timur Santana MD / esa Interpreting Provider: Timur Santana MD Vital Signs Temperature 98.0 F 05/21/18 11:17 Pulse Rate 61 05/21/18 11:17 Respiratory Rate 18 05/21/18 11:17 Blood Pressure 108/73 05/21/18 11:17 O2 Sat by Pulse Oximetry 100 05/21/18 11:17 Temperature 98.0 F 05/21/18 11:17 Pulse Rate 55 05/21/18 15:10 Respiratory Rate 16 05/21/18 15:10 Blood Pressure 109/81 05/21/18 15:10 O2 Sat by Pulse Oximetry 100 05/21/18 15:10 Oxygen Delivery Oxygen Delivery Room Air Chest Pain - MDM Narrative Medical decision making narrative: Vitals are stable. Physical exam fairly benign. Lungs were clear to auscultation, heart regular rate and rhythm, abdomen present on room air currently. Patient is not tachypneic or in respiratory distress. She does have a history of PE and is currently on Xarelto. She also has recent stent placement on 05/08. Basic blood work obtained including CBC, BMP, troponin, BNP. EKG ordered. Also ordered a CT of the chest to assess for PE. She of note, she did have a CT of the chest in March of this year that was negative for PE. She also had CT of the lower extremity where she had filter placement performed due to complaints of bruising. The CT scan did not show any signs of large bleeding. It did show some localized edema but no other acute issues. 15:07 repeat EKG at 14:37 again showed no acute ST changes, normal sinus rhythm. CTA showed chronic pulmonary emboli on the right that is stable from previous scan in 2016. Trop negative. Patient still has mild chest discomfort. Results were discussed with the patient. She is nonfocal throat going home at this time. She was to stay for admission. We will plan for trending troponins. - Medical Records Medical records reviewed: Yes I reviewed the patient's medical records. - Lab Data Lab results reviewed: Yes I reviewed the patient's lab results. Result diagrams: 05/21/18 11:59 05/21/18 11:59 Lab Results 05/21/18 05/21/18 05/21/18 Range/Units 11:59 11:59 11:59 WBC 6.8 (4.3-11.1) K/mcL RBC 3.30 L (3.82-4.97) M/mcL Hgb 9.7 L (11.5-15.4) g/dL Hct 29.5 L (35.3-44.9) % MCV 89.4 (83.0-100.0) fL MCH 29.4 (28.0-33.3) pg MCHC 32.9 (31.6-35.5) g/dL RDW 12.6 (11.5-14.5) % Plt Count 353 (140-400) K/mcL MPV 9.5 (9.4-12.4) fL Immature Gran % 0.0 (0-4) % Seg Neutrophils % 55.0 % Lymphocytes % 27.7 % Monocytes % 6.6 % Eosinophils % 10.6 % Basophils % 0.1 % Neutrophils # 3.7 (1.6-8.9) K/mcL Lymphocytes # 1.9 (0.6-4.6) K/mcL Monocytes # 0.5 (0.0-1.3) K/mcL Eosinophils # 0.7 H (0.0-0.6) K/mcL Basophils # 0.0 (0.0-0.2) K/mcL Sodium 135 L (136-145) mEq/L Potassium 3.5 (3.5-5.1) mEq/L Chloride 106 (98-107) mEq/L Carbon Dioxide 22 L (23-29) mEq/L BUN 30 H (6-20) mg/dL Creatinine 1.36 H (0.60-1.20) mg/dL Est GFR ( Amer) 50 L (> 60) Est GFR (Non-Af Amer) 41 L (> 60) BUN/Creatinine Ratio 22 (6-26) Glucose 339 H (70-105) mg/dL Calculated Osmolality 300 (280-300) Calcium 9.0 (8.6-10.3) mg/dL Troponin I < 0.03 (< 0.04) ng/mL B-Natriuretic Peptide 18 (Less than 100) pg/mL - Radiology Data Radiology results reviewed: Yes I reviewed the patient's radiology results. - EKG Data EKG attestation: Yes I reviewed and interpreted this EKG. EKG results narrative: 05/21/2018 at 12:19. Sinus rhythm. Rate 58. IN 156. QRS 79. QTC 398. Normal axis. No acute ST elevation or depression. Heart Score - Score History: Moderately Suspicious EKG: Normal Age: 45-65 Risk Factors: Equal/Greater than 3 risk factor or history of atherosclerotic disease Troponin: Less than normal limit HEART Score Total: 4 S.B.A.R. - S.B.A.R. Situation: Demographics, MOA Background: Presenting Complaint, Relevant PMH, Meds, & Allergies Assessment: Vital Signs, Course and respsone to treatment, Exam Concerns, Patient/Family Expectation, Pertinant Lab Results Recommendation: Barrier(s) to disposition, Recommendation based on pending studies, treatments, or consults S.B.A.R. Report Given to: Dr. Abraham
--- NOTE | 2018-05-21 12:00 | Emergency Department Note ---
Disposition Clinical Impression: Chest pain Qualifiers: Chest pain type: unspecified Qualified Code(s): R07.9 - Chest pain, unspecified Chronic pulmonary embolism Qualifiers: Pulmonary embolism type: other Acute cor pulmonale presence: without acute cor pulmonale Qualified Code(s): I27.82 - Chronic pulmonary embolism Disposition: Admitted As Inpatient Condition: Good General Adult HPI - General Chief complaint: ED Chest Pain Stated complaint: GLADIS/CP Time Seen by Provider: 05/21/18 11:19 Source: patient Mode of arrival: ambulatory Limitations: no limitations - History of Present Illness HPI Narrative: Patient is a 52 year old female with PMH significant for pulmonary embolism on Xarelto, HTN, asthma, diabetes type 2 and recent heart catheterization with stent placement by Dr. Nolasco on 05/08/18 presents with worsening shortness of breath for 1.5 weeks. Patient reports that she she first noticed the shortness of breath when she was walking up the stairs or exerting herself however now she feels short of breath at rest. Patient admits to associated non radiating chest pressure when she is exerting herself. Patient states that the chest pressure is relieved with rest. At this time the patient rates the chest pain as 2/10. Patient states that she has a history of dry cough which has remained unchanged in the past 1.5 weeks. Patient reports that she was seen on 05/13/18 at [facility] for left leg pain when they did a CT which showed cellulitis vs reactive edema, negative for any fluid collections. Patient denies fever, chills, lower extremity swelling, abdominal pain, nausea, vomiting, diarrhea, urinary symptoms. - Related Data Home Medications Medication Instructions Recorded Confirmed Atorvastatin Calcium [Lipitor] 80 mg PO HS 09/06/15 05/21/18 Albuterol Sulfate [Proair Hfa] 2 puff IH Q4H PRN 11/11/16 05/21/18 Insulin ASPART [NovoLOG] 10 - 20 unit SQ TIDWM 11/11/16 05/21/18 SUMAtriptan Succinate [Imitrex] 100 mg PO DAILY PRN 11/11/16 05/21/18 risperiDONE [Risperidone] 2 mg PO HS PRN 11/11/16 05/21/18 Aspirin 81 mg PO DAILY 01/02/17 05/21/18 Cyclobenzaprine [Flexeril] 10 mg PO TID PRN 01/02/17 05/21/18 Loratadine [Claritin] 10 mg PO DAILY PRN 01/02/17 05/21/18 traZODone [TraZODone] 50 - 100 mg PO HS PRN 01/02/17 05/21/18 Nitroglycerin [Nitrostat] 0.4 mg SL Q5M PRN 09/22/17 05/21/18 Benzonatate [Tessalon] 100 mg PO TID PRN 05/08/18 05/21/18 Cholecalciferol (D-3) [Vitamin D] 2,000 unit PO DAILY 05/08/18 05/21/18 Clopidogrel [Plavix] 75 mg PO DAILY 05/08/18 05/21/18 Insulin Glargine,Hum.rec.anlog 20 unit SQ HS 05/08/18 05/21/18 [Basaglar Kwikpen U-100] Lisinopril-HCTZ 20-12.5 [Prinzide 1 tab PO DAILY 05/08/18 05/21/18 20-12.5] Metformin HCl [Glucophage] 1,000 mg PO BID PRN 05/08/18 05/21/18 Mometasone/Formoterol [Dulera 200 2 puff IH BID 05/08/18 05/21/18 Mcg/5 Mcg Inhaler] Naproxen [Naprosyn] 500 mg PO BID PRN 05/08/18 05/21/18 Rivaroxaban [Xarelto] 20 mg PO DAILY 05/08/18 05/21/18 Sertraline [Zoloft] 50 mg PO DAILY 05/08/18 05/21/18 acetaZOLAMIDE [Diamox] 500 mg PO BID 05/08/18 05/21/18 Omeprazole [PriLOSEC] 40 mg PO DAILY 05/21/18 05/21/18 Previous Rx's Medication Instructions Recorded Metoprolol XL (24 HR) Succ [Toprol 100 mg PO DAILY #30 tab.er.24h 03/31/18 Xl] Allergies Allergy/AdvReac Type Severity Reaction Status Date / Time cinnamon Allergy Anaphylaxis Verified 05/04/18 13:07 gabapentin Allergy Itching Verified 05/04/18 13:07 ibuprofen Allergy Hives Verified 05/04/18 13:07 Latex, Natural Rubber Allergy Itching Verified 05/04/18 13:07 naproxen [From Naprosyn] Allergy Itching Verified 05/04/18 13:07 Constitutional: Denies: fever, chills Eyes: Denies: eye pain, vision change ENT ED: Denies: ear pain, throat pain, congestion Cardiovascular: Reports: chest pain, dyspnea on exertion. Denies: palpitations, syncope Respiratory: Reports: cough, dyspnea. Denies: wheezes, hemoptysis Gastrointestinal: Reports: diarrhea. Denies: abdominal pain, nausea, vomiting Genitourinary: Denies: dysuria, hematuria Musculoskeletal: Denies: back pain, neck pain Integumentary: Reports: other (ecchymosis leg inner thigh, nontender). Denies: rash Neurological: Denies: headache, weakness, numbness Hematological/Lymphatic: Reports: other (on Xarelto) Past Medical History - Past Medical History Medical history: Reports: arthritis, asthma, COPD, coronary artery disease, diabetes, GERD, hyperlipidemia, hypertension, migraine, pulmonary embolus Surgical history: Reports: cholecystectomy, herniorrhaphy, hysterectomy, orthopedic, other, other Psychiatric history: Reports: anxiety, bipolar, depression, panic disorder, previous psychiatric hospitalization [employer] history: Reports: bilateral tubal ligation - Social History Smoking Status: Never smoker Smokeless Tobacco Status: No Alcohol use: Reports: rarely Drug use: Reports: none Physical Exam - General Limitations: no limitations General appearance: in no apparent distress - Head Head exam: atraumatic, normocephalic, normal inspection - Eye Eye exam: Present: normal appearance, PERRL, EOMI - ENT ENT exam: normal oropharynx, mucous membranes moist - Neck Neck exam: Present: normal inspection, full ROM. Absent: tenderness - Chest Chest inspection: Present: normal inspection, symmetric chest wall rise - Respiratory Respiratory exam: Present: normal lung sounds bilaterally - Cardiovascular Cardiovascular exam: Present: regular rate, normal rhythm, normal heart sounds - Abdominal Exam Abdominal exam: Present: soft, Non-Tender. Absent: tenderness, distention, guarding, rebound, rigidity - Extremities Exam Extremities exam: Present: full ROM, normal capillary refill. Absent: tenderness, pedal edema - Expanded Lower Extremity Exam Upper leg exam: Present: ecchymosis (left lower extremity, nontender, no erythema) - Back Exam Back exam: Present: normal inspection, full ROM. Absent: tenderness - Neurological Exam Neurological exam: Present: alert, oriented X3 - Psychiatric Psychiatric exam: Present: normal affect, normal mood - Skin Skin exam: Present: warm, dry, intact, normal color Course Vital Signs Temperature 98.0 F 05/21/18 11:17 Pulse Rate 61 05/21/18 11:17 Respiratory Rate 18 05/21/18 11:17 Blood Pressure 108/73 05/21/18 11:17 O2 Sat by Pulse Oximetry 100 05/21/18 11:17 Temperature 98.7 F 05/21/18 19:31 Pulse Rate 67 05/21/18 19:31 Respiratory Rate 16 05/21/18 19:31 Blood Pressure 107/72 05/21/18 19:31 O2 Sat by Pulse Oximetry 98 05/21/18 19:31 Oxygen Delivery Oxygen Delivery Room Air Medical Decision Making - Lab Data Result diagrams: 05/21/18 17:16 05/21/18 11:59 Lab Results 05/21/18 05/21/18 05/21/18 Range/Units 11:59 11:59 11:59 WBC 6.8 (4.3-11.1) K/mcL RBC 3.30 L (3.82-4.97) M/mcL Hgb 9.7 L (11.5-15.4) g/dL Hct 29.5 L (35.3-44.9) % MCV 89.4 (83.0-100.0) fL MCH 29.4 (28.0-33.3) pg MCHC 32.9 (31.6-35.5) g/dL RDW 12.6 (11.5-14.5) % Plt Count 353 (140-400) K/mcL MPV 9.5 (9.4-12.4) fL Immature Gran % 0.0 (0-4) % Seg Neutrophils % 55.0 % Lymphocytes % 27.7 % Monocytes % 6.6 % Eosinophils % 10.6 % Basophils % 0.1 % Neutrophils # 3.7 (1.6-8.9) K/mcL Lymphocytes # 1.9 (0.6-4.6) K/mcL Monocytes # 0.5 (0.0-1.3) K/mcL Eosinophils # 0.7 H (0.0-0.6) K/mcL Basophils # 0.0 (0.0-0.2) K/mcL Sodium 135 L (136-145) mEq/L Potassium 3.5 (3.5-5.1) mEq/L Chloride 106 (98-107) mEq/L Carbon Dioxide 22 L (23-29) mEq/L BUN 30 H (6-20) mg/dL Creatinine 1.36 H (0.60-1.20) mg/dL Est GFR ( Amer) 50 L (> 60) Est GFR (Non-Af Amer) 41 L (> 60) BUN/Creatinine Ratio 22 (6-26) Glucose 339 H (70-105) mg/dL Calculated Osmolality 300 (280-300) Calcium 9.0 (8.6-10.3) mg/dL Troponin I < 0.03 (< 0.04) ng/mL B-Natriuretic Peptide 18 (Less than 100) pg/mL
[2018-05-21] MEDS ORDERED: Isovue-370 500 ML INFUS..BTL IV ONE (12:05)
[2018-05-21 12:46] LABS: Troponin I < 0.03 ng/mL (< 0.04)
[2018-05-21 12:51] LABS: BUN/Creatinine Ratio 22 (6-26); Blood Urea Nitrogen 30 mg/dL (6-20); Carbon Dioxide 22 mEq/L (23-29); Chloride 106 mEq/L (98-107); Glucose 339 mg/dL (70-105); Osmolality,Calculated 300 (280-300); Potassium 3.5 mEq/L (3.5-5.1); Sodium 135 mEq/L (136-145); eGFR For Non-African Americans 41 (> 60)
[2018-05-21 13:22] LABS: Basophils % 0.1 %; Eosinophils # 0.7 K/mcL (0.0-0.6); Eosinophils % 10.6 %; Hematocrit 29.5 % (35.3-44.9); Hemoglobin 9.7 g/dL (11.5-15.4); Lymphocytes # 1.9 K/mcL (0.6-4.6); Lymphocytes % 27.7 %; Mean Corpuscular HGB Conc 32.9 g/dL (31.6-35.5); Mean Corpuscular Hemoglobin 29.4 pg (28.0-33.3); Mean Corpuscular Volume 89.4 fL (83.0-100.0); Mean Platelet Volume 9.5 fL (9.4-12.4); Monocytes # 0.5 K/mcL (0.0-1.3); Monocytes % 6.6 %; Neutrophils # 3.7 K/mcL (1.6-8.9); Platelet Count 353 K/mcL (140-400); Red Cell Distribution Width 12.6 % (11.5-14.5)
--- NOTE | 2018-05-21 13:51 | Emergency Department Note ---
Disposition Clinical Impression: Chest pain Qualifiers: Chest pain type: unspecified Qualified Code(s): R07.9 - Chest pain, unspecified Disposition: Admitted As Inpatient Condition: Good Referrals: NONE,PCP [Primary Care Provider] - Forms: ED Satisfaction Letter Chest Pain HPI - General Chief Complaint: ED Chest Pain Stated Complaint: GLADIS/CP Time Seen by Provider: 05/21/18 11:19 Source: patient Mode of arrival: ambulatory Limitations: no limitations - History of Present Illness Severity scale (1-10): 4 - Related Data Home Medications Medication Instructions Recorded Confirmed Atorvastatin Calcium [Lipitor] 80 mg PO HS 09/06/15 05/15/18 Omeprazole [PriLOSEC] 40 mg PO DAILY 09/06/15 05/15/18 Albuterol Sulfate [Proair Hfa] 2 puff IH Q4H PRN 11/11/16 05/15/18 Insulin ASPART [NovoLOG] 10 unit SQ TIDWM 11/11/16 05/15/18 SUMAtriptan Succinate [Imitrex] 100 mg PO DAILY PRN 11/11/16 05/15/18 risperiDONE [Risperidone] 2 mg PO HS PRN 11/11/16 05/15/18 Aspirin 81 mg PO DAILY 01/02/17 05/15/18 Cyclobenzaprine [Flexeril] 10 mg PO TID PRN 01/02/17 05/15/18 Loratadine [Claritin] 10 mg PO DAILY PRN 01/02/17 05/15/18 traZODone [TraZODone] 50 - 100 mg PO HS PRN 01/02/17 05/15/18 Nitroglycerin [Nitrostat] 0.4 mg SL Q5M PRN 09/22/17 05/15/18 Benzonatate [Tessalon] 100 mg PO TID PRN 05/08/18 05/15/18 Cholecalciferol (D-3) [Vitamin D] 2,000 unit PO DAILY 05/08/18 05/15/18 Clopidogrel [Plavix] 75 mg PO DAILY 05/08/18 05/15/18 Insulin Glargine,Hum.rec.anlog 20 unit SQ BID 05/08/18 05/15/18 [Basaglar Kwikpen U-100] Lisinopril-HCTZ 20-12.5 [Prinzide 1 each PO DAILY 05/08/18 05/15/18 20-12.5] Metformin HCl [Glucophage] 1,000 mg PO BID 05/08/18 05/15/18 Mometasone/Formoterol [Dulera 200 05/08/18 05/08/18 Mcg/5 Mcg Inhaler] Naproxen [Naprosyn] 500 mg PO DAILY PRN 05/08/18 05/15/18 Rivaroxaban [Xarelto] 20 mg PO DAILY 05/08/18 05/15/18 Sertraline [Zoloft] 50 mg PO DAILY 05/08/18 05/15/18 acetaZOLAMIDE [Diamox] 500 mg PO BID 05/08/18 05/15/18 Previous Rx's Medication Instructions Recorded HYDROcodone/Acet 5/325 mg [[place] 1 tab PO TID PRN 5 Days #15 tab 10/24/17 5-325 mg] Metoprolol XL (24 HR) Succ [Toprol 100 mg PO DAILY #30 tab.er.24h 03/31/18 Xl] Allergies Allergy/AdvReac Type Severity Reaction Status Date / Time cinnamon Allergy Anaphylaxis Verified 05/04/18 13:07 gabapentin Allergy Itching Verified 05/04/18 13:07 ibuprofen Allergy Hives Verified 05/04/18 13:07 Latex, Natural Rubber Allergy Itching Verified 05/04/18 13:07 naproxen [From Naprosyn] Allergy Itching Verified 05/04/18 13:07 Constitutional: Denies: fever Eyes: Denies: eye pain, vision change ENT ED: Denies: ear pain, throat pain, congestion Cardiovascular: Reports: chest pain Respiratory: Reports: dyspnea. Denies: cough, sputum production Gastrointestinal: Denies: abdominal pain, nausea, vomiting, diarrhea Genitourinary: Denies: dysuria, hematuria Musculoskeletal: Denies: back pain, neck pain Integumentary: Reports: other (ecchymosis leg inner thigh, nontender). 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 history: Reports: bilateral tubal ligation - Social History Smoking Status: Never smoker Alcohol use: Reports: rarely Drug use: Reports: none Physical Exam - General Limitations: no limitations General appearance: alert, in no apparent distress Course Vital Signs Temperature 98.0 F 05/21/18 11:17 Pulse Rate 61 05/21/18 11:17 Respiratory Rate 18 05/21/18 11:17 Blood Pressure 108/73 05/21/18 11:17 O2 Sat by Pulse Oximetry 100 05/21/18 11:17 Temperature 98.0 F 05/21/18 11:17 Pulse Rate 55 05/21/18 15:10 Respiratory Rate 16 05/21/18 15:10 Blood Pressure 109/81 05/21/18 15:10 O2 Sat by Pulse Oximetry 100 05/21/18 15:10 Oxygen Delivery Oxygen Delivery Room Air Chest Pain - Lab Data Result diagrams: 05/21/18 11:59 05/21/18 11:59 Lab Results 05/21/18 05/21/18 05/21/18 Range/Units 11:59 11:59 11:59 WBC 6.8 (4.3-11.1) K/mcL RBC 3.30 L (3.82-4.97) M/mcL Hgb 9.7 L (11.5-15.4) g/dL Hct 29.5 L (35.3-44.9) % MCV 89.4 (83.0-100.0) fL MCH 29.4 (28.0-33.3) pg MCHC 32.9 (31.6-35.5) g/dL RDW 12.6 (11.5-14.5) % Plt Count 353 (140-400) K/mcL MPV 9.5 (9.4-12.4) fL Immature Gran % 0.0 (0-4) % Seg Neutrophils % 55.0 % Lymphocytes % 27.7 % Monocytes % 6.6 % Eosinophils % 10.6 % Basophils % 0.1 % Neutrophils # 3.7 (1.6-8.9) K/mcL Lymphocytes # 1.9 (0.6-4.6) K/mcL Monocytes # 0.5 (0.0-1.3) K/mcL Eosinophils # 0.7 H (0.0-0.6) K/mcL Basophils # 0.0 (0.0-0.2) K/mcL Sodium 135 L (136-145) mEq/L Potassium 3.5 (3.5-5.1) mEq/L Chloride 106 (98-107) mEq/L Carbon Dioxide 22 L (23-29) mEq/L BUN 30 H (6-20) mg/dL Creatinine 1.36 H (0.60-1.20) mg/dL Est GFR ( Amer) 50 L (> 60) Est GFR (Non-Af Amer) 41 L (> 60) BUN/Creatinine Ratio 22 (6-26) Glucose 339 H (70-105) mg/dL Calculated Osmolality 300 (280-300) Calcium 9.0 (8.6-10.3) mg/dL Troponin I < 0.03 (< 0.04) ng/mL B-Natriuretic Peptide 18 (Less than 100) pg/mL Attestation Statement - Attestation Attestation: I examined this patient and my medical decision-making was reviewed with the Resident Physician. I agree with the documented findings, disposition and treatment plan as described except to the extent set forth below. Patient's pain has subsided but not completely resolved. Discussed in detail with resident and student. Workup is appropriate. Awaiting diagnostic test results. She remains hemodynamically stable and well-appearing. Pain now barely noticeable. Repeat EKG unchanged. Dr. Steele, the medical student and I had a shared decision making discussion with the patient. Her HEART score is 4, which gives her a 4% six-week risk of MACE. This was explained to her in detail. She was not comfortable with the idea of discharge and outpatient management. I discussed with the hospitalist, who accepted her for admission.
[2018-05-21] MEDS ORDERED: Aspirin 325 MG TABLET PO ONE (13:53)
[2018-05-21] MEDS ORDERED: traMADol 50 MG TABLET PO PRN (16:03)
[2018-05-21] MEDS ORDERED: Naloxone 0.4 MG/ML INJ IVP PRN (16:03)
[2018-05-21] MEDS ORDERED: Albuterol 2.5 MG/3 ML NEBULIZER IH PRN (16:05)
[2018-05-21] MEDS ORDERED: D5% in Water 1,000 ML IVC PRN (16:06)
[2018-05-21] MEDS ORDERED: *HR* Dextrose 50 % in Water (Syg) 50 ML SYRINGE IVP PRN (16:06)
[2018-05-21] MEDS ORDERED: Dextrose Gel 15 GM/37.5 ML TUBE PO PRN ×2 (16:06)
[2018-05-21] MEDS ORDERED: *HR* Heparin 5,000 UNIT/ML VIAL IVP PRN ×2 (16:39)
[2018-05-21] MEDS ORDERED: *HR* Heparin 5,000 UNIT/ML VIAL IVP ONE (16:39)
--- NOTE | 2018-05-21 16:46 | Internal Med History&Physical ---
Date of Encounter: 05/21/18 Time of Encounter: 16:40 Internal Medicine - H&P: HPI Chief complaint: Chest pain Plans for Post Hospital Care: Home History of present illness: Ms. Gannon is a 52 year old female past medical history of diabetes, coronary artery disease status post PTCA/Drug-Eluting Stent placement in the proximal RCA 0n 05/08/18, PE, right eye blindness, and HTN. Patient presented to the hospital due to chest pain. Patient reports that after she had the [facility] this months has been having intermittent chest pain with exertion but that she has not payed attention to it because she thought it was her body adjusting to the stent. But reports that yesterday while she was walking around her house she started having this sharp 8/10, constant, retro-sternal chest pain radiating to her left shoulder, associated with shortness of breath and nausea, she reports that she took some nitroglycerin which helped to ease the pain, but today again she had a similar episode, of chest pain this time not alleviated by nitroglycerin for which she decided to come to the ED. Denies flu like symptoms, abdominal pain, reports nausea, but denies vomiting episodes. Past Med Surg Social Fam HX - Past Medical History Medical history: arthritis, asthma, COPD, coronary artery disease, diabetes, GERD, hyperlipidemia, hypertension, migraine, pulmonary embolus Additional medical history: DEPRESSION,GLAUCOMA,SLEEP APNEA, Psychiatric history: anxiety, bipolar, depression, panic disorder, previous psychiatric hospitalization - Past Surgical History Surgical History: cholecystectomy, herniorrhaphy, hysterectomy, orthopedic, other, other Additional surgical history: RIGHT ANKLE ORIF, LUMBAR BACK SURGERIES, HERNIA REPAIR, PARTIAL HYSTERECTOMY. [facility] WITH STENT 04-09-18 - Social History Smoking Status: Never smoker Smokeless Tobacco Status: No Alcohol use: rarely Drug use: none - Family History Father Hx Family Cardiac Disorders: Yes Mother Hx Family Cardiac Disorders: Yes (CABG) Hx Family Endocrine Disorder: Yes (Diabetes mellitus type 2) Hx Family Neurologic Disorders: Yes (mini strokes) Brother Hx Family Cardiac Disorders: Yes (pacer/defib) Hx Family Cancer: Yes (Various different cancers including a rectal cancer) Internal Medicine - H&P: Meds Atorvastatin Calcium [Lipitor] 80 mg PO HS 09/06/15 [History] Omeprazole [PriLOSEC] 40 mg PO DAILY 09/06/15 [History] Albuterol Sulfate [Proair Hfa] 2 puff IH Q4H PRN 11/11/16 [History] Insulin ASPART [NovoLOG] 10 unit SQ TIDWM 11/11/16 [History] SUMAtriptan Succinate [Imitrex] 100 mg PO DAILY PRN 11/11/16 [History] risperiDONE [Risperidone] 2 mg PO HS PRN 11/11/16 [History] Aspirin 81 mg PO DAILY 01/02/17 [History] Cyclobenzaprine [Flexeril] 10 mg PO TID PRN 01/02/17 [History] Loratadine [Claritin] 10 mg PO DAILY PRN 01/02/17 [History] traZODone [TraZODone] 50 - 100 mg PO HS PRN 01/02/17 [History] Nitroglycerin [Nitrostat] 0.4 mg SL Q5M PRN 09/22/17 [History] HYDROcodone/Acet 5/325 mg [[place] 5-325 mg] 1 tab PO TID PRN 5 Days #15 tab 10/24/17 [Rx] Metoprolol XL (24 HR) Succ [Toprol Xl] 100 mg PO DAILY #30 tab.er.24h 03/31/18 [Rx] Benzonatate [Tessalon] 100 mg PO TID PRN 05/08/18 [History] Cholecalciferol (D-3) [Vitamin D] 2,000 unit PO DAILY 05/08/18 [History] Clopidogrel [Plavix] 75 mg PO DAILY 05/08/18 [History] Insulin Glargine,Hum.rec.anlog [Basaglar Kwikpen U-100] 20 unit SQ BID 05/08/18 [History] Lisinopril-HCTZ 20-12.5 [Prinzide 20-12.5] 1 each PO DAILY 05/08/18 [History] Metformin HCl [Glucophage] 1,000 mg PO BID 05/08/18 [History] Mometasone/Formoterol [Dulera 200 Mcg/5 Mcg Inhaler] 05/08/18 [History] Naproxen [Naprosyn] 500 mg PO DAILY PRN 05/08/18 [History] Rivaroxaban [Xarelto] 20 mg PO DAILY 05/08/18 [History] Sertraline [Zoloft] 50 mg PO DAILY 05/08/18 [History] acetaZOLAMIDE [Diamox] 500 mg PO BID 05/08/18 [History] Allergy/AdvReac Type Severity Reaction Status Date / Time cinnamon Allergy Anaphylaxis Verified 05/04/18 13:07 gabapentin Allergy Itching Verified 05/04/18 13:07 ibuprofen Allergy Hives Verified 05/04/18 13:07 Latex, Natural Rubber Allergy Itching Verified 05/04/18 13:07 naproxen [From Naprosyn] Allergy Itching Verified 05/04/18 13:07 All Systems PM: A 10-system review of systems was performed and is negative for pertinent findings except as documented above in the HPI. - Constitutional Constitutional: no chills, no fever(s), no lethargy, no weakness, no weight gain, no weight loss - EENT Eyes: no floaters - Cardiovascular Cardiovascular ROS IM: chest pain, dyspnea on exertion, lightheadedness, no edema, no irregular heart rhythm, no palpitations, no paroxysmal nocturnal dyspnea - Respiratory Respiratory: no cough, no dyspnea, no wheezing - Gastrointestinal Gastrointestinal: heartburn, loose stools, nausea, no abdominal pain, no diarrhea, no vomiting - Genitourinary Genitourinary: no urinary frequency, no urinary urgency, no vaginal discharge - Musculoskeletal Musculoskeletal ROS IM: no back pain, no neck pain - Integumentary Integumentary IM: no rash - Neurological Neurological ROS: no focal weakness, no weakness - Psychiatric Psychiatric: no anxiety - Endocrine Endocrine IM: no fatigue, no heat intolerance, no polydipsia, no polyphagia, no polyuria - Hematologic/Lymphatic Hematologic/Lymphatic: no easy bruising - Allergic/Immunologic Allergic/Immunologic: no wheezing Additional comments: Rest of the review of system negative. - Constitutional Vitals: Temp Pulse Resp BP Pulse Ox 98.0 F 55 18 134/58 100 05/21/18 11:17 05/21/18 15:10 05/21/18 16:33 05/21/18 16:33 05/21/18 15:10 Exam: Vitals: Reviewed. General: Alert and oriented x4. In mild distress due to chest pain. Skin: Normal color, no rash, no lesions. HEENT: EOM, pupils equal, round and reactive. Cardiovascular: RRR, Normal S1 & S2, no rubs, murmurs or gallops. Lungs: Clear to auscultation bilaterally, no wheezes or crackles. Abdomen: Obese, Soft, non-tender, no rigidity. Extremities: No deformity, no edema or tenderness, no joint swelling or clubbing. Neurological: Normal cognition and motor skills. Rest of the physical exam is non contributory Internal Med - H&P Results - Labs CBC & Chem 7: 05/21/18 11:59 05/21/18 11:59 Labs: Short CBC 05/21/18 Range/Units 11:59 WBC 6.8 (4.3-11.1) K/mcL Hgb 9.7 L (11.5-15.4) g/dL Hct 29.5 L (35.3-44.9) % Plt Count 353 (140-400) K/mcL Neutrophils # 3.7 (1.6-8.9) K/mcL BMP 05/21/18 11:59 Sodium 135 L Potassium 3.5 Chloride 106 Carbon Dioxide 22 L BUN 30 H Creatinine 1.36 H Glucose 339 H Calcium 9.0 Cardiac Enzymes 05/21/18 Range/Units 11:59 Troponin I < 0.03 (< 0.04) ng/mL - Impressions ITS Impressions Chest X-Ray 05/21/18 11:50 IMPRESSION: 1. No active pulmonary disease. D/ / Cosmo García MD / Cosmo García MD Interpreting Provider: Cosmo García MD Chest CTA 05/21/18 12:05 IMPRESSION: Evidence of nonocclusive chronic pulmonary emboli on the right, not significantly changed in appearance since at least 06/11/2016. No acute pulmonary emboli visualized. D/ / 05/21/2018 14:46:20 Timur Santana MD / esa Interpreting Provider: Timur Santana MD - Diagnostic Studies Chest x-ray Status: image reviewed by me Additional comments: No acute abnormalities. - Assessment and plan (1) Chest pain Current Visit: Yes Status: Acute Assessment and plan: patient with multiple risk factors for ACS. possible unstable angina Plan heparin drip aspirin 325mg/PO x1 followed by aspirin 81mg/PO daily cardiology consult nitroglycerin 0.4mg SubL Q5Mins x3 for chest pain if chest pain persist consider nitroglycerin drip telemetry monitoring. Serial trops will continue home dose of bb Qualifiers: Chest pain type: unspecified Qualified Code(s): R07.9 - Chest pain, unspecified (2) Chronic pulmonary embolism Current Visit: Yes Status: Acute Assessment and plan: Patient on Rivaroxaban. Will hold home medication started on a Heparin drip. Qualifiers: Pulmonary embolism type: other Acute cor pulmonale presence: without acute cor pulmonale Qualified Code(s): I27.82 - Chronic pulmonary embolism (3) VALARIE (acute kidney injury) Current Visit: No Status: Acute Assessment and plan: Possible re-renal due to low preload. started on gentle IV hydration. with 0.45NS@75mls/hr. avoid nephrotoxic medications (4) DVT prophylaxis Current Visit: No Status: Acute Assessment and plan: patient on a Heparin drip due to chest pain possible unstable angina. (5) CAD (coronary artery disease) Current Visit: No Status: Chronic Assessment and plan: On dual antiplatelets therapy. will continue home medications. Qualifiers: Coronary Disease-Associated Artery/Lesion type: marshall artery [place] vs. transplanted heart: marshall heart Associated angina: without angina Qualified Code(s): I25.10 - Atherosclerotic heart disease of marshall coronary artery without angina pectoris (6) DM type 2 (diabetes mellitus, type 2) Current Visit: No Status: Chronic Assessment and plan: will start patient on Levemir 10 unis HS, plus lispro 4 units Ac, plus lispro sliding scale low dose ac carbs controlled diet Qualifiers: Diabetes mellitus care home insulin use: with terminal worker use Diabetes mellitus complication status: with hyperglycemia Qualified Code(s): E11.65 - Type 2 diabetes mellitus with hyperglycemia; Z79.4 - manager long term care (current) use of insulin; Z79.4 - [facility] (current) use of insulin; Z79.4 - [facility] (current) use of insulin; Z79.4 - [facility] (current) use of insulin (7) GERD (gastroesophageal reflux disease) Current Visit: No Status: Chronic Assessment and plan: Omeprazole 20mg/PO daily. Qualifiers: Esophagitis presence: without esophagitis Qualified Code(s): K21.9 - Gastro-esophageal reflux disease without esophagitis (8) Hyperlipidemia Current Visit: No Status: Chronic Assessment and plan: Continue atorvastatin 40 mg by mouth at bedtime. Qualifiers: Hyperlipidemia type: unspecified Qualified Code(s): E78.5 - Hyperlipidemia, unspecified (9) Hypertension Current Visit: No Status: Chronic Assessment and plan: We will resume patient home antihypertensive medication. On metoprolol 50 mg by mouth daily. Hold lisinopril due to VALARIE. Qualifiers: Hypertension type: essential hypertension Qualified Code(s): I10 - Essential (primary) hypertension - Time Spent With Patient Total time spent is greater than 50% in coordination of care (as documented) at patient's floor/unit and/or counseling patient: Greater than 35 minutes (45)
[2018-05-21] MEDS ORDERED: *HR* Rivaroxaban 10 MG TABLET PO SCH (17:00)
[2018-05-21 17:25] LABS: Hematocrit 31.6 % (35.3-44.9); Hemoglobin 10.5 g/dL (11.5-15.4); Mean Corpuscular HGB Conc 33.2 g/dL (31.6-35.5); Mean Corpuscular Hemoglobin 29.6 pg (28.0-33.3); Mean Platelet Volume 8.9 fL (9.4-12.4); Platelet Count 349 K/mcL (140-400); Red Blood Count 3.55 M/mcL (3.82-4.97); Red Cell Distribution Width 12.7 % (11.5-14.5)
[2018-05-21 17:35] LABS: Heparin anti-factor XA UFH 0.48 IU/mL (0.30-0.70)
[2018-05-21 17:36] LABS: INR 1.3; Prothrombin Time 14.8 Seconds (9.4-12.1)
[2018-05-21] MEDS: Heparin 25,000 UNIT/500 ML D5W 25,000 UNIT/500 ML BAG IVC SCH (18:11)
[2018-05-21] MEDS: Insulin LISPRO 300 UNITS/3 ML VIAL SQ SCH ×2 (18:18→18:19)
[2018-05-21] MEDS: Insulin DETEMIR 100 UNIT/ML X5UNITS SQ SCH (21:10)
[2018-05-22 00:42] LABS: Albumin 3.2 g/dL (3.5-5.7); Albumin/Globulin Ratio 0.9 (1.1-2.2); Bilirubin,Total 0.3 mg/dL (0.3-1.0); Calcium 8.3 mg/dL (8.6-10.3); Globulin 3.4 g/dL (2.4-3.5); Magnesium 1.4 mg/dL (1.6-2.6); Phosphorous 3.9 mg/dL (2.7-4.5); Total Protein 6.6 g/dL (6.4-8.9)
--- NOTE | 2018-05-22 05:51 | Event Note ---
Date of Encounter: 05/22/18 Time of Encounter: 05:49 Notified by nurse of patient having 5 liquid bowel movements overnight, one of which she was incontinent. Recently had antibiotic treatment outpatient. Will order cdiff sample.
--- NOTE | 2018-05-22 06:05 | Electrocardiograph Report ---
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
[2018-05-22] MEDS: Insulin LISPRO 300 UNITS/3 ML VIAL SQ SCH ×6 (08:03→16:38)
[2018-05-22] MEDS: Insulin DETEMIR 100 UNIT/ML X5UNITS SQ SCH ×2 (08:03→21:11)
[2018-05-22] MEDS: Nitroglycerin 0.4 MG TAB.SUBL SL PRN (08:34)
--- NOTE | 2018-05-22 09:27 | Cardiology Consult Note ---
Addendum entered and electronically signed by Yvon Thorne MD 05/23/18 08:33: I examined this patient and my medical decision-making was reviewed with the CIVIL ENGINEER'S AIDE. I agree with the documented findings, disposition and treatment plan as described except to the extent set forth below. A/P: Chest pain ruled out IN CAD with known severe small vessel disease unamenable to intervention likely will result in chronic angina Will likely have Chronic angina, but will decrease symptoms with antianginals and lifestyle changes. Increase nitrate, start ranexa. Thank you for the consult, Yvon Thorne MD [facility] Original Note: Date of Encounter: 05/22/18 Time of Encounter: 09:23 Assessment and Plan (1) Chest pain Current Visit: Yes Status: Acute Presents with exertional chest pain that has been worsening since C/PCI 05/08. Episode yesterday not relieved with nitro prompting ED evaluation. Troponin negative x 4. No acute ECG findings. Reports compliance with DAPT (ASA and Plavix). [facility] 05/08/18: Severe 1V CAD. Successful PTCA/Drug-Eluting Stent placement in the pRCA. Patient had PTCA in the RPL with minimal improvement in residual stenosis. Stent placed from a prior procedure in the 1st Marginal is is patent. TTE 03/27/18: LVEF 60-65%. Normal LV chamber size, wall thickness and function. Mild LVDD. Normal RV structure and function. No evidence of phtn. Reviewed [facility] films with Dr. Thorne. Diffusely diseased RCA. Recommend adding nitrates--Imdur 60mg daily and Ranexa 500mg BID. Continue to follow. Recommend ambulating later today to evaluate symptoms. Qualifiers: Chest pain type: unspecified Qualified Code(s): R07.9 - Chest pain, unspecified (2) CAD (coronary artery disease) Current Visit: No Status: Chronic S/P PCI and PTCA as above. Continue ASA, Plavix, Statin, BB. Adding nitrates. Qualifiers: Coronary Disease-Associated Artery/Lesion type: [place] artery [place] vs. transplanted heart: [place] heart Associated angina: without angina Qualified Code(s): I25.10 - Atherosclerotic heart disease of [place] coronary artery without angina pectoris Discussion w patient/family: The assessment and plan as outlined above was discussed with the patient and/or family members who expressed understanding and agreement. All questions were answered. Thank you for involving us in the care of your patient. Please call w ith any questions. I will discuss and review with Dr. Thorne and make changes as necessary. History of Present Illness Consult date: 05/22/18 Consult reason: Chest pain Chief complaint: Chest pain History of present illness: Ms. Gannon is a 52 year old female with PMH of DM, CAD s/p recent PTCA/RUSH to pRCA on 05/08/18 and PTCA RPL, PE, right eye blindness, and HTN. Patient presented to ED due to chest pain. Pt reports since [facility] 05/08 she has been having intermittent chest pain with exertion. Symptoms have continued to worsen. 2 days ago she was walking in her house and developed sharp 8/10, constant, retro-sternal chest pain radiating to her left shoulder, associated with shortn ess of breath and nausea. Nitro eased the pain. Yesterday, she had a similar episode, not alleviated by nitroglycerin. She reports frequent diarrhea last night, episode of incontinence. CDiff results pending. Currently reports CP 07/02. She reports compliance with ASA and Plavix. Prior CV testing: [facility] 05/08/18: There is severe one vessel coronary artery disease. Patient had successful PTCA/Drug-Eluting Stent placement in the proximal RCA. Patient had successful PTCA in the RPL. with minimal improvement in residual stenosis. Stent placed from a prior procedure in the 1st Marginal is is patent. [facility] 03/30/18: Severe 3V CAD. Successful PTCA/RUSH in pOM. TTE 03/27/18: LVEF 60-65%. Normal LV chamber size, wall thickness and function. Mild left ventricular diastolic dysfunction. Normal right ventricular structure and function. No evidence of pulmonary hypertension. Past Med Surg Social Fam HX - Past Medical History Medical history: arthritis, asthma, COPD, coronary artery disease, diabetes, GERD, hyperlipidemia, hypertension, migraine, pulmonary embolus Additional medical history: DEPRESSION,GLAUCOMA,SLEEP APNEA, Psychiatric history: anxiety, bipolar, depression, panic disorder, previous psychiatric hospitalization - Past Surgical History Surgical History: cholecystectomy, herniorrhaphy, hysterectomy, orthopedic, other, other Additional surgical history: RIGHT ANKLE ORIF, LUMBAR BACK SURGERIES, HERNIA RE. [facility] WITH STENT 04-09-18 - Social History Smoking Status: Never smoker Smokeless Tobacco Status: No Alcohol use: rarely Drug use: none - Family History Father Hx Family Cardiac Disorders: Yes Mother Hx Family Cardiac Disorders: Yes (CABG) Hx Family Endocrine Disorder: Yes (Diabetes mellitus type 2) Hx Family Neurologic Disorders: Yes (mini strokes) Brother Hx Family Cardiac Disorders: Yes (pacer/defib) Hx Family Cancer: Yes (Various different cancers including a rectal cancer) Medications and Allergies Atorvastatin Calcium [Lipitor] 80 mg PO HS 09/06/15 [History] Albuterol Sulfate [Proair Hfa] 2 puff IH Q4H PRN 11/11/16 [History] Insulin ASPART [NovoLOG] 10 - 20 unit SQ TIDWM 11/11/16 [History] SUMAtriptan Succinate [Imitrex] 100 mg PO DAILY PRN 11/11/16 [History] risperiDONE [Risperidone] 2 mg PO HS PRN 11/11/16 [History] Aspirin 81 mg PO DAILY 01/02/17 [History] Cyclobenzaprine [Flexeril] 10 mg PO TID PRN 01/02/17 [History] Loratadine [Claritin] 10 mg PO DAILY PRN 01/02/17 [History] traZODone [TraZODone] 50 - 100 mg PO HS PRN 01/02/17 [History] Nitroglycerin [Nitrostat] 0.4 mg SL Q5M PRN 09/22/17 [History] Metoprolol XL (24 HR) Succ [Toprol Xl] 100 mg PO DAILY #30 tab.er.24h 03/31/18 [Rx] Benzonatate [Tessalon] 100 mg PO TID PRN 05/08/18 [History] Cholecalciferol (D-3) [Vitamin D] 2,000 unit PO DAILY 05/08/18 [History] Clopidogrel [Plavix] 75 mg PO DAILY 05/08/18 [History] Insulin Glargine,Hum.rec.anlog [Basaglar Kwikpen U-100] 20 unit SQ HS 05/08/18 [History] Lisinopril-HCTZ 20-12.5 [Prinzide 20-12.5] 1 tab PO DAILY 05/08/18 [History] Metformin HCl [Glucophage] 1,000 mg PO BID PRN 05/08/18 [History] Mometasone/Formoterol [Dulera 200 Mcg/5 Mcg Inhaler] 2 puff IH BID 05/08/18 [History] Naproxen [Naprosyn] 500 mg PO BID PRN 05/08/18 [History] Rivaroxaban [Xarelto] 20 mg PO DAILY 05/08/18 [History] Sertraline [Zoloft] 50 mg PO DAILY 05/08/18 [History] acetaZOLAMIDE [Diamox] 500 mg PO BID 05/08/18 [History] Omeprazole [PriLOSEC] 40 mg PO DAILY 05/21/18 [History] Allergy/AdvReac Type Severity Reaction Status Date / Time cinnamon Allergy Anaphylaxis Verified 05/04/18 13:07 gabapentin Allergy Itching Verified 05/04/18 13:07 ibuprofen Allergy Hives Verified 05/04/18 13:07 Latex, Natural Rubber Allergy Itching Verified 05/04/18 13:07 naproxen [From Naprosyn] Allergy Itching Verified 05/04/18 13:07 All Systems Review: The remainder of the systems were reviewed and are negative - Cardiovascular Cardiovascular: as per HPI, chest pain with exertion, dyspnea on exertion, radiating jaw, neck or arm pain, lightheadedness - Respiratory Respiratory: dyspnea - Gastrointestinal Gastrointestinal: diarrhea, nausea Physical Examination Vital Signs, Last 4 Hours Temp Pulse Resp BP Pulse Ox 05/22/18 07:28 98.3 F 61 16 110/72 98 Vital Signs Temp Pulse Resp BP Pulse Ox 05/22/18 07:28 98.3 F 61 16 110/72 98 05/22/18 03:28 98.2 F 66 14 98/61 97 05/21/18 23:26 97.9 F 71 16 143/90 99 05/21/18 19:31 98.7 F 67 16 107/72 98 05/21/18 17:17 97.8 F 61 18 131/78 98 05/21/18 16:33 18 134/58 05/21/18 15:10 55 16 109/81 100 05/21/18 14:00 56 16 110/80 100 05/21/18 13:30 65 16 106/76 100 05/21/18 12:21 68 22 92/61 100 05/21/18 11:17 98.0 F 61 18 108/73 100 Intake and Output 05/21/18 05/22/18 05/22/18 23:59 07:59 15:59 Intake Total 1553 / 1553 Output Total Balance -1 / -1 1553 / 1553 Intake: IV Fluids 1153 / 1153 0.45% Sodium Chloride 1000 Ml 1000 / 1000 1000 Ml 1,000 ML @ 75 mls/hr IVC .[id number] JOHNIE Rx#:[id number] Heparin 25,000 UNIT/500 ML D5W 153 / 153 7 25,000 unit In 500 ml @ 14 UNIT /KG/HR 24.385 mls/hr IVC . [id number] JOHNIE Rx#:[id number] Oral 400 / 400 Output: Stool Other: Stool Size Moderate Moderate Stool Consistency loose loose liquid Stool Characteristics Normal for Patient Stool Color Brown Brown # Voids 3 # Bowel Movements 1 1 Weight 87.175 kg 90.6 kg Blood Glucose* 243 Patient Weight 05/22/18 23:59 Weight 90.6 kg General: Conversant, No Apparent Distress HEENT: Atraumatic, Normocephaly, Mucus Membranes Moist Neck: No JVD, Normal carotid pulses Cardiac: Reg Rate and Rhythm, Normal S1 and S2, No Murmur Lungs: Normal Breath Sounds, No Wheeze, Rales, Rhonchi Neuro: Alert and responsive, No focal deficits noted Abdomen: Soft, Non-Tender Skin: No rashes noted on visualized skin Musculoskeletal: No Chest Wall Tenderness Extremities: No Clubbing, No Cyanosis, No Edema, Normal Pulses Results 05/21/18 17:16 05/22/18 00:06 Lab Results 05/21/18 05/21/18 05/21/18 11:59 11:59 11:59 WBC 6.8 Hgb 9.7 L Hct 29.5 L Plt Count 353 INR Sodium 135 L Potassium 3.5 Chloride 106 Carbon Dioxide 22 L BUN 30 H Creatinine 1.36 H Glucose 339 H Calcium 9.0 Magnesium Total Bilirubin AST ALT Alkaline Phosphatase Troponin I < 0.03 B-Natriuretic Peptide 05/21/18 05/21/18 05/21/18 17:16 17:16 18:36 WBC 7.7 Hgb 10.5 L Hct 31.6 L Plt Count 349 INR 1.3 Sodium Potassium Chloride Carbon Dioxide BUN Creatinine Glucose Calcium Magnesium Total Bilirubin AST ALT Alkaline Phosphatase Troponin I < 0.03 B-Natriuretic Peptide 05/22/18 05/22/18 05/22/18 00:06 00:06 05:31 WBC Hgb Hct Plt Count INR Sodium 135 L Potassium 3.0 L Chloride 107 Carbon Dioxide 19 L BUN 28 H Creatinine 1.19 Glucose 234 H Calcium 8.3 L Magnesium 1.4 L Total Bilirubin 0.3 AST 17 ALT 18 Alkaline Phosphatase 95 Troponin I < 0.03 < 0.03 B-Natriuretic Peptide Short CBC 05/21/18 05/21/18 Range/Units 17:16 11:59 WBC 7.7 6.8 (4.3-11.1) K/mcL Hgb 10.5 L 9.7 L (11.5-15.4) g/dL Hct 31.6 L 29.5 L (35.3-44.9) % Plt Count 349 353 (140-400) K/mcL Neutrophils # 3.7 (1.6-8.9) K/mcL BMP 05/22/18 05/21/18 Range/Units 00:06 11:59 Sodium 135 L 135 L (136-145) mEq/L Potassium 3.0 L 3.5 (3.5-5.1) mEq/L Chloride 107 106 (98-107) mEq/L Carbon Dioxide 19 L 22 L (23-29) mEq/L BUN 28 H 30 H (6-20) mg/dL Creatinine 1.19 1.36 H (0.60-1.20) mg/dL Glucose 234 H 339 H (70-105) mg/dL Calcium 8.3 L 9.0 (8.6-10.3) mg/dL Cardiac Enzymes 05/22/18 05/22/18 05/21/18 Range/Units 05:31 00:06 18:36 Troponin I < 0.03 < 0.03 < 0.03 (< 0.04) ng/mL 05/21/18 Range/Units 11:59 Troponin I < 0.03 (< 0.04) ng/mL Liver Function 05/22/18 Range/Units 00:06 Total Bilirubin 0.3 (0.3-1.0) mg/dL AST 17 (13-39) Units/L ALT 18 (7-52) Units/L Alkaline Phosphatase 95 (34-104) Units/L Albumin 3.2 L (3.5-5.7) g/dL Impressions Chest X-Ray 05/21/18 11:50 IMPRESSION: 1. No active pulmonary disease. D/ / Cosmo García MD / Cosmo García MD Interpreting Provider: Cosmo García MD Chest CTA 05/21/18 12:05 IMPRESSION: Evidence of nonocclusive chronic pulmonary emboli on the right, not significantly changed in appearance since at least 06/11/2016. No acute pulmonary emboli visualized. D/ / 05/21/2018 14:46:20 Timur Santana MD / esa Interpreting Provider: Timur Santana MD Active Medications Albuterol Sulfate (Proventil Neb) 2.5 mg IH Q2H PRN; Protocol PRN Reason: Shortness Of Breath/Wheezing Stop: 11/20/18 16:06 Aspirin (Aspirin) 81 mg PO DAILY JOHNIE Stop: 11/21/18 09:01 Atorvastatin Calcium (Lipitor) 40 mg PO HS JOHNIE Stop: 11/20/18 21:01 Last Admin: 05/21/18 21:10 Dose: 40 mg Clopidogrel Bisulfate (Plavix) 75 mg PO DAILY JOHNIE Stop: 11/20/18 16:16 Last Admin: 05/22/18 08:02 Dose: 75 mg Dextrose/Water (Dextrose 50% (Syg)) 25 ml IVP AD PRN PRN Reason: Hypoglycemia Stop: 11/20/18 16:07 Glucagon (Glucagen) 1 mg IM ONCE PRN PRN Reason: Hypoglycemia Stop: 11/20/18 16:07 Glucose (Gluctose) 15 gm PO ONCE PRN PRN Reason: Hypoglycemia Stop: 11/20/18 16:07 Glucose (Gluctose) 30 gm PO ONCE PRN PRN Reason: Hypoglycemia Stop: 11/20/18 16:07 Heparin Sodium (Porcine) (Heparin) 6,100 unit 70 unit/kg (6100 unit) IVP Q6HR PRN PRN Reason: SEE COMMENTS Stop: 11/20/18 16:40 Heparin Sodium (Porcine) (Heparin) 3,000 unit 35 unit/kg (3000 unit) IVP Q6H PRN PRN Reason: SEE COMMENTS Stop: 11/20/18 16:40 Sodium Chloride (0.45% Sodium Chloride 1000 Ml 1000 Ml) 1,000 mls @ 75 mls/hr IVC .[id number] [facility] Stop: 05/22/18 18:54 Last Admin: 05/22/18 08:00 Dose: 75 mls/hr Dextrose (Dextrose 5%) 1,000 mls @ 100 mls/hr IVC .Q10H PRN PRN Reason: HYPOGLYCEMIA Stop: 11/20/18 16:07 Heparin Sodium/Dextrose (Heparin 25,000 Unit/500 Ml D5w) 25,000 unit in 500 mls @ 24.385 mls/hr IVC .[id number] [facility]; Protocol Stop: 11/20/18 16:46 Last Titration: 05/22/18 08:42 Dose: 0 unit/kg/hr, 0 mls/hr Insulin Detemir (Levemir) 10 unit SQ BID [facility] Stop: 11/20/18 21:01 Last Admin: 05/22/18 08:03 Dose: 10 unit Insulin Human Lispro (Humalog) 4 units 0.05 units/kg (4 units) SQ TIDWM [facility] Stop: 11/20/18 17:01 Last Admin: 05/22/18 08:04 Dose: 4 units Insulin Human Lispro (Humalog) 0 units SQ TIDAC [facility]; Protocol Stop: 11/20/18 16:31 Last Admin: 05/22/18 08:03 Dose: 6 units Metoprolol Succinate (Toprol Xl) 50 mg PO DAILY [facility] Stop: 11/21/18 09:01 Naloxone HCl (Narcan) 0.4 mg IVP Q2MIN PRN PRN Reason: SEE COMMENTS Stop: 11/20/18 16:04 Nitroglycerin (Nitroglycerin) 0.4 mg SL Q5MIN PRN PRN Reason: Chest Pain Stop: 11/20/18 16:06 Last Admin: 05/22/18 08:34 Dose: 0.4 mg Omeprazole (Prilosec) 20 mg PO DAILY@0630 [facility]; Protocol Stop: 11/21/18 06:31 Last Admin: 05/22/18 06:03 Dose: 20 mg Tramadol HCl (Ultram) 50 mg PO Q6HR PRN PRN Reason: Moderate Pain Stop: 11/20/18 16:04 - Imaging and Cardiology Echo: report reviewed Cardiac cath: report reviewed - EKG Interpretation EKG results cardiology: personally reviewed (SR), other (12 hr tele AVG HR 68, SR, no significant pauses or arrhythmias.) Consult Discharge Plan - Plan Referrals: Maxine Ordaz MD [Partnered Physician] - (Hospital Follow up appointment has been requested. Our offices will call you with a time and date. )
[2018-05-22] MEDS: Metoprolol XL (24 HR) Succ 50 MG TAB.ER.24H PO SCH (09:56)
[2018-05-22] MEDS: Aspirin 81 MG TAB.CHEW PO SCH (09:56)
--- NOTE | 2018-05-22 09:57 | Internal Med Progress Note ---
Hospitalist Progress Note - Encounter Date of Encounter: 05/22/18 Time of Encounter: 09:56 - Subjective Interval History: Ms. Gannon is a 52 year old female past medical history of diabetes, coronary artery disease status post PTCA/Drug-Eluting Stent placement in the OM1 on 03/30/18, and a stent placed to the proximal RCA 0n 05/08/18. She has known history of severe 3 vessel disease. She presents with 8/10 retrosternal chest pain scrubbed as sharp and constant with radiation to left shoulder. The patient reports to me that the chest pain is worse with exertion and subsides with rest. This morning per my assessment she is reporting that the pain is more of a pressure/heaviness and is retrosternal without radiation rated 2/10. She denies any other complaints at this time. Discussed plan of care including awaiting cardiology evaluation and recommendations. - Exam Vitals: Temp Pulse Resp BP Pulse Ox 98.3 F 61 16 110/72 98 05/22/18 07:28 05/22/18 07:28 05/22/18 07:28 05/22/18 07:28 05/22/18 07:28 Exam: Vitals: Reviewed. General: Alert and oriented x4. In mild distress due to chest pain. Skin: Normal color, no rash, no lesions. HEENT: EOMI, PERRLA Cardiovascular: RRR, Normal S1 & S2, no rubs, murmurs or gallops. Lungs: Clear to auscultation bilaterally AP and L, no wheezes or crackles. Abdomen: Obese, Soft, non-tender, no rigidity. Extremities: No deformity, no edema or tenderness, no joint swelling or clubbing. Skin: Ecchymosis left inner thigh from her knee extending to her left groin Neurological: Normal cognition and motor skills. Rest of the physical exam is non contributory - Assessment and Plan (1) Chest pain Current Visit: Yes Status: Acute Assessment and Plan: History of three-vessel disease Recent PTCA RUSH OM 03/30/18 Staged intervention with PTCA RUSH RCA 07/08/17 multiple risk factors for ACS. possible unstable angina Plan Continue heparin drip aspirin 81mg/PO daily cardiology consult--defer to cardiology regarding further intervention and/or medication management --Cardiology recommends adding Imdur and Ranexa. Ambulate in the ren this evening and monitor for signs of angina nitroglycerin 0.4mg SubL Q5Mins x3 for chest pain if chest pain persist consider nitroglycerin drip telemetry monitoring. Serial trops negative 4 continue home dose of bb (2) DM type 2 (diabetes mellitus, type 2) Current Visit: No Status: Chronic Assessment and Plan: Continue basal insulin at 10 units at bedtime Increase sliding scale to medium coverage Continue prandial dosing Continue diabetic diet (3) CAD (coronary artery disease) Current Visit: No Status: Chronic Assessment and Plan: Continue aspirin and Plavix Continue home cardiac meds (4) GERD (gastroesophageal reflux disease) Current Visit: No Status: Chronic Assessment and Plan: Continue PPI (5) Hypertension Current Visit: No Status: Chronic Assessment and Plan: Continue home anti-HTN medication MIREILLE inhibitor held with valarie Remains borderline hypotensive, continue to hold and monitor Resume when blood pressure improved (6) Hyperlipidemia Current Visit: No Status: Chronic Assessment and Plan: Continue statin. (7) VALARIE (acute kidney injury) Current Visit: No Status: Acute Assessment and Plan: Most likely prerenal Improved with gentle IV hydration avoid nephrotoxic medications Monitor renal function (8) Chronic pulmonary embolism Current Visit: Yes Status: Acute Assessment and Plan: Patient on Rivaroxaban. CTA chest reveals chronic PE without acute changes, PE is nonocclusive Continue Heparin drip until cardiology recommendations discussed; medication management versus intervention She is not going to have an C I will DC the heparin drip and resume Rivaroxaban. (9) DVT prophylaxis Current Visit: No Status: Acute Assessment and Plan: heparin gtt - Time Spent with Patient Total time spent is greater than 50% in coordination of care (as documented) at patient's floor/unit and/or counseling patient: less than 15 minutes Plan of Care Discussed with: patient Internal Medicine: Result - Labs CBC & Chem 7: 05/21/18 17:16 05/22/18 00:06 Labs: Short CBC 05/21/18 05/21/18 Range/Units 11:59 17:16 WBC 6.8 7.7 (4.3-11.1) K/mcL Hgb 9.7 L 10.5 L (11.5-15.4) g/dL Hct 29.5 L 31.6 L (35.3-44.9) % Plt Count 353 349 (140-400) K/mcL Neutrophils # 3.7 (1.6-8.9) K/mcL BMP 05/21/18 05/22/18 11:59 00:06 Sodium 135 L 135 L Potassium 3.5 3.0 L Chloride 106 107 Carbon Dioxide 22 L 19 L BUN 30 H 28 H Creatinine 1.36 H 1.19 Glucose 339 H 234 H Calcium 9.0 8.3 L Cardiac Enzymes 05/21/18 05/21/18 05/22/18 Range/Units 11:59 18:36 00:06 Troponin I < 0.03 < 0.03 < 0.03 (< 0.04) ng/mL 05/22/18 Range/Units 05:31 Troponin I < 0.03 (< 0.04) ng/mL Liver Function 05/22/18 Range/Units 00:06 Total Bilirubin 0.3 (0.3-1.0) mg/dL AST 17 (13-39) Units/L ALT 18 (7-52) Units/L Alkaline Phosphatase 95 (34-104) Units/L Albumin 3.2 L (3.5-5.7) g/dL - ABG Interpretation ABG results: PT/INR, D-dimer PT 14.8 Seconds (9.4-12.1) H 05/21/18 17:16 - Impressions Impressions Chest X-Ray 05/21/18 11:50 IMPRESSION: 1. No active pulmonary disease. D/ / Cosmo García MD / Cosmo García MD Interpreting Provider: Cosmo García MD Chest CTA 05/21/18 12:05 IMPRESSION: Evidence of nonocclusive chronic pulmonary emboli on the right, not significantly changed in appearance since at least 06/11/2016. No acute pulmonary emboli visualized. D/ / 05/21/2018 14:46:20 Timur Santana MD / esa Interpreting Provider: Timur Santana MD Consult Discharge Plan - Plan Referrals: Maxine Ordaz MD [Partnered Physician] - (Hospital Follow up appointment has been requested. Our offices will call you with a time and date. 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 transplanted heart: [place] heart Associated angina: without angina Qualified Code(s): I25.10 - Atherosclerotic heart disease of [place] coronary artery without angina pectoris (4) GERD (gastroesophageal reflux disease) Qualifiers: Esophagitis presence: without esophagitis Qualified Code(s): K21.9 - Gastro- esophageal reflux disease without esophagitis (5) Hypertension Qualifiers: Hypertension type: essential hypertension Qualified Code(s): I10 - Essential (primary) hypertension (6) Hyperlipidemia Qualifiers: Hyperlipidemia type: unspecified Qualified Code(s): E78.5 - Hyperlipidemia, unspecified (8) Chronic pulmonary embolism Qualifiers: Pulmonary embolism type: other Acute cor pulmonale presence: without acute cor pulmonale Qualified Code(s): I27.82 - Chronic pulmonary embolism
[2018-05-22] MEDS ORDERED: Isosorbide MONOnitrate (24 HR) 60 MG TAB.ER.24H PO SCH (10:00)
[2018-05-22] MEDS: Ranolazine 500 MG TAB.ER.12H PO SCH ×2 (12:23→21:10)
--- NOTE | 2018-05-22 16:04 | Electrocardiograph Report ---
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
--- NOTE | 2018-05-22 16:48 | Electrocardiograph Report ---
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
[2018-05-22] MEDS ORDERED: Insulin LISPRO 300 UNITS/3 ML VIAL SQ SCH (21:00)
[2018-05-23] MEDS: Nitroglycerin 0.4 MG TAB.SUBL SL PRN ×2 (05:18→05:23)
[2018-05-23] MEDS: Heparin 25,000 UNIT/500 ML D5W 25,000 UNIT/500 ML BAG IVC SCH (06:30)
--- NOTE | 2018-05-23 07:14 | Cardiology Progress Note ---
Date of Encounter: 05/23/18 Time of Encounter: 07:10 Assessment and Plan (1) Chest pain Current Visit: Yes Status: Acute Per Cardiology: Troponin negative x 4. Presented with exertional chest pain that has been worsening since [facility]/PCI 05/08. [facility] 05/08/18: Severe 1V CAD. Successful PTCA/Drug-Eluting Stent placement in the pRCA. Patient had PTCA in the RPL with minimal improvement in residual stenosis. Stent placed from a prior procedure in the 1st Marginal is is patent. TTE 03/27/18: LVEF 60-65%. Normal LV chamber size, wall thickness and function. Mild LVDD. Normal RV structure and function. No evidence of phtn. Reviewed [facility] films with Dr. Thorne. Diffusely diseased RCA-- medical management recommended. On aspirin, Plavix, statin, beta ifeanyi, long-acting nitrate, and Ranexa. Recommend titrate long-acting nitrate or Ranexa if clinically war ranted. Cardiology will sign off, follow-up arranged, all questions answered, reconsult as needed. Qualifiers: Chest pain type: unspecified Qualified Code(s): R07.9 - Chest pain, unspecified Discussion w patient/family: The assessment and plan as outlined above was discussed with the patient who expressed understanding and agreement. All questions were answered. Thank you for involving us in the care of your patient. Please call with any questions. Subjective Principal diagnosis: [place], CAD Interval history: Patient reports overall improvement in symptoms. Denies any chest pain this morning. Reports had some mild discomfort ambulating to the bathroom last night, however overall improved from baseline. Objective Vital Signs, Last 4 Hours Temp Pulse Resp BP Pulse Ox 05/23/18 05:28 66 116/72 05/23/18 05:23 62 126/76 05/23/18 05:18 64 132/76 05/23/18 03:28 98.4 F 71 14 146/82 99 General: Conversant, No Apparent Distress HEENT: Atraumatic, Normocephaly, Mucus Membranes Moist Neck: No JVD, Normal carotid pulses Cardiac: Reg Rate and Rhythm, Normal S1 and S2, No Murmur Lungs: Normal Breath Sounds, No Wheeze, Rales, Rhonchi Neuro: Alert and responsive, No focal deficits noted Abdomen: Soft, Non-Tender Skin: No rashes noted on visualized skin Musculoskeletal: No Chest Wall Tenderness Extremities: No Clubbing, No Cyanosis, No Edema, Normal Pulses Results 05/21/18 17:16 05/22/18 00:06 Laboratory Tests 05/21/18 05/21/18 05/22/18 11:59 18:36 00:06 Troponin I < 0.03 < 0.03 < 0.03 05/22/18 05:31 Troponin I < 0.03 ITS Impressions Chest X-Ray 05/21/18 11:50 IMPRESSION: 1. No active pulmonary disease. D/ / Cosmo García MD / Cosmo García MD Interpreting Provider: Cosmo García MD Chest CTA 05/21/18 12:05 IMPRESSION: Evidence of nonocclusive chronic pulmonary emboli on the right, not significantly changed in appearance since at least 06/11/2016. No acute pulmonary emboli visualized. D/ / 05/21/2018 14:46:20 Timur Santana MD / esa Interpreting Provider: Timur Santana MD Active Medications Albuterol Sulfate (Proventil Neb) 2.5 mg IH Q2H PRN; Protocol PRN Reason: Shortness Of Breath/Wheezing Stop: 11/20/18 16:06 Aspirin (Aspirin) 81 mg PO DAILY JOHNIE Stop: 11/21/18 09:01 Last Admin: 05/22/18 09:56 Dose: 81 mg Atorvastatin Calcium (Lipitor) 40 mg PO HS JOHNIE Stop: 11/20/18 21:01 Last Admin: 05/22/18 21:10 Dose: 40 mg Clopidogrel Bisulfate (Plavix) 75 mg PO DAILY JOHNIE Stop: 11/20/18 16:16 Last Admin: 05/22/18 08:02 Dose: 75 mg Dextrose/Water (Dextrose 50% (Syg)) 25 ml IVP AD PRN PRN Reason: Hypoglycemia Stop: 11/20/18 16:07 Glucagon (Glucagen) 1 mg IM ONCE PRN PRN Reason: Hypoglycemia Stop: 11/20/18 16:07 Glucose (Gluctose) 15 gm PO ONCE PRN PRN Reason: Hypoglycemia Stop: 11/20/18 16:07 Glucose (Gluctose) 30 gm PO ONCE PRN PRN Reason: Hypoglycemia Stop: 11/20/18 16:07 Heparin Sodium (Porcine) (Heparin) 6,100 unit 70 unit/kg (6100 unit) IVP Q6HR PRN PRN Reason: SEE COMMENTS Stop: 11/20/18 16:40 Heparin Sodium (Porcine) (Heparin) 3,000 unit 35 unit/kg (3000 unit) IVP Q6H PRN PRN Reason: SEE COMMENTS Stop: 11/20/18 16:40 Dextrose (Dextrose 5%) 1,000 mls @ 100 mls/hr IVC .Q10H PRN PRN Reason: HYPOGLYCEMIA Stop: 11/20/18 16:07 Heparin Sodium/Dextrose (Heparin 25,000 Unit/500 Ml D5w) 25,000 unit in 500 mls @ 24.385 mls/hr IVC .[id number] [facility]; Protocol Stop: 11/20/18 16:46 Last Admin: 05/23/18 06:30 Dose: 6.13 unit/kg/hr, 10.677 mls/hr Insulin Detemir (Levemir) 10 unit SQ BID [facility] Stop: 11/20/18 21:01 Last Admin: 05/22/18 21:11 Dose: 10 unit Insulin Human Lispro (Humalog) 4 units 0.05 units/kg (4 units) SQ TIDWM [facility] Stop: 11/20/18 17:01 Last Admin: 05/22/18 16:38 Dose: 4 units Insulin Human Lispro (Humalog) 0 units SQ HS [facility]; Protocol Stop: 11/21/18 21:01 Last Admin: 05/22/18 21:08 Dose: Not Given Insulin Human Lispro (Humalog) 0 units SQ TIDAC [facility]; Protocol Stop: 11/21/18 11:31 Last Admin: 05/22/18 16:38 Dose: 4 units Isosorbide Mononitrate (Imdur) 60 mg PO DAILY [facility] Stop: 11/21/18 10:01 Last Admin: 05/22/18 12:23 Dose: 60 mg Metoprolol Succinate (Toprol Xl) 50 mg PO DAILY [facility] Stop: 11/21/18 09:01 Last Admin: 05/22/18 09:56 Dose: 50 mg Naloxone HCl (Narcan) 0.4 mg IVP Q2MIN PRN PRN Reason: SEE COMMENTS Stop: 11/20/18 16:04 Nitroglycerin (Nitroglycerin) 0.4 mg SL Q5MIN PRN PRN Reason: Chest Pain Stop: 11/20/18 16:06 Last Admin: 05/23/18 05:23 Dose: 0.4 mg Omeprazole (Prilosec) 20 mg PO DAILY@0630 [facility]; Protocol Stop: 11/21/18 06:31 Last Admin: 05/23/18 05:26 Dose: 20 mg Ranolazine (Ranexa) 500 mg PO BID JOHNIE Stop: 11/21/18 10:01 Last Admin: 05/22/18 21:10 Dose: 500 mg Tramadol HCl (Ultram) 50 mg PO Q6HR PRN PRN Reason: Moderate Pain Stop: 11/20/18 16:04 Last Admin: 05/22/18 21:15 Dose: 50 mg Consult Discharge Plan - Plan Referrals: Maxine Ordaz MD [Partnered Physician] - (Hospital Follow up appointment has been requested. Our offices will call you with a time and date. )
--- NOTE | 2018-05-23 08:53 | Internal Med Progress Note ---
Hospitalist Progress Note - Encounter Date of Encounter: 05/23/18 Time of Encounter: 08:49 - Subjective Interval History: Ms. Gannon is a 52 year old female past medical history of diabetes, coronary artery disease status post PTCA/Drug-Eluting Stent placement in the OM1 on 03/30/18, and a stent placed to the proximal RCA 0n 05/08/18. She has known history of severe 3 vessel disease. She presents with 8/10 retrosternal chest pain scrubbed as sharp and constant with radiation to left shoulder. The patient reports to me that the chest pain is worse with exertion and subsides with rest. The patient reports that overnight she was experiencing 4/10 retrosternal chest pain described as sharp "electric" in nature with associated diaphoresis and shortness of breath while at rest. This resolved with 2 sublingual nitroglycerin. As of my assessment this morning she currently has a mild dull heaviness that is retrosternal without shortness of breath, diaphoresis or nausea. I discussed plan of care including up titration of long-acting nitrates. Patient denies any additional concerns at this time. - Exam Vitals: Temp Pulse Resp BP Pulse Ox 98.2 F 77 17 128/78 97 05/23/18 07:38 05/23/18 07:38 05/23/18 07:38 05/23/18 07:38 05/23/18 07:38 Exam: Vitals: Reviewed. General: Alert and oriented x4. NAD Skin: Normal color, no rash, no lesions. HEENT: EOMI, PERRLA Cardiovascular: RRR, Normal S1 & S2, no rubs, murmurs or gallops. Lungs: Clear to auscultation bilaterally AP and L, no wheezes or crackles. Abdomen: Obese, Soft, non-tender, no rigidity. Extremities: No deformity, no edema or tenderness, no joint swelling or clubbing . Skin: Ecchymosis left inner thigh from her knee extending to her left groin Neurological: Normal cognition and motor skills. Rest of the physical exam is non contributory - Assessment and Plan (1) Chest pain Current Visit: Yes Status: Acute Assessment and Plan: History of three-vessel disease Recent PTCA [place] [facility] 03/30/18 Staged intervention with PTCA [place] RCA 07/08/17 multiple risk factors for ACS. possible unstable angina Plan Continue heparin drip aspirin 81mg/PO daily cardiology consult--defer to cardiology regarding further intervention and/or medication management --Cardiology recommends adding Imdur and Ranexa. Ambulate in the ren this evening and monitor for signs of angina nitroglycerin 0.4mg SubL Q5Mins x3 for chest pain if chest pain persist consider nitroglycerin drip telemetry monitoring. Serial trops negative 4 continue home dose of bb 05/23--long-acting nitrates Imdur and Ranexa added to patient's medication list yesterday. Overnight patient continued to experience episodes of retrosternal chest pain described as sharp "electric "sensations with associated diaphoresis and shortness of breath. Chest pain improved with 2 sublingual nitroglycerin. She is currently resting comfortably in bed with mild 2/10 retrosternal chest heaviness. I will up titrate her dose of Imdur this morning. Additionally, due to patient's insurance I will attempt to assess olmedo of Ranexa prior to discharge to see if this will be affordable. (2) DM type 2 (diabetes mellitus, type 2) Current Visit: No Status: Chronic Assessment and Plan: Mild hyperglycemia persists Continue basal insulin at 10 units at bedtime Increase sliding scale to medium coverage Increase prandial dosing Continue diabetic diet (3) CAD (coronary artery disease) Current Visit: No Status: Chronic Assessment and Plan: Continue aspirin and Plavix Continue Imdur at increased dose of 90 mg daily and Ranexa at 500 mg twice a day Continue home cardiac meds (4) GERD (gastroesophageal reflux disease) Current Visit: No Status: Chronic Assessment and Plan: Continue PPI (5) Hypertension Current Visit: No Status: Chronic Assessment and Plan: Continue home anti-HTN medication BP improving; recheck Scr and resume MIREILLE I (6) Hyperlipidemia Current Visit: No Status: Chronic Assessment and Plan: Continue statin. (7) VALARIE (acute kidney injury) Current Visit: No Status: Resolved Assessment and Plan: Most likely prerenal Improved with gentle IV hydration avoid nephrotoxic medications Monitor renal function (8) Chronic pulmonary embolism Current Visit: Yes Status: Acute Assessment and Plan: Patient on Rivaroxaban. CTA chest reveals chronic PE without acute changes, PE is nonocclusive Continue Heparin drip until cardiology recommendations discussed; medication management versus intervention She is not going to have an [facility] I will DC the heparin drip and resume Rivaroxaban. 05/23--cardiology has signed off and recommendations medical management. She will not have an LHC at this time, I will discontinue heparin and restart Xarelto (9) Hypokalemia Current Visit: Yes Status: Acute Assessment and Plan: Recheck serum potassium replete as necessary (10) DVT prophylaxis Current Visit: No Status: Acute DVT Prophylaxis: Discontinue heparin drip and restarted Xarelto - Time Spent with Patient Total time spent is greater than 50% in coordination of care (as documented) at patient's floor/unit and/or counseling patient: less than 15 minutes Plan of Care Discussed with: patient Internal Medicine: Result - Labs CBC & Chem 7: 05/21/18 17:16 05/22/18 00:06 - ABG Interpretation ABG results: PT/INR, D-dimer PT 14.8 Seconds (9.4-12.1) H 05/21/18 17:16 Consult Discharge Plan - Plan Referrals: Maxine Ordaz MD [Partnered Physician] - (Hospital Follow up appointment has been requested. Our offices will call you with a time and date. ) Prescriptions: Ranolazine [Ranexa] 500 mg PO BID 30 Days #60 tab.er.12h (1) Chest pain Qualifiers: Chest pain type: unspecified Qualified Code(s): R07.9 - Chest pain, unspecified (2) DM type 2 (diabetes mellitus, type 2) Qualifiers: Diabetes mellitus oil heaterman insulin use: with alf use Diabetes mellitus complication status: with hyperglycemia Qualified Code(s): E11.65 - Type 2 diabetes mellitus with hyperglycemia; Z79.4 - nursing home (current) use of insulin; Z79.4 - nursing home (current) use of insulin; Z79.4 - nursing home (current) use of insulin; Z79.4 - nursing home (current) use of insulin (3) CAD (coronary artery disease) Qualifiers: Coronary Disease-Associated Artery/Lesion type: [place] artery [place] vs. transplanted heart: [place] heart Associated angina: without angina Qualified Code(s): I25.10 - Atherosclerotic heart disease of [place] coronary artery without angina pectoris (4) GERD (gastroesophageal reflux disease) Qualifiers: Esophagitis presence: without esophagitis Qualified Code(s): K21.9 - Gastro- esophageal reflux disease without esophagitis (5) Hypertension Qualifiers: Hypertension type: essential hypertension Qualified Code(s): I10 - Essential (primary) hypertension (6) Hyperlipidemia Qualifiers: Hyperlipidemia type: unspecified Qualified Code(s): E78.5 - Hyperlipidemia, unspecified (8) Chronic pulmonary embolism Qualifiers: Pulmonary embolism type: other Acute cor pulmonale presence: without acute cor pulmonale Qualified Code(s): I27.82 - Chronic pulmonary embolism
[2018-05-23] MEDS ORDERED: Isosorbide MONOnitrate (24 HR) 60 MG TAB.ER.24H PO SCH (09:00)
[2018-05-23] MEDS ORDERED: *HR* Rivaroxaban 10 MG TABLET PO SCH (09:00)
[2018-05-23] MEDS: Insulin LISPRO 300 UNITS/3 ML VIAL SQ SCH ×6 (09:04→16:48)
[2018-05-23] MEDS: Metoprolol XL (24 HR) Succ 50 MG TAB.ER.24H PO SCH (09:04)
[2018-05-23] MEDS: Ranolazine 500 MG TAB.ER.12H PO SCH (09:04)
[2018-05-23] MEDS: Aspirin 81 MG TAB.CHEW PO SCH (09:04)
[2018-05-23] MEDS: Insulin DETEMIR 100 UNIT/ML X5UNITS SQ SCH (09:05)
[2018-05-23 10:07] LABS: BUN/Creatinine Ratio 17 (6-26); Blood Urea Nitrogen 17 mg/dL (6-20); Calcium 8.5 mg/dL (8.6-10.3); Carbon Dioxide 21 mEq/L (23-29); Chloride 110 mEq/L (98-107); Glucose 191 mg/dL (70-105); Osmolality,Calculated 287 (280-300); Potassium 3.8 mEq/L (3.5-5.1); Sodium 135 mEq/L (136-145); eGFR For Non-African Americans 60 (> 60)
[2018-05-23 16:29] VITALS: BP 131/63
--- NOTE | 2018-05-23 17:25 | Discharge Summary ---
- NOTES TO OUTPATIENT PROVIDER Notes to Outpatient Provider: History of triple-vessel disease. S/P 2 stents and 04/09 and 05/10. Presented with chest pressure and discomfort. Cardiology seeing in consultation and recommend adding long-acting nitrates Imdur and Ranexa. Chest pain improving with addition of Imdur and Ranexa. Patient reports she was able to ambulate around the unit with minimal pressure and that the pressure is now improving. She has been instructed to follow-up with PCP within 1 week of discharge. Additionally, she is instructed to return to the ED should pressure returned, be persistent and/or worsen especially in the setting of shortness of breath, diaphoresis, nausea, vomiting, excess fatigue. The pat ient was able to verbalize understanding denies any further questions at this time. Date of Encounter: 05/23/18 Time of Encounter: 17:22 - Discharge Diagnosis (1) Chest pain Priority: Primary Status: Acute Qualifiers: Chest pain type: unspecified Qualified Code(s): R07.9 - Chest pain, unspecified (2) DM type 2 (diabetes mellitus, type 2) Priority: Secondary Status: Chronic Qualifiers: Diabetes mellitus title assistant insulin use: with title assistant use Diabetes mellitus complication status: with hyperglycemia Qualified Code(s): E11.65 - Type 2 diabetes mellitus with hyperglycemia; Z79.4 - [facility] (current) use of insulin; Z79.4 - [facility] (current) use of insulin; Z79.4 - [facility] (current) use of insulin; Z79.4 - [facility] (current) use of insulin (3) CAD (coronary artery disease) Priority: Secondary Status: Chronic Qualifiers: Coronary Disease-Associated Artery/Lesion type: [place] artery [place] vs. transplanted heart: [place] heart Associated angina: without angina Qualified Code(s): I25.10 - Atherosclerotic heart disease of [place] coronary artery without angina pectoris (4) GERD (gastroesophageal reflux disease) Priority: Secondary Status: Chronic Qualifiers: Esophagitis presence: without esophagitis Qualified Code(s): K21.9 - Gastro-esophageal reflux disease without esophagitis (5) Hypertension Priority: Secondary Status: Chronic Qualifiers: Hypertension type: essential hypertension Qualified Code(s): I10 - Essential (primary) hypertension (6) Hyperlipidemia Priority: Secondary Status: Chronic Qualifiers: Hyperlipidemia type: unspecified Qualified Code(s): E78.5 - Hyperlipidemia, unspecified (7) VALARIE (acute kidney injury) Priority: Secondary Status: Resolved (8) Chronic pulmonary embolism Priority: Secondary Status: Acute Qualifiers: Pulmonary embolism type: other Acute cor pulmonale presence: without acute cor pulmonale Qualified Code(s): I27.82 - Chronic pulmonary embolism (9) Hypokalemia Priority: Secondary Status: Acute (10) DVT prophylaxis Priority: Secondary Status: Acute Hospital course: Ms. Gannon is a 52 year old female History of triple-vessel disease. S/P 2 stents and 04/09 and 05/10. Presented with chest pressure and discomfort. Cardiology seeing in consultation and recommend adding long-acting nitrates Imdur and Ranexa. Chest pain improving with addition of Imdur and Ranexa. Patient reports she was able to ambulate around the unit with minimal pressure and that the pressure is now improving. She has been instructed to follow-up with PCP within 1 week of discharge. Additionally, she is instructed to return to the ED should pressure returned, be persistent and/or worsen especially in the setting of shortness of breath, diaphoresis, nausea, vomiting, excess fatigue. The patient was able to verbalize understanding denies any further questions at this time. Discharge discussed with: patient, family, nurse, jury consultant - Time Spent with Patient Total time spent providing and/or coordinating discharge services: Less than 30 minutes - Discharge Medications Prescriptions: Isosorbide MONOnitrate (24 HR) [Imdur] 90 mg PO DAILY 30 Days #45 tab.er.24h Ranolazine [Ranexa] 500 mg PO BID 30 Days #60 tab.er.12h Home Medications: Atorvastatin Calcium [Lipitor] 80 mg PO HS 09/06/15 [History] Albuterol Sulfate [Proair Hfa] 2 puff IH Q4H PRN 11/11/16 [History] Insulin ASPART [NovoLOG] 10 - 20 unit SQ TIDWM 11/11/16 [History] SUMAtriptan Succinate [Imitrex] 100 mg PO DAILY PRN 11/11/16 [History] risperiDONE [Risperidone] 2 mg PO HS PRN 11/11/16 [History] Aspirin 81 mg PO DAILY 01/02/17 [History] Cyclobenzaprine [Flexeril] 10 mg PO TID PRN 01/02/17 [History] Loratadine [Claritin] 10 mg PO DAILY PRN 01/02/17 [History] traZODone [TraZODone] 50 - 100 mg PO HS PRN 01/02/17 [History] Nitroglycerin [Nitrostat] 0.4 mg SL Q5M PRN 09/22/17 [History] Metoprolol XL (24 HR) Succ [Toprol Xl] 100 mg PO DAILY #30 tab.er.24h 03/31/18 [Rx] Benzonatate [Tessalon] 100 mg PO TID PRN 05/08/18 [History] Cholecalciferol (D-3) [Vitamin D] 2,000 unit PO DAILY 05/08/18 [History] Clopidogrel [Plavix] 75 mg PO DAILY 05/08/18 [History] Insulin Glargine,Hum.rec.anlog [Basaglar Kwikpen U-100] 20 unit SQ HS 05/08/18 [History] Lisinopril-HCTZ 20-12.5 [Prinzide 20-12.5] 1 tab PO DAILY 05/08/18 [History] Metformin HCl [Glucophage] 1,000 mg PO BID PRN 05/08/18 [History] Mometasone/Formoterol [Dulera 200 Mcg/5 Mcg Inhaler] 2 puff IH BID 05/08/18 [History] Naproxen [Naprosyn] 500 mg PO BID PRN 05/08/18 [History] Rivaroxaban [Xarelto] 20 mg PO DAILY 05/08/18 [History] Sertraline [Zoloft] 50 mg PO DAILY 05/08/18 [History] acetaZOLAMIDE [Diamox] 500 mg PO BID 05/08/18 [History] Omeprazole [PriLOSEC] 40 mg PO DAILY 05/21/18 [History] Isosorbide MONOnitrate (24 HR) [Imdur] 90 mg PO DAILY 30 Days #45 tab.er.24h 05/23/18 [Rx] Ranolazine [Ranexa] 500 mg PO BID 30 Days #60 tab.er.12h 05/23/18 [Rx] Allergies/Adverse Reactions: Allergy/AdvReac Type Severity Reaction Status Date / Time cinnamon Allergy Anaphylaxis Verified 05/04/18 13:07 gabapentin Allergy Itching Verified 05/04/18 13:07 ibuprofen Allergy Hives Verified 05/04/18 13:07 Latex, Natural Rubber Allergy Itching Verified 05/04/18 13:07 naproxen [From Naprosyn] Allergy Itching Verified 05/04/18 13:07 Date of admission: 05/21/18 15:50 Primary care physician: PCP NONE Consults: 05/21/18 16:09 Consult to Cardiology [CONS] Routine Comment: Consulting Provider: Cardiology [place] Reason for Consult: chest pain. recent C. Call Completed: No Discharging clinician: Michael Soto Anticipated date of discharge: 05/23/18 - Constitutional Vitals: Temp Pulse Resp BP Pulse Ox 98.2 F 60 17 131/63 99 05/23/18 16:23 05/23/18 16:23 05/23/18 16:23 05/23/18 16:23 05/23/18 16:23 General appearance: Present: A&O X 3 Exam: Vitals: Reviewed. General: Alert and oriented x4. NAD Skin: Normal color, no rash, no lesions. HEENT: EOMI, PERRLA Cardiovascular: RRR, Normal S1 & S2, no rubs, murmurs or gallops. Lungs: Clear to auscultation bilaterally AP and L, no wheezes or crackles. Abdomen: Obese, Soft, non-tender, no rigidity. Extremities: No deformity, no edema or tenderness, no joint swelling or clubbing. Skin: Ecchymosis left inner thigh from her knee extending to her left groin Neurological: Normal cognition and motor skills. Rest of the physical exam is non contributory - Patient Status Disposition: Home, Self-Care Condition: Good Functional capacity at discharge: independent ambulation Overall status at discharge: patient is progressing back to baseline - Discharge Instructions Instructions: Chest Pain (DC), Pulmonary Embolism (DC), Diabetes Mellitus Type 2 in Adults (DC) Follow Up With: Maxine Ordaz MD [Partnered Physician] - (Hospital Follow up appointment has been requested. Our offices will call you with a time and date. ) - Diet and Activity Activity: increase activity as tolerated, resume usual activities as tolerated Diet: diabetic diet, low fat, low cholesterol, low salt diet
== END 2018-05-23 17:48 | disposition home or self-care (01) ==
LOC: 3BNU 11:13 → EMEROOARM 11:13 → 3BNU 16:54
PROVIDERS: ADMIT Internal Medicine Cardiovascular Disease; ATTEND Internal Medicine Cardiovascular Disease

== ENCOUNTER 2018-05-29 01:53 | Observation (INO) ==
[2018-05-29] MEDS ORDERED: Naloxone 0.4 MG/ML INJ IVP PRN (03:24)
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
[2018-05-29 04:22] LABS: Basophils % 0.6 %; Eosinophils # 0.5 K/mcL (0.0-0.6); Eosinophils % 6.9 %; Hematocrit 26.5 % (35.3-44.9); Hemoglobin 8.8 g/dL (11.5-15.4); Immature Granulocytes % 0.1 % (0-4); Lymphocytes # 2.9 K/mcL (0.6-4.6); Lymphocytes % 40.1 %; Mean Corpuscular HGB Conc 33.2 g/dL (31.6-35.5); Mean Corpuscular Hemoglobin 29.2 pg (28.0-33.3); Mean Platelet Volume 9.2 fL (9.4-12.4); Monocytes # 0.5 K/mcL (0.0-1.3); Monocytes % 6.7 %; Neutrophils # 3.3 K/mcL (1.6-8.9); Platelet Count 261 K/mcL (140-400); Red Blood Count 3.01 M/mcL (3.82-4.97); Red Cell Distribution Width 13.2 % (11.5-14.5); Segmented Neutrophils % 45.6 %
[2018-05-29 04:36] LABS: Troponin I < 0.03 ng/mL (< 0.04)
[2018-05-29 04:40] LABS: Alanine Aminotransferase 18 Units/L (7-52); Albumin 3.4 g/dL (3.5-5.7); Alkaline Phosphatase 81 Units/L (34-104); Aspartate Amino Transferase 16 Units/L (13-39); BUN/Creatinine Ratio 16 (6-26); Bilirubin,Total 0.3 mg/dL (0.3-1.0); Blood Urea Nitrogen 15 mg/dL (6-20); Calcium 8.9 mg/dL (8.6-10.3); Carbon Dioxide 21 mEq/L (23-29); Chloride 109 mEq/L (98-107); Globulin 3.5 g/dL (2.4-3.5); Glucose 256 mg/dL (70-105); Magnesium 1.4 mg/dL (1.6-2.6); Osmolality,Calculated 296 (280-300); Potassium 3.3 mEq/L (3.5-5.1); Sodium 138 mEq/L (136-145); Total Protein 6.9 g/dL (6.4-8.9); eGFR For Non-African Americans > 60 (> 60)
[2018-05-29] MEDS ORDERED: Dextrose Gel 15 GM/37.5 ML TUBE PO PRN ×2 (05:00)
[2018-05-29] MEDS ORDERED: D5% in Water 1,000 ML IVC PRN (05:00)
[2018-05-29] MEDS ORDERED: *HR* Dextrose 50 % in Water (Syg) 50 ML SYRINGE IVP PRN (05:00)
[2018-05-29] MEDS ORDERED: Nitroglycerin 0.4 MG TAB.SUBL SL PRN (05:03)
[2018-05-29] MEDS ORDERED: Benzonatate 100 MG CAPSULE PO PRN (05:05)
[2018-05-29 07:25] VITALS: BP 147/81
[2018-05-29] MEDS ORDERED: Insulin LISPRO 300 UNITS/3 ML VIAL SQ SCH (07:30)
[2018-05-29] MEDS ORDERED: *HR* Rivaroxaban 10 MG TABLET PO SCH (09:00)
[2018-05-29] MEDS ORDERED: Ranolazine 500 MG TAB.ER.12H PO SCH (09:00)
[2018-05-29] MEDS ORDERED: Isosorbide MONOnitrate (24 HR) 30 MG TAB.ER.24H PO SCH (09:00)
[2018-05-29] MEDS ORDERED: Lisinopril-HCTZ 20-12.5mg TABLET PO SCH (09:00)
[2018-05-29] MEDS ORDERED: acetaZOLAMIDE 250 MG TABLET PO SCH (09:00)
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
[2018-05-29] MEDS ORDERED: risperiDONE 1 MG TABLET PO SCH (21:00)
== END 2018-05-29 11:14 | disposition home or self-care (01) ==
LOC: 3BNU
PROVIDERS: ADMIT Internal Medicine; ATTEND Internal Medicine

== ENCOUNTER 2019-01-05 13:16 | Observation (INO) ==
[2019-01-05] MEDS ORDERED: Ringers Solution, Lactated 2,000 ML IVC ONE (13:33)
[2019-01-05 13:56] LABS: VBG HCO3 16 mEq/L (21-27); VBG PCO2 29 mmHg (41-51); VBG PH 7.36 pH Units (7.32-7.42); VBG PO2 36 mmHg (25-50)
--- NOTE | 2019-01-05 13:57 | Emergency Department Note ---
Disposition Clinical Impression: Dehydration, Lactic acidosis, Epigastric pain, Acute kidney injury superimposed on chronic kidney disease, SIRS (systemic inflammatory response syndrome) Diarrhea Qualifiers: Diarrhea type: presumed infectious Qualified Code(s): R19.7 - Diarrhea, unspecified Chest pain Qualifiers: Chest pain type: unspecified Qualified Code(s): R07.9 - Chest pain, unspecified Disposition: Admitted As Inpatient Condition: Fair Time of Disposition: 17:46 General Adult HPI - General Chief complaint: ED Chest Pain Stated complaint: GLADIS,CP,Back Pain Time Seen by Provider: 01/05/19 13:34 Source: patient Mode of arrival: ambulatory Limitations: no limitations Nursing Notes Reviewed: Yes Vital Signs Reviewed: Yes - History of Present Illness HPI Narrative: Patient is a 53-year-old female with a past medical history of COPD, CAD with coronary stent in 04/2018, PE, diabetes and renal disease presents to ED for mar[facility] st pain associated with epigastric abdominal pain and dyspnea with the initial symptoms starting 4 days ago. Patient states 4 days ago she was having watery nonbloody diarrhea states that yesterday she developed epigastric substernal chest pain that she describes as pressure-like radiating to the back and a 4/10. She had an episode of emesis that was nonbloody and nonbilious prior to arrival. States that this does not feel like her chest pain when she had cardiac stents. States that she has been compliant with her insulin for her diabetes. Pain Scale: 10 - Related Data Home Medications Medication Instructions Recorded Confirmed Atorvastatin Calcium [Lipitor] 80 mg PO DAILY 09/06/15 01/06/19 Albuterol Sulfate [Proair Hfa] 2 puff IH Q4H PRN 11/11/16 01/06/19 risperiDONE [Risperidone] 2 mg PO HS 11/11/16 01/06/19 Aspirin 81 mg PO DAILY 01/02/17 01/06/19 Loratadine [Claritin] 10 mg PO DAILY PRN 01/02/17 01/06/19 traZODone [TraZODone] 50 - 100 mg PO HS PRN 01/02/17 01/06/19 Nitroglycerin [Nitrostat] 0.4 mg SL AD PRN 09/22/17 01/06/19 Benzonatate [Tessalon] 100 mg PO TID PRN 05/08/18 01/06/19 Cholecalciferol (D-3) [Vitamin D] 2,000 unit PO DAILY 05/08/18 01/06/19 Clopidogrel [Plavix] 75 mg PO DAILY 05/08/18 01/06/19 Insulin Glargine,Hum.rec.anlog 20 unit SQ HS 05/08/18 01/06/19 [Basaglar Kwikpen U-100] Mometasone/Formoterol [Dulera 200 2 puff IH BID PRN 05/08/18 01/06/19 Mcg/5 Mcg Inhaler] Rivaroxaban [Xarelto] 20 mg PO DAILY 05/08/18 01/06/19 Sertraline [Zoloft] 50 mg PO DAILY 05/08/18 01/06/19 Omeprazole [PriLOSEC] 40 mg PO DAILY 05/21/18 01/06/19 Metoprolol XL (24 HR) Succ [Toprol 100 mg PO DAILY 05/29/18 01/06/19 Xl] Isosorbide MONOnitrate [Isosorbide 120 mg PO DAILY 10/27/18 01/06/19 Mononitrate ER] Lisinopril/Hydrochlorothiazide 1 tab PO DAILY 10/27/18 01/06/19 [Zestoretic 20-25 mg Tablet] Ranolazine [Ranexa] 500 mg PO BID 10/27/18 01/06/19 Cyclobenzaprine [Flexeril] 10 mg PO TID PRN 01/05/19 01/06/19 Insulin LISPRO [Admelog Solostar] 4 - 16 units SQ TIDAC 01/06/19 01/06/19 Allergies Allergy/AdvReac Type Severity Reaction Status Date / Time cinnamon Allergy Anaphylaxis Verified 05/29/18 00:14 gabapentin Allergy Itching Verified 05/29/18 00:14 ibuprofen Allergy Hives Verified 05/29/18 00:14 Latex, Natural Rubber Allergy Itching Verified 05/29/18 00:14 naproxen [From Naprosyn] Allergy Itching Verified 05/29/18 00:14 All systems ED: reviewed and negative except as stated. Review of Systems: As Per HPI Constitutional: Denies: fever, chills Cardiovascular: Reports: chest pain, dyspnea on exertion. Denies: palpitations, edema, syncope, paroxysmal nocturnal dyspnea Respiratory: Reports: cough, dyspnea. Denies: wheezes, hemoptysis, sputum production Gastrointestinal: Reports: abdominal pain, nausea, vomiting, diarrhea. Denies: constipation, hematemesis, melena, hematochezia Genitourinary: Denies: urgency, dysuria, frequency, hematuria, discharge Musculoskeletal: Reports: back pain. Denies: neck pain Integumentary: Denies: rash, abrasion Neurological: Denies: headache, weakness, numbness, paresthesias Past Medical History - Past Medical History Attestation: Yes The following information was validated with the patient. 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 - Social History Smoking Status: Never smoker Smokeless Tobacco Status: No Alcohol use: Reports: none Drug use: Reports: none Physical Exam - General General appearance: alert, in no apparent distress - Head Head exam: atraumatic, normocephalic, normal inspection - Eye Eye exam: Present: normal appearance, PERRL, EOMI - ENT ENT exam: normal exam, normal oropharynx, mucous membranes moist - Neck Neck exam: Present: normal inspection, full ROM, trachea midline - Chest Chest inspection: Present: normal inspection, symmetric chest wall rise - Respiratory Respiratory exam: Present: normal lung sounds bilaterally, other (tachypnea). Absent: respiratory distress, wheezes, accessory muscle use, prolonged expiratory phase - Cardiovascular Cardiovascular exam: Present: tachycardia, normal heart sounds, +S1, +S2 - Abdominal Exam Abdominal exam: Present: tenderness, normal bowel sounds. Absent: distention, guarding, rebound, rigidity Abdominal tenderness: Present: epigastrium - Extremities Exam Extremities exam: Present: normal inspection, full ROM. Absent: tenderness, pedal edema - Back Exam Back exam: Present: normal inspection, full ROM. Absent: tenderness - Neurological Exam Neurological exam: Present: alert, oriented X3 - Psychiatric Psychiatric exam: Present: normal affect, normal mood - Skin Skin exam: Present: warm, intact, normal color, diaphoresis Course Course Narrative: According to past medical records patient has a history of 2 heart catheterizations and 2016 in 2018. She has severe one-vessel coronary artery disease. She last had an echocardiogram in March 2018 that showed an EF of 60-65% with mild diastolic dysfunction. Patient also has a diseased RCA with medical management recommended by cardiology. She is on long-acting nitrates at home as well as when necessary nitroglycerin. Appears that she has a history of a chronic pulmonary urinary embolism which she is anticoagulated for that has been known since 2016. I work reveals acute on chronic kidney disease as well as hyperglycemia. She has a lactic acid of 2.9. Patient's VBG shows that she is acidotic at 7.30 which is suspect is due to her lactic acidosis resulting in her being tachypnea. She received 2 L of fluids which her heart rate improved from the 120s to the 90s the patient's chest pain improved as well to 3/10 from a 7/10. Suspect that her lactic acidosis possibly due to diarrheal illness has been going on over the past 2 days and dehydration. Her chest x-ray is negative for pneumonia and her urine does not appear to be obviously infected therefore she will undergo CAT scan of her chest and abdomen to evaluate source as well as her epigastric abdominal pain. Considering sepsis at this time (15:30) however patient does not have obvious bacterial source at this time. Suspect repeat lactate will normalize with fluid administration. Vital Signs Temperature 97.7 F 01/05/19 13:30 Pulse Rate 123 01/05/19 13:30 Respiratory Rate 23 01/05/19 13:30 Blood Pressure 134/106 01/05/19 13:30 O2 Sat by Pulse Oximetry 100 01/05/19 13:30 Temperature 97.7 F 01/05/19 19:12 Pulse Rate 81 01/05/19 19:12 Respiratory Rate 17 01/05/19 19:12 Blood Pressure 128/86 01/05/19 19:12 O2 Sat by Pulse Oximetry 100 01/05/19 19:12 Oxygen Delivery Oxygen Delivery Room Air Medical Decision Making - Medical Records Medical records reviewed: Yes I reviewed the patient's medical records. - Lab Data Lab results reviewed: Yes I reviewed the patient's lab results. Result diagrams: 01/06/19 04:42 01/06/19 04:42 Lab Results 07/16/19 07/16/19 07/16/19 Range/Units 13:32 13:32 13:38 WBC 9.6 (4.3-11.1) K/mcL RBC 4.58 (3.82-4.97) M/mcL Hgb 13.6 (11.5-15.4) g/dL Hct 40.3 (35.3-44.9) % MCV 88.0 (83.0-100.0) fL MCH 29.7 (28.0-33.3) pg MCHC 33.7 (31.6-35.5) g/dL RDW 12.3 (11.5-14.5) % Plt Count 329 (140-400) K/mcL MPV 9.8 (9.4-12.4) fL Immature Gran % 0.1 (0-4) % Seg Neutrophils % 53.3 % Lymphocytes % 38.9 % Monocytes % 5.3 % Eosinophils % 2.0 % Basophils % 0.4 % Neutrophils # 5.1 (1.6-8.9) K/mcL Lymphocytes # 3.7 (0.6-4.6) K/mcL Monocytes # 0.5 (0.0-1.3) K/mcL Eosinophils # 0.2 (0.0-0.6) K/mcL Basophils # 0.0 (0.0-0.2) K/mcL VBG pH (7.32-7.42) pH Units VBG pCO2 (41-51) mmHg VBG pO2 (25-50) mmHg VBG HCO3 (21-27) mEq/L Sodium 136 (136-145) mEq/L Potassium 3.8 (3.5-5.1) mEq/L Chloride 104 (98-107) mEq/L Carbon Dioxide 17 L (23-29) mEq/L BUN 22 H (6-20) mg/dL Creatinine 1.66 H (0.60-1.20) mg/dL Est GFR ( Amer) 39 L (> 60) Est GFR (Non-Af Amer) 32 L (> 60) BUN/Creatinine Ratio 13 (6-26) Glucose 380 H (70-105) mg/dL POC Glucose (70-99) mg/dL Calculated Osmolality 301 H (280-300) Lactic Acid (0.5-2.2) mmol/L Calcium 10.5 H (8.6-10.3) mg/dL Magnesium 1.4 L (1.6-2.6) mg/dL Total Bilirubin 0.6 (0.3-1.0) mg/dL Direct Bilirubin 0.1 (0.0-0.2) mg/dL Indirect Bilirubin 0.5 (0.0-1.2) mg/dL AST TNP ALT 19 (7-52) Units/L Alkaline Phosphatase 81 (34-104) Units/L Troponin I < 0.03 (< 0.04) ng/mL Serum Total Protein 9.1 H (6.4-8.9) g/dL Albumin 4.7 (3.5-5.7) g/dL Globulin 4.4 H (2.4-3.5) g/dL Albumin/Globulin Ratio 1.1 (1.1-2.2) Lipase 45 (11-82) Units/L Beta-Hydroxybutyric Acd 0.21 (0.02-0.27) mmol/L Urine Color (Yellow) Urine Clarity (Clear) Urine pH (5.0-8.0) pH Units Ur Specific [place] (1.010-1.025) Urine Protein (Neg-Trace) mg/dL Urine Glucose (UA) (Normal) mg/dL Urine Ketones (Negative) mg/dL Urine Blood (Negative) Urine Nitrite (Negative) Urine Bilirubin (Negative) Urine Urobilinogen (Normal) mg/dL Ur Leukocyte Esterase (Negative) Urine Microscopic RBC (0-3) per hpf Urine Microscopic WBC (0-3) per hpf Ur Squamous Epith Cells (None-Few) per lpf Urine Bacteria (None-Few) per hpf Hyaline Casts (None-Few) per lpf Ur Culture Indicated? (NO) Ethyl Alcohol < 10 (Less than 10) mg/dL Specimen Rejected 01/05/19 01/05/19 01/05/19 Range/Units 13:40 13:54 14:37 WBC (4.3-11.1) K/mcL RBC (3.82-4.97) M/mcL Hgb (11.5-15.4) g/dL Hct (35.3-44.9) % MCV (83.0-100.0) fL MCH (28.0-33.3) pg MCHC (31.6-35.5) g/dL RDW (11.5-14.5) % Plt Count (140-400) K/mcL MPV (9.4-12.4) fL Immature Gran % (0-4) % Seg Neutrophils % % Lymphocytes % % Monocytes % % Eosinophils % % Basophils % % Neutrophils # (1.6-8.9) K/mcL Lymphocytes # (0.6-4.6) K/mcL Monocytes # (0.0-1.3) K/mcL Eosinophils # (0.0-0.6) K/mcL Basophils # (0.0-0.2) K/mcL VBG pH 7.36 (7.32-7.42) pH Units VBG pCO2 29 L (41-51) mmHg VBG pO2 36 (25-50) mmHg VBG HCO3 16 L (21-27) mEq/L Sodium (136-145) mEq/L Potassium (3.5-5.1) mEq/L Chloride (98-107) mEq/L Carbon Dioxide (23-29) mEq/L BUN (6-20) mg/dL Creatinine (0.60-1.20) mg/dL Est GFR ( Amer) (> 60) Est GFR (Non-Af Amer) (> 60) BUN/Creatinine Ratio (6-26) Glucose (70-105) mg/dL POC Glucose 355 H (70-99) mg/dL Calculated Osmolality (280-300) Lactic Acid (0.5-2.2) mmol/L Calcium (8.6-10.3) mg/dL Magnesium (1.6-2.6) mg/dL Total Bilirubin (0.3-1.0) mg/dL Direct Bilirubin (0.0-0.2) mg/dL Indirect Bilirubin (0.0-1.2) mg/dL AST ALT (7-52) Units/L Alkaline Phosphatase (34-104) Units/L Troponin I (< 0.04) ng/mL Serum Total Protein (6.4-8.9) g/dL Albumin (3.5-5.7) g/dL Globulin (2.4-3.5) g/dL Albumin/Globulin Ratio (1.1-2.2) Lipase (11-82) Units/L Beta-Hydroxybutyric Acd (0.02-0.27) mmol/L Urine Color Yellow (Yellow) Urine Clarity Cloudy A (Clear) Urine pH 5.0 (5.0-8.0) pH Units Ur Specific [place] 1.023 (1.010-1.025) Urine Protein 100 H (Neg-Trace) mg/dL Urine Glucose (UA) >=1000 H (Normal) mg/dL Urine Ketones Negative (Negative) mg/dL Urine Blood Negative (Negative) Urine Nitrite Negative (Negative) Urine Bilirubin Negative (Negative) Urine Urobilinogen Normal (Normal) mg/dL Ur Leukocyte Esterase Small H (Negative) Urine Microscopic RBC 0-3 (0-3) per hpf Urine Microscopic WBC 30-50 H (0-3) per hpf Ur Squamous Epith Cells Many H (None-Few) per lpf Urine Bacteria Moderate H (None-Few) per hpf Hyaline Casts Few (None-Few) per lpf Ur Culture Indicated? YES A (NO) Ethyl Alcohol (Less than 10) mg/dL Specimen Rejected 01/05/19 01/05/19 01/05/19 Range/Units 14:44 14:44 14:45 WBC (4.3-11.1) K/mcL RBC (3.82-4.97) M/mcL Hgb (11.5-15.4) g/dL Hct (35.3-44.9) % MCV (83.0-100.0) fL MCH (28.0-33.3) pg MCHC (31.6-35.5) g/dL RDW (11.5-14.5) % Plt Count (140-400) K/mcL MPV (9.4-12.4) fL Immature Gran % (0-4) % Seg Neutrophils % % Lymphocytes % % Monocytes % % Eosinophils % % Basophils % % Neutrophils # (1.6-8.9) K/mcL Lymphocytes # (0.6-4.6) K/mcL Monocytes # (0.0-1.3) K/mcL Eosinophils # (0.0-0.6) K/mcL Basophils # (0.0-0.2) K/mcL VBG pH (7.32-7.42) pH Units VBG pCO2 (41-51) mmHg VBG pO2 (25-50) mmHg VBG HCO3 (21-27) mEq/L Sodium (136-145) mEq/L Potassium (3.5-5.1) mEq/L Chloride (98-107) mEq/L Carbon Dioxide (23-29) mEq/L BUN (6-20) mg/dL Creatinine (0.60-1.20) mg/dL Est GFR ( Amer) (> 60) Est GFR (Non-Af Amer) (> 60) BUN/Creatinine Ratio (6-26) Glucose (70-105) mg/dL POC Glucose (70-99) mg/dL Calculated Osmolality (280-300) Lactic Acid 2.9 H (0.5-2.2) mmol/L Calcium (8.6-10.3) mg/dL Magnesium (1.6-2.6) mg/dL Total Bilirubin (0.3-1.0) mg/dL Direct Bilirubin (0.0-0.2) mg/dL Indirect Bilirubin (0.0-1.2) mg/dL AST 15 ALT (7-52) Units/L Alkaline Phosphatase (34-104) Units/L Troponin I (< 0.04) ng/mL Serum Total Protein (6.4-8.9) g/dL Albumin (3.5-5.7) g/dL Globulin (2.4-3.5) g/dL Albumin/Globulin Ratio (1.1-2.2) Lipase (11-82) Units/L Beta-Hydroxybutyric Acd (0.02-0.27) mmol/L Urine Color (Yellow) Urine Clarity (Clear) Urine pH (5.0-8.0) pH Units Ur Specific [place] (1.010-1.025) Urine Protein (Neg-Trace) mg/dL Urine Glucose (UA) (Normal) mg/dL Urine Ketones (Negative) mg/dL Urine Blood (Negative) Urine Nitrite (Negative) Urine Bilirubin (Negative) Urine Urobilinogen (Normal) mg/dL Ur Leukocyte Esterase (Negative) Urine Microscopic RBC (0-3) per hpf Urine Microscopic WBC (0-3) per hpf Ur Squamous Epith Cells (None-Few) per lpf Urine Bacteria (None-Few) per hpf Hyaline Casts (None-Few) per lpf Ur Culture Indicated? (NO) Ethyl Alcohol (Less than 10) mg/dL Specimen Rejected Hemolyzed 01/05/19 01/05/19 Range/Units 15:00 18:37 WBC (4.3-11.1) K/mcL RBC (3.82-4.97) M/mcL Hgb (11.5-15.4) g/dL Hct (35.3-44.9) % MCV (83.0-100.0) fL MCH (28.0-33.3) pg MCHC (31.6-35.5) g/dL RDW (11.5-14.5) % Plt Count (140-400) K/mcL MPV (9.4-12.4) fL Immature Gran % (0-4) % Seg Neutrophils % % Lymphocytes % % Monocytes % % Eosinophils % % Basophils % % Neutrophils # (1.6-8.9) K/mcL Lymphocytes # (0.6-4.6) K/mcL Monocytes # (0.0-1.3) K/mcL Eosinophils # (0.0-0.6) K/mcL Basophils # (0.0-0.2) K/mcL VBG pH 7.30 L (7.32-7.42) pH Units VBG pCO2 41 (41-51) mmHg VBG pO2 28 (25-50) mmHg VBG HCO3 20 L (21-27) mEq/L Sodium (136-145) mEq/L Potassium (3.5-5.1) mEq/L Chloride (98-107) mEq/L Carbon Dioxide (23-29) mEq/L BUN (6-20) mg/dL Creatinine (0.60-1.20) mg/dL Est GFR ( Amer) (> 60) Est GFR (Non-Af Amer) (> 60) BUN/Creatinine Ratio (6-26) Glucose (70-105) mg/dL POC Glucose (70-99) mg/dL Calculated Osmolality (280-300) Lactic Acid 1.4 (0.5-2.2) mmol/L Calcium (8.6-10.3) mg/dL Magnesium (1.6-2.6) mg/dL Total Bilirubin (0.3-1.0) mg/dL Direct Bilirubin (0.0-0.2) mg/dL Indirect Bilirubin (0.0-1.2) mg/dL AST ALT (7-52) Units/L Alkaline Phosphatase (34-104) Units/L Troponin I (< 0.04) ng/mL Serum Total Protein (6.4-8.9) g/dL Albumin (3.5-5.7) g/dL Globulin (2.4-3.5) g/dL Albumin/Globulin Ratio (1.1-2.2) Lipase (11-82) Units/L Beta-Hydroxybutyric Acd (0.02-0.27) mmol/L Urine Color (Yellow) Urine Clarity (Clear) Urine pH (5.0-8.0) pH Units Ur Specific [place] (1.010-1.025) Urine Protein (Neg-Trace) mg/dL Urine Glucose (UA) (Normal) mg/dL Urine Ketones (Negative) mg/dL Urine Blood (Negative) Urine Nitrite (Negative) Urine Bilirubin (Negative) Urine Urobilinogen (Normal) mg/dL Ur Leukocyte Esterase (Negative) Urine Microscopic RBC (0-3) per hpf Urine Microscopic WBC (0-3) per hpf Ur Squamous Epith Cells (None-Few) per lpf Urine Bacteria (None-Few) per hpf Hyaline Casts (None-Few) per lpf Ur Culture Indicated? (NO) Ethyl Alcohol (Less than 10) mg/dL Specimen Rejected - Radiology Data Radiology results reviewed: Yes I reviewed the patient's radiology results. Chest X-Ray 01/05/19 13:32 IMPRESSION: No acute findings. D/ / Bronson Courtney MD / Bronson Courtney MD Interpreting Provider: Bronson Courtney MD Abdomen/Pelvis CT 01/05/19 15:12 IMPRESSION: 1. Significant fluid identified throughout the small bowel and colon, most compatible with diarrhea as seen in enterocolitis. No transition point to suggest obstruction. 2. Normal appendix. 3. Status post hysterectomy and cholecystectomy. D/ / 01/05/2019 16:29:34 Juju Whiting MD / mely Interpreting Provider: Juju Whiting MD Chest CT 01/05/19 15:12 IMPRESSION: No acute intrathoracic abnormality. D/ / Sharmaine Meneses Cha, MD / Sharmaine Meneses Cha, MD Interpreting Provider: Sharmaine Meneses Cha, MD - EKG Data EKG #1 EKG attestation: Yes I reviewed and interpreted this EKG. EKG results narrative: EKG done at 13:21 shows sinus tachycardia at a rate of 1 40 bpm. Normal axis. Intervals within normal limits. No signs of ST elevation, ST depression or Q waves present. Attestation Statement - Attestation Attestation: I have seen this patient with the resident physician, I have personally evaluated this patient. I had reviewed the chart and document dictation by the resident physician and aM in agreement with the information documented by the resident physician. Please see documentation by the resident physician for co mplete chart including past medical history, family medical history, review of systems, current history and physical and laboratory and imaging studies. I was present for all procedures, provided direct supervision for all procedures, was present for the entirety of all procedures and provided direct guidance during the procedures. Please see documentation by the resident physician for any procedures performed. I have reviewed all interpretations of EKGs, and reviewed all EKGs performed on patient's as well. I have also reviewed reports of imaging as provided by radiology.
[2019-01-05 13:58] LABS: Basophils % 0.4 %; Eosinophils # 0.2 K/mcL (0.0-0.6); Hematocrit 40.3 % (35.3-44.9); Hemoglobin 13.6 g/dL (11.5-15.4); Immature Granulocytes % 0.1 % (0-4); Lymphocytes # 3.7 K/mcL (0.6-4.6); Lymphocytes % 38.9 %; Mean Corpuscular HGB Conc 33.7 g/dL (31.6-35.5); Mean Corpuscular Hemoglobin 29.7 pg (28.0-33.3); Mean Platelet Volume 9.8 fL (9.4-12.4); Monocytes # 0.5 K/mcL (0.0-1.3); Monocytes % 5.3 %; Neutrophils # 5.1 K/mcL (1.6-8.9); Platelet Count 329 K/mcL (140-400); Red Blood Count 4.58 M/mcL (3.82-4.97); Red Cell Distribution Width 12.3 % (11.5-14.5); Segmented Neutrophils % 53.3 %; White Blood Count 9.6 K/mcL (4.3-11.1)
[2019-01-05] MEDS ORDERED: Ondansetron 4 MG/2 ML VIAL IVP ONE (14:02)
[2019-01-05] MEDS ORDERED: Morphine Sulfate 2 MG/ML SYRINGE IVP ONE (14:02)
[2019-01-05] MEDS ORDERED: Aspirin 81 MG TAB.CHEW PO STA (14:06)
[2019-01-05 14:52] LABS: Bilirubin,Urine Negative (Negative); Blood,Urine Negative (Negative); Clarity,Urine Cloudy (Clear); Color,Urine Yellow (Yellow); Glucose,Urine (UA) >=1000 mg/dL (Normal); Ketones,Urine Negative (Negative); Leukocyte Esterase,Urine Small (Negative); Nitrite,Urine Negative (Negative); Protein,Urine 100 mg/dL (Neg-Trace); Specific Gravity,Urine 1.023 (1.010-1.025); Urobilinogen,Urine Normal (Normal)
[2019-01-05 14:55] LABS: Bacteria,Urine Moderate per hpf (None-Few); Hyaline Casts,Urine Few per lpf (None-Few); RBC,Urine 0-3 per hpf (0-3); Squamous Epithelial Cell,Urine Many per lpf (None-Few); WBC,Urine 30-50 per hpf (0-3)
[2019-01-05 14:58] LABS: Alanine Aminotransferase 19 Units/L (7-52); Albumin 4.7 g/dL (3.5-5.7); Albumin/Globulin Ratio 1.1 (1.1-2.2); Alkaline Phosphatase 81 Units/L (34-104); BUN/Creatinine Ratio 13 (6-26); Bilirubin,Direct 0.1 mg/dL (0.0-0.2); Bilirubin,Indirect 0.5 mg/dL (0.0-1.2); Bilirubin,Total 0.6 mg/dL (0.3-1.0); Blood Urea Nitrogen 22 mg/dL (6-20); Calcium 10.5 mg/dL (8.6-10.3); Carbon Dioxide 17 mEq/L (23-29); Chloride 104 mEq/L (98-107); Ethanol < 10 mg/dL (Less than 10); Globulin 4.4 g/dL (2.4-3.5); Glucose 380 mg/dL (70-105); Lipase 45 Units/L (11-82); Magnesium 1.4 mg/dL (1.6-2.6); Osmolality,Calculated 301 (280-300); Potassium 3.8 mEq/L (3.5-5.1); Sodium 136 mEq/L (136-145); Total Protein 9.1 g/dL (6.4-8.9); Troponin I < 0.03 ng/mL (< 0.04); eGFR For African Americans 39 (> 60); eGFR For Non-African Americans 32 (> 60)
[2019-01-05 15:03] LABS: VBG HCO3 20 mEq/L (21-27); VBG PCO2 41 mmHg (41-51); VBG PO2 28 mmHg (25-50)
[2019-01-05] MEDS ORDERED: cefTRIAXone 1,000 MG in Water for inj. (sterile) 10 ML IVP ONE (16:04)
[2019-01-05] MEDS: Nitroglycerin 0.4 MG TAB.SUBL SL SCH ×2 (16:07→16:08)
--- NOTE | 2019-01-05 16:57 | Emergency Department Note ---
Disposition Clinical Impression: Dehydration, Lactic acidosis, Epigastric pain, Acute kidney injury superimposed on chronic kidney disease, SIRS (systemic inflammatory response syndrome) Diarrhea Qualifiers: Diarrhea type: unspecified type Qualified Code(s): R19.7 - Diarrhea, unspecified Chest pain Qualifiers: Chest pain type: unspecified Qualified Code(s): R07.9 - Chest pain, unspecified Disposition: Admitted As Inpatient Condition: Fair Referrals: NONE,PCP [Primary Care Provider] - Time of Disposition: 16:57 General Adult HPI - General Chief complaint: ED Chest Pain Stated complaint: GLADIS,CP,Back Pain Time Seen by Provider: 01/05/19 13:34 Source: patient Mode of arrival: ambulatory Limitations: no limitations Nursing Notes Reviewed: Yes Vital Signs Reviewed: Yes - History of Present Illness Pain Scale: 10 - Related Data Home Medications Medication Instructions Recorded Confirmed Atorvastatin Calcium [Lipitor] 80 mg PO DAILY 09/06/15 01/05/19 Albuterol Sulfate [Proair Hfa] 2 puff IH Q4H PRN 11/11/16 01/05/19 SUMAtriptan Succinate [Imitrex] 100 mg PO DAILY PRN 11/11/16 01/05/19 risperiDONE [Risperidone] 2 mg PO HS 11/11/16 01/05/19 Aspirin 81 mg PO DAILY 01/02/17 01/05/19 Loratadine [Claritin] 10 mg PO DAILY PRN 01/02/17 01/05/19 traZODone [TraZODone] 50 - 100 mg PO HS PRN 01/02/17 01/05/19 Nitroglycerin [Nitrostat] 0.4 mg SL Q5M PRN 09/22/17 01/05/19 Benzonatate [Tessalon] 100 mg PO TID PRN 05/08/18 01/05/19 Cholecalciferol (D-3) [Vitamin D] 2,000 unit PO DAILY 05/08/18 01/05/19 Clopidogrel [Plavix] 75 mg PO DAILY 05/08/18 01/05/19 Insulin Glargine,Hum.rec.anlog 20 unit SQ HS 05/08/18 01/05/19 [Basaglar Kwikpen U-100] Mometasone/Formoterol [Dulera 200 2 puff IH BID 05/08/18 01/05/19 Mcg/5 Mcg Inhaler] Naproxen [Naprosyn] 500 mg PO DAILY PRN 05/08/18 01/05/19 Rivaroxaban [Xarelto] 20 mg PO DAILY 05/08/18 01/05/19 Sertraline [Zoloft] 50 mg PO DAILY 05/08/18 01/05/19 acetaZOLAMIDE [Diamox] 500 mg PO BID 05/08/18 01/05/19 Omeprazole [PriLOSEC] 40 mg PO DAILY 05/21/18 01/05/19 Metoprolol XL (24 HR) Succ [Toprol 100 mg PO DAILY 05/29/18 01/05/19 Xl] Isosorbide MONOnitrate [Isosorbide 120 mg PO DAILY 10/27/18 01/05/19 Mononitrate ER] Lisinopril/Hydrochlorothiazide 1 tab PO DAILY 10/27/18 01/05/19 [Zestoretic 20-25 mg Tablet] Ranolazine [Ranexa] 500 mg PO BID 10/27/18 01/05/19 Cyclobenzaprine [Flexeril] 10 mg PO TID 01/05/19 01/05/19 Allergies Allergy/AdvReac Type Severity Reaction Status Date / Time cinnamon Allergy Anaphylaxis Verified 05/29/18 00:14 gabapentin Allergy Itching Verified 05/29/18 00:14 ibuprofen Allergy Hives Verified 05/29/18 00:14 Latex, Natural Rubber Allergy Itching Verified 05/29/18 00:14 naproxen [From Naprosyn] Allergy Itching Verified 05/29/18 00:14 All systems ED: reviewed and negative except as stated. Review of Systems: As Per HPI Constitutional: Denies: fever, chills Cardiovascular: Reports: chest pain, dyspnea on exertion. Denies: palpitations, edema, syncope, paroxysmal nocturnal dyspnea Respiratory: Reports: cough, dyspnea. Denies: wheezes, hemoptysis, sputum production Gastrointestinal: Reports: abdominal pain, nausea, vomiting, diarrhea. Denies: constipation, hematemesis, melena, hematochezia Genitourinary: Denies: urgency, dysuria, frequency, hematuria, discharge Musculoskeletal: Reports: back pain. Denies: neck pain Integumentary: Denies: rash, abrasion Neurological: Denies: headache, weakness, numbness, paresthesias Past Medical History - Past Medical History Medical history: Reports: arthritis, asthma, COPD, coronary artery disease, diabetes, GERD, hyperlipidemia, hypertension, migraine, pulmonary embolus, renal disease, other Surgical history: Reports: cholecystectomy, herniorrhaphy, hysterectomy, orthopedic, other, other Psychiatric history: Reports: anxiety, bipolar, depression, panic disorder, previous psychiatric hospitalization [employer] history: Reports: bilateral tubal ligation - Social History Smoking Status: Never smoker Smokeless Tobacco Status: No Alcohol use: Reports: none Drug use: Reports: none Physical Exam - General Limitations: no limitations General appearance: alert, in no apparent distress Course Vital Signs Temperature 97.7 F 01/05/19 13:30 Pulse Rate 123 01/05/19 13:30 Respiratory Rate 23 01/05/19 13:30 Blood Pressure 134/106 01/05/19 13:30 O2 Sat by Pulse Oximetry 100 01/05/19 13:30 Temperature 97.7 F 01/05/19 13:30 Pulse Rate 97 01/05/19 15:38 Respiratory Rate 19 01/05/19 15:38 Blood Pressure 145/110 01/05/19 15:38 O2 Sat by Pulse Oximetry 100 01/05/19 15:38 Oxygen Delivery Oxygen Delivery Room Air Medical Decision Making - Lab Data Result diagrams: 01/05/19 13:32 01/05/19 13:32 Lab Results 01/05/19 01/05/19 01/05/19 Range/Units 13:32 13:32 13:38 WBC 9.6 (4.3-11.1) K/mcL RBC 4.58 (3.82-4.97) M/mcL Hgb 13.6 (11.5-15.4) g/dL Hct 40.3 (35.3-44.9) % MCV 88.0 (83.0-100.0) fL MCH 29.7 (28.0-33.3) pg MCHC 33.7 (31.6-35.5) g/dL RDW 12.3 (11.5-14.5) % Plt Count 329 (140-400) K/mcL MPV 9.8 (9.4-12.4) fL Immature Gran % 0.1 (0-4) % Seg Neutrophils % 53.3 % Lymphocytes % 38.9 % Monocytes % 5.3 % Eosinophils % 2.0 % Basophils % 0.4 % Neutrophils # 5.1 (1.6-8.9) K/mcL Lymphocytes # 3.7 (0.6-4.6) K/mcL Monocytes # 0.5 (0.0-1.3) K/mcL Eosinophils # 0.2 (0.0-0.6) K/mcL Basophils # 0.0 (0.0-0.2) K/mcL VBG pH (7.32-7.42) pH Units VBG pCO2 (41-51) mmHg VBG pO2 (25-50) mmHg VBG HCO3 (21-27) mEq/L Sodium 136 (136-145) mEq/L Potassium 3.8 (3.5-5.1) mEq/L Chloride 104 (98-107) mEq/L Carbon Dioxide 17 L (23-29) mEq/L BUN 22 H (6-20) mg/dL Creatinine 1.66 H (0.60-1.20) mg/dL Est GFR ( Amer) 39 L (> 60) Est GFR (Non-Af Amer) 32 L (> 60) BUN/Creatinine Ratio 13 (6-26) Glucose 380 H (70-105) mg/dL POC Glucose (70-99) mg/dL Calculated Osmolality 301 H (280-300) Lactic Acid (0.5-2.2) mmol/L Calcium 10.5 H (8.6-10.3) mg/dL Magnesium 1.4 L (1.6-2.6) mg/dL Total Bilirubin 0.6 (0.3-1.0) mg/dL Direct Bilirubin 0.1 (0.0-0.2) mg/dL Indirect Bilirubin 0.5 (0.0-1.2) mg/dL AST TNP ALT 19 (7-52) Units/L Alkaline Phosphatase 81 (34-104) Units/L Troponin I < 0.03 (< 0.04) ng/mL Serum Total Protein 9.1 H (6.4-8.9) g/dL Albumin 4.7 (3.5-5.7) g/dL Globulin 4.4 H (2.4-3.5) g/dL Albumin/Globulin Ratio 1.1 (1.1-2.2) Lipase 45 (11-82) Units/L Beta-Hydroxybutyric Acd 0.21 (0.02-0.27) mmol/L Urine Color (Yellow) Urine Clarity (Clear) Urine pH (5.0-8.0) pH Units Ur Specific [place] (1.010-1.025) Urine Protein (Neg-Trace) mg/dL Urine Glucose (UA) (Normal) mg/dL Urine Ketones (Negative) mg/dL Urine Blood (Negative) Urine Nitrite (Negative) Urine Bilirubin (Negative) Urine Urobilinogen (Normal) mg/dL Ur Leukocyte Esterase (Negative) Urine Microscopic RBC (0-3) per hpf Urine Microscopic WBC (0-3) per hpf Ur Squamous Epith Cells (None-Few) per lpf Urine Bacteria (None-Few) per hpf Hyaline Casts (None-Few) per lpf Ur Culture Indicated? (NO) Ethyl Alcohol < 10 (Less than 10) mg/dL Specimen Rejected 01/05/19 01/05/19 01/05/19 Range/Units 13:40 13:54 14:37 WBC (4.3-11.1) K/mcL RBC (3.82-4.97) M/mcL Hgb (11.5-15.4) g/dL Hct (35.3-44.9) % MCV (83.0-100.0) fL MCH (28.0-33.3) pg MCHC (31.6-35.5) g/dL RDW (11.5-14.5) % Plt Count (140-400) K/mcL MPV (9.4-12.4) fL Immature Gran % (0-4) % Seg Neutrophils % % Lymphocytes % % Monocytes % % Eosinophils % % Basophils % % Neutrophils # (1.6-8.9) K/mcL Lymphocytes # (0.6-4.6) K/mcL Monocytes # (0.0-1.3) K/mcL Eosinophils # (0.0-0.6) K/mcL Basophils # (0.0-0.2) K/mcL VBG pH 7.36 (7.32-7.42) pH Units VBG pCO2 29 L (41-51) mmHg VBG pO2 36 (25-50) mmHg VBG HCO3 16 L (21-27) mEq/L Sodium (136-145) mEq/L Potassium (3.5-5.1) mEq/L Chloride (98-107) mEq/L Carbon Dioxide (23-29) mEq/L BUN (6-20) mg/dL Creatinine (0.60-1.20) mg/dL Est GFR ( Amer) (> 60) Est GFR (Non-Af Amer) (> 60) BUN/Creatinine Ratio (6-26) Glucose (70-105) mg/dL POC Glucose 355 H (70-99) mg/dL Calculated Osmolality (280-300) Lactic Acid (0.5-2.2) mmol/L Calcium (8.6-10.3) mg/dL Magnesium (1.6-2.6) mg/dL Total Bilirubin (0.3-1.0) mg/dL Direct Bilirubin (0.0-0.2) mg/dL Indirect Bilirubin (0.0-1.2) mg/dL AST ALT (7-52) Units/L Alkaline Phosphatase (34-104) Units/L Troponin I (< 0.04) ng/mL Serum Total Protein (6.4-8.9) g/dL Albumin (3.5-5.7) g/dL Globulin (2.4-3.5) g/dL Albumin/Globulin Ratio (1.1-2.2) Lipase (11-82) Units/L Beta-Hydroxybutyric Acd (0.02-0.27) mmol/L Urine Color Yellow (Yellow) Urine Clarity Cloudy A (Clear) Urine pH 5.0 (5.0-8.0) pH Units Ur Specific [place] 1.023 (1.010-1.025) Urine Protein 100 H (Neg-Trace) mg/dL Urine Glucose (UA) >=1000 H (Normal) mg/dL Urine Ketones Negative (Negative) mg/dL Urine Blood Negative (Negative) Urine Nitrite Negative (Negative) Urine Bilirubin Negative (Negative) Urine Urobilinogen Normal (Normal) mg/dL Ur Leukocyte Esterase Small H (Negative) Urine Microscopic RBC 0-3 (0-3) per hpf Urine Microscopic WBC 30-50 H (0-3) per hpf Ur Squamous Epith Cells Many H (None-Few) per lpf Urine Bacteria Moderate H (None-Few) per hpf Hyaline Casts Few (None-Few) per lpf Ur Culture Indicated? YES A (NO) Ethyl Alcohol (Less than 10) mg/dL Specimen Rejected 01/05/19 01/05/19 01/05/19 Range/Units 14:44 14:44 14:45 WBC (4.3-11.1) K/mcL RBC (3.82-4.97) M/mcL Hgb (11.5-15.4) g/dL Hct (35.3-44.9) % MCV (83.0-100.0) fL MCH (28.0-33.3) pg MCHC (31.6-35.5) g/dL RDW (11.5-14.5) % Plt Count (140-400) K/mcL MPV (9.4-12.4) fL Immature Gran % (0-4) % Seg Neutrophils % % Lymphocytes % % Monocytes % % Eosinophils % % Basophils % % Neutrophils # (1.6-8.9) K/mcL Lymphocytes # (0.6-4.6) K/mcL Monocytes # (0.0-1.3) K/mcL Eosinophils # (0.0-0.6) K/mcL Basophils # (0.0-0.2) K/mcL VBG pH (7.32-7.42) pH Units VBG pCO2 (41-51) mmHg VBG pO2 (25-50) mmHg VBG HCO3 (21-27) mEq/L Sodium (136-145) mEq/L Potassium (3.5-5.1) mEq/L Chloride (98-107) mEq/L Carbon Dioxide (23-29) mEq/L BUN (6-20) mg/dL Creatinine (0.60-1.20) mg/dL Est GFR ( Amer) (> 60) Est GFR (Non-Af Amer) (> 60) BUN/Creatinine Ratio (6-26) Glucose (70-105) mg/dL POC Glucose (70-99) mg/dL Calculated Osmolality (280-300) Lactic Acid 2.9 H (0.5-2.2) mmol/L Calcium (8.6-10.3) mg/dL Magnesium (1.6-2.6) mg/dL Total Bilirubin (0.3-1.0) mg/dL Direct Bilirubin (0.0-0.2) mg/dL Indirect Bilirubin (0.0-1.2) mg/dL AST 15 ALT (7-52) Units/L Alkaline Phosphatase (34-104) Units/L Troponin I (< 0.04) ng/mL Serum Total Protein (6.4-8.9) g/dL Albumin (3.5-5.7) g/dL Globulin (2.4-3.5) g/dL Albumin/Globulin Ratio (1.1-2.2) Lipase (11-82) Units/L Beta-Hydroxybutyric Acd (0.02-0.27) mmol/L Urine Color (Yellow) Urine Clarity (Clear) Urine pH (5.0-8.0) pH Units Ur Specific [place] (1.010-1.025) Urine Protein (Neg-Trace) mg/dL Urine Glucose (UA) (Normal) mg/dL Urine Ketones (Negative) mg/dL Urine Blood (Negative) Urine Nitrite (Negative) Urine Bilirubin (Negative) Urine Urobilinogen (Normal) mg/dL Ur Leukocyte Esterase (Negative) Urine Microscopic RBC (0-3) per hpf Urine Microscopic WBC (0-3) per hpf Ur Squamous Epith Cells (None-Few) per lpf Urine Bacteria (None-Few) per hpf Hyaline Casts (None-Few) per lpf Ur Culture Indicated? (NO) Ethyl Alcohol (Less than 10) mg/dL Specimen Rejected Hemolyzed 01/05/19 Range/Units 15:00 WBC (4.3-11.1) K/mcL RBC (3.82-4.97) M/mcL Hgb (11.5-15.4) g/dL Hct (35.3-44.9) % MCV (83.0-100.0) fL MCH (28.0-33.3) pg MCHC (31.6-35.5) g/dL RDW (11.5-14.5) % Plt Count (140-400) K/mcL MPV (9.4-12.4) fL Immature Gran % (0-4) % Seg Neutrophils % % Lymphocytes % % Monocytes % % Eosinophils % % Basophils % % Neutrophils # (1.6-8.9) K/mcL Lymphocytes # (0.6-4.6) K/mcL Monocytes # (0.0-1.3) K/mcL Eosinophils # (0.0-0.6) K/mcL Basophils # (0.0-0.2) K/mcL VBG pH 7.30 L (7.32-7.42) pH Units VBG pCO2 41 (41-51) mmHg VBG pO2 28 (25-50) mmHg VBG HCO3 20 L (21-27) mEq/L Sodium (136-145) mEq/L Potassium (3.5-5.1) mEq/L Chloride (98-107) mEq/L Carbon Dioxide (23-29) mEq/L BUN (6-20) mg/dL Creatinine (0.60-1.20) mg/dL Est GFR ( Amer) (> 60) Est GFR (Non-Af Amer) (> 60) BUN/Creatinine Ratio (6-26) Glucose (70-105) mg/dL POC Glucose (70-99) mg/dL Calculated Osmolality (280-300) Lactic Acid (0.5-2.2) mmol/L Calcium (8.6-10.3) mg/dL Magnesium (1.6-2.6) mg/dL Total Bilirubin (0.3-1.0) mg/dL Direct Bilirubin (0.0-0.2) mg/dL Indirect Bilirubin (0.0-1.2) mg/dL AST ALT (7-52) Units/L Alkaline Phosphatase (34-104) Units/L Troponin I (< 0.04) ng/mL Serum Total Protein (6.4-8.9) g/dL Albumin (3.5-5.7) g/dL Globulin (2.4-3.5) g/dL Albumin/Globulin Ratio (1.1-2.2) Lipase (11-82) Units/L Beta-Hydroxybutyric Acd (0.02-0.27) mmol/L Urine Color (Yellow) Urine Clarity (Clear) Urine pH (5.0-8.0) pH Units Ur Specific [place] (1.010-1.025) Urine Protein (Neg-Trace) mg/dL Urine Glucose (UA) (Normal) mg/dL Urine Ketones (Negative) mg/dL Urine Blood (Negative) Urine Nitrite (Negative) Urine Bilirubin (Negative) Urine Urobilinogen (Normal) mg/dL Ur Leukocyte Esterase (Negative) Urine Microscopic RBC (0-3) per hpf Urine Microscopic WBC (0-3) per hpf Ur Squamous Epith Cells (None-Few) per lpf Urine Bacteria (None-Few) per hpf Hyaline Casts (None-Few) per lpf Ur Culture Indicated? (NO) Ethyl Alcohol (Less than 10) mg/dL Specimen Rejected Attestation Statement - Attestation Attestation: I have seen this patient with the resident physician, I have personally evaluated this patient. I had reviewed the chart and document dictation by the resident physician and aM in agreement with the information documented by the resident physician. Please see documentation by the resident physician for complete chart including past medical history, family medical history, review of systems, current history and physical and laboratory and imaging studies. I was present for all procedures, provided direct supervision for all procedures, was present for the entirety of all procedures and provided direct guidance during the procedures. Please see documentation by the resident physician for any procedures performed. I have reviewed all interpretations of EKGs, and reviewed all EKGs performed on patient's as well. I have also reviewed reports of imaging as provided by radiology. Patient presented to the emergency department with several complaints. She states over last 3-4 days she has had progressively increasing nausea vomiting and diarrhea she states that the diarrhea started first then followed by nausea and vomiting now for 2 days she has had increasing epigastric pain and centralized chest pain. She states the chest pain reminds her of when she has had problems with her heart in the past. She states that she is also problems with her blood sugar in the past but reports she has been taking her blood sugar medications and does not know what her blood sugar has been running. The patient denies headache neck pain. She does endorse shortness of breath. She states she has a history of prior blood clots, states that she is actively on xarelto for this and has been able to take her medications and keep these down. She states that this does not remind her of when she had a blood clot in her lungs in the past. She has had no documented fever. She states the chest pain is central in nature and nonradiating sometimes feels sharp but also often feels like a pressure. She tried taking nitroglycerin which helps her for about 15-20 minutes but then her symptoms him back. She denies any black or bloody stool she denies recent antibiotic she denies travel out of the country she denies significant urinary changes she denies any peripheral edema unilateral or bilateral. She states she feels weak and rundown. Upon presentation, she was tachycardic with a heart rate around 140, sinus tachycardia on the monitor at 125 upon presentation to the room, EKG was a sinus tachycardia, no evidence of acute ST elevation, there was some nonspecific ST segment downsloping depression in the lateral leads, likely rate related to heart rate of 140, no evidence of significant acute ischemia, compared to prior EKG, the appearance of the lateral leads is not significantly different, very slight abnormality, likely rate related. Peak T waves. No other acute abnormality apart from sinus tachycardia on EKG as interpreted by myself. Fingerstick was checked and was 355. On physical examination she is alert oriented, she is to Make an tachycardic, appears uncomfortable but no active emesis but she is holding a emesis basin. Cranial nerves are grossly intact, mucous membranes are dry in appearance. Lungs are clear, heart is regular tachycardic no murmurs rubs or gallops. Mild to moderate epigastric tenderness, which is where the patient complains of most of her abdominal pain. There is no rebound guarding or peritoneal sign the abdomen is nondistended. Skin is warm and dry without rash or petechiae or jaundice. No significant peripheral edema no clubbing: Evidence of DVT. Patient chart was reviewed she does have a history of presenting very similar with problems with her blood sugar, where she has had ketosis and acidosis and history of both potential diabetic ketoacidosis as well as hyperosmolar state, she was given a 2 L bolus of lactated Ringer's, pain medication and nausea medication ordered, she had significant improvement in her symptoms even without these medications. CBC was within acceptable limits. Renal panel did not demonstrate any evidence of significant gap, she did have acute renal failure, with a creatinine of 1.61 up from 1.1 consistent with a 50% increase from previous although she has ranged as high as 2.2 in the past, her baseline is right around 1.1. Blood sugar was in the 300s. LFTs lipase were within acceptable limits. Lactic acid was mildly elevated at 2.9. VBG showed a normal pH of 7.36, however a repeat gas was obtained which showed slightly decreasing pH of 7.30. Serum ketones were negative urine ketones were negative urinalysis suggestive of a possible urinary tract infection, positive leukocytes negative nitrites, 35-50 white blood cells moderate bacteria but with many squamous cells. This was sent for a culture. Cardiac enzymes were negative. As above 2 L bolus of lactated Ringer's was initiated. Secondary to vital signs of systemic inflammatory response syndrome with tachycardia and tachypnea, with an elevated lactate and acute renal insufficiency, blood cultures were ordered and the patient was given IV Rocephin, for potential source of urine. Secondary to her abdominal pain and elevated lactate and symptoms, as well as her reported shortness of breath her chest x-ray showed no acute findings a CT noncontrast chest and pelvis was ordered to evaluate for any evidence of pneumonia not visualized by chest x-ray, as well as acute intra-abdominal process this showed evidence to suggest gastroenteritis, no other acute findings as interpreted by radiology in the chest abdomen or pelvis. Patient will be admitted to the hospital for further evaluation and management, her symptoms may all be related to gastroenteritis Dewayne contraction and dehydration, she has a long-standing history of coronary artery disease, has had stenting in the past and states that her chest pain felt like her prior heart, her enzymes are negative, her EKG does not show acute ischemia, this may all be also GI related, however she did have elevated lactate, and acute renal insufficiency as well, she will be admitted for further evaluation and management of findings suggestive of systemic inflammatory response syndrome, as well as for chest pain evaluation. Total critical care time as provided by myself excluding any procedures performed was 40 minutes.
[2019-01-05] MEDS ORDERED: *HR* OxyCODONE Immed Rel 5 MG TABLET PO PRN (18:00)
[2019-01-05] MEDS ORDERED: Acetaminophen 325 MG TABLET PO PRN (18:00)
[2019-01-05] MEDS ORDERED: Naloxone 0.4 MG/ML INJ IVP PRN (18:00)
[2019-01-05] MEDS ORDERED: Nitroglycerin 0.4 MG TAB.SUBL SL PRN (18:07)
[2019-01-05] MEDS ORDERED: Benzonatate 100 MG CAPSULE PO PRN (18:07)
[2019-01-05] MEDS ORDERED: *HR* Dextrose 50 % in Water (Syg) 50 ML SYRINGE IVP PRN (18:11)
[2019-01-05] MEDS ORDERED: Dextrose Gel 15 GM/37.5 ML TUBE PO PRN ×2 (18:11)
[2019-01-05] MEDS ORDERED: D5% in Water 1,000 ML IVC PRN (18:11)
--- NOTE | 2019-01-05 18:19 | Internal Med History&Physical ---
Date of Encounter: 01/05/19 Time of Encounter: 17:45 Internal Medicine - H&P: HPI Admitted From: Emergency Dept Plans for Post Hospital Care: Home History of present illness: Ms. Gannon is a 53 year old female with a past medical history significant for CAD, status post stent in April 2018, diabetes mellitus, hypertension, pulmonary embolism, presented to the emergency department because of the complaint of chest pain, midsternal, nonradiating, 8/10 intensity, dull, aggravated with exertion, no relieving factors, no associated nausea, vomiting, diaphoresis. Patient stated that chest pain started yesterday, but it was worse today. Patient denies shortness of breath, nausea, vomiting. She took aspirin and nitroglycerin at home but did not not give her any relief of the chest pain. So she decided to come to the hospital. In the ED, EKG was done which was negative for any ischemic changes. Troponin are normal. Patient also mentioned that she has been having severe diarrhea for last 5-6 days, watery, nonbloody, she has to go multiple times to the bathroom. Not associated with the food. Patient also with history of diabetes mellitus, taking 20 units of insulin Lantus at bedtime, 10 units of insulin aspart with meals 3 times a day. She has been compliant with her insulin regimen. Patient blood glucose levels were max vated in the emergency department. She was given IV fluids. Workup for the DKA was negative. There was mild lactic acidemia too. Other laboratory markers include elevated creatinine, UA concerning for UTI. Patient was given Rocephin for UTI. Patient denies dysuria, hematuria, noctuira, increased frequency. Patient was admitted under observation for further management. Past Med Surg Social Fam HX - Past Medical History Medical history: arthritis, asthma, COPD, coronary artery disease, diabetes, GERD, hyperlipidemia, hypertension, migraine, pulmonary embolus, renal disease, other Additional medical history: DEPRESSION,GLAUCOMA,SLEEP APNEA,Blindness R eye Psychiatric history: anxiety, bipolar, depression, panic disorder, previous psychiatric hospitalization - Past Surgical History Surgical History: cholecystectomy, herniorrhaphy, hysterectomy, orthopedic, other, other Additional surgical history: RIGHT ANKLE ORIF, LUMBAR BACK SURGERIES, HERNIA RE. [facility] WITH STENT 04-09-18, marty filter - Social History Smoking Status: Never smoker Smokeless Tobacco Status: No Alcohol use: none Drug use: none - Family History Father Hx Family Cardiac Disorders: Yes Mother Hx Family Cardiac Disorders: Yes (CABG) Hx Family Endocrine Disorder: Yes (Diabetes mellitus type 2) Hx Family Neurologic Disorders: Yes (mini strokes) Brother Hx Family Cardiac Disorders: Yes (pacer/defib) Hx Family Cancer: Yes (Various different cancers including a rectal cancer) Internal Medicine - H&P: Meds Atorvastatin Calcium [Lipitor] 80 mg PO DAILY 09/06/15 [History] Albuterol Sulfate [Proair Hfa] 2 puff IH Q4H PRN 11/11/16 [History] SUMAtriptan Succinate [Imitrex] 100 mg PO DAILY PRN 11/11/16 [History] risperiDONE [Risperidone] 2 mg PO HS 11/11/16 [History] Aspirin 81 mg PO DAILY 01/02/17 [History] Loratadine [Claritin] 10 mg PO DAILY PRN 01/02/17 [History] traZODone [TraZODone] 50 - 100 mg PO HS PRN 01/02/17 [History] Nitroglycerin [Nitrostat] 0.4 mg SL Q5M PRN 09/22/17 [History] Benzonatate [Tessalon] 100 mg PO TID PRN 05/08/18 [History] Cholecalciferol (D-3) [Vitamin D] 2,000 unit PO DAILY 05/08/18 [History] Clopidogrel [Plavix] 75 mg PO DAILY 05/08/18 [History] Insulin Glargine,Hum.rec.anlog [Basaglar Kwikpen U-100] 20 unit SQ HS 05/08/18 [History] Mometasone/Formoterol [Dulera 200 Mcg/5 Mcg Inhaler] 2 puff IH BID 05/08/18 [History] Naproxen [Naprosyn] 500 mg PO DAILY PRN 05/08/18 [History] Rivaroxaban [Xarelto] 20 mg PO DAILY 05/08/18 [History] Sertraline [Zoloft] 50 mg PO DAILY 05/08/18 [History] acetaZOLAMIDE [Diamox] 500 mg PO BID 05/08/18 [History] Omeprazole [PriLOSEC] 40 mg PO DAILY 05/21/18 [History] Metoprolol XL (24 HR) Succ [Toprol Xl] 100 mg PO DAILY 05/29/18 [History] Isosorbide MONOnitrate [Isosorbide Mononitrate ER] 120 mg PO DAILY 10/27/18 [History] Lisinopril/Hydrochlorothiazide [Zestoretic 20-25 mg Tablet] 1 tab PO DAILY 10/27/18 [History] Ranolazine [Ranexa] 500 mg PO BID 10/27/18 [History] Cyclobenzaprine [Flexeril] 10 mg PO TID 01/05/19 [History] Allergy/AdvReac Type Severity Reaction Status Date / Time cinnamon Allergy Anaphylaxis Verified 05/29/18 00:14 gabapentin Allergy Itching Verified 05/29/18 00:14 ibuprofen Allergy Hives Verified 05/29/18 00:14 Latex, Natural Rubber Allergy Itching Verified 05/29/18 00:14 naproxen [From Naprosyn] Allergy Itching Verified 05/29/18 00:14 All Systems PM: A 10-system review of systems was performed and is negative for pertinent findings except as documented above in the HPI. Review of systems: General: Negative for fever, chills, rigors. HEENT: Negative for swelling, discharge from nose, discharge from ears. EYES: Negative for any discharge from the eyes. Respiratory: Negative for shortness of breath, orthopnea, exertional dyspnea. Cardiovascular: See HPI Gastrintestical: See HPI Genitourinary: Negative for dysuria, hematuria, nocturia, increased frequency of urine. Hematological: Negative for blood loss, negative for active cancer. Neurological: Negative for headache, dizziness, blurry vision, loss os power and sensations. Endocrinology: Negative for constipation, polyuria, polydipsia. Psychiatric: Negative for anxiety or depression. - Constitutional Vitals: Temp Pulse Resp BP Pulse Ox 97.7 F 90 15 125/89 99 01/05/19 13:30 01/05/19 17:21 01/05/19 17:21 01/05/19 17:21 01/05/19 17:21 Exam: General: Alert and oriented, no physical distress, able to follow commands. HEENT: No thyromegaly, no lymphadenopathy, no discharge. Eyes: No discharge. Respiratory: Normal vesicular breathing, no added sounds, breathing equal in both sides. CVS: Normal heart sounds, no murmurs, no edema. Extremities: No peripheral edema, peripheral pulses intact. Lymph nodes: No lymphadenopathy Gastrointestinal: Soft, nontender abdomen, normal abdominal sounds. No distention noted. Genitourinary: No paravertebral tenderness. Neurological: Alert and oriented. No focal deficits. Cranial nerves II-XII intact. Internal Med - H&P Results - Labs CBC & Chem 7: 01/05/19 13:32 01/05/19 13:32 Labs: Short CBC 01/05/19 Range/Units 13:32 WBC 9.6 (4.3-11.1) K/mcL Hgb 13.6 (11.5-15.4) g/dL Hct 40.3 (35.3-44.9) % Plt Count 329 (140-400) K/mcL Neutrophils # 5.1 (1.6-8.9) K/mcL BMP 01/05/19 13:32 Sodium 136 Potassium 3.8 Chloride 104 Carbon Dioxide 17 L BUN 22 H Creatinine 1.66 H Glucose 380 H Calcium 10.5 H Cardiac Enzymes 01/05/19 Range/Units 13:32 Troponin I < 0.03 (< 0.04) ng/mL Liver Function 01/05/19 01/05/19 Range/Units 13:32 14:45 Total Bilirubin 0.6 (0.3-1.0) mg/dL Direct Bilirubin 0.1 (0.0-0.2) mg/dL AST TNP 15 ALT 19 (7-52) Units/L Alkaline Phosphatase 81 (34-104) Units/L Albumin 4.7 (3.5-5.7) g/dL Urine 01/05/19 Range/Units 14:37 Urine Color Yellow (Yellow) Urine Clarity Cloudy A (Clear) Urine pH 5.0 (5.0-8.0) pH Units Ur Specific [place] 1.023 (1.010-1.025) Urine Protein 100 H (Neg-Trace) mg/dL Urine Glucose (UA) >=1000 H (Normal) mg/dL - ABG Interpretation ABG results: 01/05/19 01/05/19 13:54 15:00 VBG pH 7.36 7.30 L VBG pCO2 29 L 41 VBG pO2 36 28 VBG HCO3 16 L 20 L - Impressions ITS Impressions Chest X-Ray 01/05/19 13:32 IMPRESSION: No acute findings. D/ / Bronson Courtney MD / Bronson Courtney MD Interpreting Provider: Bronson Courtney MD Abdomen/Pelvis CT 01/05/19 15:12 IMPRESSION: 1. Significant fluid identified throughout the small bowel and colon, most compatible with diarrhea as seen in enterocolitis. No transition point to suggest obstruction. 2. Normal appendix. 3. Status post hysterectomy and cholecystectomy. D/ / 01/05/2019 16:29:34 Juju Whiting MD / mely Interpreting Provider: Juju Whiting MD Chest CT 01/05/19 15:12 IMPRESSION: No acute intrathoracic abnormality. D/ / Sharmaine Meneses Cha, MD / Sharmaine Meneses Cha, MD Interpreting Provider: Sharmaine Meneses Cha, MD - Assessment and Plan (1) Chest pain Current Visit: Yes Status: Chronic Assessment and plan: Etiology is unclear. In context of normal troponin levels, no EKG changes, which it is likely to have acute ischemic event. Patient with multiple risk factors including hypertension, diabetes mellitus, hyperlipidemia, obesity. Patient had the stents last year. Plan: Repeat The troponin to rule out ACS. Ordered echocardiogram. Cardiology consult. Continue aspirin, statin, Plavix. Qualifiers: Chest pain type: unspecified Qualified Code(s): R07.9 - Chest pain, unspecified (2) Acute kidney injury superimposed on chronic kidney disease Current Visit: Yes Status: Acute Assessment and plan: Likely because of the dehydration. Patient has been given IV fluids in the ED Continue the patient on normal saline at 100 mL per hour. BMP tomorrow. (3) Dehydration Current Visit: Yes Status: Acute Assessment and plan: Likely because of the diarrhea. Treatment plan outlined above. (4) Diarrhea Current Visit: Yes Status: Acute Assessment and plan: Etiology unclear. CT scan concerning for enterocolitis. Order C. Diff Qualifiers: Diarrhea type: presumed infectious Qualified Code(s): R19.7 - Diarrhea, unspecified (5) Lactic acidosis Current Visit: Yes Status: Acute Assessment and plan: Likely because of the dehydration. Rpeat Lactic acid tomorrow morning. (6) DM type 2 (diabetes mellitus, type 2) Current Visit: No Status: Chronic Assessment and plan: Patient had hypoglycemia when she presented to the hospital. She was given IV fluids. Lab workup negative for diabetic ketoacidosis. Continue the patient on her home insulin regimen. Order low-dose sliding scale. 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 termite (current) use of insulin (7) History of pulmonary embolism Current Visit: No Status: Chronic Assessment and plan: Continue xarelto (8) Hyperlipidemia Current Visit: No Status: Chronic Assessment and plan: -Continue atorvastatin Qualifiers: Hyperlipidemia type: unspecified Qualified Code(s): E78.5 - Hyperlipidemia, unspecified (9) Hypertension Current Visit: No Status: Chronic Assessment and plan: -Continue home emds Qualifiers: Hypertension type: essential hypertension Qualified Code(s): I10 - Essential (primary) hypertension (10) Hypomagnesemia Current Visit: No Status: Resolved Assessment and plan: -Mag of 1.4 -Repleted with 1 g -Repeat the elves tomorrow (11) Metabolic acidosis Current Visit: Yes Status: Acute Assessment and plan: -VBG with the pH of 7.3 -Likely becasue of the lactic acidosis -No interventions (12) UTI (urinary tract infection) Current Visit: Yes Status: Acute Assessment and plan: -UA cocnerning for the UTI -No leucocytosis -pt asymtomatic -Awaiturine culture results -Continue ceftriaxone Qualifiers: Urinary tract infection type: site unspecified Hematuria presence: without hematuria Qualified Code(s): N39.0 - Urinary tract infection, site not specified - Time Spent With Patient Total time spent is greater than 50% in coordination of care (as documented) at patient's floor/unit and/or counseling patient: - VTE Reasons for not Prescribing Prophylaxis: Not indicated-Anticoagulated or INR therapeutic
[2019-01-05] MEDS ORDERED: Perflutren Lipid Microsphere 1.3 ML in 0.9 % Sodium Chloride 8.7 ML IVP ONE (18:27)
[2019-01-05] MEDS: risperiDONE 1 MG TABLET PO SCH (21:39)
[2019-01-05] MEDS: Ranolazine 500 MG TAB.ER.12H PO SCH (21:39)
[2019-01-05] MEDS: Insulin LISPRO 300 UNITS/3 ML VIAL SQ SCH (21:41)
[2019-01-05] MEDS: Ringers Solution, Lactated 1,000 ML IVC SCH (21:41)
[2019-01-05] MEDS: Budesonide/Formoterol 160/4.5 1 PUFF INH IH SCH (21:52)
[2019-01-05] MEDS: Insulin DETEMIR 100 UNIT/ML X5UNITS SQ SCH (22:44)
[2019-01-06 05:29] LABS: Basophils % 0.3 %; Eosinophils # 0.2 K/mcL (0.0-0.6); Eosinophils % 3.2 %; Hematocrit 30.2 % (35.3-44.9); Immature Granulocytes % 0.3 % (0-4); Lymphocytes # 3.2 K/mcL (0.6-4.6); Lymphocytes % 45.8 %; Mean Corpuscular HGB Conc 32.8 g/dL (31.6-35.5); Mean Corpuscular Hemoglobin 29.8 pg (28.0-33.3); Mean Platelet Volume 9.9 fL (9.4-12.4); Monocytes # 0.4 K/mcL (0.0-1.3); Monocytes % 6.3 %; Neutrophils # 3.1 K/mcL (1.6-8.9); Platelet Count 232 K/mcL (140-400); Red Blood Count 3.32 M/mcL (3.82-4.97); Red Cell Distribution Width 12.3 % (11.5-14.5); Segmented Neutrophils % 44.1 %
[2019-01-06 05:30] LABS: Hemoglobin 9.9 g/dL (11.5-15.4)
[2019-01-06 05:41] LABS: Calcium 8.7 mg/dL (8.6-10.3); Magnesium 1.5 mg/dL (1.6-2.6); Potassium 3.2 mEq/L (3.5-5.1)
[2019-01-06] MEDS: Budesonide/Formoterol 160/4.5 1 PUFF INH IH SCH ×2 (07:11→21:16)
[2019-01-06] MEDS ORDERED: Insulin LISPRO 300 UNITS/3 ML VIAL SQ SCH (07:30)
[2019-01-06] MEDS: Ringers Solution, Lactated 1,000 ML IVC SCH (09:28)
[2019-01-06] MEDS: Metoprolol XL (24 HR) Succ 50 MG TAB.ER.24H PO SCH (09:30)
[2019-01-06] MEDS: Isosorbide MONOnitrate (24 HR) 60 MG TAB.ER.24H PO SCH (09:30)
[2019-01-06] MEDS: Cholecalciferol (D-3) 1,000 UNIT (25MCG) TABLET PO SCH (09:30)
[2019-01-06] MEDS: Aspirin 81 MG TAB.CHEW PO SCH (09:30)
[2019-01-06] MEDS: Ranolazine 500 MG TAB.ER.12H PO SCH ×2 (09:30→21:19)
[2019-01-06] MEDS: *HR* Rivaroxaban 10 MG TABLET PO SCH (09:30)
[2019-01-06] MEDS: Insulin LISPRO 300 UNITS/3 ML VIAL SQ SCH ×6 (09:31→16:26)
--- NOTE | 2019-01-06 13:02 | Cardiology Consult Note ---
<Chao Wilson Marilyn - Last Filed: 01/06/19 13:15> Date of Encounter: 01/06/19 Time of Encounter: 13:00 Assessment and Plan (1) Atypical chest pain Current Visit: No Status: Acute Reproducible chest pain associated with low back pain. EKG SR with no acute ST changes. Troponin negative. Appears to be muscle-skeletal. There may be some anginal component with known CAD. Pt also ran out of Ranexa two weeks ago. Recommend restarting. Continue im dur. TTE shows LVEF 60%. Normal LV chamber size, wall thickness and function. Mild left ventricular diastolic dysfunction. Normal right ventricular structure and function. No evidence of pulmonary hypertension. No significant valvular dysfunction. No further cardiac testing at this time. Out-pt f/u with Dr. Uribe will be coordinated. Also recommended to establish with a PCP. (2) CAD (coronary artery disease) Current Visit: No Status: Chronic H/o CAD with PCI to RCA 02/2018. LHC at that time showed severe stenosis in the pRCA. [place] to pRCA Unsuccessful PTCA to the 70% stenosed RPL. Continue asa, brilinta, statin, bb, and imdur. Restart ranexa. Qualifiers: Coronary Disease-Associated Artery/Lesion type: [place] artery [place] vs. transplanted heart: [place] heart Associated angina: without angina Qualified Code(s): I25.10 - Atherosclerotic heart disease of [place] coronary artery without angina pectoris Discussion w patient/family: The assessment and plan as outlined above was discussed with the patient and/or family members who expressed understanding and agreement. All questions were answered. Thank you for involving us in the care of your patient. Please call with any questions. History of Present Illness Consult date: 01/06/19 Requesting physician: Ene Maloney Consult reason: chest pain Chief complaint: chest and back pain History of present illness: Ms. Gannon is a 53 year old female with past medical history of CAD s/p PCI 04/2018, HTN, DM, HLD who presents with c/o low back pain radiating like a band like pressure to her abdomen associated with left sided chest pain and neck pain. Pain ongoing for four days. Symptoms are not like her previous angina. States that the pain is more severe. She did take SL NTG with some relief of chest pain. She also notes that she ran out of her Ranexa 2 weeks ago. Past Med Surg Social Fam HX - Past Medical History Medical history: arthritis, asthma, COPD, coronary artery disease, diabetes, GERD, hyperlipidemia, hypertension, migraine, pulmonary embolus, renal disease, other Additional medical history: fibromyalgia Psychiatric history: anxiety, bipolar, depression, panic disorder, previous psychiatric hospitalization - Past Surgical History Surgical History: cholecystectomy, herniorrhaphy, hysterectomy, orthopedic, other, other Additional surgical history: RIGHT ANKLE ORIF, LUMBAR BACK SURGERIES, HERNIA RE. [facility] WITH STENT 04-09-18, marty filter - Social History Smoking Status: Never smoker Smokeless Tobacco Status: No Alcohol use: rarely Drug use: none - Family History Father Hx Family Cardiac Disorders: Yes Mother Hx Family Cardiac Disorders: Yes (CABG) Hx Family Endocrine Disorder: Yes (Diabetes mellitus type 2) Hx Family Neurologic Disorders: Yes (mini strokes) Brother Hx Family Cardiac Disorders: Yes (pacer/defib) Hx Family Cancer: Yes (Various different cancers including a rectal cancer) Medications and Allergies Atorvastatin Calcium [Lipitor] 80 mg PO DAILY 09/06/15 [History] Albuterol Sulfate [Proair Hfa] 2 puff IH Q4H PRN 11/11/16 [History] SUMAtriptan Succinate [Imitrex] 100 mg PO DAILY PRN 11/11/16 [History] risperiDONE [Risperidone] 2 mg PO HS 11/11/16 [History] Aspirin 81 mg PO DAILY 01/02/17 [History] Loratadine [Claritin] 10 mg PO DAILY PRN 01/02/17 [History] traZODone [TraZODone] 50 - 100 mg PO HS PRN 01/02/17 [History] Nitroglycerin [Nitrostat] 0.4 mg SL Q5M PRN 09/22/17 [History] Benzonatate [Tessalon] 100 mg PO TID PRN 05/08/18 [History] Cholecalciferol (D-3) [Vitamin D] 2,000 unit PO DAILY 05/08/18 [History] Clopidogrel [Plavix] 75 mg PO DAILY 05/08/18 [History] Insulin Glargine,Hum.rec.anlog [Basaglar Kwikpen U-100] 20 unit SQ HS 05/08/18 [History] Mometasone/Formoterol [Dulera 200 Mcg/5 Mcg Inhaler] 2 puff IH BID 05/08/18 [History] Naproxen [Naprosyn] 500 mg PO DAILY PRN 05/08/18 [History] Rivaroxaban [Xarelto] 20 mg PO DAILY 05/08/18 [History] Sertraline [Zoloft] 50 mg PO DAILY 05/08/18 [History] acetaZOLAMIDE [Diamox] 500 mg PO BID 05/08/18 [History] Omeprazole [PriLOSEC] 40 mg PO DAILY 05/21/18 [History] Metoprolol XL (24 HR) Succ [Toprol Xl] 100 mg PO DAILY 05/29/18 [History] Isosorbide MONOnitrate [Isosorbide Mononitrate ER] 120 mg PO DAILY 10/27/18 [History] Lisinopril/Hydrochlorothiazide [Zestoretic 20-25 mg Tablet] 1 tab PO DAILY 10/27/18 [History] Ranolazine [Ranexa] 500 mg PO BID 10/27/18 [History] Cyclobenzaprine [Flexeril] 10 mg PO TID PRN 01/05/19 [History] Allergy/AdvReac Type Severity Reaction Status Date / Time cinnamon Allergy Anaphylaxis Verified 05/29/18 00:14 gabapentin Allergy Itching Verified 05/29/18 00:14 ibuprofen Allergy Hives Verified 05/29/18 00:14 Latex, Natural Rubber Allergy Itching Verified 05/29/18 00:14 naproxen [From Naprosyn] Allergy Itching Verified 05/29/18 00:14 All Systems Review: The remainder of the systems were reviewed and are negative Physical Examination Vital Signs, Last 4 Hours Temp Pulse Resp BP Pulse Ox 01/06/19 11:26 97.5 F L 84 14 158/102 97 01/06/19 10:42 97.5 F L 82 16 139/89 99 General: Conversant, No Apparent Distress HEENT: Atraumatic, Normocephaly, Mucus Membranes Moist Neck: No JVD, Normal carotid pulses Cardiac: Reg Rate and Rhythm, Normal S1 and S2, No Murmur Lungs: Normal Breath Sounds, No Wheeze, Rales, Rhonchi Neuro: Alert and responsive, No focal deficits noted Abdomen: Soft, Non-Tender Skin: No rashes noted on visualized skin Musculoskeletal: No Chest Wall Tenderness Extremities: No Clubbing, No Cyanosis, No Edema, Normal Pulses Results 01/06/19 04:42 01/06/19 04:42 Lab Results 01/05/19 01/05/19 01/05/19 13:32 13:32 14:45 WBC 9.6 Hgb 13.6 Hct 40.3 Plt Count 329 Sodium 136 Potassium 3.8 Chloride 104 Carbon Dioxide 17 L BUN 22 H Creatinine 1.66 H Glucose 380 H Calcium 10.5 H Magnesium 1.4 L Total Bilirubin 0.6 AST TNP 15 ALT 19 Alkaline Phosphatase 81 Troponin I < 0.03 Lipase 45 01/05/19 01/06/19 01/06/19 21:08 04:42 04:42 WBC 7.0 Hgb 9.9 L D Hct 30.2 L Plt Count 232 Sodium 140 Potassium 3.2 L Chloride 112 H Carbon Dioxide 21 L BUN 21 H Creatinine 1.29 H Glucose 98 Calcium 8.7 Magnesium 1.5 L Total Bilirubin AST ALT Alkaline Phosphatase Troponin I < 0.03 Lipase - Imaging and Cardiology Echo: report reviewed Cardiac cath: report reviewed - EKG Interpretation EKG results cardiology: personally reviewed Consult Discharge Plan - Plan Referrals: NONE,PCP [Primary Care Provider] - <Jay Marie - Last Filed: 01/06/19 16:17> Date of Encounter: 01/06/19 - Attending Attestation I have personally performed a face to face evaluation on this patient. I have reviewed and agree with the documented findings and care plan as documented by the TEMPERATURE REGULATOR PYROMETER. History and Exam by me shows: 53-year-old female with history of CAD presents with atypical chest pain which is reproducible on palpation. Ran out of Ranexa in the last 2 weeks AAOX3 in NAD at the bedside Hemodynamically stable Cardiopulmonary exam revealed S1, S2, no murmur; clear lungs. Reproducible chest pain left upper chest wall Rhythm reviewed - sinus rhythm, no acute ST T changes Echo preserved EF, no significant valvular heart disease Impression/plan: Atypical chest pain/ CAD - Recommends Ranexa 500 mg twice a day in addition to Imdur 120 mg daily. Dorota nue aspirin, plavix. Statin - Follow up as outpatient - Needs a PCP Jay Tam MD [facility] Assessment and Plan Discussion w patient/family: The assessment and plan as outlined above was discussed with the patient and/or family members who expressed understanding and agreement. All questions were answered. Thank you for involving us in the care of your patient. Please call with any questions. History of Present Illness History of present illness: Ms. Gannon is a 53 year old female All Systems Review: The remainder of the systems were reviewed and are negative Physical Examination Vital Signs, Last 4 Hours Temp Pulse Resp BP Pulse Ox 01/06/19 16:02 97.8 F 71 16 128/82 98 Results 01/06/19 04:42 01/06/19 04:42 Lab Results 01/05/19 01/06/19 01/06/19 21:08 04:42 04:42 WBC 7.0 Hgb 9.9 L D Hct 30.2 L Plt Count 232 Sodium 140 Potassium 3.2 L Chloride 112 H Carbon Dioxide 21 L BUN 21 H Creatinine 1.29 H Glucose 98 Calcium 8.7 Magnesium 1.5 L Troponin I < 0.03
[2019-01-06] MEDS ORDERED: cefTRIAXone 1,000 MG in Water for inj. (sterile) 10 ML IVP SCH (16:00)
--- NOTE | 2019-01-06 16:36 | Internal Med Progress Note ---
Hospitalist Progress Note - Encounter Date of Encounter: 01/06/19 Time of Encounter: 11:15 - Subjective Interval History: Seen at bedside. Deneis chest pain, sob. Reports that her diarrhea is resolvinh. Deneis dysuria, or increased frequency. no overnight evetns. Is feeling overall okay. - Exam Vitals: Temp Pulse Resp BP Pulse Ox 97.8 F 71 16 128/82 98 01/06/19 16:02 01/06/19 16:02 01/06/19 16:02 01/06/19 16:02 01/06/19 16:02 Exam: General: Alert and oriented, no physical distress, able to follow commands. Respiratory: Normal vesicular breathing, no added sounds, breathing equal in both sides. CVS: Normal heart sounds, no murmurs, no edema. Extremities: No peripheral edema, peripheral pulses intact. Lymph nodes: No lymphadenopathy Gastrointestinal: Soft, nontender abdomen, normal abdominal sounds. No distention noted. Genitourinary: No paravertebral tenderness. Neurological: Alert and oriented. No focal deficits. Cranial nerves II-XII int act. - Assessment and Plan (1) Chest pain Current Visit: Yes Status: Chronic Assessment and Plan: Likely musculoskeltal EKG with no cahnegs -Tropnins normal -Echo with no wall motiona bnormalities. -Cardiolgoy on baord. Appreciate recomemdmations. Continue aspirin, statin, Plavix. (2) Acute kidney injury superimposed on chronic kidney disease Current Visit: Yes Status: Acute Assessment and Plan: Likely because of the dehydration. Patient has been given IV fluids in the ED -IV fluids stopped now -Appreciate oral intake -repeat BMP tomorrow. (3) Dehydration Current Visit: Yes Status: Acute Assessment and Plan: Likely because of the diarrhea. Treatment plan outlined above. (4) Diarrhea Current Visit: Yes Status: Acute Assessment and Plan: Resolving -C. Diff negative -Likely viral -No intervetnions (5) Lactic acidosis Current Visit: Yes Status: Acute Assessment and Plan: Likely because of the dehydration. No interventions (6) DM type 2 (diabetes mellitus, type 2) Current Visit: No Status: Chronic Assessment and Plan: Patient had hyperglycemia when she presented to the hospital. She was given IV fluids. Lab workup negative for diabetic ketoacidosis. Continue the patient on her home insulin regimen. Order low-dose sliding scale. (7) History of pulmonary embolism Current Visit: No Status: Chronic Assessment and Plan: Continue xarelto (8) Hyperlipidemia Current Visit: No Status: Chronic Assessment and Plan: -Continue atorvastatin (9) Hypertension Current Visit: No Status: Chronic Assessment and Plan: -Continue home emds (10) Hypomagnesemia Current Visit: No Status: Resolved Assessment and Plan: -Mag of 1.5 -Repleted with 1 g -Repeat the elves tomorrow (11) Metabolic acidosis Current Visit: Yes Status: Acute Assessment and Plan: -VBG with the pH of 7.3 -Likely becasue of the lactic acidosis -No interventions (12) UTI (urinary tract infection) Current Visit: Yes Status: Acute Assessment and Plan: -UA cocnerning for the UTI -Cultures hsowed mixed organsism -Pt withpout any symtoms. -Await blood culures. -D/C antibioitcs - Time Spent with Patient Total time spent is greater than 50% in coordination of care (as documented) at patient's floor/unit and/or counseling patient: Internal Medicine: Result - Labs CBC & Chem 7: 01/06/19 04:42 01/06/19 04:42 Labs: Short CBC 01/06/19 Range/Units 04:42 WBC 7.0 (4.3-11.1) K/mcL Hgb 9.9 L D (11.5-15.4) g/dL Hct 30.2 L (35.3-44.9) % Plt Count 232 (140-400) K/mcL Neutrophils # 3.1 (1.6-8.9) K/mcL BMP 01/06/19 04:42 Sodium 140 Potassium 3.2 L Chloride 112 H Carbon Dioxide 21 L BUN 21 H Creatinine 1.29 H Glucose 98 Calcium 8.7 Cardiac Enzymes 01/05/19 Range/Units 21:08 Troponin I < 0.03 (< 0.04) ng/mL - Impressions Impressions Abdomen/Pelvis CT 01/05/19 15:12 IMPRESSION: 1. Significant fluid identified throughout the small bowel and colon, most compatible with diarrhea as seen in enterocolitis. No transition point to suggest obstruction. 2. Normal appendix. 3. Status post hysterectomy and cholecystectomy. D/ /05/2019 16:29:34 Juju Whiting MD / mely Interpreting Provider: Juju Whiting MD Echocardiogram 01/05/19 18:03 Impressions: LVEF 60%. Normal LV chamber size, wall thickness and function. Mild left ventricular diastolic dysfunction. Normal right ventricular structure and function. No evidence of pulmonary hypertension. No significant valvular dysfunction. Left Ventricular Wall Motion: Rest Echo Findings All wall segments showed normal motion. Findings: Study Quality * Technically adequate exam. ECG Findings * Normal sinus rhythm. Left Ventricle * LVEF 60%. * Normal LV chamber size, wall thickness and function. * Mild left ventricular diastolic dysfunction. Right Ventricle * Normal right ventricular structure and function. Left Atrium * Mildly dilated left atrium. Right Atrium * Normal right atrial size. Interatrial Septum * Interatrial septum not well evaluated. Aortic Valve * Trileaflet aortic valve with normal function. * No aortic regurgitation. * No aortic stenosis. Mitral Valve * Normal mitral valve structure and function. * No mitral regurgitation. * No mitral stenosis. Tricuspid Valve * Normal tricuspid valve structure and function. * Trace tricuspid regurgitation. * No evidence of pulmonary hypertension. Pulmonic Valve * Normal pulmonic valve structure and function. * Trace pulmonic regurgitation. Aorta * Normally sized aortic root. Pericardium * The pericardium appears normal. IVC * Normal IVC dimensions and inspiratory collapse. Pulmonary Artery * Normal visualized portions of the main pulmonary artery. 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 Diabetes mellitus complication status: with kidney complications Diabetes mellitus complication detail: with chronic kidney disease Chronic kidney disease stage: unspecified stage Qualified Code(s): E11.22 - Type 2 diabetes mellitus with diabetic chronic kidney disease; Z79.4 - penitentiary (current) use of insulin (8) Hyperlipidemia Qualifiers: Hyperlipidemia type: unspecified Qualified Code(s): E78.5 - Hyperlipidemia, unspecified (9) Hypertension Qualifiers: Hypertension type: essential hypertension Qualified Code(s): I10 - Essential (primary) hypertension (12) UTI (urinary tract infection) Qualifiers: Urinary tract infection type: site unspecified Hematuria presence: without hematuria Qualified Code(s): N39.0 - Urinary tract infection, site not specified
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
[2019-01-06] MEDS: risperiDONE 1 MG TABLET PO SCH (21:19)
[2019-01-06] MEDS: Insulin DETEMIR 100 UNIT/ML X5UNITS SQ SCH (21:20)
[2019-01-07 05:17] LABS: Basophils % 0.3 %; Eosinophils # 0.2 K/mcL (0.0-0.6); Eosinophils % 3.3 %; Hematocrit 27.3 % (35.3-44.9); Hemoglobin 8.9 g/dL (11.5-15.4); Immature Granulocytes % 0.1 % (0-4); Lymphocytes # 2.8 K/mcL (0.6-4.6); Lymphocytes % 41.9 %; Mean Corpuscular HGB Conc 32.6 g/dL (31.6-35.5); Mean Corpuscular Hemoglobin 29.5 pg (28.0-33.3); Mean Corpuscular Volume 90.4 fL (83.0-100.0); Mean Platelet Volume 9.9 fL (9.4-12.4); Monocytes # 0.5 K/mcL (0.0-1.3); Monocytes % 7.2 %; Neutrophils # 3.2 K/mcL (1.6-8.9); Platelet Count 221 K/mcL (140-400); Red Blood Count 3.02 M/mcL (3.82-4.97); Red Cell Distribution Width 12.3 % (11.5-14.5); Segmented Neutrophils % 47.2 %; White Blood Count 6.7 K/mcL (4.3-11.1)
[2019-01-07 05:33] LABS: Calcium 8.6 mg/dL (8.6-10.3); Magnesium 1.4 mg/dL (1.6-2.6); Potassium 3.6 mEq/L (3.5-5.1)
[2019-01-07] MEDS: Budesonide/Formoterol 160/4.5 1 PUFF INH IH SCH (07:27)
[2019-01-07] MEDS: Insulin LISPRO 300 UNITS/3 ML VIAL SQ SCH ×4 (10:17→11:55)
[2019-01-07] MEDS: Aspirin 81 MG TAB.CHEW PO SCH (10:18)
[2019-01-07] MEDS: Cholecalciferol (D-3) 1,000 UNIT (25MCG) TABLET PO SCH (10:18)
[2019-01-07] MEDS: Metoprolol XL (24 HR) Succ 50 MG TAB.ER.24H PO SCH (10:19)
[2019-01-07] MEDS: Ranolazine 500 MG TAB.ER.12H PO SCH (10:19)
[2019-01-07] MEDS: Isosorbide MONOnitrate (24 HR) 60 MG TAB.ER.24H PO SCH (10:19)
[2019-01-07] MEDS: *HR* Rivaroxaban 10 MG TABLET PO SCH (10:19)
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
[2019-01-07 11:28] VITALS: BP 118/79
--- NOTE | 2019-01-08 23:07 | Electrocardiograph Report ---
[facility] Test Date: 2019-01-05 Pat Name: Kathy Gannon Department: 104 Room: Gender: F Fullerette: Arik : 1965 Requested By: Haim Tapia Order Number: [id number] Reading MD: Jessee Jones Measurements Intervals [place] Rate: 140 P: 63 TX: 139 QRS: 36 QRSD: 85 T: 69 QT: 286 QTc: 367 Interpretive Statements SINUS TACHYCARDIA, POSSIBLE ATRIAL FLUTTER NONSPECIFIC ST & T-WAVE ABNORMALITY ABNORMAL RHYTHM ECG Electronically Signed On 01-08-2019 23:06:30 EDT by Jessee Jones
== END 2019-01-07 13:25 | disposition home or self-care (01) ==
LOC: 2ANU 13:16 → EMEROOARM 13:16 → SUATTDRO 18:44 → 2ANU 18:56
PROVIDERS: ADMIT Internal Medicine; ATTEND Internal Medicine

== ENCOUNTER 2019-03-16 14:19 | Inpatient (IN) ==
[2019-03-16 16:30] LABS: Basophils % 0.3 %; Eosinophils # 0.2 K/mcL (0.0-0.6); Eosinophils % 2.9 %; Hematocrit 34.4 % (35.3-44.9); Hemoglobin 11.4 g/dL (11.5-15.4); Immature Granulocytes % 0.3 % (0-4); Lymphocytes # 3.2 K/mcL (0.6-4.6); Lymphocytes % 45.7 %; Mean Corpuscular HGB Conc 33.1 g/dL (31.6-35.5); Mean Corpuscular Hemoglobin 29.2 pg (28.0-33.3); Mean Corpuscular Volume 88.2 fL (83.0-100.0); Mean Platelet Volume 9.7 fL (9.4-12.4); Monocytes # 0.5 K/mcL (0.0-1.3); Monocytes % 7.8 %; Platelet Count 279 K/mcL (140-400); Red Cell Distribution Width 12.1 % (11.5-14.5); White Blood Count 6.9 K/mcL (4.3-11.1)
[2019-03-16 16:33] LABS: Bilirubin,Urine Negative (Negative); Blood,Urine Negative (Negative); Clarity,Urine Clear (Clear); Color,Urine Yellow (Yellow); Glucose,Urine (UA) >=1000 mg/dL (Normal); Ketones,Urine Negative (Negative); Leukocyte Esterase,Urine Negative (Negative); Nitrite,Urine Negative (Negative); PH,Urine 5.5 pH Units (5.0-8.0); Protein,Urine >=300 mg/dL (Neg-Trace); Specific Gravity,Urine 1.028 (1.010-1.025); Urobilinogen,Urine Normal (Normal)
[2019-03-16 16:37] LABS: Bacteria,Urine None Seen per hpf (None-Few); Hyaline Casts,Urine None Seen per lpf (None-Few); RBC,Urine 0-3 per hpf (0-3); Squamous Epithelial Cell,Urine Many per lpf (None-Few)
[2019-03-16 16:48] LABS: Alanine Aminotransferase 13 Units/L (7-52); Alkaline Phosphatase 82 Units/L (34-104); Aspartate Amino Transferase 15 Units/L (13-39); Bilirubin,Total 0.6 mg/dL (0.3-1.0); Blood Urea Nitrogen 17 mg/dL (6-20); Calcium 9.5 mg/dL (8.6-10.3); Carbon Dioxide 26 mEq/L (23-29); Chloride 99 mEq/L (98-107); Creatine Kinase 170 Units/L (30-223); Globulin 4.1 g/dL (2.4-3.5); Glucose 352 mg/dL (70-105); Magnesium 1.1 mg/dL (1.6-2.6); Osmolality,Calculated 290 (280-300); Potassium 3.9 mEq/L (3.5-5.1); Sodium 132 mEq/L (136-145); Total Protein 8.1 g/dL (6.4-8.9); Troponin I < 0.03 ng/mL (< 0.04)
[2019-03-16] MEDS ORDERED: *HR* OxyCODONE/APAP 5/325 TABLET PO ONE (17:08)
[2019-03-16 17:29] LABS: BUN/Creatinine Ratio 18 (6-26); eGFR For African Americans > 60 (> 60); eGFR For Non-African Americans > 60 (> 60)
[2019-03-16] MEDS ORDERED: predniSONE 20 MG TABLET PO ONE (19:13)
[2019-03-16] MEDS ORDERED: Ondansetron 4 MG/2 ML VIAL IVP PRN (22:36)
[2019-03-16] MEDS ORDERED: Naloxone 0.4 MG/ML INJ IVP PRN (22:36)
[2019-03-16] MEDS ORDERED: Budesonide/Formoterol 160/4.5 1 PUFF INH IH PRN (22:40)
[2019-03-16] MEDS ORDERED: Benzonatate 100 MG CAPSULE PO PRN (22:40)
[2019-03-16] MEDS ORDERED: Nitroglycerin 0.4 MG TAB.SUBL SL PRN (22:40)
[2019-03-16] MEDS ORDERED: traZODone 50 MG TABLET PO PRN (22:42)
[2019-03-16] MEDS ORDERED: *HR* Dextrose 50 % in Water (Syg) 50 ML SYRINGE IVP PRN (22:44)
[2019-03-16] MEDS ORDERED: D5% in Water 1,000 ML IVC PRN (22:44)
[2019-03-16] MEDS ORDERED: Dextrose Gel 15 GM/37.5 ML TUBE PO PRN ×2 (22:44)
[2019-03-16] MEDS: *HR* OxyCODONE Immed Rel 5 MG TABLET PO PRN (23:09)
[2019-03-16] MEDS: Insulin DETEMIR 100 UNIT/ML X5UNITS SQ SCH (23:16)
[2019-03-17] MEDS: Insulin LISPRO 300 UNITS/3 ML VIAL SQ SCH ×6 (00:20→20:14)
[2019-03-17 02:34] LABS: Hematocrit 32.7 % (35.3-44.9); Mean Corpuscular HGB Conc 33.6 g/dL (31.6-35.5); Mean Corpuscular Hemoglobin 29.6 pg (28.0-33.3); Mean Corpuscular Volume 88.1 fL (83.0-100.0); Mean Platelet Volume 9.7 fL (9.4-12.4); Platelet Count 263 K/mcL (140-400); Red Blood Count 3.71 M/mcL (3.82-4.97); White Blood Count 6.2 K/mcL (4.3-11.1)
[2019-03-17 02:58] LABS: BUN/Creatinine Ratio 18 (6-26); Blood Urea Nitrogen 19 mg/dL (6-20); Calcium 9.1 mg/dL (8.6-10.3); Carbon Dioxide 23 mEq/L (23-29); Chloride 100 mEq/L (98-107); Glucose 251 mg/dL (70-105); Osmolality,Calculated 287 (280-300); Potassium 3.8 mEq/L (3.5-5.1); Sodium 133 mEq/L (136-145); eGFR For African Americans > 60 (> 60); eGFR For Non-African Americans 56 (> 60)
[2019-03-17] MEDS: *HR* OxyCODONE Immed Rel 5 MG TABLET PO PRN (07:52)
[2019-03-17] MEDS: Metoprolol XL (24 HR) Succ 50 MG TAB.ER.24H PO SCH (07:53)
[2019-03-17] MEDS: *HR* Rivaroxaban 10 MG TABLET PO SCH (07:53)
[2019-03-17] MEDS: Cholecalciferol (D-3) 1,000 UNIT (25MCG) TABLET PO SCH (07:53)
[2019-03-17] MEDS: Isosorbide MONOnitrate (24 HR) 60 MG TAB.ER.24H PO SCH (07:53)
[2019-03-17] MEDS: Aspirin 81 MG TAB.CHEW PO SCH (07:53)
[2019-03-17] MEDS: Ranolazine 500 MG TAB.ER.12H PO SCH ×2 (07:53→20:16)
[2019-03-17 11:32] LABS: Thyroid Stimulating Hormone 0.669 mcIU/mL (0.340-5.600)
[2019-03-17] MEDS: Insulin DETEMIR 100 UNIT/ML X5UNITS SQ SCH (20:15)
[2019-03-17] MEDS: risperiDONE 1 MG TABLET PO SCH (20:16)
[2019-03-18] MEDS: Insulin LISPRO 300 UNITS/3 ML VIAL SQ SCH ×6 (00:06→21:50)
[2019-03-18] MEDS: Aspirin 81 MG TAB.CHEW PO SCH (08:49)
[2019-03-18] MEDS: Isosorbide MONOnitrate (24 HR) 60 MG TAB.ER.24H PO SCH (08:49)
[2019-03-18] MEDS: Cholecalciferol (D-3) 1,000 UNIT (25MCG) TABLET PO SCH (08:50)
[2019-03-18] MEDS: *HR* Rivaroxaban 10 MG TABLET PO SCH (08:50)
[2019-03-18] MEDS: Ranolazine 500 MG TAB.ER.12H PO SCH ×2 (08:50→20:33)
[2019-03-18] MEDS: Metoprolol XL (24 HR) Succ 50 MG TAB.ER.24H PO SCH (08:50)
[2019-03-18 09:27] LABS: Basophils % 0.1 %; Eosinophils # 0.1 K/mcL (0.0-0.6); Eosinophils % 1.3 %; Hematocrit 29.5 % (35.3-44.9); Hemoglobin 9.8 g/dL (11.5-15.4); Immature Granulocytes % 0.2 % (0-4); Lymphocytes % 45.7 %; Mean Corpuscular HGB Conc 33.2 g/dL (31.6-35.5); Mean Corpuscular Hemoglobin 30.1 pg (28.0-33.3); Mean Corpuscular Volume 90.5 fL (83.0-100.0); Monocytes # 0.6 K/mcL (0.0-1.3); Monocytes % 5.9 %; Platelet Count 231 K/mcL (140-400); Red Blood Count 3.26 M/mcL (3.82-4.97); Red Cell Distribution Width 12.4 % (11.5-14.5); Segmented Neutrophils % 46.8 %
[2019-03-18 09:32] LABS: Lymphocytes # 4.3 K/mcL (0.6-4.6); Neutrophils # 4.4 K/mcL (1.6-8.9); White Blood Count 9.3 K/mcL (4.3-11.1)
[2019-03-18 09:42] LABS: Calcium 8.7 mg/dL (8.6-10.3); Potassium 3.8 mEq/L (3.5-5.1)
[2019-03-18] MEDS ORDERED: 0.9 % Sodium Chloride 500 ML IVC SCH (10:30)
[2019-03-18] MEDS ORDERED: 0.9 % Sodium Chloride 1,000 ML IVC SCH (17:06)
[2019-03-18] MEDS: risperiDONE 1 MG TABLET PO SCH (20:32)
[2019-03-18] MEDS: Insulin DETEMIR 100 UNIT/ML X5UNITS SQ SCH (21:50)
[2019-03-19 01:27] LABS: Basophils % 0.3 %; Eosinophils # 0.2 K/mcL (0.0-0.6); Eosinophils % 2.2 %; Hemoglobin 9.2 g/dL (11.5-15.4); Immature Granulocytes % 0.3 % (0-4); Lymphocytes # 4.3 K/mcL (0.6-4.6); Lymphocytes % 54.4 %; Mean Corpuscular HGB Conc 32.9 g/dL (31.6-35.5); Mean Corpuscular Hemoglobin 30.1 pg (28.0-33.3); Mean Corpuscular Volume 91.5 fL (83.0-100.0); Mean Platelet Volume 9.8 fL (9.4-12.4); Monocytes # 0.6 K/mcL (0.0-1.3); Neutrophils # 2.8 K/mcL (1.6-8.9); Platelet Count 218 K/mcL (140-400); Red Blood Count 3.06 M/mcL (3.82-4.97); Red Cell Distribution Width 12.6 % (11.5-14.5); Segmented Neutrophils % 35.8 %; White Blood Count 7.8 K/mcL (4.3-11.1)
[2019-03-19 01:34] LABS: Calcium 8.5 mg/dL (8.6-10.3); Potassium 3.6 mEq/L (3.5-5.1)
[2019-03-19] MEDS ORDERED: Regadenoson 0.4 MG/5 ML SYRINGE IVP ONE (06:08)
[2019-03-19] MEDS: Insulin LISPRO 300 UNITS/3 ML VIAL SQ SCH ×4 (10:27→22:27)
[2019-03-19] MEDS: *HR* Rivaroxaban 10 MG TABLET PO SCH (10:28)
[2019-03-19] MEDS: Aspirin 81 MG TAB.CHEW PO SCH (10:28)
[2019-03-19] MEDS: Cholecalciferol (D-3) 1,000 UNIT (25MCG) TABLET PO SCH (10:29)
[2019-03-19] MEDS: Ranolazine 500 MG TAB.ER.12H PO SCH ×2 (10:29→21:52)
[2019-03-19] MEDS: Metoprolol XL (24 HR) Succ 50 MG TAB.ER.24H PO SCH (10:29)
[2019-03-19] MEDS ORDERED: Bacitracin 50,000 UNIT, Polymyxin B Sulfate 500,000 UNIT, Sodium Chloride IRRigation 1,... IR ONE (12:00)
[2019-03-19] MEDS: 0.9 % Sodium Chloride 1,000 ML IVC SCH (17:55)
[2019-03-19] MEDS: Insulin DETEMIR 100 UNIT/ML X5UNITS SQ SCH (21:51)
[2019-03-19] MEDS: *HR* OxyCODONE Immed Rel 5 MG TABLET PO PRN (21:52)
[2019-03-19] MEDS: risperiDONE 1 MG TABLET PO SCH (21:52)
[2019-03-20 06:13] LABS: Hematocrit 28.2 % (35.3-44.9); Hemoglobin 9.4 g/dL (11.5-15.4); Mean Corpuscular HGB Conc 33.3 g/dL (31.6-35.5); Mean Corpuscular Hemoglobin 29.9 pg (28.0-33.3); Mean Corpuscular Volume 89.8 fL (83.0-100.0); Mean Platelet Volume 9.3 fL (9.4-12.4); Platelet Count 208 K/mcL (140-400); Red Blood Count 3.14 M/mcL (3.82-4.97); Red Cell Distribution Width 12.4 % (11.5-14.5); White Blood Count 7.7 K/mcL (4.3-11.1)
[2019-03-20 07:04] LABS: Alanine Aminotransferase 10 Units/L (7-52); Alkaline Phosphatase 52 Units/L (34-104); Aspartate Amino Transferase 13 Units/L (13-39); BUN/Creatinine Ratio 23 (6-26); Bilirubin,Total 0.3 mg/dL (0.3-1.0); Blood Urea Nitrogen 24 mg/dL (6-20); Calcium 8.5 mg/dL (8.6-10.3); Carbon Dioxide 26 mEq/L (23-29); Chloride 105 mEq/L (98-107); Globulin 3.1 g/dL (2.4-3.5); Glucose 140 mg/dL (70-105); Osmolality,Calculated 290 (280-300); Potassium 3.7 mEq/L (3.5-5.1); Sodium 137 mEq/L (136-145); Total Protein 6.1 g/dL (6.4-8.9); eGFR For African Americans > 60 (> 60); eGFR For Non-African Americans 56 (> 60)
[2019-03-20] MEDS: *HR* Rivaroxaban 10 MG TABLET PO SCH (08:54)
[2019-03-20] MEDS: Ranolazine 500 MG TAB.ER.12H PO SCH ×2 (08:54→21:35)
[2019-03-20] MEDS: Metoprolol XL (24 HR) Succ 50 MG TAB.ER.24H PO SCH (08:55)
[2019-03-20] MEDS: Cholecalciferol (D-3) 1,000 UNIT (25MCG) TABLET PO SCH (08:55)
[2019-03-20] MEDS: Aspirin 81 MG TAB.CHEW PO SCH (08:55)
[2019-03-20] MEDS: 0.9 % Sodium Chloride 1,000 ML IVC SCH (08:56)
[2019-03-20] MEDS: Insulin LISPRO 300 UNITS/3 ML VIAL SQ SCH ×4 (08:56→21:29)
[2019-03-20] MEDS: *HR* OxyCODONE Immed Rel 5 MG TABLET PO PRN (21:35)
[2019-03-20] MEDS: risperiDONE 1 MG TABLET PO SCH (21:35)
[2019-03-20] MEDS: Insulin DETEMIR 100 UNIT/ML X5UNITS SQ SCH (21:36)
[2019-03-21 01:35] LABS: Hematocrit 30.6 % (35.3-44.9); Mean Corpuscular HGB Conc 32.7 g/dL (31.6-35.5); Mean Corpuscular Hemoglobin 29.7 pg (28.0-33.3); Mean Corpuscular Volume 90.8 fL (83.0-100.0); Mean Platelet Volume 10.3 fL (9.4-12.4); Platelet Count 245 K/mcL (140-400); Red Blood Count 3.37 M/mcL (3.82-4.97); Red Cell Distribution Width 12.4 % (11.5-14.5); White Blood Count 7.2 K/mcL (4.3-11.1)
[2019-03-21 01:56] LABS: Albumin 3.3 g/dL (3.5-5.7); Bilirubin,Total 0.4 mg/dL (0.3-1.0); Calcium 8.7 mg/dL (8.6-10.3); Globulin 3.2 g/dL (2.4-3.5); Potassium 3.8 mEq/L (3.5-5.1); Total Protein 6.5 g/dL (6.4-8.9)
[2019-03-21] MEDS: Cholecalciferol (D-3) 1,000 UNIT (25MCG) TABLET PO SCH (08:01)
[2019-03-21] MEDS: Metoprolol XL (24 HR) Succ 50 MG TAB.ER.24H PO SCH (08:01)
[2019-03-21] MEDS: Ranolazine 500 MG TAB.ER.12H PO SCH ×2 (08:01→20:34)
[2019-03-21] MEDS: Aspirin 81 MG TAB.CHEW PO SCH (08:01)
[2019-03-21] MEDS: Insulin LISPRO 300 UNITS/3 ML VIAL SQ SCH ×4 (08:01→20:33)
[2019-03-21] MEDS: *HR* Rivaroxaban 10 MG TABLET PO SCH (08:01)
[2019-03-21] MEDS: Insulin DETEMIR 100 UNIT/ML X5UNITS SQ SCH (20:33)
[2019-03-21] MEDS: risperiDONE 1 MG TABLET PO SCH (20:34)
[2019-03-21] MEDS: *HR* OxyCODONE Immed Rel 5 MG TABLET PO PRN (20:37)
[2019-03-22 01:33] LABS: Hematocrit 30.1 % (35.3-44.9); Mean Corpuscular HGB Conc 33.2 g/dL (31.6-35.5); Mean Corpuscular Hemoglobin 29.7 pg (28.0-33.3); Mean Corpuscular Volume 89.3 fL (83.0-100.0); Mean Platelet Volume 9.5 fL (9.4-12.4); Platelet Count 228 K/mcL (140-400); Red Blood Count 3.37 M/mcL (3.82-4.97); Red Cell Distribution Width 12.2 % (11.5-14.5); White Blood Count 7.6 K/mcL (4.3-11.1)
[2019-03-22 01:47] LABS: Alanine Aminotransferase 10 Units/L (7-52); Albumin 3.1 g/dL (3.5-5.7); Alkaline Phosphatase 56 Units/L (34-104); Aspartate Amino Transferase 12 Units/L (13-39); BUN/Creatinine Ratio 21 (6-26); Bilirubin,Total 0.3 mg/dL (0.3-1.0); Blood Urea Nitrogen 21 mg/dL (6-20); Calcium 9.1 mg/dL (8.6-10.3); Carbon Dioxide 27 mEq/L (23-29); Chloride 103 mEq/L (98-107); Globulin 3.2 g/dL (2.4-3.5); Glucose 182 mg/dL (70-105); Osmolality,Calculated 288 (280-300); Potassium 3.4 mEq/L (3.5-5.1); Sodium 135 mEq/L (136-145); Total Protein 6.3 g/dL (6.4-8.9); eGFR For African Americans > 60 (> 60); eGFR For Non-African Americans 58 (> 60)
[2019-03-22] MEDS: Cholecalciferol (D-3) 1,000 UNIT (25MCG) TABLET PO SCH (10:19)
[2019-03-22] MEDS: Ranolazine 500 MG TAB.ER.12H PO SCH ×2 (10:19→21:15)
[2019-03-22] MEDS: Metoprolol XL (24 HR) Succ 50 MG TAB.ER.24H PO SCH (10:19)
[2019-03-22] MEDS: Aspirin 81 MG TAB.CHEW PO SCH (10:20)
[2019-03-22] MEDS: Insulin LISPRO 300 UNITS/3 ML VIAL SQ SCH ×4 (10:20→21:15)
[2019-03-22] MEDS: *HR* Rivaroxaban 10 MG TABLET PO SCH (10:20)
[2019-03-22] MEDS: risperiDONE 1 MG TABLET PO SCH (21:15)
[2019-03-22] MEDS: Insulin DETEMIR 100 UNIT/ML X5UNITS SQ SCH (21:15)
[2019-03-23 02:02] LABS: Hematocrit 29.3 % (35.3-44.9); Hemoglobin 9.9 g/dL (11.5-15.4); Mean Corpuscular HGB Conc 33.8 g/dL (31.6-35.5); Mean Corpuscular Hemoglobin 29.9 pg (28.0-33.3); Mean Corpuscular Volume 88.5 fL (83.0-100.0); Mean Platelet Volume 9.7 fL (9.4-12.4); Platelet Count 221 K/mcL (140-400); Red Blood Count 3.31 M/mcL (3.82-4.97); Red Cell Distribution Width 12.6 % (11.5-14.5); White Blood Count 7.2 K/mcL (4.3-11.1)
[2019-03-23 02:19] LABS: Albumin 3.2 g/dL (3.5-5.7); Bilirubin,Total 0.3 mg/dL (0.3-1.0); Calcium 9.2 mg/dL (8.6-10.3); Globulin 3.1 g/dL (2.4-3.5); Potassium 3.7 mEq/L (3.5-5.1); Total Protein 6.3 g/dL (6.4-8.9)
[2019-03-23] MEDS: Cholecalciferol (D-3) 1,000 UNIT (25MCG) TABLET PO SCH (09:59)
[2019-03-23] MEDS: Metoprolol XL (24 HR) Succ 50 MG TAB.ER.24H PO SCH (09:59)
[2019-03-23] MEDS: Aspirin 81 MG TAB.CHEW PO SCH (09:59)
[2019-03-23] MEDS: Ranolazine 500 MG TAB.ER.12H PO SCH ×2 (09:59→20:52)
[2019-03-23] MEDS: Insulin LISPRO 300 UNITS/3 ML VIAL SQ SCH ×4 (10:00→20:51)
[2019-03-23] MEDS: risperiDONE 1 MG TABLET PO SCH (20:52)
[2019-03-23] MEDS: Insulin DETEMIR 100 UNIT/ML X5UNITS SQ SCH (20:52)
[2019-03-24 04:38] LABS: Hemoglobin 9.3 g/dL (11.5-15.4); Mean Corpuscular HGB Conc 33.2 g/dL (31.6-35.5); Mean Corpuscular Hemoglobin 29.6 pg (28.0-33.3); Mean Corpuscular Volume 89.2 fL (83.0-100.0); Platelet Count 209 K/mcL (140-400); Red Blood Count 3.14 M/mcL (3.82-4.97); Red Cell Distribution Width 12.3 % (11.5-14.5); White Blood Count 7.6 K/mcL (4.3-11.1)
[2019-03-24 04:55] LABS: Alanine Aminotransferase 14 Units/L (7-52); Albumin 3.2 g/dL (3.5-5.7); Alkaline Phosphatase 68 Units/L (34-104); Aspartate Amino Transferase 20 Units/L (13-39); BUN/Creatinine Ratio 21 (6-26); Bilirubin,Total 0.3 mg/dL (0.3-1.0); Blood Urea Nitrogen 23 mg/dL (6-20); Calcium 9.2 mg/dL (8.6-10.3); Carbon Dioxide 26 mEq/L (23-29); Chloride 101 mEq/L (98-107); Globulin 3.2 g/dL (2.4-3.5); Glucose 322 mg/dL (70-105); Osmolality,Calculated 290 (280-300); Potassium 3.7 mEq/L (3.5-5.1); Sodium 132 mEq/L (136-145); Total Protein 6.4 g/dL (6.4-8.9); eGFR For African Americans > 60 (> 60); eGFR For Non-African Americans 53 (> 60)
[2019-03-24] MEDS ORDERED: Insulin LISPRO 300 UNITS/3 ML VIAL SQ SCH (06:00)
[2019-03-24] MEDS ORDERED: *HR* Midazolam HCl 2 MG/2 ML VIAL ONE (07:16)
[2019-03-24] MEDS ORDERED: *HR* FentaNYL (PF) 100 MCG/2 ML VIAL ONE (07:16)
[2019-03-24] MEDS ORDERED: Lidocaine -MPF 2% 2 ML VIAL ONE (07:17)
[2019-03-24] MEDS ORDERED: *HR* Propofol 200 MG/20 ML VIAL IVP ONE ×2 (07:17→09:30)
[2019-03-24] MEDS ORDERED: *HR* Phenylephrine 10 MG/ML VIAL ONE (07:19)
[2019-03-24] MEDS: Metoprolol XL (24 HR) Succ 50 MG TAB.ER.24H PO SCH (07:28)
[2019-03-24] MEDS ORDERED: Bacitracin 50,000 UNIT, Polymyxin B Sulfate 500,000 UNIT, Sodium Chloride IRRigation 1,... IR ONE (07:45)
[2019-03-24] MEDS ORDERED: CeFAZolin Syr 2,000MG/20 ML 2,000 MG/20 ML SYRINGE IVPB ONE (07:59)
[2019-03-24] MEDS ORDERED: EPHEDrine 50 MG/ML VIAL ONE (08:32)
[2019-03-24] MEDS ORDERED: *HR* Labetalol 20 MG/4 ML SYRINGE IVP ONE (10:37)
[2019-03-24] MEDS ORDERED: Ringers Solution, Lactated 1,000 ML ONE (10:38)
[2019-03-24] MEDS: *HR* Labetalol 20 MG/4 ML SYRINGE IVP PRN ×4 (10:40→11:05)
[2019-03-24] MEDS: Morphine Sulfate 2 MG/ML SYRINGE IVP PRN ×2 (10:47→10:59)
[2019-03-24] MEDS ORDERED: Ringers Solution, Lactated 1,000 ML IVC SCH (11:55)
[2019-03-24] MEDS ORDERED: Acetaminophen 325 MG TABLET PO PRN (11:55)
[2019-03-24] MEDS ORDERED: Ondansetron 4 MG/2 ML VIAL IVP PRN (11:55)
[2019-03-24] MEDS ORDERED: Naloxone 0.4 MG/ML INJ IVP PRN (11:55)
[2019-03-24] MEDS ORDERED: Loratadine 10 MG TABLET PO PRN (11:55)
[2019-03-24] MEDS ORDERED: D5% in Water 1,000 ML IVC PRN (13:59)
[2019-03-24] MEDS ORDERED: Dextrose Gel 15 GM/37.5 ML TUBE PO PRN ×2 (13:59)
[2019-03-24] MEDS ORDERED: *HR* Dextrose 50 % in Water (Syg) 50 ML SYRINGE IVP PRN (13:59)
[2019-03-24] MEDS ORDERED: Benzonatate 100 MG CAPSULE PO PRN (16:53)
[2019-03-24] MEDS ORDERED: traZODone 50 MG TABLET PO PRN (16:56)
[2019-03-24] MEDS ORDERED: Budesonide/Formoterol 160/4.5 1 PUFF INH IH PRN (16:59)
[2019-03-24] MEDS ORDERED: *HR* Rivaroxaban 10 MG TABLET PO SCH (17:00)
[2019-03-24] MEDS: Insulin LISPRO 300 UNITS/3 ML VIAL SQ SCH ×2 (17:32→20:19)
[2019-03-24] MEDS: *HR* OxyCODONE Immed Rel 5 MG TABLET PO PRN (18:37)
[2019-03-24] MEDS: Ranolazine 500 MG TAB.ER.12H PO SCH (20:16)
[2019-03-24] MEDS: Insulin DETEMIR 100 UNIT/ML X5UNITS SQ SCH (20:17)
[2019-03-24] MEDS ORDERED: *HR* Metformin 500 MG TABLET PO SCH (21:00)
[2019-03-24] MEDS ORDERED: NON-FORMULARY MEDICATION 1 EACH EACH (Insulin Glargine,Hum.Rec.Anlog [Basaglar Kwikpen U-1 SQ SCH (21:00)
[2019-03-25] MEDS: *HR* OxyCODONE Immed Rel 5 MG TABLET PO PRN ×5 (04:40→21:11)
[2019-03-25 04:58] LABS: Basophils % 0.1 %; Eosinophils % 0.4 %; Hematocrit 27.3 % (35.3-44.9); Hemoglobin 9.2 g/dL (11.5-15.4); Immature Granulocytes % 0.4 % (0-4); Lymphocytes # 1.7 K/mcL (0.6-4.6); Lymphocytes % 16.5 %; Mean Corpuscular HGB Conc 33.7 g/dL (31.6-35.5); Mean Corpuscular Hemoglobin 29.8 pg (28.0-33.3); Mean Corpuscular Volume 88.3 fL (83.0-100.0); Mean Platelet Volume 9.3 fL (9.4-12.4); Monocytes # 1.2 K/mcL (0.0-1.3); Monocytes % 11.7 %; Neutrophils # 7.3 K/mcL (1.6-8.9); Platelet Count 205 K/mcL (140-400); Red Blood Count 3.09 M/mcL (3.82-4.97); Red Cell Distribution Width 12.5 % (11.5-14.5); Segmented Neutrophils % 70.9 %; White Blood Count 10.3 K/mcL (4.3-11.1)
[2019-03-25 05:18] LABS: BUN/Creatinine Ratio 19 (6-26); Blood Urea Nitrogen 19 mg/dL (6-20); Calcium 8.9 mg/dL (8.6-10.3); Carbon Dioxide 27 mEq/L (23-29); Chloride 98 mEq/L (98-107); Glucose 310 mg/dL (70-105); Osmolality,Calculated 286 (280-300); Potassium 4.1 mEq/L (3.5-5.1); Sodium 131 mEq/L (136-145); eGFR For African Americans > 60 (> 60); eGFR For Non-African Americans 57 (> 60)
[2019-03-25] MEDS: Ranolazine 500 MG TAB.ER.12H PO SCH ×2 (08:02→21:11)
[2019-03-25] MEDS: Isosorbide MONOnitrate (24 HR) 60 MG TAB.ER.24H PO SCH (08:02)
[2019-03-25] MEDS: Cholecalciferol (D-3) 1,000 UNIT (25MCG) TABLET PO SCH (08:02)
[2019-03-25] MEDS: Metoprolol XL (24 HR) Succ 50 MG TAB.ER.24H PO SCH (08:02)
[2019-03-25] MEDS: Aspirin Enteric Coated 81 MG Tablet PO SCH (08:03)
[2019-03-25] MEDS: Insulin LISPRO 300 UNITS/3 ML VIAL SQ SCH ×4 (08:06→21:12)
[2019-03-25] MEDS: *HR* HYDROcodone/Acet 5/325 mg TABLET PO PRN (12:30)
[2019-03-25] MEDS: *HR* Rivaroxaban 10 MG TABLET PO SCH (16:04)
[2019-03-25] MEDS: Insulin DETEMIR 100 UNIT/ML X5UNITS SQ SCH (21:12)
[2019-03-26 01:38] LABS: Basophils % 0.3 %; Eosinophils # 0.3 K/mcL (0.0-0.6); Hematocrit 26.6 % (35.3-44.9); Hemoglobin 8.7 g/dL (11.5-15.4); Immature Granulocytes % 0.2 % (0-4); Lymphocytes # 3.6 K/mcL (0.6-4.6); Lymphocytes % 37.6 %; Mean Corpuscular HGB Conc 32.7 g/dL (31.6-35.5); Mean Corpuscular Hemoglobin 30.1 pg (28.0-33.3); Mean Platelet Volume 9.8 fL (9.4-12.4); Monocytes # 1.2 K/mcL (0.0-1.3); Monocytes % 12.2 %; Neutrophils # 4.4 K/mcL (1.6-8.9); Platelet Count 221 K/mcL (140-400); Red Blood Count 2.89 M/mcL (3.82-4.97); Red Cell Distribution Width 12.6 % (11.5-14.5); Segmented Neutrophils % 46.7 %; White Blood Count 9.4 K/mcL (4.3-11.1)
[2019-03-26 01:57] LABS: BUN/Creatinine Ratio 22 (6-26); Blood Urea Nitrogen 25 mg/dL (6-20); Carbon Dioxide 26 mEq/L (23-29); Chloride 100 mEq/L (98-107); Glucose 169 mg/dL (70-105); Magnesium 1.2 mg/dL (1.6-2.6); Osmolality,Calculated 284 (280-300); Phosphorous 3.2 mg/dL (2.7-4.5); Potassium 4.1 mEq/L (3.5-5.1); Sodium 133 mEq/L (136-145); eGFR For African Americans > 60 (> 60); eGFR For Non-African Americans 50 (> 60)
[2019-03-26] MEDS: *HR* OxyCODONE Immed Rel 5 MG TABLET PO PRN ×3 (02:44→21:04)
[2019-03-26] MEDS: Insulin LISPRO 300 UNITS/3 ML VIAL SQ SCH ×4 (08:32→20:53)
[2019-03-26] MEDS: Aspirin Enteric Coated 81 MG Tablet PO SCH (09:47)
[2019-03-26] MEDS: Cholecalciferol (D-3) 1,000 UNIT (25MCG) TABLET PO SCH (09:47)
[2019-03-26] MEDS: Metoprolol XL (24 HR) Succ 50 MG TAB.ER.24H PO SCH (09:47)
[2019-03-26] MEDS: Ranolazine 500 MG TAB.ER.12H PO SCH ×2 (09:47→21:04)
[2019-03-26] MEDS: Isosorbide MONOnitrate (24 HR) 60 MG TAB.ER.24H PO SCH (09:48)
[2019-03-26] MEDS: *HR* HYDROcodone/Acet 5/325 mg TABLET PO PRN (12:45)
[2019-03-26] MEDS: *HR* Rivaroxaban 10 MG TABLET PO SCH (17:57)
[2019-03-26] MEDS: Insulin DETEMIR 100 UNIT/ML X5UNITS SQ SCH (21:05)
[2019-03-26] MEDS ORDERED: Chloraseptic Spray 177 ML BOTTLE MM PRN (21:16)
[2019-03-27 07:18] LABS: Basophils % 0.3 %; Eosinophils # 0.4 K/mcL (0.0-0.6); Eosinophils % 3.9 %; Hematocrit 28.4 % (35.3-44.9); Hemoglobin 9.1 g/dL (11.5-15.4); Immature Granulocytes % 0.2 % (0-4); Lymphocytes % 32.1 %; Mean Corpuscular Hemoglobin 29.2 pg (28.0-33.3); Mean Platelet Volume 9.3 fL (9.4-12.4); Monocytes # 0.9 K/mcL (0.0-1.3); Monocytes % 9.3 %; Neutrophils # 5.1 K/mcL (1.6-8.9); Platelet Count 236 K/mcL (140-400); Red Blood Count 3.12 M/mcL (3.82-4.97); Red Cell Distribution Width 12.6 % (11.5-14.5); Segmented Neutrophils % 54.2 %; White Blood Count 9.4 K/mcL (4.3-11.1)
[2019-03-27 07:35] LABS: BUN/Creatinine Ratio 21 (6-26); Blood Urea Nitrogen 22 mg/dL (6-20); Calcium 9.3 mg/dL (8.6-10.3); Carbon Dioxide 29 mEq/L (23-29); Chloride 101 mEq/L (98-107); Glucose 98 mg/dL (70-105); Magnesium 1.4 mg/dL (1.6-2.6); Osmolality,Calculated 285 (280-300); Phosphorous 3.4 mg/dL (2.7-4.5); Potassium 4.1 mEq/L (3.5-5.1); Sodium 136 mEq/L (136-145); eGFR For African Americans > 60 (> 60); eGFR For Non-African Americans 56 (> 60)
[2019-03-27] MEDS: Insulin LISPRO 300 UNITS/3 ML VIAL SQ SCH ×4 (07:46→20:29)
[2019-03-27] MEDS: Cholecalciferol (D-3) 1,000 UNIT (25MCG) TABLET PO SCH (09:47)
[2019-03-27] MEDS: Ranolazine 500 MG TAB.ER.12H PO SCH ×2 (09:47→20:32)
[2019-03-27] MEDS: Metoprolol XL (24 HR) Succ 50 MG TAB.ER.24H PO SCH (09:48)
[2019-03-27] MEDS: Aspirin Enteric Coated 81 MG Tablet PO SCH (09:48)
[2019-03-27] MEDS: Isosorbide MONOnitrate (24 HR) 60 MG TAB.ER.24H PO SCH (09:48)
[2019-03-27] MEDS: *HR* HYDROcodone/Acet 5/325 mg TABLET PO PRN (18:16)
[2019-03-27] MEDS: *HR* Rivaroxaban 10 MG TABLET PO SCH (18:16)
[2019-03-27] MEDS: Insulin DETEMIR 100 UNIT/ML X5UNITS SQ SCH (20:33)
[2019-03-28] MEDS: Insulin LISPRO 300 UNITS/3 ML VIAL SQ SCH ×6 (08:26→17:25)
[2019-03-28] MEDS ORDERED: Insulin LISPRO 300 UNITS/3 ML VIAL SQ SCH (08:44)
[2019-03-28] MEDS: Aspirin Enteric Coated 81 MG Tablet PO SCH (09:26)
[2019-03-28] MEDS: Isosorbide MONOnitrate (24 HR) 60 MG TAB.ER.24H PO SCH (09:26)
[2019-03-28] MEDS: Ranolazine 500 MG TAB.ER.12H PO SCH ×2 (09:26→19:45)
[2019-03-28] MEDS: Cholecalciferol (D-3) 1,000 UNIT (25MCG) TABLET PO SCH (09:27)
[2019-03-28] MEDS: Metoprolol XL (24 HR) Succ 50 MG TAB.ER.24H PO SCH (09:27)
[2019-03-28] MEDS: *HR* Rivaroxaban 10 MG TABLET PO SCH (16:30)
[2019-03-28] MEDS: *HR* HYDROcodone/Acet 5/325 mg TABLET PO PRN (19:49)
[2019-03-28] MEDS: Insulin DETEMIR 100 UNIT/ML X5UNITS SQ SCH (21:04)
[2019-03-29] MEDS: *HR* HYDROcodone/Acet 5/325 mg TABLET PO PRN (02:32)
[2019-03-29 04:48] LABS: Basophils % 0.3 %; Eosinophils # 0.5 K/mcL (0.0-0.6); Eosinophils % 5.4 %; Hematocrit 26.1 % (35.3-44.9); Hemoglobin 8.5 g/dL (11.5-15.4); Immature Granulocytes % 0.2 % (0-4); Lymphocytes % 33.3 %; Mean Corpuscular HGB Conc 32.6 g/dL (31.6-35.5); Mean Corpuscular Hemoglobin 29.4 pg (28.0-33.3); Mean Corpuscular Volume 90.3 fL (83.0-100.0); Mean Platelet Volume 9.2 fL (9.4-12.4); Monocytes # 0.8 K/mcL (0.0-1.3); Monocytes % 8.7 %; Neutrophils # 4.7 K/mcL (1.6-8.9); Platelet Count 237 K/mcL (140-400); Red Blood Count 2.89 M/mcL (3.82-4.97); Red Cell Distribution Width 12.4 % (11.5-14.5); Segmented Neutrophils % 52.1 %; White Blood Count 9.1 K/mcL (4.3-11.1)
[2019-03-29 05:07] LABS: BUN/Creatinine Ratio 20 (6-26); Blood Urea Nitrogen 21 mg/dL (6-20); Calcium 9.1 mg/dL (8.6-10.3); Carbon Dioxide 28 mEq/L (23-29); Chloride 102 mEq/L (98-107); Glucose 177 mg/dL (70-105); Magnesium 1.4 mg/dL (1.6-2.6); Osmolality,Calculated 289 (280-300); Phosphorous 4.2 mg/dL (2.7-4.5); Potassium 3.8 mEq/L (3.5-5.1); Sodium 136 mEq/L (136-145); eGFR For African Americans > 60 (> 60); eGFR For Non-African Americans 54 (> 60)
[2019-03-29] MEDS: Insulin LISPRO 300 UNITS/3 ML VIAL SQ SCH ×2 (07:17→09:07)
[2019-03-29] MEDS: Isosorbide MONOnitrate (24 HR) 60 MG TAB.ER.24H PO SCH (07:19)
[2019-03-29] MEDS: Metoprolol XL (24 HR) Succ 50 MG TAB.ER.24H PO SCH (07:19)
[2019-03-29] MEDS: Ranolazine 500 MG TAB.ER.12H PO SCH (07:19)
[2019-03-29] MEDS: Aspirin Enteric Coated 81 MG Tablet PO SCH (07:19)
[2019-03-29] MEDS: Cholecalciferol (D-3) 1,000 UNIT (25MCG) TABLET PO SCH (07:19)
[2019-03-29] MEDS ORDERED: Lisinopril-HCTZ 20-12.5mg TABLET PO SCH (09:00)
[2019-03-29 10:49] VITALS: BP 101/69
== END 2019-03-29 14:40 | DRG 321 ==
LOC: EMEROOARM 14:19 → 3BNU 14:19 → SUATTDRO 03-18 17:51 → 3NENU 03-24 09:05
PROVIDERS: ADMIT Internal Medicine; ATTEND Internal Medicine

== ENCOUNTER 2019-08-22 20:17 | Observation (INO) ==
[2019-08-22] MEDS ORDERED: Isovue-370 500 ML BOTTLE IVP ONE ×2 (20:31→21:42)
[2019-08-22 20:39] LABS: Hematocrit 30.3 % (35.3-44.9); Hemoglobin 9.8 g/dL (11.5-15.4); Mean Corpuscular HGB Conc 32.3 g/dL (31.6-35.5); Mean Corpuscular Hemoglobin 29.8 pg (28.0-33.3); Mean Corpuscular Volume 92.1 fL (83.0-100.0); Platelet Count 284 K/mcL (140-400); Red Blood Count 3.29 M/mcL (3.82-4.97); Red Cell Distribution Width 12.2 % (11.5-14.5); White Blood Count 7.3 K/mcL (4.3-11.1)
[2019-08-22 20:48] LABS: Prothrombin Time 11.6 Seconds (9.4-12.1)
[2019-08-22 20:51] LABS: Activated Partial Thrombo Time 29.3 Seconds (26.0-36.0)
[2019-08-22 21:41] LABS: BUN/Creatinine Ratio 12 (6-26); Blood Urea Nitrogen 16 mg/dL (6-20); Calcium 8.9 mg/dL (8.6-10.3); Carbon Dioxide 25 mEq/L (23-29); Chloride 103 mEq/L (98-107); Glucose 244 mg/dL (70-105); Osmolality,Calculated 289 (280-300); Potassium 4.1 mEq/L (3.5-5.1); Sodium 135 mEq/L (136-145); Troponin I < 0.03 ng/mL (< 0.04); eGFR For African Americans 51 (> 60); eGFR For Non-African Americans 42 (> 60)
[2019-08-22 22:15] LABS: Bilirubin,Urine Negative (Negative); Blood,Urine Negative (Negative); Clarity,Urine Clear (Clear); Color,Urine Yellow (Yellow); Glucose,Urine (UA) 100 mg/dL (Normal); Ketones,Urine Negative (Negative); Leukocyte Esterase,Urine Negative (Negative); Nitrite,Urine Negative (Negative); Protein,Urine 100 mg/dL (Neg-Trace); Specific Gravity,Urine 1.026 (1.010-1.025); Urobilinogen,Urine Normal (Normal)
[2019-08-22 22:17] LABS: Bacteria,Urine Moderate per hpf (None-Few); Hyaline Casts,Urine None Seen per lpf (None-Few); RBC,Urine 0-3 per hpf (0-3); Squamous Epithelial Cell,Urine Many per lpf (None-Few); WBC,Urine 0-3 per hpf (0-3)
[2019-08-22] MEDS ORDERED: Aspirin 325 MG TABLET PO ONE (22:30)
[2019-08-23] MEDS ORDERED: Dextrose Gel 15 GM/37.5 ML TUBE PO PRN ×2 (00:20)
[2019-08-23] MEDS ORDERED: *HR* Dextrose 50 % in Water (Syg) 50 ML SYRINGE IVP PRN (00:20)
[2019-08-23] MEDS ORDERED: D5% in Water 1,000 ML IVC PRN (00:20)
[2019-08-23] MEDS: Insulin DETEMIR 100 UNIT/ML X5UNITS SQ SCH ×2 (01:06→22:23)
[2019-08-23] MEDS: Insulin LISPRO 300 UNITS/3 ML VIAL SQ SCH ×4 (01:06→16:28)
[2019-08-23] MEDS ORDERED: 0.9 % Sodium Chloride 1,000 ML IVC SCH (02:30)
[2019-08-23 04:06] LABS: Hematocrit 28.4 % (35.3-44.9); Hemoglobin 8.9 g/dL (11.5-15.4); Mean Corpuscular HGB Conc 31.3 g/dL (31.6-35.5); Mean Corpuscular Hemoglobin 29.3 pg (28.0-33.3); Mean Corpuscular Volume 93.4 fL (83.0-100.0); Mean Platelet Volume 9.2 fL (9.4-12.4); Platelet Count 265 K/mcL (140-400); Red Blood Count 3.04 M/mcL (3.82-4.97); Red Cell Distribution Width 12.5 % (11.5-14.5); White Blood Count 6.4 K/mcL (4.3-11.1)
[2019-08-23 04:27] LABS: Albumin/Globulin Ratio 0.9 (1.1-2.2); Bilirubin,Total 0.2 mg/dL (0.3-1.0); Calcium 8.7 mg/dL (8.6-10.3); Globulin 3.3 g/dL (2.4-3.5); Potassium 3.7 mEq/L (3.5-5.1); Total Protein 6.3 g/dL (6.4-8.9)
[2019-08-23] MEDS: *HR* Heparin 5,000 UNIT/ML VIAL SQ SCH ×2 (06:05→15:51)
[2019-08-23] MEDS: Metoprolol XL (24 HR) Succ 50 MG TAB.ER.24H PO SCH (08:28)
[2019-08-23] MEDS ORDERED: Loratadine 10 MG TABLET PO PRN (17:02)
[2019-08-23] MEDS ORDERED: Budesonide/Formoterol 160/4.5 1 PUFF INH IH PRN (17:02)
[2019-08-23] MEDS ORDERED: SUMAtriptan succinate 50 MG TABLET PO PRN (17:02)
[2019-08-23] MEDS ORDERED: traZODone 50 MG TABLET PO PRN (17:02)
[2019-08-23] MEDS ORDERED: Nitroglycerin 0.4 MG TAB.SUBL SL PRN (17:02)
[2019-08-23] MEDS ORDERED: *HR* LORazepam 2 MG/ML VIAL IVP ONE (21:26)
[2019-08-23] MEDS ORDERED: *HR* Rivaroxaban 10 MG TABLET PO SCH (22:00)
[2019-08-23] MEDS: Ranolazine 500 MG TAB.ER.12H PO SCH (22:23)
[2019-08-24 05:15] LABS: Mean Corpuscular HGB Conc 32.1 g/dL (31.6-35.5); Mean Corpuscular Hemoglobin 29.4 pg (28.0-33.3); Mean Corpuscular Volume 91.5 fL (83.0-100.0); Mean Platelet Volume 9.3 fL (9.4-12.4); Platelet Count 285 K/mcL (140-400); Red Blood Count 3.06 M/mcL (3.82-4.97); Red Cell Distribution Width 12.1 % (11.5-14.5)
[2019-08-24 05:36] LABS: Calcium 8.9 mg/dL (8.6-10.3)
[2019-08-24 06:35] VITALS: BP 119/80
[2019-08-24] MEDS: Insulin LISPRO 300 UNITS/3 ML VIAL SQ SCH ×2 (08:14→11:53)
[2019-08-24] MEDS: Metoprolol XL (24 HR) Succ 50 MG TAB.ER.24H PO SCH (08:14)
[2019-08-24] MEDS: Ranolazine 500 MG TAB.ER.12H PO SCH (08:14)
[2019-08-24] MEDS ORDERED: Aspirin 81 MG TAB.CHEW PO SCH (09:00)
[2019-08-24] MEDS ORDERED: Isosorbide MONOnitrate (24 HR) 60 MG TAB.ER.24H PO SCH (09:00)
[2019-08-24] MEDS ORDERED: NON-FORMULARY MEDICATION 1 EACH EACH (Metoprolol Succinate [Toprol Xl] 100 MG) PO SCH (09:00)
[2019-08-24] MEDS ORDERED: Cholecalciferol (D-3) 1,000 UNIT (25MCG) TABLET PO SCH (09:00)
[2019-08-24] MEDS ORDERED: FLU Vac QV 19-20 (6Month+)/PF 0.5 ML SYRINGE IM ONE (11:42)
== END 2019-08-24 13:25 | disposition home health service (06) ==
LOC: 2ANU 20:17 → EMEROOARM 20:17 → SUATTDRO 23:18 → 2ANU 08-23 00:06
PROVIDERS: ADMIT Student in an Organized Health Care Education/Training Program; ATTEND Internal Medicine

== ENCOUNTER 2020-09-03 19:54 | Observation (INO) ==
[2020-09-03 20:33] LABS: Basophils % 0.4 %; Eosinophils # 0.2 K/mcL (0.0-0.6); Eosinophils % 2.9 %; Hemoglobin 9.6 g/dL (11.5-15.4); Immature Granulocytes % 0.1 % (0-4); Mean Corpuscular HGB Conc 33.1 g/dL (31.6-35.5); Mean Corpuscular Hemoglobin 30.1 pg (28.0-33.3); Mean Corpuscular Volume 90.9 fL (83.0-100.0); Mean Platelet Volume 9.5 fL (9.4-12.4); Monocytes # 0.5 K/mcL (0.0-1.3); Monocytes % 6.5 %; Neutrophils # 3.1 K/mcL (1.6-8.9); Platelet Count 284 K/mcL (140-400); Red Blood Count 3.19 M/mcL (3.82-4.97); Red Cell Distribution Width 12.3 % (11.5-14.5); Segmented Neutrophils % 39.1 %; White Blood Count 7.9 K/mcL (4.3-11.1)
[2020-09-03 20:53] LABS: BUN/Creatinine Ratio 14 (6-26); Blood Urea Nitrogen 26 mg/dL (6-20); Carbon Dioxide 25 mEq/L (23-29); Chloride 107 mEq/L (98-107); Glucose 219 mg/dL (70-105); Osmolality,Calculated 299 (280-300); Potassium 3.7 mEq/L (3.5-5.1); Sodium 139 mEq/L (136-145); eGFR For African Americans 34 (> 60); eGFR For Non-African Americans 28 (> 60)
[2020-09-03 20:54] LABS: Troponin I < 0.03 ng/mL (< 0.04)
[2020-09-03] MEDS ORDERED: 0.9 % Sodium Chloride 1,000 ML IVC ONE (23:06)
[2020-09-03] MEDS ORDERED: Ondansetron 4 MG/2 ML VIAL IVP PRN (23:22)
[2020-09-03] MEDS ORDERED: Naloxone 0.4 MG/ML INJ IVP PRN (23:22)
[2020-09-03] MEDS ORDERED: Aspirin 81 MG TAB.CHEW PO ONE (23:24)
[2020-09-04] MEDS ORDERED: D5% in Water 1,000 ML IVC PRN (02:44)
[2020-09-04] MEDS ORDERED: *HR* Dextrose 50 % in Water (Vial) 50 ML VIAL IVP PRN (02:44)
[2020-09-04] MEDS ORDERED: Dextrose Gel 15 GM/37.5 ML TUBE PO PRN ×2 (02:44)
[2020-09-04 03:38] LABS: Hematocrit 29.1 % (35.3-44.9); Hemoglobin 9.3 g/dL (11.5-15.4); Mean Corpuscular Hemoglobin 30.4 pg (28.0-33.3); Mean Corpuscular Volume 95.1 fL (83.0-100.0); Mean Platelet Volume 9.8 fL (9.4-12.4); Platelet Count 263 K/mcL (140-400); Red Blood Count 3.06 M/mcL (3.82-4.97); Red Cell Distribution Width 12.5 % (11.5-14.5); White Blood Count 8.2 K/mcL (4.3-11.1)
[2020-09-04 03:57] LABS: Calcium 8.4 mg/dL (8.6-10.3); Potassium 3.4 mEq/L (3.5-5.1)
[2020-09-04] MEDS ORDERED: Nitroglycerin 0.4 MG TAB.SUBL SL PRN (05:21)
[2020-09-04] MEDS: Insulin LISPRO 300 UNITS/3 ML VIAL SUBQ SCH ×2 (05:58→11:30)
[2020-09-04] MEDS ORDERED: Regadenoson 0.4 MG/5 ML SYRINGE IVP ONE (06:21)
[2020-09-04] MEDS ORDERED: 0.9 % Sodium Chloride 1,000 ML IVC SCH (06:45)
[2020-09-04] MEDS ORDERED: Nitroglycerin 0.1 MG PATCH.TD24 TD SCH (07:30)
[2020-09-04 09:02] LABS: Estimated Average Glucose 226 mg/dl; Hemoglobin A1C 9.5 %
[2020-09-04 11:17] VITALS: BP 145/92
[2020-09-04] MEDS ORDERED: FLU Vac QV 20-21 (6Month+)/PF 0.5 ML SYRINGE IM ONE (15:40)
== END 2020-09-04 16:47 | disposition home or self-care (01) ==
LOC: EMEROOARM 19:54 → 2ANU 19:54 → SUATTDRO 23:20 → 2ANU 09-04 00:20
PROVIDERS: ADMIT Student in an Organized Health Care Education/Training Program; ATTEND Student in an Organized Health Care Education/Training Program

== ENCOUNTER 2020-11-13 23:18 | Inpatient (IN) ==
[2020-11-14 00:27] LABS: Basophils % 0.4 %; Eosinophils # 0.3 K/mcL (0.0-0.6); Eosinophils % 3.9 %; Hematocrit 27.4 % (35.3-44.9); Hemoglobin 8.9 g/dL (11.5-15.4); Immature Granulocytes % 0.1 % (0-4); Lymphocytes # 3.7 K/mcL (0.6-4.6); Lymphocytes % 49.5 %; Mean Corpuscular HGB Conc 32.5 g/dL (31.6-35.5); Mean Corpuscular Hemoglobin 30.5 pg (28.0-33.3); Mean Corpuscular Volume 93.8 fL (83.0-100.0); Mean Platelet Volume 9.5 fL (9.4-12.4); Monocytes # 0.5 K/mcL (0.0-1.3); Monocytes % 6.7 %; Platelet Count 251 K/mcL (140-400); Red Blood Count 2.92 M/mcL (3.82-4.97); Red Cell Distribution Width 12.2 % (11.5-14.5); Segmented Neutrophils % 39.4 %; White Blood Count 7.5 K/mcL (4.3-11.1)
[2020-11-14 00:45] LABS: BUN/Creatinine Ratio 15 (6-26); Blood Urea Nitrogen 30 mg/dL (6-20); Calcium 9.1 mg/dL (8.6-10.3); Carbon Dioxide 21 mEq/L (23-29); Chloride 109 mEq/L (98-107); Glucose 138 mg/dL (70-105); Osmolality,Calculated 294 (280-300); Potassium 3.8 mEq/L (3.5-5.1); Sodium 138 mEq/L (136-145); Troponin I < 0.03 ng/mL (< 0.04); eGFR For African Americans 31 (> 60); eGFR For Non-African Americans 26 (> 60)
[2020-11-14] MEDS ORDERED: *HR* Heparin 5,000 UNIT/ML VIAL IVP PRN ×2 (01:18)
[2020-11-14] MEDS ORDERED: *HR* Heparin 5,000 UNIT/ML VIAL IVP ONE (01:18)
[2020-11-14] MEDS ORDERED: Heparin 25,000UNIT/250ML 1/2NS 25,000 UNIT/250 ML IV.SOLN IVC SCH (01:30)
[2020-11-14] MEDS ORDERED: 0.9 % Sodium Chloride 500 ML IVC ONE (01:42)
[2020-11-14] MEDS ORDERED: *HR* Heparin 5,000 UNIT/ML VIAL SQ ONE ×2 (04:39→05:15)
[2020-11-14] MEDS ORDERED: Loratadine 10 MG TABLET PO PRN (04:41)
[2020-11-14] MEDS ORDERED: Nitroglycerin 0.4 MG TAB.SUBL SL PRN (04:41)
[2020-11-14] MEDS ORDERED: D5% in Water 1,000 ML IVC PRN (04:43)
[2020-11-14] MEDS ORDERED: *HR* Dextrose 50 % in Water (Vial) 50 ML VIAL IVP PRN (04:43)
[2020-11-14] MEDS ORDERED: Dextrose Gel 15 GM/37.5 ML TUBE PO PRN ×2 (04:43)
[2020-11-14] MEDS ORDERED: Naloxone 0.4 MG/ML INJ IVP PRN (04:45)
[2020-11-14] MEDS ORDERED: Ondansetron 4 MG/2 ML VIAL IVP PRN (04:45)
[2020-11-14] MEDS: Famotidine 20 MG/2 ML VIAL IVP SCH ×2 (06:00→16:46)
[2020-11-14] MEDS: Insulin LISPRO 300 UNITS/3 ML VIAL SUBQ SCH ×4 (06:04→23:50)
[2020-11-14] MEDS: Ranolazine 500 MG TAB.ER.12H PO SCH ×2 (08:33→21:22)
[2020-11-14] MEDS: Isosorbide MONOnitrate (24 HR) 60 MG TAB.ER.24H PO SCH (08:33)
[2020-11-14] MEDS: Metoprolol XL (24 HR) Succ 50 MG TAB.ER.24H PO SCH ×2 (08:33→21:23)
[2020-11-14] MEDS: Aspirin 81 MG TAB.CHEW PO SCH (08:33)
[2020-11-14] MEDS ORDERED: Perflutren Lipid Microsphere 1.3 ML in 0.9 % Sodium Chloride 8.7 ML IVP PRN (12:43)
[2020-11-14] MEDS ORDERED: SODIUM CHLORIDE/NAHCO3/KCL/PEG 4,000 ML SOLN.RECON PO ONE (17:00)
[2020-11-15 05:43] LABS: Hematocrit 29.4 % (35.3-44.9); Hemoglobin 9.5 g/dL (11.5-15.4); Mean Corpuscular HGB Conc 32.3 g/dL (31.6-35.5); Mean Corpuscular Hemoglobin 30.8 pg (28.0-33.3); Mean Corpuscular Volume 95.5 fL (83.0-100.0); Mean Platelet Volume 9.3 fL (9.4-12.4); Platelet Count 260 K/mcL (140-400); Red Blood Count 3.08 M/mcL (3.82-4.97); Red Cell Distribution Width 12.2 % (11.5-14.5)
[2020-11-15] MEDS: Insulin LISPRO 300 UNITS/3 ML VIAL SUBQ SCH ×3 (05:52→16:29)
[2020-11-15] MEDS: Famotidine 20 MG/2 ML VIAL IVP SCH (05:52)
[2020-11-15 05:53] LABS: INR 1.4; Prothrombin Time 15.8 Seconds (9.4-12.1)
[2020-11-15 05:56] LABS: Activated Partial Thrombo Time 32.6 Seconds (26.0-36.0)
[2020-11-15 06:01] LABS: Calcium 9.1 mg/dL (8.6-10.3); Magnesium 1.7 mg/dL (1.6-2.6); Potassium 3.6 mEq/L (3.5-5.1)
[2020-11-15 06:06] LABS: % Iron Saturation 23 % (15-50); Iron 69 mcg/dL (50-170); Transferrin 211 mg/dL (203-362)
[2020-11-15 06:11] LABS: Estimated Average Glucose 220 mg/dl; Hemoglobin A1C 9.3 %
[2020-11-15 06:19] LABS: Ferritin 65 ng/mL (10-120)
[2020-11-15 06:26] LABS: Folate > 22.3 ng/mL (3.0-16.0); Vitamin B12 208 pg/mL (250-1100)
[2020-11-15 08:18] LABS: Influenza A PCR Negative (Negative); Influenza B PCR Negative (Negative); Resp. Syncytial Virus PCR Negative (Negative); SARS-CoV-2 by PCR (In House) Negative (Negative)
[2020-11-15] MEDS ORDERED: Lidocaine -MPF 2% 5 ML VIAL ONE (10:24)
[2020-11-15] MEDS: Metoprolol XL (24 HR) Succ 50 MG TAB.ER.24H PO SCH ×2 (11:22→21:44)
[2020-11-15] MEDS: Ranolazine 500 MG TAB.ER.12H PO SCH ×2 (11:22→21:45)
[2020-11-15] MEDS: Isosorbide MONOnitrate (24 HR) 60 MG TAB.ER.24H PO SCH (11:22)
[2020-11-15] MEDS: Aspirin 81 MG TAB.CHEW PO SCH (11:23)
[2020-11-15] MEDS: Insulin DETEMIR 100 UNIT/ML X5UNITS SUBQ SCH ×2 (11:55→21:46)
[2020-11-15] MEDS ORDERED: NON-FORMULARY MEDICATION 1 EACH EACH (Rivaroxaban [Xarelto] 20 MG Tablet) PO SCH (13:45)
[2020-11-15] MEDS: Pantoprazole 40 MG VIAL IVP SCH (14:19)
[2020-11-15] MEDS: Cyanocobalamin (B-12) 1,000 MCG TABLET PO SCH (14:19)
[2020-11-15] MEDS ORDERED: 0.9 % Sodium Chloride 1,000 ML IVC SCH (14:30)
[2020-11-15] MEDS ORDERED: SODIUM CHLORIDE/NAHCO3/KCL/PEG 4,000 ML SOLN.RECON PO ONE (17:00)
[2020-11-15 19:24] LABS: Bilirubin,Urine Negative (Negative); Blood,Urine Negative (Negative); Clarity,Urine Clear (Clear); Color,Urine Colorless (Yellow); Glucose,Urine (UA) Normal (Normal); Ketones,Urine Negative (Negative); Leukocyte Esterase,Urine Negative (Negative); Nitrite,Urine Negative (Negative); Protein,Urine 70 mg/dL (Neg-Trace); RBC,Urine 0-3 per hpf (0-3); Specific Gravity,Urine 1.008 (1.010-1.025); Squamous Epithelial Cell,Urine Few per hpf (None-Few); Urobilinogen,Urine Normal (Normal); WBC,Urine 0-3 per hpf (0-3)
[2020-11-15 19:42] LABS: Protein/Creatinine Ratio,Urine 1.07 mg/mg (0.00-0.20); Sodium, Urine 43.7 mEq/L
[2020-11-15] MEDS ORDERED: acetaZOLAMIDE 250 MG TABLET PO SCH (21:00)
[2020-11-16] MEDS: Insulin LISPRO 300 UNITS/3 ML VIAL SUBQ SCH ×4 (01:11→18:36)
[2020-11-16 06:57] LABS: Hematocrit 26.7 % (35.3-44.9); Hemoglobin 8.5 g/dL (11.5-15.4); Mean Corpuscular HGB Conc 31.8 g/dL (31.6-35.5); Mean Corpuscular Volume 94.3 fL (83.0-100.0); Mean Platelet Volume 9.4 fL (9.4-12.4); Platelet Count 250 K/mcL (140-400); Red Blood Count 2.83 M/mcL (3.82-4.97); Red Cell Distribution Width 12.2 % (11.5-14.5); White Blood Count 6.1 K/mcL (4.3-11.1)
[2020-11-16 07:14] LABS: Magnesium 1.6 mg/dL (1.6-2.6); Phosphorous 3.3 mg/dL (2.7-4.5)
[2020-11-16 07:15] LABS: Calcium 8.8 mg/dL (8.6-10.3); Potassium 3.6 mEq/L (3.5-5.1)
[2020-11-16] MEDS: Aspirin 81 MG TAB.CHEW PO SCH (13:35)
[2020-11-16] MEDS: Isosorbide MONOnitrate (24 HR) 60 MG TAB.ER.24H PO SCH (13:35)
[2020-11-16] MEDS: Insulin DETEMIR 100 UNIT/ML X5UNITS SUBQ SCH ×2 (13:35→21:48)
[2020-11-16] MEDS: Cyanocobalamin (B-12) 1,000 MCG TABLET PO SCH (13:36)
[2020-11-16] MEDS: Ranolazine 500 MG TAB.ER.12H PO SCH ×2 (13:36→22:11)
[2020-11-16] MEDS: Metoprolol XL (24 HR) Succ 50 MG TAB.ER.24H PO SCH ×2 (13:36→21:47)
[2020-11-16] MEDS ORDERED: Lidocaine -MPF 2% 5 ML VIAL SQ ONE (16:29)
[2020-11-16] MEDS ORDERED: *HR* Propofol 500 MG/50 ML BOTTLE IVP ONE (16:29)
[2020-11-16] MEDS: Pantoprazole 40 MG VIAL IVP SCH (18:36)
[2020-11-17] MEDS: Insulin LISPRO 300 UNITS/3 ML VIAL SUBQ SCH ×4 (00:21→19:36)
[2020-11-17] MEDS: Isosorbide MONOnitrate (24 HR) 60 MG TAB.ER.24H PO SCH (08:32)
[2020-11-17] MEDS: Pantoprazole 40 MG VIAL IVP SCH (08:32)
[2020-11-17] MEDS: Acetaminophen 325 MG TABLET PO PRN ×2 (08:33→23:46)
[2020-11-17] MEDS: Metoprolol XL (24 HR) Succ 50 MG TAB.ER.24H PO SCH ×2 (08:34→19:38)
[2020-11-17] MEDS: Insulin DETEMIR 100 UNIT/ML X5UNITS SUBQ SCH ×2 (08:34→19:45)
[2020-11-17] MEDS: Aspirin 81 MG TAB.CHEW PO SCH (08:34)
[2020-11-17] MEDS: Ranolazine 500 MG TAB.ER.12H PO SCH ×2 (08:34→19:37)
[2020-11-17] MEDS: Cyanocobalamin (B-12) 1,000 MCG TABLET PO SCH (08:34)
[2020-11-17 08:42] LABS: Basophils % 0.5 %; Eosinophils # 0.3 K/mcL (0.0-0.6); Eosinophils % 4.1 %; Hematocrit 29.2 % (35.3-44.9); Hemoglobin 9.3 g/dL (11.5-15.4); Immature Granulocytes % 0.2 % (0-4); Lymphocytes # 2.7 K/mcL (0.6-4.6); Lymphocytes % 41.2 %; Mean Corpuscular HGB Conc 31.8 g/dL (31.6-35.5); Mean Corpuscular Volume 94.2 fL (83.0-100.0); Mean Platelet Volume 9.5 fL (9.4-12.4); Monocytes # 0.6 K/mcL (0.0-1.3); Monocytes % 8.9 %; Neutrophils # 2.9 K/mcL (1.6-8.9); Platelet Count 252 K/mcL (140-400); Red Cell Distribution Width 12.1 % (11.5-14.5); Segmented Neutrophils % 45.1 %; White Blood Count 6.5 K/mcL (4.3-11.1)
[2020-11-17 09:02] LABS: Potassium 3.4 mEq/L (3.5-5.1)
[2020-11-17] MEDS ORDERED: 0.9 % Sodium Chloride 1,000 ML IVC SCH (09:30)
[2020-11-17] MEDS ORDERED: *HR* FentaNYL (PF) 100 MCG/2 ML VIAL ONE (15:15)
[2020-11-17] MEDS ORDERED: *HR* Midazolam HCl 2 MG/2 ML VIAL ONE (15:15)
[2020-11-17] MEDS ORDERED: 0.9 % Sodium Chloride 1,000 ML ONE (15:15)
[2020-11-17] MEDS: SUMAtriptan succinate 50 MG TABLET PO PRN ×2 (19:38→23:46)
[2020-11-17] MEDS: 0.9 % Sodium Chloride 1,000 ML IVC SCH (19:39)
[2020-11-18 01:50] LABS: Calcium 8.8 mg/dL (8.6-10.3); Magnesium 1.4 mg/dL (1.6-2.6); Phosphorous 3.4 mg/dL (2.7-4.5); Potassium 3.2 mEq/L (3.5-5.1)
[2020-11-18] MEDS: 0.9 % Sodium Chloride 1,000 ML IVC SCH (02:30)
[2020-11-18] MEDS: Insulin LISPRO 300 UNITS/3 ML VIAL SUBQ SCH ×2 (07:04→12:23)
[2020-11-18] MEDS: Cyanocobalamin (B-12) 1,000 MCG TABLET PO SCH (07:40)
[2020-11-18] MEDS: Aspirin 81 MG TAB.CHEW PO SCH (07:40)
[2020-11-18] MEDS: Metoprolol XL (24 HR) Succ 50 MG TAB.ER.24H PO SCH (07:40)
[2020-11-18] MEDS: Pantoprazole 40 MG VIAL IVP SCH (07:40)
[2020-11-18] MEDS: Isosorbide MONOnitrate (24 HR) 60 MG TAB.ER.24H PO SCH (07:40)
[2020-11-18] MEDS: Ranolazine 500 MG TAB.ER.12H PO SCH (07:41)
[2020-11-18] MEDS: Insulin DETEMIR 100 UNIT/ML X5UNITS SUBQ SCH (07:43)
[2020-11-18 10:55] VITALS: BP 165/90
[2020-11-18] MEDS ORDERED: Insulin LISPRO 300 UNITS/3 ML VIAL SUBQ SCH (21:00)
== END 2020-11-18 16:30 | disposition home or self-care (01) | DRG 191 ==
LOC: EMEROOARM 23:18 → CDU 23:18 → SUATTDRO 11-14 02:57 → CDU 11-14 03:30 → 3BNU 11-14 14:52 → SUATTDRO 11-16 14:19
PROVIDERS: ADMIT Student in an Organized Health Care Education/Training Program; ATTEND Internal Medicine

== ENCOUNTER 2021-09-26 15:31 | Observation (INO) ==
[2021-09-26] MEDS ORDERED: Isovue-370 500 ML BOTTLE IVP ONE (16:22)
[2021-09-26 16:48] LABS: Basophils % 0.3 %; Eosinophils # 0.2 K/mcL (0.0-0.6); Hematocrit 28.7 % (35.3-44.9); Hemoglobin 9.7 g/dL (11.5-15.4); Immature Granulocytes % 0.2 % (0-4); Lymphocytes # 2.6 K/mcL (0.6-4.6); Lymphocytes % 44.6 %; Mean Corpuscular HGB Conc 33.8 g/dL (31.6-35.5); Mean Corpuscular Volume 91.7 fL (83.0-100.0); Mean Platelet Volume 9.1 fL (9.4-12.4); Monocytes # 0.5 K/mcL (0.0-1.3); Monocytes % 7.9 %; Neutrophils # 2.5 K/mcL (1.6-8.9); Platelet Count 228 K/mcL (140-400); Red Blood Count 3.13 M/mcL (3.82-4.97); Red Cell Distribution Width 12.4 % (11.5-14.5); White Blood Count 5.8 K/mcL (4.3-11.1)
[2021-09-26 16:57] LABS: INR 2.4; Prothrombin Time 26.6 Seconds (9.4-12.1)
[2021-09-26 17:00] LABS: Activated Partial Thrombo Time 43.3 Seconds (26.0-36.0)
[2021-09-26 17:25] LABS: Alanine Aminotransferase 12 Units/L (7-52); Albumin/Globulin Ratio 0.8 (1.1-2.2); Alkaline Phosphatase 70 Units/L (34-104); Aspartate Amino Transferase 17 Units/L (13-39); BUN/Creatinine Ratio 13 (6-26); Bilirubin,Indirect 0.3 mg/dL (0.0-1.0); Bilirubin,Total 0.3 mg/dL (0.3-1.0); Blood Urea Nitrogen 24 mg/dL (6-20); Calcium 9.2 mg/dL (8.6-10.3); Carbon Dioxide 29 mEq/L (23-29); Chloride 103 mEq/L (98-107); Globulin 3.8 g/dL (2.4-3.5); Glucose 188 mg/dL (70-105); Lipase 34 Units/L (11-82); Osmolality,Calculated 295 (280-300); Potassium 3.8 mEq/L (3.5-5.1); Sodium 138 mEq/L (136-145); Total Protein 6.8 g/dL (6.4-8.9); Troponin I < 0.03 ng/mL (< 0.04); eGFR For African Americans 33 (> 60); eGFR For Non-African Americans 27 (> 60)
[2021-09-26 18:11] LABS: Amphetamine Screen,Urine Negative ng/mL (Cutoff=1000); Barbiturate Screen,Urine Negative ng/mL (Cutoff=200); Benzodiazepines Screen,Urine Negative ng/mL (Cutoff=200); Cannabinoid Screen,Urine Positive ng/mL (Cutoff = 50); Cocaine Screen,Urine Negative ng/mL (Cutoff= 300); Opiate Screen,Urine Negative ng/mL (Cutoff=300); Phencyclidine Screen,Urine Negative ng/mL (Cutoff=25)
[2021-09-26] MEDS ORDERED: Nitroglycerin 0.4 MG TAB.SUBL SL PRN (18:34)
[2021-09-26] MEDS ORDERED: Aspirin 325 MG TABLET PO ONE (18:40)
[2021-09-26] MEDS ORDERED: Dextrose 4 GM Chewable Tablets PO PRN ×2 (23:31)
[2021-09-26] MEDS ORDERED: D5% in Water 1,000 ML IVC PRN (23:31)
[2021-09-26] MEDS ORDERED: *HR* Dextrose 50 % in Water (Syg) 50 ML SYRINGE IVP PRN (23:31)
[2021-09-26] MEDS ORDERED: Perflutren Lipid Microsphere 1.3 ML in 0.9 % Sodium Chloride 8.7 ML IVP PRN (23:32)
[2021-09-26] MEDS ORDERED: Morphine Sulfate 2 MG/ML SYRINGE IVP PRN (23:33)
[2021-09-26] MEDS ORDERED: Fluticasone Propionate Nasal 50 MCG/SPRAY BOTTLE NS PRN (23:35)
[2021-09-26] MEDS ORDERED: Loratadine 10 MG TABLET PO PRN (23:35)
[2021-09-26] MEDS ORDERED: Acetaminophen 325 MG TABLET PO PRN (23:58)
[2021-09-26] MEDS ORDERED: Naloxone 0.4 MG/ML INJ IVP PRN (23:58)
[2021-09-26] MEDS ORDERED: Ondansetron 4 MG/2 ML VIAL IVP PRN (23:58)
[2021-09-27] MEDS: Ranolazine 500 MG TAB.ER.12H PO SCH ×2 (00:16→09:36)
[2021-09-27] MEDS: Insulin LISPRO 300 UNITS/3 ML VIAL SUBQ SCH ×3 (00:33→11:04)
[2021-09-27 00:41] LABS: Hematocrit 27.6 % (35.3-44.9); Hemoglobin 9.2 g/dL (11.5-15.4); Mean Corpuscular HGB Conc 33.3 g/dL (31.6-35.5); Mean Corpuscular Hemoglobin 29.9 pg (28.0-33.3); Mean Corpuscular Volume 89.6 fL (83.0-100.0); Mean Platelet Volume 9.5 fL (9.4-12.4); Platelet Count 215 K/mcL (140-400); Red Blood Count 3.08 M/mcL (3.82-4.97); Red Cell Distribution Width 12.4 % (11.5-14.5); White Blood Count 6.9 K/mcL (4.3-11.1)
[2021-09-27 00:52] LABS: Calcium 8.7 mg/dL (8.6-10.3); Magnesium 1.3 mg/dL (1.6-2.6); Potassium 3.7 mEq/L (3.5-5.1)
[2021-09-27 00:57] LABS: Estimated Average Glucose 212 mg/dl
[2021-09-27 01:05] LABS: Thyroid Stimulating Hormone 3.063 mcIU/mL (0.340-5.600)
[2021-09-27 01:20] LABS: Folate 13.9 ng/mL (3.0-16.0)
[2021-09-27] MEDS ORDERED: Magnesium Sulfate 1 GM/102 ML PIGGYBACK IVPB ONE (03:06)
[2021-09-27] MEDS ORDERED: Regadenoson 0.4 MG/5 ML SYRINGE IVP ONE (06:22)
[2021-09-27] MEDS ORDERED: Aspirin Enteric Coated 81 MG Tablet PO SCH (09:00)
[2021-09-27] MEDS ORDERED: Multivit/Ca/Min/Fe/FA 1 TAB TABLET PO SCH (09:00)
[2021-09-27] MEDS ORDERED: Isosorbide MONOnitrate (24 HR) 60 MG TAB.ER.24H PO SCH (09:00)
[2021-09-27] MEDS ORDERED: Losartan/HCTZ 50-12.5 TABLET PO SCH (09:00)
[2021-09-27 10:40] VITALS: BP 111/62; PULSE 86; TEMP 97.7; O2SAT 96
[2021-09-27] MEDS ORDERED: Metoprolol XL (24 HR) Succ 50 MG TAB.ER.24H PO SCH (12:37)
== END 2021-09-27 15:27 | disposition home or self-care (01) ==
LOC: EMEROOARM 15:31 → 3BNU 15:31
PROVIDERS: ADMIT Internal Medicine; ATTEND Internal Medicine

== ENCOUNTER 2022-01-06 01:14 | Observation (INO) ==
[2022-01-06] MEDS ORDERED: 0.9 % Sodium Chloride 1,000 ML IVC ONE (02:07)
[2022-01-06] MEDS ORDERED: Iopamidol - 370 500 ML MLS IVP ONE (02:08)
[2022-01-06 03:09] LABS: Basophils % 0.3 %; Eosinophils # 0.2 K/mcL (0.0-0.6); Hematocrit 24.4 % (35.3-44.9); Immature Granulocytes % 0.2 % (0-4); Lymphocytes # 2.3 K/mcL (0.6-4.6); Lymphocytes % 38.5 %; Mean Corpuscular HGB Conc 33.2 g/dL (31.6-35.5); Mean Corpuscular Hemoglobin 30.5 pg (28.0-33.3); Mean Corpuscular Volume 91.7 fL (83.0-100.0); Mean Platelet Volume 9.7 fL (9.4-12.4); Monocytes # 0.5 K/mcL (0.0-1.3); Monocytes % 8.7 %; Platelet Count 233 K/mcL (140-400); Red Blood Count 2.66 M/mcL (3.82-4.97); Segmented Neutrophils % 49.3 %
[2022-01-06 03:10] LABS: Hemoglobin 8.1 g/dL (11.5-15.4)
[2022-01-06 03:21] LABS: INR 2.8
[2022-01-06 03:29] LABS: Alanine Aminotransferase 10 Units/L (7-52); Albumin 3.1 g/dL (3.5-5.7); Alkaline Phosphatase 62 Units/L (34-104); Aspartate Amino Transferase 13 Units/L (13-39); BUN/Creatinine Ratio 13 (6-26); Bilirubin,Total 0.4 mg/dL (0.3-1.0); Blood Urea Nitrogen 32 mg/dL (6-20); Calcium 8.4 mg/dL (8.6-10.3); Carbon Dioxide 27 mEq/L (23-29); Chloride 104 mEq/L (98-107); Globulin 3.2 g/dL (2.4-3.5); Glucose 159 mg/dL (70-105); Osmolality,Calculated 290 (280-300); Potassium 4.3 mEq/L (3.5-5.1); Sodium 135 mEq/L (136-145); Total Protein 6.3 g/dL (6.4-8.9); Troponin I < 0.03 ng/mL (< 0.04); eGFR For African Americans 24 (> 60); eGFR For Non-African Americans 20 (> 60)
[2022-01-06 03:52] LABS: Influenza A PCR Negative (Negative); Influenza B PCR Negative (Negative); Resp. Syncytial Virus PCR Negative (Negative)
[2022-01-06 03:55] LABS: SARS-CoV-2 by PCR (In House) Negative (Negative)
[2022-01-06] MEDS ORDERED: Acetaminophen 325 MG TABLET PO ONE (07:37)
[2022-01-06] MEDS ORDERED: Aspirin 81 MG TAB.CHEW PO ONE (07:57)
[2022-01-06] MEDS ORDERED: Naloxone 0.4 MG/ML INJ IVP PRN (07:58)
[2022-01-06] MEDS ORDERED: Ondansetron 4 MG/2 ML VIAL IVP PRN (07:58)
[2022-01-06] MEDS ORDERED: D5% in Water 1,000 ML IVC PRN (08:19)
[2022-01-06] MEDS ORDERED: *HR* Dextrose 50 % in Water (Syg) 50 ML SYRINGE IVP PRN (08:19)
[2022-01-06] MEDS ORDERED: Dextrose Gel 15 GM/37.5 ML TUBE PO PRN ×2 (08:19)
[2022-01-06] MEDS ORDERED: Aspirin Enteric Coated 325 MG Tablet PO SCH (09:00)
[2022-01-06] MEDS ORDERED: SUMAtriptan succinate 50 MG TABLET PO PRN (09:15)
[2022-01-06] MEDS ORDERED: Azithromycin 500 MG in 0.9 % Sodium Chloride 250 ML IVPB SCH (10:25)
[2022-01-06] MEDS: Insulin LISPRO 300 UNITS/3 ML VIAL SUBQ SCH ×2 (12:57→17:21)
[2022-01-06] MEDS ORDERED: Fluticasone Propionate Nasal 50 MCG/SPRAY BOTTLE NS PRN (14:29)
[2022-01-06] MEDS ORDERED: Loratadine 10 MG TABLET PO PRN (14:29)
[2022-01-06] MEDS ORDERED: *HR* Rivaroxaban 10 MG TABLET PO SCH (17:00)
[2022-01-06] MEDS: Ranolazine 500 MG TAB.ER.12H PO SCH (20:02)
[2022-01-06] MEDS: Metoprolol XL (24 HR) Succ 50 MG TAB.ER.24H PO SCH (20:02)
[2022-01-06] MEDS ORDERED: Insulin LISPRO 300 UNITS/3 ML VIAL SUBQ SCH (21:00)
[2022-01-06] MEDS ORDERED: Insulin DETEMIR 100 UNIT/ML X5UNITS SUBQ SCH (21:00)
[2022-01-07 03:14] LABS: Basophils % 0.5 %; Eosinophils # 0.2 K/mcL (0.0-0.6); Eosinophils % 2.6 %; Hematocrit 27.2 % (35.3-44.9); Immature Granulocytes % 0.2 % (0-4); Mean Corpuscular HGB Conc 33.1 g/dL (31.6-35.5); Mean Corpuscular Hemoglobin 30.3 pg (28.0-33.3); Mean Corpuscular Volume 91.6 fL (83.0-100.0); Mean Platelet Volume 9.5 fL (9.4-12.4); Monocytes # 0.5 K/mcL (0.0-1.3); Neutrophils # 2.9 K/mcL (1.6-8.9); Platelet Count 260 K/mcL (140-400); Red Blood Count 2.97 M/mcL (3.82-4.97); Red Cell Distribution Width 12.3 % (11.5-14.5); Segmented Neutrophils % 43.7 %; White Blood Count 6.6 K/mcL (4.3-11.1)
[2022-01-07 03:21] LABS: Estimated Average Glucose 212 mg/dl
[2022-01-07 03:23] LABS: INR 2.3; Prothrombin Time 25.4 Seconds (9.4-12.1)
[2022-01-07 03:38] LABS: Alanine Aminotransferase 9 Units/L (7-52); Albumin 3.3 g/dL (3.5-5.7); Albumin/Globulin Ratio 0.9 (1.1-2.2); Alkaline Phosphatase 64 Units/L (34-104); Aspartate Amino Transferase 13 Units/L (13-39); BUN/Creatinine Ratio 13 (6-26); Bilirubin,Total 0.3 mg/dL (0.3-1.0); Blood Urea Nitrogen 32 mg/dL (6-20); Carbon Dioxide 26 mEq/L (23-29); Chloride 101 mEq/L (98-107); Chol/HDL Ratio 5.6 (0-4.9); Cholesterol 245 mg/dL (< 200); Globulin 3.5 g/dL (2.4-3.5); Glucose 172 mg/dL (70-105); HDL Cholesterol 44 mg/dL (40-59); LDL Cholesterol,Calculated 157 mg/dL (< 100); Osmolality,Calculated 291 (280-300); Potassium 3.8 mEq/L (3.5-5.1); Sodium 135 mEq/L (136-145); Total Protein 6.8 g/dL (6.4-8.9); Triglycerides 222 mg/dL (< 150); Troponin I < 0.03 ng/mL (< 0.04); eGFR For African Americans 24 (> 60); eGFR For Non-African Americans 20 (> 60)
[2022-01-07 06:44] VITALS: BP 133/78; PULSE 63; TEMP 97.9; O2SAT 97
[2022-01-07] MEDS ORDERED: Multivit/Ca/Min/Fe/FA 1 TAB TABLET PO SCH (09:00)
[2022-01-07] MEDS ORDERED: Aspirin Enteric Coated 81 MG Tablet PO SCH (09:00)
[2022-01-07] MEDS ORDERED: Cholecalciferol (D-3) 1,000 UNIT (25MCG) TABLET PO SCH (09:00)
[2022-01-07] MEDS ORDERED: Isosorbide MONOnitrate (24 HR) 60 MG TAB.ER.24H PO SCH (09:00)
[2022-01-07] MEDS: Ranolazine 500 MG TAB.ER.12H PO SCH (09:04)
[2022-01-07] MEDS: Metoprolol XL (24 HR) Succ 50 MG TAB.ER.24H PO SCH (09:04)
[2022-01-07] MEDS: Insulin LISPRO 300 UNITS/3 ML VIAL SUBQ SCH (09:05)
== END 2022-01-07 11:09 | disposition home or self-care (01) ==
LOC: 3BNU 01:14 → EMEROOARM 01:14 → SUATTDRO 08:07 → 3BNU 09:12
PROVIDERS: ADMIT Family Medicine; ATTEND Internal Medicine